=== PATIENT | male | born 1945 | race Caucasian/White ===

== ENCOUNTER → 2016-08-26 | Outpatient (CLI) | payer MEDICARE, OTHER ==
--- NOTE | 2016-08-26 15:25 | RADIOLOGY REPORT (SQ) ---
EXAM DESCRIPTION: CT PELVIS WITHOUT COMPLETED DATE/TIME: 08/26/2016 2:55 pm REASON FOR STUDY: FRACTURE OF COCCYX M53.88 OTH DORSOPATHIES, SACRAL AND SACROCOCCYGEAL REGION S32. 9XXA FRACTURE OF UNSP PARTS OF LUMBOSACRAL SPINE AND PEL COMPARISON: None. TECHNIQUE: CT scan of the pelvis performed without intravenous or oral contrast. Images reviewed wi th soft tissue and bone windows. Reconstructed coronal and sagittal MPR images reviewed. All images stored on PACS. Additional 3D shaded surface display images of the pelvis were generated on the workstation and saved to PACS All CT scanners at this facility use dose modulation, iterative reconstruction, and/or weight based d osing when appropriate to reduce radiation dose to as low as reasonably achievable (ALARA). [facility]: Dose Right [facility]: CareDose [facility]: Dose Right [facility]: Teradose 4D [facility]: [employer] RADIATION DOSE: 7.4 mGy. LIMITATIONS: None. FINDINGS: Overall normal bone density. No lytic or blastic lesions. There is a transverse fracture through the sacrum at the S5 level, extending into the sacrococcygeal joint. This is non angulated and best shown on sagittal images 39-44, coronal image 45, and axial im ages 62-64. Remainder of the bony pelvis is intact. No other fractures are identified There are degenerative disc changes at L3-4, L4-5, and L5-S1 with mild posterior disc bulging and mil d bilateral facet hypertrophy Soft tissue windows demonstrate a subtotal colectomy, old right lower quadrant ostomy takedown site, small bowel to distal sigmoid colon anastomotic laura, and old right inguinal hernia repair and a f atty left inguinal hernia IMPRESSION: Acute nondisplaced nonangulated transverse fracture through the sacrum at the S5 level TECHNICAL DOCUMENTATION: JOB ID: [id number] Quality ID # [id number]: Final reports with documentation of one or more dose reduction techniques (e.g., Au tomated exposure control, adjustment of the mA and/or kV according to patient size, use of iterative reconstruction technique) 2010 [employer]- All Rights Reserved
== END ==
LOC: RAD 14:35
PROVIDERS: ATTEND Family Medicine
DX: S32.9XXA Fracture of unspecified parts of lumbosacral spine and pelvis, initial encounter for closed fracture (principal); X58.XXXA Exposure to other specified factors, initial encounter; Y93.9 Activity, unspecified; Y92.9 Unspecified place or not applicable
CPT/HCPCS: 72192

== ENCOUNTER → 2016-09-05 | Outpatient (CLI) | payer MEDICARE, BC, OTHER ==
--- NOTE | 2016-09-05 12:43 | RADIOLOGY REPORT (SQ) ---
EXAM DESCRIPTION: KUB/ABDOMEN (SINGLE VIEW) COMPLETED DATE/TIME: 09/05/2016 11:07 am REASON FOR STUDY: LLQ PAIN (R10.32), CONSTIPATION-SLOW TRANSIT (K59.01) R10.32 LEFT LOWER QUADRANT PAIN K59.01 SLOW TRANSIT CONSTIPATION COMPARISON: None. NUMBER OF VIEWS: One view. TECHNIQUE: Supine radiographic image of the abdomen acquired. LIMITATIONS: None. FINDINGS: BOWEL GAS PATTERN: Normal bowel gas pattern. No dilated loops. CALCIFICATIONS: No suspicious calcifications. SOFT TISSUES: No gross mass or suggestion of organomegaly. HARDWARE: None in the abdomen. BONES: No acute fracture. No worrisome bone lesions. OTHER: No other significant finding. IMPRESSION: Nonspecific abdomen. TECHNICAL DOCUMENTATION: JOB ID: [id number] [employer]- All Rights Reserved
== END ==
LOC: RAD 10:53
PROVIDERS: ATTEND Physician Assistant Surgical
DX: R10.32 Left lower quadrant pain (principal); K59.01 Slow transit constipation
CPT/HCPCS: 74000

== ENCOUNTER 2016-11-29 11:16 | Emergency (ER) | payer MEDICARE, BC, OTHER ==
[2016-11-29 11:29] VITALS: BP 167/87
[2016-11-29] MEDS ORDERED: OXYCODONE-ACETAMINOPHEN 5-325 MG TABLET PO ONE (11:30)
--- NOTE | 2016-11-29 11:40 | ER Document Report ---
ED General - General Chief Complaint: Fall Stated Complaint: FELL SHOULDER PAIN Time Seen by Provider: 11/29/16 11:27 Mode of Arrival: Ambulatory Information source: Patient Notes: 71-year-old male presents with complaints of right shoulder pain. Patient notes he was gardening was pulling fell backwards and landed on his right shoulder. Patient has difficulty moving his shoulder TRAVEL OUTSIDE OF THE [place] IN LAST 30 DAYS: No - HPI Onset: Yesterday Onset/Duration: Sudden Quality of pain: Achy Severity: Mild Pain Level: 2 Associated symptoms: Body/muscle aches Exacerbated by: Movement Relieved by: Denies Similar symptoms previously: No Recently seen / treated by doctor: No - Related Data Allergies/Adverse Reactions: No Known Allergies Allergy (Verified 11/29/16 11:28) Past Medical History - Social History Smoking Status: Former Smoker Cigarette use (# per day): No Chew tobacco use (# tins/day): No Smoking Education Provided: No Frequency of alcohol use: None Drug Abuse: None Family History: Reviewed & Not Pertinent - Past Medical History Cardiac Medical History: Reports: Hx Hypertension Denies: Hx Coronary Artery Disease, Hx Heart Attack Pulmonary Medical History: Denies: Hx Asthma, Hx Bronchitis, Hx COPD, Hx Pneumonia Neurological Medical History: Denies: Hx Cerebrovascular Accident, Hx Seizures Endocrine Medical History: Reports: Hx Diabetes Mellitus Type 1 Renal/ Medical History: Denies: Hx Peritoneal Dialysis GI Medical History: Denies: Hx Hepatitis, Hx Hiatal Hernia, Hx Ulcer Musculoskeltal Medical History: Denies Hx Arthritis Psychiatric Medical History: Reports: Hx Anxiety Infectious Medical History: Denies: Hx Hepatitis Past Surgical History: Reports: Hx Abdominal Surgery - Colostomy and reversal., 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 Denies: Hx Open Heart Surgery, Hx Pacemaker - Immunizations Hx Diphtheria, Pertussis, Tetanus Vaccination: Yes Review of Systems - Review of Systems Notes: REVIEW OF SYSTEMS: CONSTITUTIONAL : Denies fever, chills, or sweats. Denies recent illness. EENT: Denies eye, ear, throat, or mouth pain or symptoms. Denies nasal or sinus congestion or discharge. Denies throat, tongue, or mouth swelling or difficulty swallowing. CARDIOVASCULAR: Denies chest pain. Denies palpitations or racing or irregular heart beat. Denies ankle edema. RESPIRATORY: Denies cough, cold, or chest congestion. Denies shortness of breath, difficulty breathing, or wheezing. GASTROINTESTINAL: Denies abdominal pain or distention. Denies nausea, vomiting , or diarrhea. Denies blood in vomitus, stools, or per rectum. Denies black, tarry stools. Denies constipation. GENITOURINARY: Denies difficulty urinating, painful urination, burning, frequency, blood in urine, or discharge. FEMALE GENITOURINARY: Denies vaginal bleeding, heavy or abnormal periods, irregular periods. Denies vaginal discharge or odor. MUSCULOSKELETAL: admits to right shoulder pain SKIN: Denies rash, lesions or sores. HEMATOLOGIC : Denies easy bruising or bleeding. LYMPHATIC: Denies swollen, enlarged glands. NEUROLOGICAL: Denies confusion or altered mental status. Denies passing out or loss of consciousness. Denies dizziness or lightheadedness. Denies headache. Denies weakness or paralysis or loss of use of either side. Denies problems with gait or speech. Denies sensory loss, numbness, or tingling. Denies seizures. PSYCHIATRIC: Denies anxiety or stress. Denies depression, suicidal ideation, or homicidal ideation. ALL OTHER SYSTEMS REVIEWED AND NEGATIVE. PHYSICAL EXAMINATION: GENERAL: Well-appearing, well-nourished and in no acute distress. HEAD: Atraumatic, normocephalic. EYES: Pupils equal round and reactive to light, extraocular movements intact, conjunctiva are normal. ENT: Nares patent, oropharynx clear without exudates. Moist mucous membranes. NECK: Normal range of motion, supple without lymphadenopathy LUNGS: Breath sounds clear to auscultation bilaterally and equal. No wheezes rales or rhonchi. HEART: Regular rate and rhythm without murmurs ABDOMEN: Soft, nontender, nondistended abdomen. No guarding, no rebound. No masses appreciated. Female : deferred Musculoskeletal: limited rom of the right shoulder NEUROLOGICAL: Cranial nerves grossly intact. Normal speech, normal gait. Normal sensory, motor exams PSYCH: Normal mood, normal affect. SKIN: abrasion of the right shoulder Dictation was performed using [employer] voice recognition software Physical Exam - Vital signs Vitals: Temp Pulse Resp BP Pulse Ox 98.7 F 107 H 18 167/87 H 98 11/29/16 11:28 11/29/16 11:28 11/29/16 11:28 11/29/16 11:28 11/29/16 11:28 Course - Re-evaluation Re-evalutation: 11/29/16 12:45 X-ray noted no acute fracture, patient will be placed in the sling for comfort and will be given follow-up with Ortho in 1 week if symptoms worsen After performing a Medical Screening Examination, I estimate there is LOW risk for INTRACRANIAL HEMORRHAGE, UNSTABLE SPINE FRACTURE, CENTRAL CORD SYNDROME, CAUDA EQUINA, THORACIC AORTIC DISSECTION, PNEUMOTHORAX, PERFORATED BOWEL, RUPTURED ABDOMINAL AORTIC ANEURYSM, ACUTE TENDON RUPTURE, COMPARTMENT SYNDROME, or OPEN FRACTURE, thus I consider the discharge disposition reasonable. Also, there is no evidence or peritonitis, sepsis, or toxicity. I have reevaluated this patient multiple times and no significant life threatening changes are noted. The patient and I have discussed the diagnosis and risks, and we agree with discharging home to follow-up with their primary doctor with the understanding that symptoms and presentations can change. We also discussed returning to the Emergency Department immediately if new or worsening symptoms occur. We have discussed the symptoms which are most concerning (e.g., bloody stool, fever, changing or worsening pain, vomiting) that necessitate immediate return. - Vital Signs Vital signs: Temp Pulse Resp BP Pulse Ox 98.7 F 107 H 18 167/87 H 98 11/29/16 11:28 11/29/16 11:28 11/29/16 11:28 11/29/16 11:28 11/29/16 11:28 - Diagnostic Test Radiology reviewed: Image reviewed, Reports reviewed - no acute fracture Discharge - Discharge Clinical Impression: Abrasion Right shoulder injury Qualifiers: Encounter type: initial encounter Qualified Code(s): S49.91XA - Unspecified injury of right shoulder and upper arm, initial encounter Condition: Stable Disposition: HOME, SELF-CARE Instructions: Contusion ([facility]) Prescriptions: Oxycodone HCl/Acetaminophen [Percocet 5-325 mg Tablet] 1 - 2 tab PO Q4H PRN #15 tablet PRN Reason: Referrals: SEN HAMM MD [ACTIVE STAFF] - Follow up in 3-5 days
--- NOTE | 2016-11-29 12:22 | RADIOLOGY REPORT (SQ) ---
EXAM DESCRIPTION: SHOULDER RIGHT 2 OR MORE VIEWS COMPLETED DATE/TIME: 11/29/2016 11:47 am REASON FOR STUDY: fall COMPARISON: None. NUMBER OF VIEWS: Three views. TECHNIQUE: Internal rotation, external rotation, and Y view images acquired of the right shoulder. LIMITATIONS: None. FINDINGS: MINERALIZATION: Bones are osteopenic BONES: No acute fracture or dislocation. No worrisome bone lesions. JOINTS: No glenohumeral joint malalignment. No acromioclavicular joint widening. There is AC joint arthropathy with bony spurring, and narrowing of the subacromial recess with subcortical cyst formati on over the right humeral head greater tuberosity likely indicating underlying rotator cuff disease. VISUALIZED LUNGS AND RIBS: No pneumothorax. No rib fracture. SOFT TISSUES: No radiopaque foreign body. OTHER: No other significant finding. IMPRESSION: No acute changes TECHNICAL DOCUMENTATION: JOB ID: [id number] [employer]- All Rights Reserved
== END 2016-11-29 12:54 | disposition home or self-care (01) ==
LOC: ER 11:16
DX: S40.811A Abrasion of right upper arm, initial encounter (principal); S49.91XA Unspecified injury of right shoulder and upper arm, initial encounter; M25.511 Pain in right shoulder; W19.XXXA Unspecified fall, initial encounter; Z87.891 Personal history of nicotine dependence
CPT/HCPCS: 99283; 73030; A9270

== ENCOUNTER → 2016-12-15 | Outpatient (CLI) | payer MEDICARE, BC ==
--- NOTE | 2016-12-15 10:26 | RADIOLOGY REPORT (SQ) ---
EXAM DESCRIPTION: CT ABD/PELVIS WITH IV ORAL COMPLETED DATE/TIME: 12/15/2016 8:57 am REASON FOR STUDY: PERIUMBILICAL PAIN (R10.33), CONSTIPATION (K59.00) R10.33 PERIUMBILICAL PAIN K59. 00 CONSTIPATION, UNSPECIFIED COMPARISON: CT abdomen pelvis 04/13/2012, 05/18/2014, 01/09/2015 TECHNIQUE: CT scan of the abdomen and pelvis performed using helical scanning technique with dynamic intravenous contrast injection. No oral contrast. Images reviewed with lung, soft tissue, and bone windows. Reconstructed coronal and sagittal MPR images reviewed. Delayed images for evaluation of the urinary system also acquired. All images stored on PACS. All CT scanners at this facility use dose modulation, iterative reconstruction, and/or weight based d osing when appropriate to reduce radiation dose to as low as reasonably achievable (ALARA). [facility]: Dose Right [facility]: CareDose [facility]: Dose Right [facility]: Teradose 4D [facility]: [employer] CONTRAST TYPE AND DOSE: contrast/concentration: Isovue 370.00 mg/ml; Total Contrast Delivered: 82.0 ml; Total Saline Delivered: 68.0 ml RENAL FUNCTION: Creatinine 1.3 RADIATION DOSE: Up-to-date CT equipment and radiation dose reduction techniques were employed. CTDIv ol: 7.2 - 8.4 mGy. DLP: 840 mGy-cm.. LIMITATIONS: None. FINDINGS: Patient is post subtotal colectomy with colostomy takedown and reanastomosis. There is or al contrast in the small bowel and residual sigmoid colon, without evidence of bowel obstruction. No air-fluid levels in small bowel. No stomal hernia or umbilical hernia. LOWER CHEST: No significant findings. No nodules or infiltrates. LIVER: Normal size. No masses. No dilated ducts. Diffuse low attenuation from fatty infiltration SPLEEN: Normal size. No focal lesions. PANCREAS: No masses. No significant calcifications. No adjacent inflammation or peripancreatic fluid collections. Pancreatic duct not dilated. GALLBLADDER: No identified stones by CT criteria. No inflammatory changes to suggest cholecystitis. ADRENAL GLANDS: No significant masses or asymmetry. RIGHT KIDNEY AND URETER: No solid masses. No significant calcifications. No hydronephrosis or hyd roureter. LEFT KIDNEY AND URETER: No solid masses. No significant calcifications. No hydronephrosis or hydr oureter. AORTA AND VESSELS: No aneurysm. No dissection. Renal arteries, SMA, celiac without stenosis. RETROPERITONEUM: No retroperitoneal adenopathy, hemorrhage or masses. BOWEL AND PERITONEAL CAVITY: As above APPENDIX: Surgically absent PELVIS: No mass. No free fluid. Normal bladder. ABDOMINAL WALL: Repaired right inguinal hernia, fat containing left inguinal hernia best shown on cor onal image 33 through 40. BONES: No significant or acute findings. OTHER: No other significant finding. IMPRESSION: No CT findings to explain history of periumbilical pain. No bowel obstruction. No umbi lical hernia. Post subtotal colectomy. TECHNICAL DOCUMENTATION: JOB ID: [id number] Quality ID # [id number]: Final reports with documentation of one or more dose reduction techniques (e.g., Au tomated exposure control, adjustment of the mA and/or kV according to patient size, use of iterative reconstruction technique) 2010 [employer]- All Rights Reserved
== END ==
LOC: RAD 07:54
PROVIDERS: ATTEND Surgery
DX: K59.00 Constipation, unspecified (principal); R10.33 Periumbilical pain
CPT/HCPCS: 74177; 82565

== ENCOUNTER → 2017-05-14 | Outpatient (CLI) | payer MEDICARE, BC ==
[2017-05-14 13:12] LABS: ABSOLUTE EOSINOPHILS # (AUTO) 0.1 10^3/uL (0.0-0.6); ABSOLUTE LYMPHOCYTES (AUTO) 0.9 10^3/uL (0.5-4.7); ABSOLUTE MONOCYTES (AUTO) 0.5 10^3/uL (0.1-1.4); ABSOLUTE NEUT (AUTO) 5.6 10^3/uL (1.7-8.2); BASOPHILS % (AUTO) 0.5 % (0-2); EOSINOPHILS % (AUTO) 1.8 % (0-6); HEMATOCRIT 31.1 % (37.9-51.0); HEMOGLOBIN 10.6 g/dL (13.5-17.0); LYMPHOCYTES % (AUTO) 12.3 % (13-45); MEAN CORPUSCULAR HEMOGLOBIN 31.3 pg (27.0-33.4); MEAN CORPUSCULAR VOLUME 92 fl (80-97); MONOCYTES % (AUTO) 6.6 % (3-13); PLATELET COUNT 453 10^3/uL (150-450); RED BLOOD COUNT 3.38 10^6/uL (4.35-5.55); RED CELL DISTRIBUTION WIDTH 12.2 % (11.5-14.0); SEGMENTED NEUTROPHILS % (AUTO) 78.8 % (42-78); TOTAL CELLS COUNTED % (AUTO) 100 %; WHITE BLOOD COUNT 7.1 10^3/uL (4.0-10.5)
[2017-05-14 13:34] LABS: ALANINE AMINOTRANSFERASE 35 U/L (21-72); ALBUMIN 4.2 g/dL (3.5-5.0); ALKALINE PHOSPHATASE 159 U/L (38-126); ANION GAP 15 (5-19); ASPARTATE AMINO TRANSFERASE 16 U/L (17-59); BILIRUBIN,DIRECT 0.4 mg/dL (0.0-0.4); BILIRUBIN,TOTAL 0.8 mg/dL (0.2-1.3); BLOOD UREA NITROGEN 21 mg/dL (7-20); CALCIUM 9.9 mg/dL (8.4-10.2); CARBON DIOXIDE 24 mmol/L (22-30); CHLORIDE 97 mmol/L (98-107); POTASSIUM 5.1 mmol/L (3.6-5.0); SODIUM 135.5 mmol/L (137-145); TOTAL PROTEIN 6.9 g/dL (6.3-8.2)
[2017-05-14 13:54] LABS: GLUCOSE 578 mg/dL (75-110)
== END ==
LOC: LAB 12:53
PROVIDERS: ATTEND Surgery
DX: R11.2 Nausea with vomiting, unspecified (principal)
CPT/HCPCS: 36415; 80048; 80076; 85025

== ENCOUNTER 2017-05-28 13:47 | Inpatient (IN) | payer MEDICARE, BC, OTHER ==
--- NOTE | 2017-05-28 14:30 | ER Document Report ---
ED General - General Chief Complaint: Abdominal Pain Stated Complaint: ABDOMINAL PAIN Time Seen by Provider: 05/28/17 14:20 Mode of Arrival: Ambulatory Information source: Patient Notes: 72-year-old male presents with complaints of generalized abdominal pain, patient notes pain has been going on for weeks, he was seen by his primary care physician head CT outpatient performed which noted concerns for cholecystitis patient admits to intermittent nausea TRAVEL OUTSIDE OF THE [place] IN LAST 30 DAYS: No - HPI Onset: Other Onset/Duration: Intermittent, Persistent Quality of pain: Achy Severity: Mild Pain Level: 1 Associated symptoms: Nausea, Vomiting Exacerbated by: Denies Relieved by: Denies Similar symptoms previously: Yes Recently seen / treated by doctor: Yes - Related Data Allergies/Adverse Reactions: No Known Allergies Allergy (Verified 11/29/16 11:28) Past Medical History - Social History Smoking Status: Never Smoker Cigarette use (# per day): No Chew tobacco use (# tins/day): No Smoking Education Provided: No Frequency of alcohol use: None Drug Abuse: None Family History: Reviewed & Not Pertinent Patient has suicidal ideation: No Patient has homicidal ideation: No - Past Medical History Cardiac Medical History: Reports: Hx Hypertension Denies: Hx Coronary Artery Disease, Hx Heart Attack Pulmonary Medical History: Denies: Hx Asthma, Hx Bronchitis, Hx COPD, Hx Pneumonia Neurological Medical History: Denies: Hx Cerebrovascular Accident, Hx Seizures Endocrine Medical History: Reports: Hx Diabetes Mellitus Type 1 Renal/ Medical History: Denies: Hx Peritoneal Dialysis GI Medical History: Denies: Hx Hepatitis, Hx Hiatal Hernia, Hx Ulcer Musculoskeltal Medical History: Denies Hx Arthritis Psychiatric Medical History: Reports: Hx Anxiety Infectious Medical History: Denies: Hx Hepatitis Past Surgical History: Reports: Hx Abdominal Surgery - Colostomy and reversal., 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 Denies: Hx Open Heart Surgery, Hx Pacemaker - Immunizations Hx Diphtheria, Pertussis, Tetanus Vaccination: Yes Review of Systems - Review of Systems Notes: REVIEW OF SYSTEMS: CONSTITUTIONAL : Denies fever, chills, or sweats. Denies recent illness. EENT: Denies eye, ear, throat, or mouth pain or symptoms. Denies nasal or sinus congestion or discharge. Denies throat, tongue, or mouth swelling or difficulty swallowing. CARDIOVASCULAR: Denies chest pain. Denies palpitations or racing or irregular heart beat. Denies ankle edema. RESPIRATORY: Denies cough, cold, or chest congestion. Denies shortness of breath, difficulty breathing, or wheezing. GASTROINTESTINAL: Admits to generalized abdominal pain admits to nausea vomiting GENITOURINARY: Denies difficulty urinating, painful urination, burning, frequency, blood in urine, or discharge. MUSCULOSKELETAL: Denies back or neck pain or stiffness. Denies joint pain or swelling. SKIN: Denies rash, lesions or sores. HEMATOLOGIC : Denies easy bruising or bleeding. LYMPHATIC: Denies swollen, enlarged glands. NEUROLOGICAL: Denies confusion or altered mental status. Denies passing out or loss of consciousness. Denies dizziness or lightheadedness. Denies headache. Denies weakness or paralysis or loss of use of either side. Denies problems with gait or speech. Denies sensory loss, numbness, or tingling. Denies seizures. PSYCHIATRIC: Denies anxiety or stress. Denies depression, suicidal ideation, or homicidal ideation. ALL OTHER SYSTEMS REVIEWED AND NEGATIVE. Dictation was performed using [employer] voice recognition software PHYSICAL EXAMINATION: GENERAL: Well-appearing, well-nourished and in no acute distress. HEAD: Atraumatic, normocephalic. EYES: Pupils equal round and reactive to light, extraocular movements intact, sclera anicteric, conjunctiva are normal. ENT: Nares patent, oropharynx clear without exudates. Moist mucous membranes. NECK: Normal range of motion, supple without lymphadenopathy LUNGS: Breath sounds clear to auscultation bilaterally and equal. No wheezes rales or rhonchi. HEART: Regular rate and rhythm without murmurs ABDOMEN: Soft, generalized abdominal pain worse in the left upper quadrant, significant surgical incisions Musculoskeletal: Normal range of motion, no pitting or edema. No cyanosis. NEUROLOGICAL: Cranial nerves grossly intact. Normal speech, normal gait. Normal sensory, motor exams PSYCH: Normal mood, normal affect. SKIN: Warm, Dry, normal turgor, no rashes or lesions noted. Physical Exam - Vital signs Vitals: Temp Pulse BP Pulse Ox 98.4 F 114 H 136/80 H 99 05/28/17 14:07 05/28/17 14:07 05/28/17 14:07 05/28/17 14:07 Course - Re-evaluation Re-evalutation: 05/28/17 14:29 Findings were discussed with Dr. Ware, he requests ultrasound 05/28/17 16:33 Patient's initially admitted to surgical list then switched to hospitalist I have spoken to the to them and I request that the speak teacher to determine who will admit the patient, this appears to be cholecystitis with some pancreatitis as well - Vital Signs Vital signs: Temp Pulse Resp BP Pulse Ox 98.4 F 114 H 136/80 H 99 05/28/17 14:07 05/28/17 14:07 05/28/17 14:07 05/28/17 14:07 - Laboratory Result Diagrams: 05/28/17 14:40 05/28/17 14:40 Laboratory results interpreted by me: 05/28/17 05/28/17 14:40 14:40 RBC 3.65 L Hgb 11.4 L Hct 32.9 L Potassium 5.3 H BUN 22 H Creatinine 1.26 H Est GFR (Non-Af Amer) 56 L Glucose 242 H AST 12 L Alkaline Phosphatase 134 H Lipase 358.5 H - Diagnostic Test Radiology reviewed: Image reviewed, Reports reviewed - Acute cholecystitis Discharge - Discharge Clinical Impression: Acute cholecystitis Condition: Stable Disposition: ADMITTED INPATIENT Admitting Provider: Surgicalist Unit Admitted: Telemetry
[2017-05-28] MEDS ORDERED: NORMAL SALINE 1000 ML 1,000 ML IV ONE (14:36)
[2017-05-28 15:19] LABS: ABSOLUTE EOSINOPHILS # (AUTO) 0.2 10^3/uL (0.0-0.6); ABSOLUTE LYMPHOCYTES (AUTO) 1.1 10^3/uL (0.5-4.7); ABSOLUTE MONOCYTES (AUTO) 0.5 10^3/uL (0.1-1.4); ABSOLUTE NEUT (AUTO) 4.2 10^3/uL (1.7-8.2); BASOPHILS % (AUTO) 0.4 % (0-2); EOSINOPHILS % (AUTO) 2.7 % (0-6); HEMATOCRIT 32.9 % (37.9-51.0); HEMOGLOBIN 11.4 g/dL (13.5-17.0); MEAN CORPUSCULAR HEMOGLOBIN 31.1 pg (27.0-33.4); MEAN CORPUSCULAR HGB CONC 34.6 g/dL (32.0-36.0); MEAN CORPUSCULAR VOLUME 90 fl (80-97); MONOCYTES % (AUTO) 8.3 % (3-13); PLATELET COUNT 289 10^3/uL (150-450); RED BLOOD COUNT 3.65 10^6/uL (4.35-5.55); SEGMENTED NEUTROPHILS % (AUTO) 70.6 % (42-78); TOTAL CELLS COUNTED % (AUTO) 100 %
[2017-05-28 15:29] LABS: ALANINE AMINOTRANSFERASE 26 U/L (21-72); ALBUMIN 4.3 g/dL (3.5-5.0); ALKALINE PHOSPHATASE 134 U/L (38-126); ANION GAP 10 (5-19); ASPARTATE AMINO TRANSFERASE 12 U/L (17-59); BILIRUBIN,DIRECT 0.4 mg/dL (0.0-0.4); BILIRUBIN,TOTAL 0.5 mg/dL (0.2-1.3); BLOOD UREA NITROGEN 22 mg/dL (7-20); CALCIUM 9.7 mg/dL (8.4-10.2); CARBON DIOXIDE 25 mmol/L (22-30); CHLORIDE 102 mmol/L (98-107); GLUCOSE 242 mg/dL (75-110); LIPASE 358.5 U/L (23-300); POTASSIUM 5.3 mmol/L (3.6-5.0); TOTAL PROTEIN 7.2 g/dL (6.3-8.2)
--- NOTE | 2017-05-28 15:29 | RADIOLOGY REPORT (SQ) ---
EXAM DESCRIPTION: U/S ABDOMEN LIMITED W/O DOP COMPLETED DATE/TIME: 05/28/2017 3:18 pm REASON FOR STUDY: RUQ pain COMPARISON: None. TECHNIQUE: Dynamic and static grayscale images acquired of the abdomen and recorded on PACS. Annao hany selected color Doppler and spectral images recorded. LIMITATIONS: None. FINDINGS: PANCREAS: No masses. Visualized pancreatic duct normal caliber. LIVER: Normal size. 17.8 cm. Fatty infiltration. No masses. LIVER VASCULATURE: Normal directional flow of the main portal vein and hepatic veins. GALLBLADDER: Distended. Full of sludge. Pericholecystic edema. Slight thickening wall. ULTRASOUND-DETECTED ESCALERA'S SIGN: Negative. INTRAHEPATIC DUCTS AND COMMON DUCT: CBD and intrahepatic ducts normal caliber. No filling defects. INFERIOR VENA CAVA: Normal flow. AORTA: No aneurysm. RIGHT KIDNEY: Normal size. Normal echogenicity. No solid or suspicious masses. No hydronephrosis. No calcifications. PERITONEAL AND RIGHT PLEURAL SPACE: No ascites or effusions. OTHER: No other significant findings. IMPRESSION: Fatty infiltration of the liver. Gallbladder sludge and pericholecystic edema as well a s slight thickening of wall of the gallbladder suggestive of acute cholecystitis. TECHNICAL DOCUMENTATION: JOB ID: [id number] [employer]- All Rights Reserved Reading location - IP/workstation name: [email or web address]
--- NOTE | 2017-05-28 16:55 | ER Document Report ---
ED General - General Chief Complaint: Abdominal Pain Stated Complaint: ABDOMINAL PAIN Time Seen by Provider: 05/28/17 14:20 Mode of Arrival: Ambulatory Information source: Patient TRAVEL OUTSIDE OF THE [place] IN LAST 30 DAYS: No - Related Data Allergies/Adverse Reactions: No Known Allergies Allergy (Verified 11/29/16 11:28) Past Medical History - General Information source: Patient - Social History Smoking Status: Unknown if Ever Smoked Cigarette use (# per day): No Chew tobacco use (# tins/day): No Frequency of alcohol use: None Drug Abuse: None Family History: Reviewed & Not Pertinent Patient has suicidal ideation: No Patient has homicidal ideation: No - Past Medical History Cardiac Medical History: Reports: Hx Hypertension Denies: Hx Coronary Artery Disease, Hx Heart Attack Pulmonary Medical History: Denies: Hx Asthma, Hx Bronchitis, Hx COPD, Hx Pneumonia Neurological Medical History: Denies: Hx Cerebrovascular Accident, Hx Seizures Endocrine Medical History: Reports: Hx Diabetes Mellitus Type 1 Renal/ Medical History: Denies: Hx Peritoneal Dialysis GI Medical History: Denies: Hx Hepatitis, Hx Hiatal Hernia, Hx Ulcer Musculoskeltal Medical History: Denies Hx Arthritis Psychiatric Medical History: Reports: Hx Anxiety Infectious Medical History: Denies: Hx Hepatitis Past Surgical History: Reports: Hx Abdominal Surgery - Colostomy and reversal., 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 Denies: Hx Open Heart Surgery, Hx Pacemaker - Immunizations Hx Diphtheria, Pertussis, Tetanus Vaccination: Yes Physical Exam - Vital signs Vitals: Temp Pulse BP Pulse Ox 98.4 F 114 H 136/80 H 99 05/28/17 14:07 05/28/17 14:07 05/28/17 14:07 05/28/17 14:07 Course - Vital Signs Vital signs: Temp Pulse Resp BP Pulse Ox 98.4 F 114 H 136/80 H 99 05/28/17 14:07 05/28/17 14:07 05/28/17 14:07 05/28/17 14:07 - Laboratory Result Diagrams: 05/28/17 14:40 05/28/17 14:40 Laboratory results interpreted by me: 05/28/17 05/28/17 14:40 14:40 RBC 3.65 L Hgb 11.4 L Hct 32.9 L Potassium 5.3 H BUN 22 H Creatinine 1.26 H Est GFR (Non-Af Amer) 56 L Glucose 242 H AST 12 L Alkaline Phosphatase 134 H Lipase 358.5 H Discharge - Discharge Clinical Impression: Acute cholecystitis Condition: Stable Disposition: ADMITTED INPATIENT
[2017-05-28] MEDS ORDERED: ONDANSETRON HCL INJ/PF 4 MG/2 ML SDV IV PRN (17:03)
[2017-05-28] MEDS ORDERED: GLUCAGON,HUMAN RECOMB 1 MG INJ SUBCUT PRN (17:03)
[2017-05-28] MEDS ORDERED: DEXTROSE 40% GEL 15 GM TUBE PO PRN ×6 (17:03→18:32)
[2017-05-28] MEDS ORDERED: DEXTROSE 50%-WATER 25 GM/50 ML DISP.SYRIN IV PRN ×6 (17:03→18:32)
[2017-05-28] MEDS ORDERED: GLUCAGON,HUMAN RECOMB 1 MG INJ IM PRN ×2 (17:08→18:32)
[2017-05-28] MEDS ORDERED: INSULIN REG, HUMAN 100 UNIT/ML 3 ML VIAL (PYX) SUBCUT PRN (17:08)
[2017-05-28] MEDS ORDERED: HYDROMORPHONE HCL INJ/PF 2 MG/ML AMPULE IV PRN (17:10)
--- NOTE | 2017-05-28 17:14 | PDOC CONSULTATION ---
History of Present Illness Patient complains of: Epigastric abdominal pain radiating to the left flank History of Present Illness: MIKE CROOK is a 72 year old male presenting with several month history of epigastric abdominal pain radiating to the left flank along with nausea and constipation. The symptoms appear to have worsened in the last several days. Patient had underwent an outpatient CT scan that demonstrated evidence of possible cholecystitis and was subsequently referred to the emergency department. He drinks wine on a daily basis. He had underwent a upper and lower endoscopy as per the patient's which demonstrated no significant findings other than what sounds like some evidence of gastritis. Patient had underwent a partial colon resection in the remote past for unclear reasons. He apparently had a colostomy for a while that was eventually taken down. He is also had a right inguinal hernia repair in the past. Patient denies any groin pain. Patient denies any history of jaundice, denies any history of hematemesis , no emesis, last bowel movement several days ago after an enema. Patient denies any fever. Denies any shortness of breath nor chest pain. Past Medical History Cardiac Medical History: Reports: Hypertension Denies: Coronary Artery Disease, Myocardial Infarction Pulmonary Medical History: Denies: Asthma, Bronchitis, Chronic Obstructive Pulmonary Disease (COPD), Pneumonia Neurological Medical History: Denies: Seizures Endocrine Medical History: Reports: Diabetes Mellitus Type 1 GI Medical History: Denies: Hepatitis, Hiatal Hernia Musculoskeltal Medical History: Denies: Arthritis Hematology: Denies: Anemia, Sickle Cell Disease Past Surgical History Past Surgical History: Reports: Herniorrhaphy - Right inguinal Denies: Pacemaker Social History Smoking Status: Unknown if Ever Smoked Frequency of Alcohol Use: Heavy - Drinks wine Almost daily Drugs: None Family History Family History: Reviewed & Not Pertinent Parental Family History Reviewed: No Children Family History Reviewed: No Sibling(s) Family History Reviewed.: No Medication/Allergy Home Medications: Docusate Sodium [Colace 100 mg Capsule] 100 mg PO BID 05/28/17 Insulin Glargine,Hum.rec.anlog [Lantus Solostar] 30 unit SQ QHS 05/28/17 Allergies/Adverse Reactions: No Known Allergies Allergy (Verified 11/29/16 11:28) Physical Exam Vital Signs: Temp Pulse Resp BP Pulse Ox 98.4 F 114 H 136/80 H 99 05/28/17 14:07 05/28/17 14:07 05/28/17 14:07 05/28/17 14:07 Intake & Output 05/27/17 05/28/17 05/29/17 06:59 06:59 06:59 Weight 73.4 kg General appearance: PRESENT: no acute distress, cooperative Eye exam: PRESENT: conjunctiva pink Respiratory exam: PRESENT: clear to auscultation jc Cardiovascular exam: PRESENT: RRR GI/Abdominal exam: PRESENT: other - Soft, nondistended, midline abdominal scar with no palpable hernia defects, diffuse abdominal tenderness especially in the epigastric and the left upper abdomen without peritoneal signs. No Zavala sign. No focal right upper quadrant tenderness. Patient with a palpable left groin bulge with Valsalva that is easily reducible. I do not feel a right groin bulge. Extremities exam: PRESENT: other - No swelling and no tenderness Neurological exam: PRESENT: alert, awake Psychiatric exam: PRESENT: appropriate affect Skin exam: PRESENT: warm Results Laboratory Results: 05/28/17 14:40 05/28/17 14:40 05/28/17 05/28/17 14:40 14:40 WBC 6.0 RBC 3.65 L Hgb 11.4 L Hct 32.9 L MCV 90 MCH 31.1 MCHC 34.6 RDW 13.0 Plt Count 289 Seg Neutrophils % 70.6 Lymphocytes % 18.0 Monocytes % 8.3 Eosinophils % 2.7 Basophils % 0.4 Absolute Neutrophils 4.2 Absolute Lymphocytes 1.1 Absolute Monocytes 0.5 Absolute Eosinophils 0.2 Absolute Basophils 0.0 Sodium 137.0 Potassium 5.3 H Chloride 102 Carbon Dioxide 25 Anion Gap 10 BUN 22 H Creatinine 1.26 H Est GFR ( Amer) > 60 Est GFR (Non-Af Amer) 56 L Glucose 242 H Calcium 9.7 Total Bilirubin 0.5 AST 12 L ALT 26 Alkaline Phosphatase 134 H Total Protein 7.2 Albumin 4.3 Lipase 358.5 H Impressions: Abdomen Ultrasound 05/28/17 14:29 IMPRESSION: Fatty infiltration of the liver. Gallbladder sludge and pericholecystic edema as well as slight thickening of wall of the gallbladder suggestive of acute cholecystitis. Assessment & Plan - Diagnosis (1) Pancreatitis Qualifiers: Chronicity: chronic Pancreatitis type: alcohol induced Qualified Code(s) : K86.0 - Alcohol-induced chronic pancreatitis Is this a current diagnosis for this admission?: Yes Plan: Uncertain of etiology of his pancreatitis. Patient's has chronic epigastric abdominal pain. Possible alcohol related. Biliary pancreatitis is in the differential diagnosis although generally with biliary pancreatitis lipase elevations tend to be much more severe. Patient does have a sludge in his gallbladder. Uncertain whether he really has acute cholecystitis despite the ultrasound and CT scan findings of pericholecystic fluid and mild gallbladder wall thickening. He does not have focal right upper quadrant tenderness and his predominant complaint is not right upper quadrant abdominal pain. We will plan to admit the patient for further workup. Will hydrate the patient overnight and will do a pancreatic protocol CT scan. Will consider an MRCP as well during this admission. Will check triglyceride level. He does have a left inguinal hernia but it is asymptomatic and not contributing to his symptoms at this time.
[2017-05-28] MEDS: NORMAL SALINE 1000 ML 1,000 ML IV PRN (18:31)
[2017-05-28] MEDS: LANSOPRAZOLE 30 MG TAB.RAP.DR PO SCH (18:38)
[2017-05-28] MEDS ORDERED: SIMETHICONE 80 MG TAB.CHEW PO PRN (18:39)
--- NOTE | 2017-05-28 18:41 | PDOC CONSULTATION ---
Consultation Consult Date: 05/28/17 Attending physician:: LES MYERS Consult reason:: Abd pain History of Present Illness Admission Date/PCP: 05/28/17 16:33 Patient complains of: abd pain History of Present Illness: Patient arrives to the hospital with complaint of abdominal pain. Patient states abdominal pain affects his left side and then radiates down the left side and over to his pelvic area. Patient states he has been having these sensations for a while however that over the last few weeks it has intensified. Patient reports that his outpatient doctor did a CT of the abdomen and pelvis and the results of that study suggested that patient could have acute cholecystitis. Patient states he has chronic issues with nausea every time he eats however patient reports that nausea has increased whenever he eats. Patient denies any vomiting reports that patient normally drinks Ensure and eats some food. Patient states he has problems with chronic constipation. Patient states he has been using enemas and has not had any results. Patient states that his belly feels firm on the left side as though he is blocked patient states on the right side it solved and does not cause pain when pressure is applied. Patient reports that he had recent surgery for evaluation of abdominal discomfort. states that they did remove something but she is unsure exactly what was removed. Past Medical History Cardiac Medical History: Reports: Hypertension Denies: Coronary Artery Disease, Myocardial Infarction Pulmonary Medical History: Denies: Asthma, Bronchitis, Chronic Obstructive Pulmonary Disease (COPD), Pneumonia Neurological Medical History: Denies: Seizures Endocrine Medical History: Reports: Diabetes Mellitus Type 1 GI Medical History: Denies: Hepatitis, Hiatal Hernia Musculoskeltal Medical History: Denies: Arthritis Hematology: Denies: Anemia, Sickle Cell Disease Past Surgical History Past Surgical History: Reports: Herniorrhaphy - Right inguinal Denies: Pacemaker Social History Information Source: Patient Lives with: Spouse/Significant other Smoking Status: Unknown if Ever Smoked Frequency of Alcohol Use: None - Drinks wine Almost daily Hx Recreational Drug Use: No Drugs: None Hx Prescription Drug Abuse: No - Advance Directive Resuscitation Status: Full Code Family History Family History: Reviewed & Not Pertinent Parental Family History Reviewed: Yes Children Family History Reviewed: Yes Sibling(s) Family History Reviewed.: Yes Medication/Allergy Home Medications: Docusate Sodium [Colace 100 mg Capsule] 100 mg PO BID 05/28/17 Insulin Glargine,Hum.rec.anlog [Lantus Solostar] 30 unit SQ QHS 05/28/17 Allergies/Adverse Reactions: No Known Allergies Allergy (Verified 11/29/16 11:28) Review of Systems Constitutional: ABSENT: chills, fever(s), headache(s), weight gain, weight loss Eyes: ABSENT: visual disturbances Ears: ABSENT: hearing changes Cardiovascular: ABSENT: chest pain, dyspnea on exertion, edema, orthropnea, palpitations Respiratory: ABSENT: cough, hemoptysis Gastrointestinal: PRESENT: abdominal pain, nausea. ABSENT: constipation, diarrhea, hematemesis, hematochezia, vomiting Genitourinary: ABSENT: dysuria, hematuria Musculoskeletal: ABSENT: joint swelling Integumentary: ABSENT: rash, wounds Neurological: ABSENT: abnormal gait, abnormal speech, confusion, dizziness, focal weakness, syncope Psychiatric: ABSENT: anxiety, depression, homidical ideation, suicidal ideation Endocrine: ABSENT: cold intolerance, heat intolerance, polydipsia, polyuria Hematologic/Lymphatic: ABSENT: easy bleeding, easy bruising Physical Exam Vital Signs: Temp Pulse Resp BP Pulse Ox 98.2 F 114 H 21 H 164/81 H 100 05/28/17 17:27 05/28/17 14:07 05/28/17 17:28 05/28/17 17:30 05/28/17 17:28 General appearance: PRESENT: mild distress, well-developed, well-nourished Head exam: PRESENT: atraumatic, normocephalic Eye exam: PRESENT: conjunctiva pink, EOMI. ABSENT: scleral icterus Ear exam: PRESENT: normal external ear exam Mouth exam: PRESENT: moist, tongue midline Neck exam: ABSENT: carotid bruit, JVD, lymphadenopathy, thyromegaly Respiratory exam: PRESENT: clear to auscultation jc. ABSENT: rales, rhonchi, wheezes Cardiovascular exam: PRESENT: RRR. ABSENT: diastolic murmur, rubs, systolic murmur Pulses: PRESENT: normal dorsalis pedis pul Vascular exam: PRESENT: normal capillary refill GI/Abdominal exam: PRESENT: other - Positive for tenderness to palpation on the left lower quadrant and mid quadrant, right side upper and lower quadrant with minimal tenderness to palpation, epigastric no evidence of tenderness to palpation. ABSENT: guarding, mass, organolmegaly Rectal exam: PRESENT: deferred Extremities exam: PRESENT: full ROM. ABSENT: calf tenderness, clubbing, pedal edema Musculoskeletal exam: PRESENT: full ROM Neurological exam: PRESENT: alert, awake, oriented to person, oriented to place , oriented to time, oriented to situation, CN II-XII grossly intact. ABSENT: motor sensory deficit Psychiatric exam: PRESENT: appropriate affect, normal mood. ABSENT: homicidal ideation, suicidal ideation Skin exam: PRESENT: dry, intact, warm. ABSENT: cyanosis, rash Results Impressions: Abdomen Ultrasound 05/28/17 14:29 IMPRESSION: Fatty infiltration of the liver. Gallbladder sludge and pericholecystic edema as well as slight thickening of wall of the gallbladder suggestive of acute cholecystitis. Assessment & Plan - Diagnosis (1) Essential hypertension Is this a current diagnosis for this admission?: Yes Plan: We will resume home medications once med rec has been verified (2) Diabetes type 2, uncontrolled Is this a current diagnosis for this admission?: Yes Plan: Place patient on sliding scale insulin and long-acting insulin. (3) Chronic nausea Is this a current diagnosis for this admission?: Yes Plan: Macy (4) H/O abdominal surgery Is this a current diagnosis for this admission?: Yes Plan: Currently not convinced that patient's presentation is consistent with pancreatitis and I am not convinced that patient's presentation is consistent with acute cholecystitis. Patient's complaints and physical exam findings seem to suggest a colonic issue. Will try given patient soapsuds enema to see if this will help him with having a bowel movement and decreased abdominal discomfort. (5) Hyperkalemia Is this a current diagnosis for this admission?: Yes Plan: Patient given IV fluids will monitor patient. (6) Chronic kidney disease, stage II (mild) Is this a current diagnosis for this admission?: Yes Plan: at baseline will continue to monitor. (7) Pancreatitis Qualifiers: Chronicity: chronic Pancreatitis type: alcohol induced Qualified Code(s) : K86.0 - Alcohol-induced chronic pancreatitis Is this a current diagnosis for this admission?: Yes Plan: Not convinced the patient's presentation is consistent with pancreatitis. Patient's lipase has been elevated at other times throughout the years. Do not feel that this clinches the diagnosis of pancreatitis due to patient's clinical findings. However will monitor patient throughout hospitalization and see how this condition evolves. (8) Abdominal pain Qualifiers: Abdominal location: unspecified location Qualified Code(s): R10.9 - Unspecified abdominal pain Is this a current diagnosis for this admission?: Yes Plan: Pt reports he has not had a bowel movement with using enema. Will give soapsuds enema to see if patient has bowel movement. Will also write for simethicone to see if this helps with bloating. - Time Time Spent: 30 to 50 Minutes
--- NOTE | 2017-05-28 21:54 | EKG REPORT ---
SEVERITY:- ABNORMAL ECG - SINUS TACHYCARDIA RBBB AND LAFB : Confirmed by: Debra Delgado 28-May-2017 21:53:42
[2017-05-29] MEDS: LANSOPRAZOLE 30 MG TAB.RAP.DR PO SCH ×2 (06:22→18:14)
[2017-05-29] MEDS: NORMAL SALINE 1000 ML 1,000 ML IV PRN (06:22)
[2017-05-29 07:34] LABS: HEMATOCRIT 30.7 % (37.9-51.0); HEMOGLOBIN 10.4 g/dL (13.5-17.0); MEAN CORPUSCULAR HEMOGLOBIN 30.8 pg (27.0-33.4); MEAN CORPUSCULAR HGB CONC 33.9 g/dL (32.0-36.0); MEAN CORPUSCULAR VOLUME 91 fl (80-97); PLATELET COUNT 256 10^3/uL (150-450); RED BLOOD COUNT 3.39 10^6/uL (4.35-5.55); RED CELL DISTRIBUTION WIDTH 13.1 % (11.5-14.0); WHITE BLOOD COUNT 4.8 10^3/uL (4.0-10.5)
[2017-05-29 07:58] LABS: ALANINE AMINOTRANSFERASE 29 U/L (21-72); ALBUMIN 3.5 g/dL (3.5-5.0); ALKALINE PHOSPHATASE 85 U/L (38-126); ANION GAP 10 (5-19); ASPARTATE AMINO TRANSFERASE 15 U/L (17-59); BILIRUBIN,DIRECT 0.4 mg/dL (0.0-0.4); BILIRUBIN,TOTAL 0.7 mg/dL (0.2-1.3); BLOOD UREA NITROGEN 14 mg/dL (7-20); CALCIUM 9.3 mg/dL (8.4-10.2); CARBON DIOXIDE 21 mmol/L (22-30); CHLORIDE 114 mmol/L (98-107); GLUCOSE 86 mg/dL (75-110); LIPASE 143.7 U/L (23-300); POTASSIUM 4.4 mmol/L (3.6-5.0); SODIUM 144.5 mmol/L (137-145); TOTAL PROTEIN 6.3 g/dL (6.3-8.2); TRIGLYCERIDES 281 mg/dL (<150)
[2017-05-29] MEDS ORDERED: LIDOCAINE 2% INJ (20 MG/ML) 20 ML MDV INJ ONE (11:30)
[2017-05-29] MEDS ORDERED: BUPIVACAINE HCL 0.5%/EPI 1:200000 INJ 1.8 ML CARTRIDGE INJ ONE (11:30)
[2017-05-29] MEDS ORDERED: BUPIVACAINE HCL 0.5%-EPI 1:200000 INJ/PF 30 ML VIAL INJ ONE (12:00)
--- NOTE | 2017-05-29 13:38 | RADIOLOGY REPORT (SQ) ---
EXAM DESCRIPTION: NM HIDA SCAN COMPLETED DATE/TIME: 05/29/2017 1:20 pm REASON FOR STUDY: r/o acute cholecystitis COMPARISON: Abdominal ultrasound 05/28/2017 CT abdomen pelvis 12/15/2016 RADIONUCLIDE AND DOSE: DOSAGE RADIONUCLIDE: 5.3 millicuries Tc99m Mebrofenin. DOSAGE MORPHINE: Not required. The route of agent administration: Intravenous TECHNIQUE: Serial imaging right upper quadrant up to 60 minutes following injection of radionuclide. Patient imaged AP and Right Lateral. LIMITATIONS: None. FINDINGS: LIVER: Normal visualization without areas of photopenia. INTRA-HEPATIC BILE DUCTS: Normal visualization COMMON BILE DUCT: Normal visualization GALLBLADDER: Normal visualization. OTHER: No other significant finding. IMPRESSION: NORMAL STUDY WITHOUT CYSTIC OR COMMON DUCT OBSTRUCTION. TECHNICAL DOCUMENTATION: JOB ID: [id number] [employer]- All Rights Reserved Reading location - IP/workstation name: [email or web address]
--- NOTE | 2017-05-29 13:42 | RADIOLOGY REPORT (SQ) ---
EXAM DESCRIPTION: CT LUMBAR SPINE WITHOUT COMPLETED DATE/TIME: 05/29/2017 1:23 pm REASON FOR STUDY: LUQ pain radiating to back COMPARISON: CT abdomen pelvis 12/15/2016 TECHNIQUE: Axial images acquired through the lumbar spine without intravenous contrast. Images revi ewed with lung, soft tissue and bone windows. Reconstructed coronal and sagittal MPR images reviewed . All images stored on PACS. All CT scanners at this facility use dose modulation, iterative reconstruction, and/or weight based d osing when appropriate to reduce radiation dose to as low as reasonably achievable (ALARA). [facility]: Dose Right [facility]: CareDose [facility]: Dose Right [facility]: Teradose 4D [facility]: DailyStrength RADIATION DOSE: CT Rad equipment meets quality standard of care and radiation dose reduction techniq ues were employed. CTDIvol: 11.0 mGy. DLP: 306 mGy-cm. mGy. LIMITATIONS: None. FINDINGS: SEGMENTATION: Normal. No transitional anatomy. ALIGNMENT: Normal. VERTEBRAL BODIES: No fractures. No dislocation. No acute findings. DISCS: The T12-L1, L1-2, and L2-3 disc levels are unremarkable. At L3-4, mild central canal narrowing results from broad diffuse disc bulge and moderate bilateral fa cet and ligament hypertrophy. There is mild bilateral inferior foraminal narrowing without exiting n erve root impingement. At L4-5, moderate central canal stenosis results from broad diffuse posterior disc bulging and modera te bilateral facet and ligament hypertrophy. There is mild bilateral inferior foraminal narrowing wi thout exiting L4 nerve root impingement. At L5-S1, mild diffuse posterior disc bulging and mild facet hypertrophy is present without significa nt central or foraminal encroachment. PEDICLES, TRANSVERSE PROCESSES: No fractures. No dislocation. No acute findings. FACETS, POSTERIOR ELEMENTS: No fractures. No dislocation. HARDWARE: None in the spine. VISUALIZED RIBS: No fractures. SOFT TISSUES: No significant or acute finding in adjacent soft tissues. OTHER: No other significant finding. IMPRESSION: Degenerative disc changes most pronounced at L4-5. No acute fracture or malalignment. TECHNICAL DOCUMENTATION: JOB ID: [id number] Quality ID # [id number]: Final reports with documentation of one or more dose reduction techniques (e.g., Au tomated exposure control, adjustment of the mA and/or kV according to patient size, use of iterative reconstruction technique) 2010 [employer]- All Rights Reserved Reading location - IP/workstation name: [email or web address]
--- NOTE | 2017-05-29 13:44 | RADIOLOGY REPORT (SQ) ---
EXAM DESCRIPTION: CT THORACIC SPINE WITHOUT COMPLETED DATE/TIME: 05/29/2017 1:23 pm REASON FOR STUDY: LUQ pain radiating to back COMPARISON: CT abdomen pelvis 12/15/2016 TECHNIQUE: Axial images acquired through the thoracic spine without intravenous contrast. Images re viewed with lung, soft tissue and bone windows. Reconstructed coronal and sagittal MPR images review ed. Images stored on PACS. All CT scanners at this facility use dose modulation, iterative reconstruction, and/or weight based d osing when appropriate to reduce radiation dose to as low as reasonably achievable (ALARA). [facility]: Dose Right [facility]: CareDose [facility]: Dose Right [facility]: Teradose 4D [facility]: deskwolf RADIATION DOSE: CT Rad equipment meets quality standard of care and radiation dose reduction techniq ues were employed. CTDIvol: 12.2 mGy. DLP: 510 mGy-cm. mGy. LIMITATIONS: None. FINDINGS: VISUALIZED LUNGS: No acute opacities. No pneumothorax. SOFT TISSUES: No soft tissue swelling. No masses. VERTEBRAL BODIES: No fractures. No dislocation. No acute findings. DISCS: No significant disc space narrowing. ALIGNMENT: Normal. TRANSVERSE PROCESSES, POSTERIOR ELEMENTS: No fractures. No dislocation. No acute findings. HARDWARE: None in the spine. VISUALIZED RIBS: No fractures. OTHER: No other significant finding. IMPRESSION: NORMAL CT OF THE THORACIC SPINE. TECHNICAL DOCUMENTATION: JOB ID: [id number] Quality ID # [id number]: Final reports with documentation of one or more dose reduction techniques (e.g., Au tomated exposure control, adjustment of the mA and/or kV according to patient size, use of iterative reconstruction technique) 2010 [employer]- All Rights Reserved Reading location - IP/workstation name: [email or web address]
--- NOTE | 2017-05-29 14:08 | PDOC PROGRESS REPORT ---
Subjective Progress Note for:: 05/29/17 Subjective:: Pt states that he is still having pain in abd that radiates to pelvis. Patient states that he did not want to take a soapsuds enema last night because he had had an enema that morning. Patient this morning was requested to have an enema because he feels like he has stool there that needs to come out patient states that he feels like he has got a vacuum that just keeps suck that stool back into his intestine. He states that he wishes he wishes he had a hose that he did use to flush it out of his system. Reason For Visit: PANCREATITIS Physical Exam Vital Signs: Temp Pulse Resp BP Pulse Ox 98.8 F 78 16 142/71 H 99 05/29/17 08:05 05/29/17 08:05 05/29/17 08:05 05/29/17 08:05 05/29/17 08:05 Intake & Output 05/28/17 05/29/17 05/30/17 06:59 06:59 06:59 Output Total 200 Balance -200 Weight 74.1 kg General appearance: PRESENT: no acute distress, well-developed, well-nourished Head exam: PRESENT: atraumatic, normocephalic Eye exam: PRESENT: conjunctiva pink, EOMI. ABSENT: scleral icterus Ear exam: PRESENT: normal external ear exam Mouth exam: PRESENT: moist, tongue midline Neck exam: ABSENT: carotid bruit, JVD, lymphadenopathy, thyromegaly Respiratory exam: PRESENT: clear to auscultation jc. ABSENT: rales, rhonchi, wheezes Cardiovascular exam: PRESENT: RRR. ABSENT: diastolic murmur, rubs, systolic murmur Pulses: PRESENT: normal dorsalis pedis pul Vascular exam: PRESENT: normal capillary refill GI/Abdominal exam: PRESENT: soft, tenderness. ABSENT: distended, guarding, mass , organolmegaly, rebound Rectal exam: PRESENT: deferred Extremities exam: PRESENT: full ROM. ABSENT: calf tenderness, clubbing, pedal edema Musculoskeletal exam: PRESENT: full ROM Neurological exam: PRESENT: alert, awake, oriented to person, oriented to place , oriented to time, oriented to situation, CN II-XII grossly intact. ABSENT: motor sensory deficit Results Laboratory Results: 05/29/17 06:20 05/29/17 06:20 05/29/17 05/29/17 06:20 06:20 WBC 4.8 RBC 3.39 L Hgb 10.4 L Hct 30.7 L MCV 91 MCH 30.8 MCHC 33.9 RDW 13.1 Plt Count 256 Sodium 144.5 Potassium 4.4 Chloride 114 H Carbon Dioxide 21 L Anion Gap 10 BUN 14 Creatinine 1.10 Est GFR ( Amer) > 60 Est GFR (Non-Af Amer) > 60 Glucose 86 Calcium 9.3 Total Bilirubin 0.7 AST 15 L ALT 29 Alkaline Phosphatase 85 Total Protein 6.3 Albumin 3.5 Triglycerides 281 H Lipase 143.7 Impressions: Abdomen Ultrasound 05/28/17 14:29 IMPRESSION: Fatty infiltration of the liver. Gallbladder sludge and pericholecystic edema as well as slight thickening of wall of the gallbladder suggestive of acute cholecystitis. Hepatobiliary Scan Nuclear Medicine 05/29/17 00:00 IMPRESSION: NORMAL STUDY WITHOUT CYSTIC OR COMMON DUCT OBSTRUCTION. Lumbar Spine CT 05/29/17 00:00 IMPRESSION: Degenerative disc changes most pronounced at L4-5. No acute fracture or malalignment. Thoracic Spine CT 05/29/17 00:00 IMPRESSION: NORMAL CT OF THE THORACIC SPINE. Assessment & Plan - Diagnosis (1) Essential hypertension Is this a current diagnosis for this admission?: Yes Plan: We will resume home medications once med rec has been verified (2) Diabetes type 2, uncontrolled Is this a current diagnosis for this admission?: Yes Plan: Place patient on sliding scale insulin and long-acting insulin. (3) Chronic nausea Is this a current diagnosis for this admission?: Yes Plan: Macy (4) H/O abdominal surgery Is this a current diagnosis for this admission?: Yes Plan: Currently not convinced that patient's presentation is consistent with pancreatitis and I am not convinced that patient's presentation is consistent with acute cholecystitis. Patient's complaints and physical exam findings seem to suggest a colonic issue. Pt refused enema overnight. (5) Hyperkalemia Is this a current diagnosis for this admission?: Yes Plan: resolved. (6) Chronic kidney disease, stage II (mild) Is this a current diagnosis for this admission?: Yes Plan: Resolved. (7) Pancreatitis Qualifiers: Chronicity: chronic Pancreatitis type: alcohol induced Qualified Code(s) : K86.0 - Alcohol-induced chronic pancreatitis Is this a current diagnosis for this admission?: Yes Plan: Not convinced the patient's presentation is consistent with pancreatitis. Patient's lipase has been elevated at other times throughout the years. Do not feel that this clinches the diagnosis of pancreatitis due to patient's clinical findings. However will monitor patient throughout hospitalization and see how this condition evolves. (8) Abdominal pain Qualifiers: Abdominal location: unspecified location Qualified Code(s): R10.9 - Unspecified abdominal pain Is this a current diagnosis for this admission?: Yes Plan: Pt states that abd pain has not improved. (9) Degenerative lumbar spinal stenosis Is this a current diagnosis for this admission?: Yes Plan: supportive care. Do not think that pt's abd symptoms are due to back issues. - Time Time Spent with patient: 15-24 minutes
[2017-05-29] MEDS: ENOXAPARIN SODIUM INJ 40 MG/0.4 ML DISP.SYRIN SUBCUT SCH (18:14)
--- NOTE | 2017-05-29 20:22 | PDOC PROGRESS REPORT ---
Subjective Progress Note for:: 05/29/17 Subjective:: Patient continues to have pain. This is the same pain for ajh he had surgery back in 1995. He was fine for the first 10 yrs after that surgery then but the pain has returned over the last 8 yrs and patient has had multiple surgeries for this pain including a re- exploration with his original surgeon in [facility] - Dr Garcia, including a temporary colostomy that was reversed after three months because it did not resolve his symptoms in 2009. He has had diagnostic laparoscopy with Dr Jermaine Razo at [facility] in 2009 before going back to [place]. He also had a procedure through a left upper quadrant incision that he is not sure about in [place] in 2010. Three weeks ago he had another surgery at [facility] also for the pain. He had a CT abdomen/pelvis ordered by his PCP that was done at [facility] here in [place] 2 days ago and was read as acute cholecystitis and was sent to the ER. Reason For Visit: PANCREATITIS Physical Exam Vital Signs: Temp Pulse Resp BP Pulse Ox 98.7 F 78 16 146/69 H 100 05/29/17 15:00 05/29/17 15:00 05/29/17 08:05 05/29/17 15:00 05/29/17 15:00 Intake & Output 05/28/17 05/29/17 05/30/17 06:59 06:59 06:59 Intake Total 1440 Output Total 200 Balance -200 1440 Weight 74.1 kg General appearance: PRESENT: severe distress Head exam: PRESENT: atraumatic, normocephalic Respiratory exam: PRESENT: clear to auscultation jc. ABSENT: rales, rhonchi, wheezes Cardiovascular exam: PRESENT: +S1, +S2 GI/Abdominal exam: PRESENT: soft, tenderness, other - Flat, no rebound, longitudinal midline, oblique LUQ and transverse RLQ surgical scars. Neurological exam: PRESENT: alert, awake, oriented to person, oriented to place , oriented to time, oriented to situation, CN II-XII grossly intact. ABSENT: motor sensory deficit Results Laboratory Results: 05/29/17 06:20 05/29/17 06:20 05/29/17 05/29/17 06:20 06:20 WBC 4.8 RBC 3.39 L Hgb 10.4 L Hct 30.7 L MCV 91 MCH 30.8 MCHC 33.9 RDW 13.1 Plt Count 256 Sodium 144.5 Potassium 4.4 Chloride 114 H Carbon Dioxide 21 L Anion Gap 10 BUN 14 Creatinine 1.10 Est GFR ( Amer) > 60 Est GFR (Non-Af Amer) > 60 Glucose 86 Calcium 9.3 Total Bilirubin 0.7 AST 15 L ALT 29 Alkaline Phosphatase 85 Total Protein 6.3 Albumin 3.5 Triglycerides 281 H Lipase 143.7 Impressions: Abdomen Ultrasound 05/28/17 14:29 IMPRESSION: Fatty infiltration of the liver. Gallbladder sludge and pericholecystic edema as well as slight thickening of wall of the gallbladder suggestive of acute cholecystitis. Hepatobiliary Scan Nuclear Medicine 05/29/17 00:00 IMPRESSION: NORMAL STUDY WITHOUT CYSTIC OR COMMON DUCT OBSTRUCTION. Lumbar Spine CT 05/29/17 00:00 IMPRESSION: Degenerative disc changes most pronounced at L4-5. No acute fracture or malalignment. Thoracic Spine CT 05/29/17 00:00 IMPRESSION: NORMAL CT OF THE THORACIC SPINE. Assessment & Plan - Diagnosis (1) H/O abdominal surgery Is this a current diagnosis for this admission?: Yes (2) Abdominal pain Qualifiers: Abdominal location: unspecified location Qualified Code(s): R10.9 - Unspecified abdominal pain Is this a current diagnosis for this admission?: Yes - Plan Summary Plan Summary: I will try and retrieve his medical records from the different hospitals he has had surgeries. This is a chronic pain spanning two decades now. I doubt gallbladder source for the pain. Will get a HIDA.
[2017-05-29] MEDS ORDERED: DEXTROSE 5%-NORMAL SALINE 1,000 ML IV PRN (20:51)
[2017-05-30] MEDS: LANSOPRAZOLE 30 MG TAB.RAP.DR PO SCH (05:16)
[2017-05-30] MEDS ORDERED: MAGNESIUM CITRATE 296 ML BOTTLE PO ONE (10:02)
[2017-05-30] MEDS ORDERED: AMLODIPINE BESYLATE 10 MG TABLET PO ONE (10:04)
[2017-05-30] MEDS ORDERED: LISINOPRIL 10 MG TABLET PO ONE (10:05)
--- NOTE | 2017-05-30 10:11 | PDOC PROGRESS REPORT ---
Subjective Progress Note for:: 05/30/17 Subjective:: Patient continues to complain of left lower and upper quadrant discomfort. Patient reports that he still has not had a bowel movement. Reason For Visit: PANCREATITIS Physical Exam Vital Signs: Temp Pulse Resp BP Pulse Ox 98.7 F 79 16 162/65 H 97 05/30/17 07:48 05/30/17 07:48 05/30/17 07:48 05/30/17 07:48 05/30/17 07:48 Intake & Output 05/29/17 05/30/17 05/31/17 06:59 06:59 06:59 Intake Total 1800 Output Total 200 200 Balance -200 1600 Weight 74.1 kg 74.1 kg General appearance: PRESENT: no acute distress, well-developed, well-nourished Head exam: PRESENT: atraumatic, normocephalic Eye exam: PRESENT: conjunctiva pink, EOMI. ABSENT: scleral icterus Ear exam: PRESENT: normal external ear exam Mouth exam: PRESENT: moist, tongue midline Neck exam: ABSENT: carotid bruit, JVD, lymphadenopathy, thyromegaly Respiratory exam: PRESENT: clear to auscultation jc. ABSENT: rales, rhonchi, wheezes Cardiovascular exam: PRESENT: RRR. ABSENT: diastolic murmur, rubs, systolic murmur Pulses: PRESENT: normal dorsalis pedis pul Vascular exam: PRESENT: normal capillary refill GI/Abdominal exam: PRESENT: tenderness - Left lower quadrant and left upper quadrant tenderness to palpation Rectal exam: PRESENT: deferred Extremities exam: PRESENT: full ROM, other - No cervical thoracic or lumbar tenderness to palpation and percussion. ABSENT: calf tenderness, clubbing, pedal edema Musculoskeletal exam: PRESENT: full ROM Neurological exam: PRESENT: alert, awake, oriented to person, oriented to place , oriented to time, oriented to situation, CN II-XII grossly intact. ABSENT: motor sensory deficit Psychiatric exam: PRESENT: appropriate affect, normal mood. ABSENT: homicidal ideation, suicidal ideation Skin exam: PRESENT: dry, intact, warm. ABSENT: cyanosis, rash Results Laboratory Results: 05/29/17 06:20 05/29/17 06:20 Impressions: Abdomen Ultrasound 05/28/17 14:29 IMPRESSION: Fatty infiltration of the liver. Gallbladder sludge and pericholecystic edema as well as slight thickening of wall of the gallbladder suggestive of acute cholecystitis. Hepatobiliary Scan Nuclear Medicine 05/29/17 00:00 IMPRESSION: NORMAL STUDY WITHOUT CYSTIC OR COMMON DUCT OBSTRUCTION. Lumbar Spine CT 05/29/17 00:00 IMPRESSION: Degenerative disc changes most pronounced at L4-5. No acute fracture or malalignment. Thoracic Spine CT 05/29/17 00:00 IMPRESSION: NORMAL CT OF THE THORACIC SPINE. Assessment & Plan - Diagnosis (1) Essential hypertension Is this a current diagnosis for this admission?: Yes Plan: Will place on Norvasc and lisinopril. (2) Diabetes type 2, uncontrolled Is this a current diagnosis for this admission?: Yes Plan: A1c of 8.6: We will continue with current insulin regimen. (3) Chronic nausea Is this a current diagnosis for this admission?: Yes Plan: Zofran. Symptoms could also be due to slow GI motility i.e. gastroparesis due to poorly controlled blood sugars. (4) H/O abdominal surgery Is this a current diagnosis for this admission?: Yes Plan: Currently not convinced that patient's presentation is consistent with pancreatitis and I am not convinced that patient's presentation is consistent with acute cholecystitis. Patient's complaints and physical exam findings seem to suggest a colonic issue. (5) Hyperkalemia Is this a current diagnosis for this admission?: Yes Plan: resolved. (6) Chronic kidney disease, stage II (mild) Is this a current diagnosis for this admission?: Yes Plan: Resolved. (7) Pancreatitis Qualifiers: Chronicity: chronic Pancreatitis type: alcohol induced Qualified Code(s) : K86.0 - Alcohol-induced chronic pancreatitis Is this a current diagnosis for this admission?: Yes Plan: Not convinced the patient's presentation is consistent with pancreatitis. Patient's lipase has been elevated at other times throughout the years. Do not feel that this clinches the diagnosis of pancreatitis due to patient's clinical findings. However will monitor patient throughout hospitalization and see how this condition evolves. (8) Abdominal pain Qualifiers: Abdominal location: unspecified location Qualified Code(s): R10.9 - Unspecified abdominal pain Is this a current diagnosis for this admission?: Yes Plan: Pt states that abd pain has not improved. (9) Degenerative lumbar spinal stenosis Is this a current diagnosis for this admission?: Yes Plan: supportive care. Do not think that pt's abd symptoms are due to back issues. (10) Constipation Is this a current diagnosis for this admission?: Yes Plan: Will write for Enema and Magnesium Citrate. (11) DVT prophylaxis Is this a current diagnosis for this admission?: Yes Plan: SCDs
--- NOTE | 2017-05-30 12:02 | PDOC DISCHARGE SUMMARY ---
General - Admit/Disc Date/PCP Admission Date/Primary Care Provider: 05/28/17 16:33 Discharge Date: 05/30/17 - Discharge Diagnosis (1) H/O abdominal surgery Is this a current diagnosis for this admission?: Yes (2) Abdominal pain Is this a current diagnosis for this admission?: Yes - Additional Information Resuscitation Status: Full Code Discharge Diet: As Tolerated Discharge Activity: Activity As Tolerated Prescriptions: Amlodipine Besylate [Norvasc 10 mg Tablet] 10 mg PO DAILY #30 tablet Lisinopril [Prinivil 10 mg Tablet] 10 mg PO DAILY #30 tablet Home Medications: Docusate Sodium [Colace 100 mg Capsule] 100 mg PO BID 05/28/17 Insulin Glargine,Hum.rec.anlog [Lantus Solostar] 30 unit SQ QHS 05/28/17 Amlodipine Besylate [Norvasc 10 mg Tablet] 10 mg PO DAILY #30 tablet 05/30/17 Lansoprazole [Prevacid 30 mg Odt Tablet] 30 mg PO BID@0600,1700 tab.darline. Lisinopril [Prinivil 10 mg Tablet] 10 mg PO DAILY tablet 05/30/17 Lisinopril [Prinivil 10 mg Tablet] 10 mg PO DAILY #30 tablet 05/30/17 History of Present Illness History of Present Illness: MIKE CROOK is a 72 year old male admitted from his PCPs office for presumed acute cholecystitis. He had left upper quadrant abdominal pain. The pain started in 1995 after he lifted a heavy object at work; it radiated from his left upper quadrant to his left axilla. After undergoing several tests in [place] he eventually had a subtotal colectomy with primary ileorectal anastomosis. He was fine for the first 10 yrs after that surgery then but the pain has returned over the last 8 yrs and has progressively worsened. This is the same pain for which he had the subtotal colectomy back in 1995 at [facility] in [place]. He has had multiple re-explorative surgeries for this pain including two re-explorations with his original surgeon in [facility] - Dr Garcia, he had a temporary colostomy in 2009 (this was not done at the original surgery) that was reversed after three months because it did not resolve his symptoms. He has had diagnostic laparoscopy with Dr Jermaine Razo at [place] in 2009 before going back to [place]. He also had a procedure through a left upper quadrant incision that he is not sure about in [place] in 2010. Three weeks ago he had an exploratory laparotomy at [facility] with Dr Lorenz also for the pain. All these redo surgeries have not found any abnormalities. He also had a colonoscopy in 3 months ago in [place] that was normal. He had a CT abdomen/pelvis ordered by his PCP that was done at [facility] here in [place] 2 days ago and was read as acute cholecystitis and was sent to the ER for admission. Hospital Course Hospital Course: He was thought to have pancreatitis but his lipase was barely above normal and normalized by the first day after admission. He had a HIDA scan which was normal and did not support the diagnosis of cholecystitis made on the CT. T- spine and L-spine CTs were normal as well. This is a chronic pain for which he may need pain management. Physical Exam Vital Signs: Temp Pulse Resp BP Pulse Ox 98.7 F 79 16 162/65 H 97 05/30/17 07:48 05/30/17 07:48 05/30/17 07:48 05/30/17 07:48 05/30/17 07:48 Intake & Output 05/29/17 05/30/17 05/31/17 06:59 06:59 06:59 Intake Total 1800 Output Total 200 200 Balance -200 1600 Weight 74.1 kg 74.1 kg General appearance: PRESENT: other - He lays quietly in the room and when one enters he immediately begins to narrate and point to the LUQ where he has severe pain and cannot eat or move bowels. Head exam: PRESENT: atraumatic, normocephalic Neck exam: ABSENT: carotid bruit, JVD, lymphadenopathy, thyromegaly Respiratory exam: PRESENT: clear to auscultation cj. ABSENT: rales, rhonchi, wheezes Cardiovascular exam: PRESENT: RRR. ABSENT: diastolic murmur, rubs, systolic murmur GI/Abdominal exam: PRESENT: normal bowel sounds, soft, tenderness - LUQ, other - longitudinal midline, 10 cm oblique Left subcostal and 7cm transverse right lower quadrant surgical scars.. ABSENT: distended, guarding, mass, organolmegaly, rebound Neurological exam: PRESENT: alert, awake, oriented to person, oriented to place , oriented to time, oriented to situation, CN II-XII grossly intact. ABSENT: motor sensory deficit Psychiatric exam: PRESENT: anxious Results Laboratory Results: 05/29/17 06:20 05/29/17 06:20 Impressions: Abdomen Ultrasound 05/28/17 14:29 IMPRESSION: Fatty infiltration of the liver. Gallbladder sludge and pericholecystic edema as well as slight thickening of wall of the gallbladder suggestive of acute cholecystitis. Hepatobiliary Scan Nuclear Medicine 05/29/17 00:00 IMPRESSION: NORMAL STUDY WITHOUT CYSTIC OR COMMON DUCT OBSTRUCTION. Lumbar Spine CT 05/29/17 00:00 IMPRESSION: Degenerative disc changes most pronounced at L4-5. No acute fracture or malalignment. Thoracic Spine CT 05/29/17 00:00 IMPRESSION: NORMAL CT OF THE THORACIC SPINE. Qualifiers - * PATEINT BEING DISCHARGED WITH ANY OF THE FOLLOWING DIAGNOSIS?: No VTE patient discharged on overlapping Therapy?: No
[2017-05-30 12:23] VITALS: BP 146/69
[2017-05-30] MEDS: ENOXAPARIN SODIUM INJ 40 MG/0.4 ML DISP.SYRIN SUBCUT SCH (12:35)
[2017-05-31] MEDS ORDERED: LISINOPRIL 10 MG TABLET PO SCH (10:00)
[2017-05-31] MEDS ORDERED: AMLODIPINE BESYLATE 10 MG TABLET PO SCH (10:00)
--- NOTE | 2017-06-06 01:19 | HISTORY AND PHYSICAL E ---
History and Physical NAME: MIKE CROOK : 1945 AGE: 72Y ADMITTED: 05/28/2017 ROOM: 406 HISTORY OF PRESENT ILLNESS: The patient is a 72-year-old male presenting a several-month history of epigastric abdominal pain radiating to the left flank along with nausea and constipation. The symptoms appears to have worsened in the last several days. The patient had undergone an outpatient CT scan that demonstrated evidence of possible cholecystitis and was subsequently referred to the Emergency Department. He drinks wine on a daily basis. He had undergone upper and lower endoscopy, as per the patient's , which demonstrated no significant findings other than what sounds like some evidence of gastritis. The patient had undergone a partial colon resection in the remote past for unclear reasons. He apparently had a colostomy for a while that was eventually taken down. He has also had a right inguinal hernia repair in the past. He denies any groin pain. The patient denies any history of jaundice; denies any history of hematemesis; no emesis; last bowel movement several days ago, after an enema. The patient denies any shortness of breath or chest pain. PAST MEDICAL HISTORY: Remarkable for: 1. Hypertension. 2. Diabetes. The patient denies any history of myocardial infarction. PAST SURGICAL HISTORY: Remarkable for right inguinal hernia repair in the remote past. SOCIAL HISTORY: Demonstrates drinking wine on an almost daily basis. No drug abuse. HOME MEDICATIONS: 1. Colace. 2. Insulin. ALLERGIES: No known drug allergies. PHYSICAL EXAMINATION: GENERAL: The patient is a well-developed, well-nourished male in no acute distress. He is cooperative. VITAL SIGNS: His initial vital signs in the ER demonstrated a temperature of 98.4, heart rate 114, blood pressure 136/80, with a pulse oximetry reading of 99%. HEENT: His conjunctivae are anicteric. RESPIRATORY: Exam reveals bilateral clear breath sounds. HEART: Regular rate and rhythm. ABDOMEN: Soft. It is nondistended. There is a well-healed, midline abdominal scar with no palpable hernia defects. Diffuse abdominal tenderness, especially in the epigastric and the left upper abdomen without peritoneal signs. No Zavala sign. No focal right upper quadrant tenderness. The patient with a palpable left groin bulge with Valsalva that is easily reducible. I do not feel a right groin bulge. EXTREMITIES: Exam reveals no swelling and no tenderness. NEUROLOGIC: Exam reveals an alert and awake patient. PSYCHIATRIC: Exam reveals appropriate affect. SKIN: Exam demonstrates warmth. LABORATORY EVALUATION: Demonstrated a white blood cell count of 6, hemoglobin 11.4, hematocrit of 32.9, platelet count of 289. Sodium 137, potassium 5.3, chloride 102, bicarb 25, BUN 22, creatinine 1.26, and glucose of 242. Total bilirubin was 0.5, AST 12, ALT 26, alkaline phosphatase 134, albumin 4.3. Lipase was elevated at 358. RADIOLOGY EVALUATION: Abdominal ultrasound demonstrated fatty infiltration of the liver; gallbladder sludge and pericholecystic edema; and slight thickening of the wall of the gallbladder was noted. ASSESSMENT: Pancreatitis of unclear etiology. Patient has had chronic epigastric abdominal pain, possible alcohol related. Biliary pancreatitis is in the differential diagnosis, although generally with biliary pancreatitis, lipase elevations tend to be much more severe. Patient does have sludge in his gallbladder. Uncertain whether he really has acute cholecystitis despite the ultrasound and CT scan findings of pericholecystic fluid and mild gallbladder wall thickening. He does not have focal right upper quadrant abdominal tenderness, and his predominant complaint is not right upper quadrant abdominal pain. We will plan to admit the patient for further workup. We will hydrate the patient overnight, and we will do a pancreatic protocol CT scan. Will consider an MRCP as well during this admission. We will check a triglyceride level. The patient does have a left inguinal hernia, but it is asymptomatic and not contributing to his symptoms at this time. We will also ask the hospitalist to assist in the management of this patient. DICTATING PHYSICIAN: LAURA MYERS M.D. [id number] [facility]#: [id number] ID: [id number] JOB#: [id number] ACCT: [id number] cc: >
== END 2017-05-30 12:45 | disposition home or self-care (01) | DRG 93 ==
LOC: ER 13:47 → EH 16:33 → 4N 18:14
PROVIDERS: ADMIT Emergency Medicine; ATTEND Emergency Medicine
DX: G89.29 Other chronic pain (principal); E11.22 Type 2 diabetes mellitus with diabetic chronic kidney disease; E11.65 Type 2 diabetes mellitus with hyperglycemia; R10.13 Epigastric pain; R10.32 Left lower quadrant pain; E87.5 Hyperkalemia; F41.9 Anxiety disorder, unspecified; I12.9 Hypertensive chronic kidney disease with stage 1 through stage 4 chronic kidney disease, or unspecified chronic kidney disease; N18.2 Chronic kidney disease, stage 2 (mild); K59.00 Constipation, unspecified; Z90.49 Acquired absence of other specified parts of digestive tract; Z79.4 Long term (current) use of insulin; Z79.899 Other long term (current) drug therapy
CPT/HCPCS: 36415; 72128; 72131; 76705; 78226; 80053; 82962; 83036; 83690; 84478; 85025; 85027; 93005; 93010; 96360; 99285; A9537; J1815; J3490; J7030; Q9969

== ENCOUNTER → 2018-08-23 | Outpatient (CLI) | payer MEDICARE, BC ==
--- NOTE | 2018-08-23 14:22 | RADIOLOGY REPORT (SQ) ---
EXAM DESCRIPTION: CAROTID DOPPLER COMPLETED DATE/TIME: 08/23/2018 1:58 pm REASON FOR STUDY: LT EYE RETINAL ISCHEMIA H57.12 OCULAR PAIN, LEFT EYE H35.82 RETINAL ISCHEMIA COMPARISON: None. TECHNIQUE: Grayscale ultrasound, Doppler velocity and spectra, and color Doppler images acquired of the extra-cranial carotid and vertebral arteries. Images stored on PACS. LIMITATIONS: None. FINDINGS: RIGHT CAROTID CCA Velocities: Within normal limits. ICA Velocities Peak systolic 100 cm/s. End diastolic 31 cm/s. Proximal ICA/CCA peak systolic ratio 1.22. There is a small amount of plaque in the carotid bulb. LEFT CAROTID CCA Velocities: Within normal limits. ICA Velocities Peak systolic 79 cm/s. End diastolic 26 cm/s. Proximal ICA/CCA peak systolic ratio 0.9. There is some plaque in the common carotid and carotid bulb. VERTEBRAL ARTERIES: Antegrade flow. Normal waveforms. SUBCLAVIAN ARTERIES: No finding. OTHER: No other significant finding. IMPRESSION: There is bilateral carotid plaque with no hemodynamically significant lesion. COMMENT: Quality ID #[id number]: Velocity criteria are extrapolated from the diameter data as defined by t he Society of Radiologists in Ultrasound Consensus Conference. Radiology 2003: 229; 340-346. TECHNICAL DOCUMENTATION: JOB ID: [id number] [employer]- All Rights Reserved Reading location - IP/workstation name: [email or web address]
== END ==
LOC: SP 12:32
PROVIDERS: ATTEND Ophthalmology
DX: H57.12 Ocular pain, left eye (principal); H35.82 Retinal ischemia; I65.23 Occlusion and stenosis of bilateral carotid arteries
CPT/HCPCS: 93880

== ENCOUNTER 2018-11-02 14:16 | Inpatient (IN) | payer MEDICARE, BC, OTHER ==
--- NOTE | 2018-11-02 15:04 | ER Document Report ---
ED Medical Screen (RME) - General Chief Complaint: Nausea/Vomiting Stated Complaint: VOMITING Time Seen by Provider: 11/02/18 14:51 Primary Care Provider: ROB FELIPE DO [Primary Care Provider] - Follow up as needed Mode of Arrival: Wheelchair Information source: Patient, Friend Notes: This 73-year-old male presents emergency department with complaints of nausea vomiting for over 4 days with abdominal pain and no bowel movement in he does not know how long. Patient reports history of bowel obstruction in 1996 when he had to have surgery. Patient is a poor historian. Does not have a primary care provider. Moved here from [place]. Abdomen tender to palpate. I have greeted and performed a rapid initial assessment of this patient. A comprehensive ED assessment and evaluation of the patient, analysis of test results and completion of the medical decision making process will be conducted by additional ED providers. Dictation of this chart was performed using voice recognition software; therefore, there may be some unintended grammatical errors. TRAVEL OUTSIDE OF THE [place] IN LAST 30 DAYS: No - Related Data Allergies/Adverse Reactions: No Known Allergies Allergy (Verified 11/02/18 14:21) Past Medical History - Past Medical History Cardiac Medical History: Reports: Hx Hypertension Denies: Hx Coronary Artery Disease, Hx Heart Attack Pulmonary Medical History: Denies: Hx Asthma, Hx Bronchitis, Hx COPD, Hx Pneumonia Neurological Medical History: Denies: Hx Cerebrovascular Accident, Hx Seizures Endocrine Medical History: Reports: Hx Diabetes Mellitus Type 1 Renal/ Medical History: Denies: Hx Peritoneal Dialysis GI Medical History: Denies: Hx Hepatitis, Hx Hiatal Hernia, Hx Ulcer Musculoskeltal Medical History: Denies Hx Arthritis Psychiatric Medical History: Reports: Hx Anxiety Infectious Medical History: Denies: Hx Hepatitis Past Surgical History: Reports: Hx Abdominal Surgery - Colostomy and reversal., 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 Denies: Hx Open Heart Surgery, Hx Pacemaker - Immunizations Hx Diphtheria, Pertussis, Tetanus Vaccination: Yes History of Influenza Vaccine for 12/2016 - 05/2017 Season: Yes Influenza Administration Date for 12/2016 - 05/2017 Season: 02/06/17 Physical Exam - Vital signs Vitals: Temp Pulse Resp BP Pulse Ox 98.0 F 100 18 104/63 100 11/02/18 14:26 11/02/18 14:26 11/02/18 14:26 11/02/18 14:26 11/02/18 14:26 Course - Vital Signs Vital signs: Temp Pulse Resp BP Pulse Ox 98.0 F 100 18 104/63 100 11/02/18 14:26 11/02/18 14:26 11/02/18 14:26 11/02/18 14:26 11/02/18 14:26 Doctor's Discharge - Discharge Referrals: ROB FELIPE DO [Primary Care Provider] - Follow up as needed
--- NOTE | 2018-11-02 15:51 | RADIOLOGY REPORT (SQ) ---
EXAM DESCRIPTION: ABDOMEN 2 VIEWS COMPLETED DATE/TIME: 11/02/2018 3:37 pm REASON FOR STUDY: abd pain, n/v hx obstruction COMPARISON: 09/05/2016 NUMBER OF VIEWS: Two views. TECHNIQUE: Supine and erect/decubitus radiographic images of the abdomen acquired. LIMITATIONS: None. FINDINGS: FREE AIR: None. No abnormal gas collections. LUNG BASES: Clear. BOWEL GAS PATTERN: Nonspecific bowel gas pattern. Gas containing loop of bowel on the right hemiabdo men presumably colonic. No definitive pathologically dilated loops of bowel. CALCIFICATIONS: No suspicious calcifications. Vascular calcifications over pelvis. SOFT TISSUES: No gross mass or suggestion of organomegaly. HARDWARE: Hernia tacks overlie right pelvis. Surgical clips in left abdomen. BONES: No acute fracture. No worrisome bone lesions. OTHER: No other significant finding. IMPRESSION: No definite pathologically dilated loops of bowel to suggest obstruction. Gas containin g loops of bowel in the right hemiabdomen, presumably colonic. TECHNICAL DOCUMENTATION: JOB ID: [id number] [employer]- All Rights Reserved Reading location - IP/workstation name: [email or web address]
[2018-11-02 16:53] LABS: ABSOLUTE EOSINOPHILS # (AUTO) 0.1 10^3/uL (0.0-0.6); ABSOLUTE LYMPHOCYTES (AUTO) 1.2 10^3/uL (0.5-4.7); ABSOLUTE NEUT (AUTO) 7.7 10^3/uL (1.7-8.2); BASOPHILS % (AUTO) 0.3 % (0-2); EOSINOPHILS % (AUTO) 0.5 % (0-6); HEMATOCRIT 32.5 % (37.9-51.0); HEMOGLOBIN 11.9 g/dL (13.5-17.0); LYMPHOCYTES % (AUTO) 11.7 % (13-45); MEAN CORPUSCULAR HEMOGLOBIN 31.3 pg (27.0-33.4); MEAN CORPUSCULAR HGB CONC 36.6 g/dL (32.0-36.0); MEAN CORPUSCULAR VOLUME 86 fl (80-97); MONOCYTES % (AUTO) 9.8 % (3-13); PLATELET COUNT 291 10^3/uL (150-450); RED CELL DISTRIBUTION WIDTH 12.6 % (11.5-14.0); SEGMENTED NEUTROPHILS % (AUTO) 77.7 % (42-78); TOTAL CELLS COUNTED % (AUTO) 100 %; WHITE BLOOD COUNT 9.9 10^3/uL (4.0-10.5)
[2018-11-02 17:15] LABS: ALBUMIN 5.3 g/dL (3.5-5.0); ALKALINE PHOSPHATASE 84 U/L (38-126); ASPARTATE AMINO TRANSFERASE 10 U/L (17-59); BILIRUBIN,DIRECT 0.5 mg/dL (0.0-0.4); BILIRUBIN,TOTAL 1.1 mg/dL (0.2-1.3); CALCIUM 8.7 mg/dL (8.4-10.2); CHLORIDE 79 mmol/L (98-107); GLUCOSE 195 mg/dL (75-110); POTASSIUM 3.9 mmol/L (3.6-5.0); TOTAL PROTEIN 8.1 g/dL (6.3-8.2)
[2018-11-02 17:20] LABS: CARBON DIOXIDE 16 mmol/L (22-30)
[2018-11-02 17:25] LABS: ANION GAP 28 (5-19)
[2018-11-02 17:31] LABS: BLOOD UREA NITROGEN 146 mg/dL (7-20)
[2018-11-02] MEDS ORDERED: NORMAL SALINE 1000 ML 1,000 ML IV ONE ×2 (18:26→22:50)
[2018-11-02] MEDS ORDERED: MORPHINE SULFATE 10 MG/ML INJ IV ONE (18:26)
[2018-11-02] MEDS ORDERED: ONDANSETRON HCL INJ/PF 4 MG/2 ML SDV IV ONE (18:26)
--- NOTE | 2018-11-02 18:31 | ER Document Report ---
ED General - General Chief Complaint: Nausea/Vomiting Stated Complaint: VOMITING Time Seen by Provider: 11/02/18 14:51 Primary Care Provider: ROB FELIPE DO [ACTIVE STAFF] - Follow up as needed Mode of Arrival: Wheelchair TRAVEL OUTSIDE OF THE [place] IN LAST 30 DAYS: No - HPI Notes: Patient is a 73-year-old male who presents to the emergency department for evaluation of a months worth of nausea and vomiting. He is not very good historian. He notes that he has had vomiting nearly daily. He states he is really not been keeping down water. His last urination was yesterday. He describes a pressure type sensation in his abdomen, points to his epigastrium, states he believes "everything gets stuck there." He cannot tell me when his last bowel movement was, states he is not passing gas. No fevers, but he states he has been cold all of the time. - Related Data Allergies/Adverse Reactions: No Known Allergies Allergy (Verified 11/02/18 14:21) Past Medical History - General Information source: Patient, Friend - Social History Smoking Status: Former Smoker Family History: Reviewed & Not Pertinent Patient has suicidal ideation: No Patient has homicidal ideation: No - Past Medical History Cardiac Medical History: Reports: Hx Hypertension Denies: Hx Coronary Artery Disease, Hx Heart Attack Pulmonary Medical History: Denies: Hx Asthma, Hx Bronchitis, Hx COPD, Hx Pneumonia Neurological Medical History: Denies: Hx Cerebrovascular Accident, Hx Seizures Endocrine Medical History: Reports: Hx Diabetes Mellitus Type 1 Renal/ Medical History: Reports: Hx Renal Insufficiency. Denies: Hx Peritoneal Dialysis GI Medical History: Reports: Hx Gastroesophageal Reflux Disease, Hx Irritable Bowel, Other - Bowel obstruction. 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 Denies: Hx Open Heart Surgery, Hx Pacemaker - Immunizations Hx Diphtheria, Pertussis, Tetanus Vaccination: Yes Review of Systems - Review of Systems Constitutional: See HPI, Weight loss EENT: No symptoms reported Cardiovascular: No symptoms reported Respiratory: No symptoms reported Gastrointestinal: See HPI Genitourinary: See HPI Musculoskeletal: No symptoms reported Skin: No symptoms reported Neurological/Psychological: No symptoms reported Physical Exam - Vital signs Vitals: Temp Pulse Resp BP Pulse Ox 98.0 F 100 18 104/63 100 11/02/18 14:26 11/02/18 14:26 11/02/18 14:26 11/02/18 14:26 11/02/18 14:26 - Notes Notes: This is a pleasant 73-year-old male who appears stated age in no acute distress. Vital signs reviewed, please refer to chart. Head is normocephalic, atraumatic. Pupils equal round, reactive to light. Neck is supple without meningismus. Heart is regular rate and rhythm. Lungs are clear to auscultation bilaterally. Abdomen is soft, globally tender without rebound or guarding, normoactive bowel sounds throughout. Extremities without cyanosis, clubbing. Posterior calves are nontender. Peripheral pulses are equal. Skin is warm and dry. Patient is awake, alert, neurological exam is nonfocal. Course - Re-evaluation Re-evalutation: 11/02/18 18:30 Patient presents emergency department for evaluation. He had laboratory investigations initially his ordered through triage. Laboratory investigations reveal significant hyponatremia as well as acute renal failure. IV fluids, pain medication, nausea medication ordered. Because of his history of hernia and bowel obstruction, I am concerned about this possibility. CT scan without contrast is ordered. We will continue to monitor. 11/02/18 21:43 , But I do have a high suspicion for small bowel obstruction. I contacted the surgeon, Dr. Hall, to see the patient in consult. I spoke with Dr. Trejo. He requested a lactic acid be ordered, and that he be contacted with results. 11/02/18 23:11 I spoke with surgery. Dr. Hall had a opportunity to look more thoroughly through the patient's chart. He states that the patient does not actually have any history of bowel obstruction. He had multiple surgeries including partial colectomy, all as a result of this chronic abdominal pain. He does still recommend NG tube given the gastric dilation, but does not see any signs of obstruction. He will see the patient in consult. I spoke with Dr. Trejo, notified him of the normal lactate. IV fluids were ordered. We will admit the patient to the floor. - Vital Signs Vital signs: Temp Pulse Resp BP Pulse Ox 98.0 F 100 18 104/63 100 11/02/18 14:26 11/02/18 14:26 11/02/18 14:26 11/02/18 14:26 11/02/18 14:26 - Laboratory Result Diagrams: 11/02/18 16:42 11/02/18 16:42 Laboratory results interpreted by me: 11/02/18 11/02/18 16:42 16:42 RBC 3.80 L Hgb 11.9 L Hct 32.5 L MCHC 36.6 H Lymph % (Auto) 11.7 L Sodium 123.4 L Chloride 79 L Carbon Dioxide 16 L Anion Gap 28 H BUN 146 H Creatinine 8.53 H Est GFR ( Amer) 7 L Est GFR (MDRD) Non-Af 6 L Glucose 195 H Direct Bilirubin 0.5 H AST 10 L Albumin 5.3 H - Diagnostic Test Radiology reviewed: Reports reviewed Discharge - Discharge Clinical Impression: Nausea and vomiting Qualifiers: Vomiting type: unspecified Vomiting Intractability: unspecified Qualified Code(s): R11.2 - Nausea with vomiting, unspecified Acute renal failure (ARF) Qualifiers: Acute renal failure type: unspecified Qualified Code(s): N17.9 - Acute kidney failure, unspecified Condition: Stable Disposition: ADMITTED INPATIENT Admitting Provider: Neil (Hospitalist) Unit Admitted: Medical Floor Referrals: ROB FELIPE DO [ACTIVE STAFF] - Follow up as needed
--- NOTE | 2018-11-02 21:27 | RADIOLOGY REPORT (SQ) ---
EXAM DESCRIPTION: CT ABDOMEN PELVIS WITHOUT IV CONTRAST COMPLETED DATE/TME: 11/02/2018 18:27 CLINICAL HISTORY: 73 years, Male, Nausea and vomiting, eval for obstruction COMPARISON: 12/15/2016. TECHNIQUE: CT of the abdomen and pelvis without contrast. Images stored on PACS. All CT scanners at this facility use dose modulation, iterative reconstruction, and/or weight based dosing when appropriate to reduce radiation dose to as low as reasonably achievable (ALARA). [facility]: Dose Right [facility]: CareDose [facility]: Dose Right [facility]: Teradose 4D [facility]: [employer] LIMITATIONS: None. FINDINGS: Evaluation of solid organ pathology is limited secondary to lack of intravenous contrast. Within these limitations, the following observations are made. Chest: Evaluation through the lung bases reveals no focal opacity, pleural effusion or pneumothorax. Heart size is within normal limits. No pericardial effusion. Air and fluid distended gastric body. Abdomen and pelvis: The liver, gallbladder, pancreas, spleen, bilateral kidneys and bilateral adrenal glands are within normal limits. The vessels are normal in caliber. Vascular calcification present throughout the small vessels suggesting microvascular disease including diabetes. No abdominopelvic lymph nodes are noted to be pathologically enlarged by CT measurement criteria. The small bowel is within normal limits without abnormal bowel wall thickness or bowel dilation. Few nonspecific distended, however not dilated loops of small bowel present at the level of the RIGHT upper quadrant without findings to suggest clear transition point. A focal area of transition is identified at the level of the RIGHT upper quadrant, raising the possibility of focal peristalsis, (series 601, image 38). Enteritis versus the possibility of early or incomplete small bowel obstruction may be considered in the differential. Unformed stool present throughout the small bowel compatible with liquid fecal content/diarrhea, raising the question of enteritis. RIGHT lower quadrant surgical suture material is again identified following partial colectomy with colostomy takedown and reanastomosis. Scarring present within the RIGHT lower quadrant ventral subcutaneous tissues. Multiple abdominal wall right-sided surgical coils noted. No free air. No free abdominopelvic fluid collections. Enlarged prostate gland measuring 6.1 x 4.8 cm. The osseous structures are within normal limits. Small LEFT fat-containing inguinal hernia. Repaired RIGHT inguinal hernia. IMPRESSION: 1. Few nonspecific distended, however not dilated loops of small bowel present at the level of the RIGHT upper quadrant without clear findings to suggest transition point. Please see above details. Enteritis versus the possibility of early or incomplete small bowel obstruction may be considered in the differential. 2. Air and fluid distended gastric body. TECHNICAL DOCUMENTATION: Quality ID # 436: Final reports with documentation of one or more dose reduction techniques (e.g., Automated exposure control, adjustment of the mA and/or kV according to patient size, use of iterative reconstruction technique) copyright 2011 [employer]- All Rights Reserved
--- NOTE | 2018-11-02 23:02 | PDOC CONSULTATION ---
Consultation Consult Date: 11/02/18 Attending physician:: BELÉN CHAUDHARI Provider Consulted: NIEZ BOWSER Consult reason:: rule out small bowel obstruction. History of Present Illness History of Present Illness: MIKE CROOK is a 73 year old male Past Medical History Cardiac Medical History: Reports: Hypertension Denies: Coronary Artery Disease, Myocardial Infarction Pulmonary Medical History: Denies: Asthma, Bronchitis, Chronic Obstructive Pulmonary Disease (COPD), Pneumonia Neurological Medical History: Denies: Seizures Endocrine Medical History: Reports: Diabetes Mellitus Type 1 GI Medical History: Reports: Gastroesophageal Reflux Disease, Other - multiple laparotomies for abdominal pain in 1995 x2, 2009, 2010,2018. Denies: Hepatitis, Hiatal Hernia Musculoskeltal Medical History: Denies: Arthritis Hematology: Denies: Anemia, Sickle Cell Disease Past Surgical History Past Surgical History: Reports: Colostomy - multiple abdominal procedures for chronic luq pain, Herniorrhaphy - Right inguinal Denies: Pacemaker Social History Smoking Status: Former Smoker Frequency of Alcohol Use: None - Drinks wine Almost daily Hx Recreational Drug Use: No Drugs: None Hx Prescription Drug Abuse: No Family History Family History: Reviewed & Not Pertinent Parental Family History Reviewed: Yes Children Family History Reviewed: NA Sibling(s) Family History Reviewed.: NA Medication/Allergy Home Medications: Docusate Sodium [Colace 100 mg Capsule] 100 mg PO BID 05/28/17 Insulin Glargine,Hum.rec.anlog [Lantus Solostar] 30 unit SQ QHS 05/28/17 Amlodipine Besylate [Norvasc 10 mg Tablet] 10 mg PO DAILY #30 tablet 05/30/17 Lansoprazole [Prevacid 30 mg Odt Tablet] 30 mg PO BID@0600,1700 tab.rap. 05/30/17 Lisinopril [Prinivil 10 mg Tablet] 10 mg PO DAILY tablet 05/30/17 Lisinopril [Prinivil 10 mg Tablet] 10 mg PO DAILY #30 tablet 05/30/17 Allergies/Adverse Reactions: No Known Allergies Allergy (Verified 11/02/18 14:21) Review of Systems Constitutional: PRESENT: fatigue, weakness, weight loss Eyes: ABSENT: visual disturbances Ears: ABSENT: hearing changes Nose, Mouth, and Throat: ABSENT: as per HPI, headache(s), mouth pain, sore throat, vertigo, other Breasts: ABSENT: as per HPI, other Cardiovascular: ABSENT: as per HPI, chest pain, dyspnea on exertion, edema, or thropnea, palpitations, other Respiratory: ABSENT: as per HPI, cough, dyspnea, hemoptysis, sputum, other Gastrointestinal: PRESENT: abdominal pain, constipation, nausea, vomiting Genitourinary: ABSENT: as per HPI, difficulty urinating, dysuria, hematuria, nocturia, other Musculoskeletal: ABSENT: as per HPI, back pain, deformity, joint swelling, muscle weakness, other Integumentary: ABSENT: as per HPI, diaphoresis, erythema, lesions, pruritus, rash, wounds, other Neurological: ABSENT: as per HPI, abnormal gait, abnormal movements, abnormal speech, confusion, convulsions, dizziness, focal weakness, frequent falls, lack of coordination, memory loss, numbness, paresthesias, restless legs, syncope, tingling, tremor(s), vertigo, weakness, other Psychiatric: ABSENT: as per HPI, anxiety, depression, hallucinations, homidical ideation, suicidal ideation, other Endocrine: ABSENT: as per HPI, cold intolerance, flushing, heat intolerance, menstrual abnormalities, polydipsia, polyphagia, polyuria, other Hematologic/Lymphatic: ABSENT: as per HPI, easy bleeding, easy bruising, lymphadenopathy, other Allergic/Immunologic: ABSENT: as per HPI, seasonal rhinorrhea, other Physical Exam Vital Signs: Temp Pulse Resp BP Pulse Ox 98.0 F 100 18 104/63 100 11/02/18 14:26 11/02/18 14:26 11/02/18 14:26 11/02/18 14:26 11/02/18 14:26 Intake & Output 11/01/18 11/02/18 11/03/18 06:59 06:59 06:59 Intake Total 1000 Balance 1000 Weight 62.6 kg General appearance: PRESENT: mild distress Head exam: PRESENT: normocephalic Eye exam: PRESENT: EOMI Mouth exam: PRESENT: dry mucosa Neck exam: PRESENT: full ROM Respiratory exam: PRESENT: clear to auscultation jc Cardiovascular exam: PRESENT: RRR Pulses: PRESENT: normal radial pulses, normal femoral pulses GI/Abdominal exam: PRESENT: soft, other - no masses, subjective tenderness in luq Rectal exam: PRESENT: deferred Extremities exam: PRESENT: full ROM Musculoskeletal exam: PRESENT: full ROM Neurological exam: PRESENT: alert, awake, oriented to person, oriented to place Psychiatric exam: PRESENT: anxious Skin exam: PRESENT: dry Results Laboratory Results: 11/02/18 16:42 11/02/18 16:42 11/02/18 11/02/18 16:42 16:42 WBC 9.9 RBC 3.80 L Hgb 11.9 L Hct 32.5 L MCV 86 MCH 31.3 MCHC 36.6 H RDW 12.6 Plt Count 291 Seg Neutrophils % 77.7 Sodium 123.4 L Potassium 3.9 Chloride 79 L Carbon Dioxide 16 L Anion Gap 28 H BUN 146 H Creatinine 8.53 H Est GFR ( Amer) 7 L Glucose 195 H Calcium 8.7 Total Bilirubin 1.1 AST 10 L Alkaline Phosphatase 84 Total Protein 8.1 Albumin 5.3 H Impressions: Abdomen X-Ray 11/02/18 14:57 IMPRESSION: No definite pathologically dilated loops of bowel to suggest obstruction. Gas containing loops of bowel in the right hemiabdomen, presumably colonic. Abdomen/Pelvis CT 11/02/18 18:27 IMPRESSION: 1. Few nonspecific distended, however not dilated loops of small bowel present at the level of the RIGHT upper quadrant without clear findings to suggest transition point. Please see above details. Enteritis versus the possibility of early or incomplete small bowel obstruction may be considered in the differential. 2. Air and fluid distended gastric body. TECHNICAL DOCUMENTATION: Quality ID # 436: Final reports with documentation of one or more dose reduction techniques (e.g., Automated exposure control, adjustment of the mA and/or kV according to patient size, use of iterative reconstruction technique) copyright 2011 [employer]- All Rights Reserved Assessment & Plan - Diagnosis (1) Abdominal pain Qualifiers: Abdominal location: left upper quadrant Qualified Code(s): R10.12 - Left upper quadrant pain Is this a current diagnosis for this admission?: Yes - Plan Summary Plan Summary: Mr. Crook is a 72-year-old male who presents to the emergency room tonight for 2 to 3 weeks of chronic nausea and vomiting and unable to tolerate food or liquids patient also complains of significant left upper quadrant pain which he states is the source of his problem he presents fairly dehydrated with elevated creatinine and weight loss Patient has had chronic left upper quadrant pain which he complains of tonight and states that she has had this pain since 1995 after lifting a heavy object at work been the same pain since 1995. He said this worked up extensively in [facility] where he used to live she eventually led to a subtotal colectomy for unknown etiology and chart reports an ileal rectal anastomosis. Patient states that the pain got better after his initial surgery 1995 for about 10 years but then recurred 2005. There is reported in the chart he has had multiple re-explorative surgeries for this pain including 2 reexplorations with his original surgeon in [facility], Dr. Garcia. At that he had a temporary colostomy in 2009 was reversed 3 months later because he did not relieve his symptoms and this was also done in [place] He had a diagnostic laparoscopy by Dr. Jermaine Razo at [facility] 2009 He also had a procedure done only 04/2010 left upper quadrant incision for this persistent pain In May 2017 he had a exploratory laparotomy at [facility] Dr. Lorenz for his abdominal pain. Multiple colonoscopies and upper endoscopies here at [facility] by Dr. August which so showed mild gastritis duodenitis and reported as mild colitis On presentation tonight in the emergency room he complained of inability to hold down food or liquids for the last few weeks and has not had a bowel movement he states for the last few weeks. CT scan was performed in the emergency room which showed a dilated stomach however there are no significant dilated small bowel loops. The ER physician requested surgical consultation to rule out small bowel obstruction. Impression doubt small bowel obstruction. Gastric dilatation. Recommendations 1. For gastric dilatation I would insert an NG tube for low continuous suction. 2. Consider upper GI with small bowel follow-through. 3. Consider upper endoscopy to rule out tracheal obstruction.
[2018-11-02] MEDS ORDERED: IPRATROPIUM/ALBUTEROL 0.5-2.5 MG/3 ML AMPUL NEB PRN (23:12)
[2018-11-02] MEDS ORDERED: ACETAMINOPHEN 650 MG SUPP.RECT PR PRN (23:12)
[2018-11-02] MEDS ORDERED: ONDANSETRON HCL INJ/PF 4 MG/2 ML SDV IV PRN (23:12)
[2018-11-02] MEDS ORDERED: PHARMACY COMMUNICATION ORDER MC NR (23:15)
[2018-11-03 00:15] LABS: CREATINE KINASE MB 2.12 ng/mL (<4.55); TROPONIN I 0.023 ng/mL
--- NOTE | 2018-11-03 01:01 | RADIOLOGY REPORT (SQ) ---
EXAM DESCRIPTION: XR ABDOMEN 1 VIEW (KUB) COMPLETED DATE/TME: 11/02/2018 23:16 CLINICAL HISTORY: 73 years, Male, Check Placement of NG Tube COMPARISON: None. NUMBER OF VIEWS: TECHNIQUE: LIMITATIONS: None. FINDINGS: The tip of the nasogastric tube is in the stomach, with its tip pointing laterally. There are some prominent, gas containing bowel loops on the right side of the abdomen. IMPRESSION: The tip of the NG tube is in the stomach. Prominent, gas containing bowel loops on the right side of the abdomen. Please refer to the CT abdomen and pelvis report from today. copyright 2010 [employer]- All Rights Reserved
[2018-11-03] MEDS ORDERED: PROMETHAZINE HCL INJ 25 MG/1 ML VIAL ONE (01:53)
[2018-11-03] MEDS ORDERED: PROMETHAZINE HCL INJ 25 MG/1 ML VIAL IV ONE (02:00)
[2018-11-03] MEDS ORDERED: ONDANSETRON HCL INJ/PF 4 MG/2 ML SDV IV PRN (02:00)
[2018-11-03] MEDS: NORMAL SALINE 1000 ML 1,000 ML IV PRN ×3 (02:09→11:00)
[2018-11-03] MEDS: HEPARIN SOD (PORCINE) 5,000 UNIT/ML 1 ML VIAL SUBCUT SCH ×3 (05:53→21:44)
[2018-11-03 06:09] LABS: ABSOLUTE EOSINOPHILS # (AUTO) 0.1 10^3/uL (0.0-0.6); ABSOLUTE LYMPHOCYTES (AUTO) 1.1 10^3/uL (0.5-4.7); ABSOLUTE MONOCYTES (AUTO) 0.8 10^3/uL (0.1-1.4); ABSOLUTE NEUT (AUTO) 3.9 10^3/uL (1.7-8.2); BASOPHILS % (AUTO) 0.4 % (0-2); EOSINOPHILS % (AUTO) 1.3 % (0-6); HEMATOCRIT 26.2 % (37.9-51.0); LYMPHOCYTES % (AUTO) 18.4 % (13-45); MEAN CORPUSCULAR HEMOGLOBIN 31.8 pg (27.0-33.4); MEAN CORPUSCULAR HGB CONC 36.9 g/dL (32.0-36.0); MEAN CORPUSCULAR VOLUME 86 fl (80-97); MONOCYTES % (AUTO) 13.1 % (3-13); PLATELET COUNT 197 10^3/uL (150-450); RED BLOOD COUNT 3.04 10^6/uL (4.35-5.55); RED CELL DISTRIBUTION WIDTH 12.3 % (11.5-14.0); SEGMENTED NEUTROPHILS % (AUTO) 66.8 % (42-78); TOTAL CELLS COUNTED % (AUTO) 100 %; WHITE BLOOD COUNT 5.9 10^3/uL (4.0-10.5)
[2018-11-03 06:17] LABS: ALBUMIN 3.9 g/dL (3.5-5.0); ALKALINE PHOSPHATASE 59 U/L (38-126); ASPARTATE AMINO TRANSFERASE 6 U/L (17-59); BILIRUBIN,DIRECT 0.4 mg/dL (0.0-0.4); BILIRUBIN,TOTAL 0.8 mg/dL (0.2-1.3); CALCIUM 7.7 mg/dL (8.4-10.2); CARBON DIOXIDE 15 mmol/L (22-30); CREATINE KINASE 38 U/L (55-170); GLUCOSE 95 mg/dL (75-110); POTASSIUM 3.4 mmol/L (3.6-5.0); TOTAL PROTEIN 6.2 g/dL (6.3-8.2)
[2018-11-03 06:29] LABS: HEMOGLOBIN 9.7 g/dL (13.5-17.0)
[2018-11-03 06:30] LABS: CHLORIDE 89 mmol/L (98-107); CREATINE KINASE MB 2.2 ng/mL (<4.55); TROPONIN I 0.03 ng/mL
[2018-11-03 06:36] LABS: BLOOD UREA NITROGEN 140 mg/dL (7-20)
[2018-11-03 06:37] LABS: ANION GAP 23 (5-19)
[2018-11-03] MEDS ORDERED: DEXTROSE 40% GEL 15 GM TUBE PO PRN ×2 (06:46)
[2018-11-03] MEDS ORDERED: DEXTROSE 50%-WATER 25 GM/50 ML DISP.SYRIN IV PRN ×2 (06:46)
[2018-11-03] MEDS ORDERED: GLUCAGON,HUMAN RECOMB 1 MG INJ IM PRN (06:46)
--- NOTE | 2018-11-03 06:58 | PDOC H&P ---
History of Present Illness Admission Date/PCP: 11/02/18 23:18 Patient complains of: 3 weeks of intermittent nausea vomiting History of Present Illness: MIKE CROOK is a 73 year old male with a past medical history of diabetes, hypertension, recurrent partial small bowel obstruction versus ileus and 40 pound weight loss over the last 6 months. He denies chest pain but admits nausea vomiting of gastric content he denies bowel movement or passing gas. He is unable to tolerate liquids. In the emergency department he is found to have a distended abdomen nausea vomiting of dark material and a CT abdomen showing dilated stomach. Surgery is consulted recommending NG tube decompression and GI consultation. Patient has had multiple exploratory GI edu geries for the above complaint without definitive finding, please see surgical consult. Patient denies fever chills, recent medication changes. Past Medical History Cardiac Medical History: Reports: Hypertension Denies: Coronary Artery Disease, Myocardial Infarction Pulmonary Medical History: Denies: Asthma, Bronchitis, Chronic Obstructive Pulmonary Disease (COPD), Pneumonia Neurological Medical History: Denies: Seizures Endocrine Medical History: Reports: Diabetes Mellitus Type 1 GI Medical History: Reports: Gastroesophageal Reflux Disease, Other - Bowel obstruction Denies: Hepatitis, Hiatal Hernia Musculoskeltal Medical History: Denies: Arthritis Hematology: Denies: Anemia, Sickle Cell Disease Past Surgical History Past Surgical History: Reports: Colostomy - multiple abdominal procedures for chronic luq pain, Herniorrhaphy - Right inguinal Denies: Pacemaker Social History Information Source: Patient, Emergency Med Personnel, [facility] Records Smoking Status: Former Smoker Number of Years Smokin Last Time Smoked: 1960 Frequency of Alcohol Use: Rare Hx Recreational Drug Use: No Drugs: None Hx Prescription Drug Abuse: No - Advance Directive Resuscitation Status: Full Code Family History Family History: Other - Brother with stomach cancer Parental Family History Reviewed: Yes Children Family History Reviewed: Yes Sibling(s) Family History Reviewed.: Yes Medication/Allergy Home Medications: Docusate Sodium [Colace 100 mg Capsule] 100 mg PO BID 05/28/17 Insulin Glargine,Hum.rec.anlog [Lantus Solostar] 30 unit SQ QHS 05/28/17 Amlodipine Besylate [Norvasc 10 mg Tablet] 10 mg PO DAILY #30 tablet 05/30/17 Lansoprazole [Prevacid 30 mg Odt Tablet] 30 mg PO BID@0600,1700 tab.rap. 05/30/17 Lisinopril [Prinivil 10 mg Tablet] 10 mg PO DAILY tablet 05/30/17 Lisinopril [Prinivil 10 mg Tablet] 10 mg PO DAILY #30 tablet 05/30/17 Allergies/Adverse Reactions: No Known Allergies Allergy (Verified 11/02/18 14:21) Review of Systems Constitutional: PRESENT: as per HPI, anorexia, fatigue, weakness, weight loss. ABSENT: fever(s) Eyes: ABSENT: visual disturbances Ears: ABSENT: hearing changes Cardiovascular: ABSENT: chest pain, dyspnea on exertion, edema, orthropnea, palpitations Respiratory: ABSENT: cough, hemoptysis Gastrointestinal: PRESENT: as per HPI, abdominal pain, bloating, constipation, nausea, vomiting. ABSENT: coffee ground emesis, diarrhea Genitourinary: ABSENT: dysuria, hematuria Musculoskeletal: ABSENT: joint swelling Integumentary: ABSENT: rash, wounds Neurological: ABSENT: abnormal gait, abnormal speech, confusion, dizziness, focal weakness, syncope Psychiatric: ABSENT: anxiety, depression, homidical ideation, suicidal ideation Endocrine: ABSENT: cold intolerance, heat intolerance, polydipsia, polyuria Hematologic/Lymphatic: ABSENT: easy bleeding, easy bruising Physical Exam Vital Signs: Temp Pulse Resp BP Pulse Ox 97.6 F 99 18 113/71 100 11/03/18 02:11 11/03/18 02:11 11/03/18 02:11 11/03/18 02:11 11/03/18 02:11 Intake & Output 11/01/18 11/02/18 11/03/18 11:59 11:59 11:59 Intake Total 2308 Balance 2308 Weight 62.6 kg General appearance: PRESENT: cooperative, mild distress, thin, well-developed, well-nourished Head exam: PRESENT: atraumatic, normocephalic Eye exam: PRESENT: conjunctiva pink, EOMI, PERRLA. ABSENT: scleral icterus Ear exam: PRESENT: normal external ear exam Mouth exam: PRESENT: dry mucosa, tongue midline Neck exam: ABSENT: carotid bruit, JVD, lymphadenopathy, thyromegaly Respiratory exam: PRESENT: clear to auscultation jc. ABSENT: rales, rhonchi, wheezes Cardiovascular exam: PRESENT: RRR. ABSENT: diastolic murmur, rubs, systolic murmur Pulses: PRESENT: normal dorsalis pedis pul Vascular exam: PRESENT: normal capillary refill GI/Abdominal exam: PRESENT: diminished bowel sounds, distended, hypoactive bowel sounds. ABSENT: ascites, tenderness Rectal exam: PRESENT: deferred Extremities exam: PRESENT: full ROM. ABSENT: calf tenderness, clubbing, pedal edema Neurological exam: PRESENT: alert, awake, oriented to person, oriented to place, oriented to time, oriented to situation, CN II-XII grossly intact. ABSENT: motor sensory deficit Psychiatric exam: PRESENT: appropriate affect, normal mood. ABSENT: homicidal ideation, suicidal ideation Skin exam: PRESENT: dry, intact, warm. ABSENT: cyanosis, rash Results Laboratory Results: 11/03/18 05:21 11/03/18 05:21 11/02/18 11/02/18 11/02/18 16:42 16:42 22:30 WBC 9.9 RBC 3.80 L Hgb 11.9 L Hct 32.5 L MCV 86 MCH 31.3 MCHC 36.6 H RDW 12.6 Plt Count 291 Seg Neutrophils % 77.7 Sodium 123.4 L Potassium 3.9 Chloride 79 L Carbon Dioxide 16 L Anion Gap 28 H BUN 146 H Creatinine 8.53 H Est GFR ( Amer) 7 L Glucose 195 H Lactic Acid 0.7 Calcium 8.7 Total Bilirubin 1.1 AST 10 L Alkaline Phosphatase 84 Total Protein 8.1 Albumin 5.3 H 11/03/18 11/03/18 05:21 05:21 WBC 5.9 RBC 3.04 L Hgb 9.7 L D Hct 26.2 L MCV 86 MCH 31.8 MCHC 36.9 H RDW 12.3 Plt Count 197 Seg Neutrophils % 66.8 Sodium 126.8 L Potassium 3.4 L Chloride 89 L Carbon Dioxide 15 L Anion Gap 23 H BUN 140 H Creatinine 7.79 H Est GFR ( Amer) 8 L Glucose 95 Lactic Acid Calcium 7.7 L Total Bilirubin 0.8 AST 6 L Alkaline Phosphatase 59 Total Protein 6.2 L Albumin 3.9 11/02/18 11/02/18 11/03/18 23:25 23:25 05:21 Creatine Kinase 36 L 38 L CK-MB (CK-2) 2.12 Troponin I 0.023 11/03/18 05:21 Creatine Kinase CK-MB (CK-2) 2.20 Troponin I 0.030 Impressions: Abdomen X-Ray 11/02/18 14:57 IMPRESSION: No definite pathologically dilated loops of bowel to suggest obstruction. Gas containing loops of bowel in the right hemiabdomen, presumably colonic. Abdomen/Pelvis CT 11/02/18 18:27 IMPRESSION: 1. Few nonspecific distended, however not dilated loops of small bowel present at the level of the RIGHT upper quadrant without clear findings to suggest transition point. Please see above details. Enteritis versus the possibility of early or incomplete small bowel obstruction may be considered in the differential. 2. Air and fluid distended gastric body. TECHNICAL DOCUMENTATION: Quality ID # [id number]: Final reports with documentation of one or more dose reduction techniques (e.g., Automated exposure control, adjustment of the mA and/or kV according to patient size, use of iterative reconstruction technique) copyright 2010 [employer]- All Rights Reserved KUB X-Ray 11/02/18 23:16 IMPRESSION: The tip of the NG tube is in the stomach. Prominent, gas containing bowel loops on the right side of the abdomen. Please refer to the CT abdomen and pelvis report from today. copyright 2011 [employer]- All Rights Reserved Assessment and Plan - Diagnosis (1) Ileus Is this a current diagnosis for this admission?: Yes Plan: Symptomatic management, NG tube decompression, n.p.o., GI consultation. (2) Gastroparesis Is this a current diagnosis for this admission?: Yes Plan: Possible contributing factor, follow-up GI consult (3) Weight loss Is this a current diagnosis for this admission?: Yes Plan: Elevated risk given family history of gastric cancer and personal history of greater than 82-[id number]-[id number] smoking. Consider CT chest (4) Acute renal failure Qualifiers: Acute renal failure type: unspecified Qualified Code(s): N17.9 - Acute kidney failure, unspecified Is this a current diagnosis for this admission?: Yes Plan: Likely prerenal, aggressive IV fluid challenge, reevaluate chemistry, avoid nephrotoxic meds and doses consider nephrology consult (5) Diabetes type 2, uncontrolled Is this a current diagnosis for this admission?: Yes Plan: Humalog sliding scale every 6 hours while n.p.o. Follow-up A1c - Time Time Spent with patient: 25-34 minutes - Inpatient Certification Medical Necessity: Need Close Monitoring Due to Risk of Patient Decompensation
[2018-11-03] MEDS: INSULIN LISPRO 100 UNIT/ML 3 ML VIAL SUBCUT SCH ×3 (07:29→17:30)
--- NOTE | 2018-11-03 07:55 | Progress Note ---
Provider Note Provider Note: patient has had multiple and previous evaluation in the years past he however has been discharged from my service. he will need referral to alternative GI service.
[2018-11-03 08:14] LABS: APPEARANCE,URINE CLEAR; BILIRUBIN,URINE NEGATIVE (NEGATIVE); COLOR,URINE YELLOW; GLUCOSE, URINE NEGATIVE (NEGATIVE); KETONES,URINE NEGATIVE (NEGATIVE); LEUKOCYTE ESTERASE,URINE NEGATIVE (NEGATIVE); NITRITE,URINE NEGATIVE (NEGATIVE); PROTEIN,URINE NEGATIVE (NEGATIVE); UROBILINOGEN,URINE NEGATIVE mg/dL (<2.0)
[2018-11-03] MEDS ORDERED: METOCLOPRAMIDE HCL INJ/PF 10 MG/2 ML SDV IV ONE (09:30)
[2018-11-03] MEDS: PANTOPRAZOLE SODIUM 40 MG VIAL IV SCH ×2 (10:31→21:44)
--- NOTE | 2018-11-03 10:44 | RADIOLOGY REPORT (SQ) ---
EXAM DESCRIPTION: KUB/ABDOMEN (SINGLE VIEW) COMPLETED DATE/TIME: 11/03/2018 10:36 am REASON FOR STUDY: abdominal pain COMPARISON: None. NUMBER OF VIEWS: One view. TECHNIQUE: Supine radiographic image of the abdomen acquired. LIMITATIONS: None. FINDINGS: BOWEL GAS PATTERN: Gas pattern is unchanged from November 02. NG tube remains in place. Mi ld small-bowel distention with a single loop measured at 3.8 cm in the right upper quadrant. CALCIFICATIONS: No suspicious calcifications. SOFT TISSUES: No gross mass or suggestion of organomegaly. HARDWARE: None in the abdomen. BONES: No acute fracture. No worrisome bone lesions. OTHER: No other significant finding. IMPRESSION: No interval change. NG tube remains in place. TECHNICAL DOCUMENTATION: JOB ID: [id number] [employer]- All Rights Reserved Reading location - IP/workstation name: [email or web address]
--- NOTE | 2018-11-03 12:11 | PDOC CONSULTATION ---
Consultation Consult Date: 11/03/18 Provider Consulted: Nilam SPENCER Consult reason:: FEROZ,Hyponatremia History of Present Illness Admission Date/PCP: 11/02/18 23:18 History of Present Illness: MIKE CROOK is a 73 year old male with past history of diabetes mellitus hypertension and recurring partial bowel obstruction was admitted with history of acute on chronic left upper quadrant pain, nausea and vomiting with very poor intake for the last 1 month duration.He has had significant weight loss of approximately 40 pounds over the same. Of time. He states he has not had a bowel movement for the last 1 week including difficulty with flatus. No history of any hematochezia or hematemesis. No history of any fever or chills. No complaints of any chest pain or shortness of breath. Patient is a poor historian. Chart review was done from his previous admissions. He has had jacky arent recurring bowel obstruction for quite some time. Apparently he had a subtotal colectomy in [place], [place] 10 - 12 years ago for reasons which are unclear. Following that he has had at least 2 exploratory laparotomy one in [place] in 2009 and another one at [facility] in 2018 apparently both of which were negative when he presented with similar complaints. Between all of this he also had a temporary colostomy which was later reversed. He had a colonoscopy 2018 in [facility] when he was admitted there for similar issues. He has been extensively worked up by Dr. August bead builder here locally as well. Initial evaluations in the ER revealed that the patient had subacute bowel obstruction. He has been seen by Dr. Hall- surgeon. He is now having nasogastric decompression. He is producing bilious fluids into his suction. Labs on review shows hemoglobin 9.7 white count of 5.9. His chemistry shows sodium 126, potassium 3.4, CO2 15, chloride of 89, BUN/creatinine 140/7.7. His previous creatinine on record is from May 2017 when it was 1.1. Past Medical History Cardiac Medical History: Denies: Coronary Artery Disease, Myocardial Infarction Pulmonary Medical History: Denies: Asthma, Bronchitis, Chronic Obstructive Pulmonary Disease (COPD), Pneumonia Neurological Medical History: Denies: Seizures Endocrine Medical History: Reports: Diabetes Mellitus Type 2 GI Medical History: Reports: Gastroesophageal Reflux Disease, Other - Bowel obstruction Denies: Hepatitis, Hiatal Hernia Musculoskeltal Medical History: Denies: Arthritis Past Surgical History Past Surgical History: Reports: Colostomy - multiple abdominal procedures for chronic luq pain, Herniorrhaphy - Right inguinal Denies: Pacemaker Social History Smoking Status: Former Smoker Number of Years Smokin Last Time Smoked: 1960 Frequency of Alcohol Use: Rare Hx Recreational Drug Use: No Drugs: None Hx Prescription Drug Abuse: No - Advance Directive Resuscitation Status: Full Code Family History Parental Family History Reviewed: Yes - Negative for ESRD Children Family History Reviewed: No Sibling(s) Family History Reviewed.: No Medication/Allergy Home Medications: Insulin Glargine,Hum.rec.anlog [Lantus Solostar] 20 unit SQ QAM 05/28/17 Brimonidine Tartrate/Timolol [Combigan 0.2%-0.5% Eye Drops] 1 drop OU BID 11/03/18 Dorzolamide HCl/Pf [Dorzolamide 2% Eye Drop] 1 drop OS BID 11/03/18 Linaclotide [Linzess] 72 mcg PO DAILY 11/03/18 Metoclopramide HCl 5 mg PO TID 11/03/18 Prucalopride Succinate [Motegrity] 1 mg PO DAILY 11/03/18 Allergies/Adverse Reactions: No Known Allergies Allergy (Verified 11/02/18 14:21) Review of Systems Constitutional: PRESENT: anorexia, fatigue, weakness, weight loss. ABSENT: chills, fever(s), headache(s), night sweats Eyes: ABSENT: visual disturbances Nose, Mouth, and Throat: ABSENT: mouth pain, sore throat, vertigo Cardiovascular: ABSENT: chest pain, dyspnea on exertion, edema, orthropnea, palpitations Respiratory: ABSENT: cough, dyspnea, hemoptysis Gastrointestinal: PRESENT: abdominal pain, bloating, constipation, nausea, vomiting. ABSENT: coffee ground emesis, diarrhea, dysphagia, heartburn, hematemesis, hematochezia Genitourinary: ABSENT: dysuria, hematuria Musculoskeletal: ABSENT: deformity, joint swelling Integumentary: ABSENT: diaphoresis, erythema, lesions, rash Neurological: PRESENT: dizziness. ABSENT: abnormal movements, abnormal speech, confusion, convulsions, focal weakness, frequent falls, lack of coordination Endocrine: ABSENT: polydipsia Hematologic/Lymphatic: ABSENT: easy bleeding, easy bruising, lymphadenopathy Physical Exam Vital Signs: Temp Pulse Resp BP Pulse Ox 97.6 F 90 17 113/71 96 11/03/18 02:11 11/03/18 11:23 11/03/18 11:23 11/03/18 02:11 11/03/18 11:23 Intake & Output 11/02/18 11/03/18 11/04/18 06:59 06:59 06:59 Intake Total 2308 Balance 2308 Weight 62.6 kg General appearance: PRESENT: no acute distress, disheveled Exam: Very frail. Eye exam: PRESENT: conjunctiva pale, EOMI, PERRLA. ABSENT: periorbital swelling, scleral icterus Mouth exam: PRESENT: neck supple. ABSENT: moist Neck exam: ABSENT: lymphadenopathy, meningismus, tenderness, thyromegaly, tracheal deviation Respiratory exam: PRESENT: clear to auscultation jc, decreased breath sounds. ABSENT: crackles Cardiovascular exam: PRESENT: +S1, +S2 GI/Abdominal exam: PRESENT: diminished bowel sounds, hypoactive bowel sounds, soft. ABSENT: distended, firm, guarding, normal bowel sounds - Bowel sounds was diminished and what I heard was rather tympanitic., organomegaly, tenderness Extremities exam: ABSENT: pedal edema Neurological exam: PRESENT: alert, awake, oriented to person, oriented to place, other - No asterixis Psychiatric exam: PRESENT: anxious Skin exam: ABSENT: erythema, mottled, rash Results Laboratory Results: 11/03/18 05:21 11/03/18 05:21 11/02/18 11/02/18 11/02/18 16:42 16:42 22:30 WBC 9.9 RBC 3.80 L Hgb 11.9 L Hct 32.5 L MCV 86 MCH 31.3 MCHC 36.6 H RDW 12.6 Plt Count 291 Seg Neutrophils % 77.7 Sodium 123.4 L Potassium 3.9 Chloride 79 L Carbon Dioxide 16 L Anion Gap 28 H BUN 146 H Creatinine 8.53 H Est GFR ( Amer) 7 L Glucose 195 H Lactic Acid 0.7 Calcium 8.7 Total Bilirubin 1.1 AST 10 L Alkaline Phosphatase 84 Total Protein 8.1 Albumin 5.3 H Lipase Urine Color Urine Appearance Urine pH Ur Specific [place] Urine Protein Urine Glucose (UA) Urine Ketones Urine Blood Urine Nitrite Ur Leukocyte Esterase Urine WBC (Auto) Urine RBC (Auto) 11/03/18 11/03/1819 05:21 05:21 05:21 WBC 5.9 RBC 3.04 L Hgb 9.7 L D Hct 26.2 L MCV 86 MCH 31.8 MCHC 36.9 H RDW 12.3 Plt Count 197 Seg Neutrophils % 66.8 Sodium 126.8 L Potassium 3.4 L Chloride 89 L Carbon Dioxide 15 L Anion Gap 23 H BUN 140 H Creatinine 7.79 H Est GFR ( Amer) 8 L Glucose 95 Lactic Acid Calcium 7.7 L Total Bilirubin 0.8 AST 6 L Alkaline Phosphatase 59 Total Protein 6.2 L Albumin 3.9 Lipase 89.2 Urine Color Urine Appearance Urine pH Ur Specific [place] Urine Protein Urine Glucose (UA) Urine Ketones Urine Blood Urine Nitrite Ur Leukocyte Esterase Urine WBC (Auto) Urine RBC (Auto) 11/03/18 07:36 WBC RBC Hgb Hct MCV MCH MCHC RDW Plt Count Seg Neutrophils % Sodium Potassium Chloride Carbon Dioxide Anion Gap BUN Creatinine Est GFR ( Amer) Glucose Lactic Acid Calcium Total Bilirubin AST Alkaline Phosphatase Total Protein Albumin Lipase Urine Color YELLOW Urine Appearance CLEAR Urine pH 5.0 Ur Specific [place] 1.010 Urine Protein NEGATIVE Urine Glucose (UA) NEGATIVE Urine Ketones NEGATIVE Urine Blood NEGATIVE Urine Nitrite NEGATIVE Ur Leukocyte Esterase NEGATIVE Urine WBC (Auto) 1 Urine RBC (Auto) 1 11/02/18 11/02/18 11/03/18 23:25 23:25 05:21 Creatine Kinase 36 L 38 L CK-MB (CK-2) 2.12 Troponin I 0.023 11/03/18 05:21 Creatine Kinase CK-MB (CK-2) 2.20 Troponin I 0.030 Impressions: Abdomen X-Ray 11/02/18 14:57 IMPRESSION: No definite pathologically dilated loops of bowel to suggest obstruction. Gas containing loops of bowel in the right hemiabdomen, presumably colonic. Abdomen/Pelvis CT 11/02/18 18:27 IMPRESSION: 1. Few nonspecific distended, however not dilated loops of small bowel present at the level of the RIGHT upper quadrant without clear findings to suggest transition point. Please see above details. Enteritis versus the possibility of early or incomplete small bowel obstruction may be considered in the differential. 2. Air and fluid distended gastric body. TECHNICAL DOCUMENTATION: Quality ID # 436: Final reports with documentation of one or more dose reduction techniques (e.g., Automated exposure control, adjustment of the mA and/or kV according to patient size, use of iterative reconstruction technique) copyright 2011 [employer]- All Rights Reserved KUB X-Ray 11/03/18 00:00 IMPRESSION: No interval change. NG tube remains in place. Assessment & Plan - Diagnosis (1) Acute renal failure Qualifiers: Acute renal failure type: unspecified Qualified Code(s): N17.9 - Acute kidney failure, unspecified Is this a current diagnosis for this admission?: Yes Plan: Nonoliguric. Currently patient is quite dehydrated. This is prerenal. Reviewed CT scan which did not show any obstructive uropathy. I would continue with vigorous fluid hydration and also do labs every 8 hours given his low sodium and potassium. (2) Acute hyponatremia Plan: He responds to fluid resuscitation with normal saline. Monitor sodium every 8 hours. (3) Gastroparesis Is this a current diagnosis for this admission?: Yes Plan: Unsure if this is the exact etiology but it could be. Obviously patient has got subacute bowel obstruction and management as per hospitalist/surgeons. (4) Ileus Is this a current diagnosis for this admission?: Yes Plan: Currently being decompressed. (5) Diabetes type 2, uncontrolled Is this a current diagnosis for this admission?: Yes Plan: On sliding scale (6) Metabolic acidosis Plan: Gap acidosis in the face of FEROZ secondary to dehydration.
[2018-11-03 12:37] LABS: CREATINE KINASE MB 2.28 ng/mL (<4.55); TROPONIN I 0.029 ng/mL
[2018-11-03 15:50] LABS: ANION GAP 17 (5-19); CALCIUM 7.6 mg/dL (8.4-10.2); CARBON DIOXIDE 16 mmol/L (22-30); CHLORIDE 96 mmol/L (98-107); GLUCOSE 84 mg/dL (75-110); POTASSIUM 3.3 mmol/L (3.6-5.0)
--- NOTE | 2018-11-03 15:50 | PDOC PROGRESS REPORT ---
Subjective Progress Note for:: 11/03/18 Subjective:: This is 73 years old male patient with past medical history of hypertension, diabetes mellitus, recurrent partial small bowel obstruction, history of multiple exploratory laparotomy, history of partial colectomy presented with chief complaint of worsening left of the quadrant pain associated with nausea vomiting loss of appetite and unintentional weight loss of 40 pounds over several months. Patient has extensive bowel surgery in the past. He has partial colectomy in [place] about 10 years ago, and 2 exploratory laparotomy one injection 2009 and another one at [facility] in 2018 and reportedly both laparotomies are negative. Patient had also a temporary colostomy to relieve his left upper quadrant pain. CT scan of the abdomen done here yesterday reports as enteritis versus partial small bowel obstruction. Currently patient is being made n.p.o. and NG tube suction. His blood work shows hyponatremia sodium at 126.8, BUN 140 creatinine of 7.79. In August 2017 patient had a creatinine of 8.14 and his recent creatinine was seen 2079 which was 1.1. Patient might have acute on chronic CKD. Currently patient is being aggressively hydrated. This morning I seen him lying in bed obviously uncomfortable from abdominal pain and told him he has sensation of being fecally impacted. Reason For Visit: ARF,ILEUS ABD PAIN Physical Exam Vital Signs: Temp Pulse Resp BP Pulse Ox 97.6 F 90 17 113/71 96 11/03/18 02:11 11/03/18 11:23 11/03/18 11:23 11/03/18 02:11 11/03/18 11:23 Intake & Output 11/02/18 11/03/18 11/04/18 06:59 06:59 06:59 Intake Total 2308 Output Total 150 Balance 2308 -150 Weight 62.6 kg General appearance: PRESENT: mild distress Head exam: PRESENT: atraumatic Mouth exam: PRESENT: dry mucosa Respiratory exam: PRESENT: clear to auscultation jc. ABSENT: rales, rhonchi, wheezes Cardiovascular exam: PRESENT: RRR. ABSENT: diastolic murmur, rubs, systolic murmur GI/Abdominal exam: PRESENT: normal bowel sounds, soft. ABSENT: distended, guarding, mass, organolmegaly, rebound, tenderness Neurological exam: PRESENT: alert, awake, oriented to person, oriented to place, oriented to time, oriented to situation Results Laboratory Results: 11/03/18 05:21 11/02/18 11/02/18 11/02/18 16:42 16:42 22:30 WBC 9.9 RBC 3.80 L Hgb 11.9 L Hct 32.5 L MCV 86 MCH 31.3 MCHC 36.6 H RDW 12.6 Plt Count 291 Seg Neutrophils % 77.7 Sodium 123.4 L Potassium 3.9 Chloride 79 L Carbon Dioxide 16 L Anion Gap 28 H BUN 146 H Creatinine 8.53 H Est GFR ( Amer) 7 L Glucose 195 H Lactic Acid 0.7 Calcium 8.7 Total Bilirubin 1.1 AST 10 L Alkaline Phosphatase 84 Total Protein 8.1 Albumin 5.3 H Lipase Urine Color Urine Appearance Urine pH Ur Specific [place] Urine Protein Urine Glucose (UA) Urine Ketones Urine Blood Urine Nitrite Ur Leukocyte Esterase Urine WBC (Auto) Urine RBC (Auto) 11/03/18 11/03/18 11/03/18 05:21 05:21 05:21 WBC 5.9 RBC 3.04 L Hgb 9.7 L D Hct 26.2 L MCV 86 MCH 31.8 MCHC 36.9 H RDW 12.3 Plt Count 197 Seg Neutrophils % 66.8 Sodium 126.8 L Potassium 3.4 L Chloride 89 L Carbon Dioxide 15 L Anion Gap 23 H BUN 140 H Creatinine 7.79 H Est GFR ( Amer) 8 L Glucose 95 Lactic Acid Calcium 7.7 L Total Bilirubin 0.8 AST 6 L Alkaline Phosphatase 59 Total Protein 6.2 L Albumin 3.9 Lipase 89.2 Urine Color Urine Appearance Urine pH Ur Specific [place] Urine Protein Urine Glucose (UA) Urine Ketones Urine Blood Urine Nitrite Ur Leukocyte Esterase Urine WBC (Auto) Urine RBC (Auto) 11/03/18 07:36 WBC RBC Hgb Hct MCV MCH MCHC RDW Plt Count Seg Neutrophils % Sodium Potassium Chloride Carbon Dioxide Anion Gap BUN Creatinine Est GFR ( Amer) Glucose Lactic Acid Calcium Total Bilirubin AST Alkaline Phosphatase Total Protein Albumin Lipase Urine Color YELLOW Urine Appearance CLEAR Urine pH 5.0 Ur Specific [place] 1.010 Urine Protein NEGATIVE Urine Glucose (UA) NEGATIVE Urine Ketones NEGATIVE Urine Blood NEGATIVE Urine Nitrite NEGATIVE Ur Leukocyte Esterase NEGATIVE Urine WBC (Auto) 1 Urine RBC (Auto) 1 08/27/19 08/27/19 08/28/19 23:25 23:25 05:21 Creatine Kinase 36 L 38 L CK-MB (CK-2) 2.12 Troponin I 0.023 11/03/18 11/03/18 11/03/18 05:21 11:50 11:50 Creatine Kinase 42 L CK-MB (CK-2) 2.20 2.28 Troponin I 0.030 0.029 Impressions: Abdomen X-Ray 11/02/18 14:57 IMPRESSION: No definite pathologically dilated loops of bowel to suggest obstruction. Gas containing loops of bowel in the right hemiabdomen, presumably colonic. Abdomen/Pelvis CT 11/02/18 18:27 IMPRESSION: 1. Few nonspecific distended, however not dilated loops of small bowel present at the level of the RIGHT upper quadrant without clear findings to suggest transition point. Please see above details. Enteritis versus the possibility of early or incomplete small bowel obstruction may be considered in the differential. 2. Air and fluid distended gastric body. TECHNICAL DOCUMENTATION: Quality ID # 436: Final reports with documentation of one or more dose reduction techniques (e.g., Automated exposure control, adjustment of the mA and/or kV according to patient size, use of iterative reconstruction technique) copyright 2011 [employer]- All Rights Reserved KUB X-Ray 11/03/18 00:00 IMPRESSION: No interval change. NG tube remains in place. Assessment and Plan - Diagnosis (1) Ileus versus small bowel obstruction Is this a current diagnosis for this admission?: Yes Plan: We will continue NG tube suction and keep the patient n.p.o. (2) Acute kidney injury superimposed on CKD Is this a current diagnosis for this admission?: Yes Plan: Continue aggressive hydration. In the meantime we will avoid nephrotoxic agents. Monitor renal function test. (3) Hyponatremia Is this a current diagnosis for this admission?: Yes Plan: Will be corrected with hydration (4) Unintentional weight loss Is this a current diagnosis for this admission?: Yes Plan: Due to lack of appetite and dehydration. Nutritional supplement as soon as patient regain his bowel motion and appetite. (5) Metabolic acidosis Is this a current diagnosis for this admission?: Yes Plan: Will be corrected with hydration. (6) Gastroparesis Is this a current diagnosis for this admission?: Yes Plan: This might be a possibility with long-standing diabetes. Patient has been started on prokinetic agents (7) Type 2 diabetes mellitus Is this a current diagnosis for this admission?: Yes Plan: Hold his glycemic agents. We will put him on sliding scale.
[2018-11-03 16:06] LABS: BLOOD UREA NITROGEN 133 mg/dL (7-20)
--- NOTE | 2018-11-03 19:23 | PDOC PROGRESS REPORT ---
Subjective Progress Note for:: 11/03/18 Subjective:: This is a 73-year-old male with a history of chronic left-sided abdominal pain. Patient presents to the hospital with constant left-sided pain. He also reports nausea and vomiting. The patient reports that his pain is continuous and severe. His NG tube remains in place. It is productive of dark/bilious fluid. The patient denies melena, hematochezia, hematemesis, fevers, chills, chest pain, shortness of breath. Reason For Visit: ARF,ILEUS ABD PAIN Physical Exam Vital Signs: Temp Pulse Resp BP Pulse Ox 97.6 F 90 17 113/71 96 11/03/18 02:11 11/03/18 14:00 11/03/18 11:23 11/03/18 02:11 11/03/18 11:23 Intake & Output 11/02/18 11/03/18 11/04/18 06:59 06:59 06:59 Intake Total 2308 2000 Output Total 1050 Balance 2308 950 Weight 62.6 kg General appearance: PRESENT: no acute distress, cooperative Head exam: PRESENT: atraumatic, normocephalic Eye exam: PRESENT: EOMI, PERRLA. ABSENT: scleral icterus Mouth exam: PRESENT: moist, neck supple Neck exam: ABSENT: meningismus, tenderness, thyromegaly, tracheal deviation Respiratory exam: PRESENT: unlabored. ABSENT: tachypnea, wheezes Cardiovascular exam: PRESENT: RRR Pulses: PRESENT: normal radial pulses GI/Abdominal exam: PRESENT: soft, tenderness - Mild left-sided tenderness to palpation., other - No peritonitis. ABSENT: distended, firm, guarding, hernia, rebound, rigid Rectal exam: PRESENT: deferred Extremities exam: ABSENT: clubbing Musculoskeletal exam: ABSENT: deformity Neurological exam: PRESENT: alert, awake Psychiatric exam: ABSENT: agitated, anxious, depressed Focused psych exam: ABSENT: delusional Skin exam: ABSENT: cyanosis, erythema, jaundice Results Laboratory Results: 11/03/18 05:21 11/03/18 15:00 11/02/18 11/03/18 11/03/18 22:30 05:21 05:21 WBC 5.9 RBC 3.04 L Hgb 9.7 L D Hct 26.2 L MCV 86 MCH 31.8 MCHC 36.9 H RDW 12.3 Plt Count 197 Seg Neutrophils % 66.8 Sodium 126.8 L Potassium 3.4 L Chloride 89 L Carbon Dioxide 15 L Anion Gap 23 H BUN 140 H Creatinine 7.79 H Est GFR ( Amer) 8 L Glucose 95 Lactic Acid 0.7 Calcium 7.7 L Magnesium Total Bilirubin 0.8 AST 6 L Alkaline Phosphatase 59 Total Protein 6.2 L Albumin 3.9 Lipase Urine Color Urine Appearance Urine pH Ur Specific [place] Urine Protein Urine Glucose (UA) Urine Ketones Urine Blood Urine Nitrite Ur Leukocyte Esterase Urine WBC (Auto) Urine RBC (Auto) 11/03/18 11/03/18 11/03/18 05:21 07:36 15:00 WBC RBC Hgb Hct MCV MCH MCHC RDW Plt Count Seg Neutrophils % Sodium 129.3 L Potassium 3.3 L Chloride 96 L Carbon Dioxide 16 L Anion Gap 17 BUN 133 H Creatinine 7.62 H Est GFR ( Amer) 9 L Glucose 84 Lactic Acid Calcium 7.6 L Magnesium 1.9 Total Bilirubin AST Alkaline Phosphatase Total Protein Albumin Lipase 89.2 Urine Color YELLOW Urine Appearance CLEAR Urine pH 5.0 Ur Specific [place] 1.010 Urine Protein NEGATIVE Urine Glucose (UA) NEGATIVE Urine Ketones NEGATIVE Urine Blood NEGATIVE Urine Nitrite NEGATIVE Ur Leukocyte Esterase NEGATIVE Urine WBC (Auto) 1 Urine RBC (Auto) 1 11/02/18 11/02/18 11/03/18 23:25 23:25 05:21 Creatine Kinase 36 L 38 L CK-MB (CK-2) 2.12 Troponin I 0.023 11/03/18 11/03/18 11/03/18 05:21 11:50 11:50 Creatine Kinase 42 L CK-MB (CK-2) 2.20 2.28 Troponin I 0.030 0.029 Impressions: Abdomen X-Ray 11/02/18 14:57 IMPRESSION: No definite pathologically dilated loops of bowel to suggest obstruction. Gas containing loops of bowel in the right hemiabdomen, presumably colonic. Abdomen/Pelvis CT 11/02/18 18:27 IMPRESSION: 1. Few nonspecific distended, however not dilated loops of small bowel present at the level of the RIGHT upper quadrant without clear findings to suggest transition point. Please see above details. Enteritis versus the possibility of early or incomplete small bowel obstruction may be considered in the differential. 2. Air and fluid distended gastric body. TECHNICAL DOCUMENTATION: Quality ID # 436: Final reports with documentation of one or more dose reduction techniques (e.g., Automated exposure control, adjustment of the mA and/or kV according to patient size, use of iterative reconstruction technique) copyright 2011 [employer]- All Rights Reserved KUB X-Ray 11/03/18 00:00 IMPRESSION: No interval change. NG tube remains in place. Assessment & Plan - Diagnosis (1) Left upper quadrant pain Is this a current diagnosis for this admission?: Yes (2) Left lower quadrant pain Is this a current diagnosis for this admission?: Yes - Plan Summary Plan Summary: This is a 73-year-old male with chronic left-sided abdominal pain. The patient was admitted for a small bowel obstruction, however his NG tube has not been excessively productive. The patient's x-ray show mildly dilated loops of small bowel. His abdominal exam is not specifically impressive. I will order a small bowel follow-through and an attempt to identify any obvious area of obstruction. We will continue to follow the patient closely with you. Contine with hydration and resuscitation.
[2018-11-03 23:13] LABS: CALCIUM 7.2 mg/dL (8.4-10.2); GLUCOSE 76 mg/dL (75-110); POTASSIUM 3.1 mmol/L (3.6-5.0)
[2018-11-03 23:18] LABS: ANION GAP 19 (5-19); CARBON DIOXIDE 15 mmol/L (22-30); CHLORIDE 98 mmol/L (98-107)
[2018-11-03 23:23] LABS: BLOOD UREA NITROGEN 124 mg/dL (7-20)
[2018-11-04] MEDS ORDERED: CALCIUM GLUCONATE 1000 MG/10 ML INJ IV ONE (02:10)
[2018-11-04] MEDS: POTASSIUM CHLORIDE 20 MEQ/50 ML RTU IV SCH ×2 (02:11→05:37)
[2018-11-04] MEDS: INSULIN LISPRO 100 UNIT/ML 3 ML VIAL SUBCUT SCH ×4 (02:12→18:18)
[2018-11-04] MEDS: NORMAL SALINE 1000 ML 1,000 ML IV PRN ×2 (02:30→05:19)
[2018-11-04] MEDS ORDERED: NORMAL SALINE 1000 ML 1,000 ML IV PRN (04:48)
[2018-11-04] MEDS ORDERED: MORPHINE SULFATE 10 MG/ML INJ IV ONE (05:00)
[2018-11-04] MEDS: HEPARIN SOD (PORCINE) 5,000 UNIT/ML 1 ML VIAL SUBCUT SCH ×3 (05:20→23:29)
[2018-11-04 06:57] LABS: ANION GAP 17 (5-19); BLOOD UREA NITROGEN 116 mg/dL (7-20); CARBON DIOXIDE 13 mmol/L (22-30); CHLORIDE 105 mmol/L (98-107); POTASSIUM 3.4 mmol/L (3.6-5.0)
[2018-11-04 07:06] LABS: GLUCOSE 60 mg/dL (75-110)
[2018-11-04] MEDS ORDERED: POTASSI CL 20 MEQ/50 ML RIDER 20 MEQ/50 ML RTUPB IV SCH (07:54)
[2018-11-04] MEDS: PANTOPRAZOLE SODIUM 40 MG VIAL IV SCH ×2 (11:41→23:29)
--- NOTE | 2018-11-04 13:25 | PDOC PROGRESS REPORT ---
Subjective Progress Note for:: 11/04/18 Subjective:: This is 73 years old male patient with past medical history of hypertension, diabetes mellitus, recurrent partial small bowel obstruction, history of multiple exploratory laparotomy, history of partial colectomy presented with chief complaint of worsening left of the quadrant pain associated with nausea vomiting loss of appetite and unintentional weight loss of 40 pounds over several months. Patient has extensive bowel surgery in the past. He has partial colectomy in [place] about 10 years ago, and 2 exploratory laparotomy one injection 2009 and another one at [facility] in 2018 and reportedly both laparotomies are negative. Patient had also a temporary colostomy to relieve his left upper quadrant pain. CT scan of the abdomen done here yesterday reports as enteritis versus partial small bowel obstruction. Currently patient is being made n.p.o. and NG tube suction. His blood work shows hyponatremia sodium at 126.8, BUN 140 creatinine of 7.79. In August 2017 patient had a creatinine of 8.14 and his recent creatinine was seen 2079 which was 1.1. Patient might have acute on chronic CKD. Currently patient is being aggressively hydrated. This morning I seen him lying in bed obviously uncomfortable from abdominal pain and told him he has sensation of being fecally impacted. 11/04/2018: Patient seen and examined while resting in bed. Still patient obviously uncomfortable from abdominal pain. His labs reviewed and it shows that his kidney function is slightly improved yesterday his creatinine was 7.62 date is 6.9 and his potassium also improved relatively from 3.1-3.4. Small bowel GI series requested and and the results pending. NG tube is in place and draining clear yellow bilious material. He is being hydrated aggressively. Surgical team has been following him. Reason For Visit: ARF,ILEUS ABD PAIN Physical Exam Vital Signs: Temp Pulse Resp BP Pulse Ox 97.8 F 98 12 114/54 L 100 11/04/18 08:50 11/04/18 08:50 11/04/18 08:50 11/04/18 08:50 11/04/18 08:50 Intake & Output 11/03/18 11/04/18 11/05/18 06:59 06:59 06:59 Intake Total 2308 3043 Output Total 1140 Balance 2308 1903 Weight 62.6 kg 65.9 kg General appearance: PRESENT: cooperative, mild distress Head exam: PRESENT: atraumatic Eye exam: PRESENT: conjunctiva pink Neck exam: ABSENT: carotid bruit, JVD, lymphadenopathy, thyromegaly Respiratory exam: PRESENT: clear to auscultation jc. ABSENT: rales, rhonchi, wheezes Cardiovascular exam: PRESENT: RRR. ABSENT: diastolic murmur, rubs, systolic murmur GI/Abdominal exam: PRESENT: hypoactive bowel sounds Results Laboratory Results: 11/03/18 05:21 11/04/18 06:19 11/03/18 11/03/18 11/04/18 15:00 22:42 04:59 Sodium 129.3 L 132.1 L Cancelled Potassium 3.3 L 3.1 L Cancelled Chloride 96 L 98 Cancelled Carbon Dioxide 16 L 15 L Cancelled Anion Gap 17 19 Cancelled BUN 133 H 124 H Cancelled Creatinine 7.62 H 7.52 H Cancelled Est GFR ( Amer) 9 L 9 L Cancelled Est GFR (Non-Af Amer) Cancelled Glucose 84 76 Cancelled Calcium 7.6 L 7.2 L Cancelled Magnesium 1.9 11/04/18 06:19 Sodium 135.2 L Potassium 3.4 L Chloride 105 Carbon Dioxide 13 L Anion Gap 17 BUN 116 H Creatinine 6.79 H Est GFR ( Amer) 10 L Est GFR (Non-Af Amer) Glucose 60 L Calcium 7.0 L* Magnesium 11/02/18 11/02/18 11/03/18 23:25 23:25 05:21 Creatine Kinase 36 L 38 L CK-MB (CK-2) 2.12 Troponin I 0.023 11/03/18 11/03/18 11/03/18 05:21 11:50 11:50 Creatine Kinase 42 L CK-MB (CK-2) 2.20 2.28 Troponin I 0.030 0.029 Impressions: Abdomen X-Ray 11/02/18 14:57 IMPRESSION: No definite pathologically dilated loops of bowel to suggest obstruction. Gas containing loops of bowel in the right hemiabdomen, presumably colonic. Abdomen/Pelvis CT 11/02/18 18:27 IMPRESSION: 1. Few nonspecific distended, however not dilated loops of small bowel present at the level of the RIGHT upper quadrant without clear findings to suggest transition point. Please see above details. Enteritis versus the possibility of early or incomplete small bowel obstruction may be considered in the differential. 2. Air and fluid distended gastric body. TECHNICAL DOCUMENTATION: Quality ID # 436: Final reports with documentation of one or more dose reduction techniques (e.g., Automated exposure control, adjustment of the mA and/or kV according to patient size, use of iterative reconstruction technique) copyright 2011 [employer]- All Rights Reserved KUB X-Ray 11/03/18 00:00 IMPRESSION: No interval change. NG tube remains in place. Assessment and Plan - Diagnosis (1) Hypokalemia Is this a current diagnosis for this admission?: Yes Plan: Has been improving (2) Ileus versus small bowel obstruction Is this a current diagnosis for this admission?: Yes Plan: Small bowel series results pending. We will keep him n.p.o. and continue any suction. Will comanage with surgical team. (3) Acute kidney injury superimposed on CKD Is this a current diagnosis for this admission?: Yes Plan: His kidney function is slightly improved which is reflected in his creatinine that it was 7.6 yesterday to date 6.9. (4) Hyponatremia Is this a current diagnosis for this admission?: Yes Plan: Has been improving (5) Unintentional weight loss Is this a current diagnosis for this admission?: Yes Plan: Due to lack of appetite and dehydration. Nutritional supplement as soon as patient regain his bowel motion and appetite. (6) Metabolic acidosis Is this a current diagnosis for this admission?: Yes Plan: Will be corrected with hydration. (7) Gastroparesis Is this a current diagnosis for this admission?: Yes Plan: This might be a possibility with long-standing diabetes. Patient has been started on prokinetic agents (8) Type 2 diabetes mellitus Is this a current diagnosis for this admission?: Yes Plan: Hold his glycemic agents. We will put him on sliding scale.
[2018-11-04 14:28] LABS: ANION GAP 17 (5-19); BLOOD UREA NITROGEN 112 mg/dL (7-20); CALCIUM 7.8 mg/dL (8.4-10.2); CARBON DIOXIDE 14 mmol/L (22-30); CHLORIDE 109 mmol/L (98-107); GLUCOSE 88 mg/dL (75-110); POTASSIUM 3.5 mmol/L (3.6-5.0)
--- NOTE | 2018-11-04 16:45 | RADIOLOGY REPORT (SQ) ---
EXAM DESCRIPTION: SMALL BOWEL SERIES COMPLETED DATE/TIME: 11/04/2018 2:52 pm REASON FOR STUDY: SBO COMPARISON: Prior small bowel follow-through 05/08/2011, 11/14/[address] abdomen pelvis exams 11/02/2018, 12/15/2016, 01/09/2015, 04/13/2012, 05/09/2011, 06/01/2008 [facility]UB exams 11/03/2018, 11/02/2018, 09/05/2016, 08/21/2015 FLUOROSCOPY TIME: 1 minutes 29 seconds 7 digital fluoroscopic images saved to PACS. LIMITATIONS: None. PROCEDURE: Initial supervisor final image of abdomen acquired, followed by administration of Gastrografin oral contrast. Serial radiographic images acquired. Fluoroscopic images recorded of the terminal ileum a nd other indicated areas. All images stored on PACS. FINDINGS: Bar Examiner film demonstrates laparoscopic tacks post right inguinal hernia repair. Patient has a subtotal colectomy with ileocolic anastomosis projected to the right of the L3 vertebral body. Ad jacent to the anastomotic laura, a dilated loop of small bowel is present. This dilated loop of sm all bowel has intermittently been seen on films dating back to 2008 and 2010. A nasogastric tube is present with the tip and side port in the stomach. Contrast was infused throug h the nasogastric tube. By 1 hour, contrast is seen in nondistended proximal small bowel loops. By 2 hours and 30 minutes, oral contrast is seen throughout the gastrointestinal tract down to the re ctosigmoid. By 330 minutes, oral contrast is seen down to the rectum. Fluoroscopy over the right mid abdomen demonstrates no high-grade stricture of distal small bowel loo ps. Exact ileocolic anastomosis was difficult to profile. IMPRESSION: Post subtotal colectomy. No small bowel follow-through evidence of high-grade bowel obs truction. COMMENT: Quality ID 145: Final reports for procedures using fluoroscopy that document radiation exp osure indices, or exposure time and number of fluorographic images (if radiation exposure indices are not available) TECHNICAL DOCUMENTATION: JOB ID: [id number] [employer]- All Rights Reserved Reading location - IP/workstation name: [email or web address]
[2018-11-04] MEDS: DEXTROSE 5%-WATER 1000 ML 1,000 ML with SODIUM BICARBONATE 150 MEQ IV PRN ×2 (16:46)
[2018-11-04] MEDS: POTASSI CL 20 MEQ/1/2NS 1L 20 MEQ/1,000 ML RTUINJ IV PRN (16:46)
[2018-11-04] MEDS: METOCLOPRAMIDE HCL INJ/PF 10 MG/2 ML SDV IV SCH (17:15)
--- NOTE | 2018-11-04 18:58 | PDOC PROGRESS REPORT ---
Subjective Progress Note for:: 11/04/18 Subjective:: abdominal pains and nausea Just came back from SBFT Nurse claimed she heard some flatus while patient in the bathroom Reason For Visit: ARF,ILEUS ABD PAIN Physical Exam Vital Signs: Temp Pulse Resp BP Pulse Ox 97.4 F 105 H 16 122/56 L 100 11/04/18 16:15 11/04/18 16:15 11/04/18 16:15 11/04/18 16:15 11/04/18 16:15 Intake & Output 11/03/18 11/04/18 11/05/18 06:59 06:59 06:59 Intake Total 2308 3043 956 Output Total 1140 300 Balance 2308 1903 656 Weight 62.6 kg 65.9 kg Exam: abdomen is soft with mild RLQ tenderness NGT drained about 300 ccs greenish fluid Results Laboratory Results: 11/03/18 05:21 11/04/18 14:00 11/03/18 11/04/18 11/04/18 22:42 04:59 06:19 Sodium 132.1 L Cancelled 135.2 L Potassium 3.1 L Cancelled 3.4 L Chloride 98 Cancelled 105 Carbon Dioxide 15 L Cancelled 13 L Anion Gap 19 Cancelled 17 BUN 124 H Cancelled 116 H Creatinine 7.52 H Cancelled 6.79 H Est GFR ( Amer) 9 L Cancelled 10 L Est GFR (Non-Af Amer) Cancelled Glucose 76 Cancelled 60 L Calcium 7.2 L Cancelled 7.0 L* 11/04/18 14:00 Sodium 140.3 Potassium 3.5 L Chloride 109 H Carbon Dioxide 14 L Anion Gap 17 BUN 112 H Creatinine 7.27 H Est GFR ( Amer) 9 L Est GFR (Non-Af Amer) Glucose 88 Calcium 7.8 L 11/02/18 11/02/18 11/03/18 23:25 23:25 05:21 Creatine Kinase 36 L 38 L CK-MB (CK-2) 2.12 Troponin I 0.023 11/03/18 11/03/18 11/03/18 05:21 11:50 11:50 Creatine Kinase 42 L CK-MB (CK-2) 2.20 2.28 Troponin I 0.030 0.029 Impressions: Abdomen X-Ray 11/02/18 14:57 IMPRESSION: No definite pathologically dilated loops of bowel to suggest obstruction. Gas containing loops of bowel in the right hemiabdomen, presumably colonic. Abdomen/Pelvis CT 11/02/18 18:27 IMPRESSION: 1. Few nonspecific distended, however not dilated loops of small bowel present at the level of the RIGHT upper quadrant without clear findings to suggest transition point. Please see above details. Enteritis versus the possibility of early or incomplete small bowel obstruction may be considered in the differential. 2. Air and fluid distended gastric body. TECHNICAL DOCUMENTATION: Quality ID # 436: Final reports with documentation of one or more dose reduction techniques (e.g., Automated exposure control, adjustment of the mA and/or kV according to patient size, use of iterative reconstruction technique) copyright 2011 [employer]- All Rights Reserved KUB X-Ray 11/03/18 00:00 IMPRESSION: No interval change. NG tube remains in place. Small Bowel X-Ray 11/04/18 00:00 IMPRESSION: Post subtotal colectomy. No small bowel follow-through evidence of high-grade bowel obstruction. Assessment & Plan - Time Time Spent with patient: 15-24 minutes - Inpatient Certification Medical Necessity: Need Close Monitoring Due to Risk of Patient Decompensation, Need For IV Fluids, Risk of Complication if Not Cared For in Hospital - Plan Summary Plan Summary: SBFT showed no severe bowel obstruction Will monitor NGT drainage tonight prior to possible D/C in am
--- NOTE | 2018-11-04 19:44 | PDOC PROGRESS REPORT ---
Subjective Progress Note for:: 11/04/18 Subjective:: Patient is a 73-year-old gentleman with history of abdominal surgeries including subtotal colectomy 10 or 12 years ago followed by multiple exploratory laparotomies who came in with abdominal pain, nausea and vomiting. Patient also had a 40 pound weight loss. Patient also presented with acute kidney injury and hyponatremia. Currently the patient is still complaining of abdominal pain and discomfort. He has an NG tube with suction obtaining bilious material. He had a small bowel follow-through today which did not show any evidence of high-grade obstruction. The patient's kidney function has not really shown any significant improvement so far. He continues to be given IV fluid hydration. His sodium level is now within acceptable normal limits. For the last 24 hours he did not really make much urine with a recorded urine output of only 240 mL. Reason For Visit: ARF,ILEUS ABD PAIN Physical Exam Vital Signs: Temp Pulse Resp BP Pulse Ox 97.5 F 101 H 16 109/57 L 100 11/04/18 13:24 11/04/18 13:24 11/04/18 13:24 11/04/18 13:24 11/04/18 13:24 Intake & Output 11/03/18 11/04/18 11/05/18 06:59 06:59 06:59 Intake Total 2308 3043 513 Output Total 1140 Balance 2308 1903 513 Weight 62.6 kg 65.9 kg Exam: General appearance: PRESENT: no acute distress, cooperative, well-developed, well-nourished Head exam: PRESENT: atraumatic, normocephalic; NG tube in place Eye exam: PRESENT: conjunctiva slightly pale, PERRLA. ABSENT: scleral icterus Neck exam: ABSENT: JVD Respiratory exam: PRESENT: Normal breath sounds. ABSENT: crackles, rales, rhonchi, unlabored, wheezes Cardiovascular exam: PRESENT: Regular rate rhythm -+S1, +S2. ABSENT: diastolic murmur, systolic murmur GI/Abdominal exam: PRESENT: Hyperactive bowel sounds, soft. Positive abdominal tenderness more so on bilateral lower quadrants. ABSENT: guarding, mass Extremities exam: ABSENT: No edema Neurological exam: PRESENT: alert, awake, oriented to person, place and time. Skin exam: PRESENT: dry, warm, Cardiovascular exam: PRESENT: +S1, +S2 GI/Abdominal exam: PRESENT: diminished bowel sounds, hypoactive bowel sounds, soft. ABSENT: distended, firm, guarding, normal bowel sounds - Bowel sounds was diminished and what I heard was rather tympanitic., organomegaly, tenderness Results Laboratory Results: 11/03/18 05:21 11/04/18 14:00 11/03/18 11/04/18 11/04/18 22:42 04:59 06:19 Sodium 132.1 L Cancelled 135.2 L Potassium 3.1 L Cancelled 3.4 L Chloride 98 Cancelled 105 Carbon Dioxide 15 L Cancelled 13 L Anion Gap 19 Cancelled 17 BUN 124 H Cancelled 116 H Creatinine 7.52 H Cancelled 6.79 H Est GFR ( Amer) 9 L Cancelled 10 L Est GFR (Non-Af Amer) Cancelled Glucose 76 Cancelled 60 L Calcium 7.2 L Cancelled 7.0 L* 11/04/18 14:00 Sodium 140.3 Potassium 3.5 L Chloride 109 H Carbon Dioxide 14 L Anion Gap 17 BUN 112 H Creatinine 7.27 H Est GFR ( Amer) 9 L Est GFR (Non-Af Amer) Glucose 88 Calcium 7.8 L 11/02/18 11/02/18 11/03/18 23:25 23:25 05:21 Creatine Kinase 36 L 38 L CK-MB (CK-2) 2.12 Troponin I 0.023 11/03/18 11/03/18 11/03/18 05:21 11:50 11:50 Creatine Kinase 42 L CK-MB (CK-2) 2.20 2.28 Troponin I 0.030 0.029 Impressions: Abdomen X-Ray 11/02/18 14:57 IMPRESSION: No definite pathologically dilated loops of bowel to suggest obstruction. Gas containing loops of bowel in the right hemiabdomen, presumably colonic. Abdomen/Pelvis CT 11/02/18 18:27 IMPRESSION: 1. Few nonspecific distended, however not dilated loops of small bowel present at the level of the RIGHT upper quadrant without clear findings to suggest transition point. Please see above details. Enteritis versus the possibility of early or incomplete small bowel obstruction may be considered in the differential. 2. Air and fluid distended gastric body. TECHNICAL DOCUMENTATION: Quality ID # 436: Final reports with documentation of one or more dose reduction techniques (e.g., Automated exposure control, adjustment of the mA and/or kV according to patient size, use of iterative reconstruction technique) copyright 2011 [employer]- All Rights Reserved KUB X-Ray 11/03/18 00:00 IMPRESSION: No interval change. NG tube remains in place. Small Bowel X-Ray 11/04/18 00:00 IMPRESSION: Post subtotal colectomy. No small bowel follow-through evidence of high-grade bowel obstruction. Assessment & Plan - Diagnosis (1) Acute kidney injury Is this a current diagnosis for this admission?: Yes Plan: Presumed to be secondary to prerenal azotemia secondary to severe dehydration due to poor oral intake. Patient is oliguric. Continue aggressive IV fluid hydration. At this time there is no indication for urgent renal replacement therapy however if the patient's kidney function continued to deteriorate he might need to decide on that by tomorrow. I spoke to the patient about that and he indicated that if it is needed then he will do it. Avoid nephrotoxic medications. So that we can monitor the patient's urine output better will insert a Bal catheter. (2) Hypokalemia Is this a current diagnosis for this admission?: Yes Plan: Likely secondary to hydration. Replace as necessary. (3) Metabolic acidosis Is this a current diagnosis for this admission?: Yes Plan: This is multifactorial secondary to acute kidney injury, and saline hydration. I will start another IV line with a bicarb drip. Discussed this plan with the patient's nurse today, Rossi. (4) Acute hyponatremia Is this a current diagnosis for this admission?: Yes Plan: Resolved with IV fluid hydration. (5) Ileus Is this a current diagnosis for this admission?: Yes Plan: Status post multiple abdominal surgeries. Surgery following. (6) Type 2 diabetes mellitus Is this a current diagnosis for this admission?: Yes (7) Weight loss Is this a current diagnosis for this admission?: Yes Plan: Likely secondary to poor oral intake due to GI issue. - Time Time with patient: Greater than 35 minutes
[2018-11-04 22:15] LABS: ANION GAP 18 (5-19); BLOOD UREA NITROGEN 103 mg/dL (7-20); CALCIUM 7.8 mg/dL (8.4-10.2); CARBON DIOXIDE 14 mmol/L (22-30); CHLORIDE 111 mmol/L (98-107); GLUCOSE 104 mg/dL (75-110); POTASSIUM 3.8 mmol/L (3.6-5.0)
[2018-11-05] MEDS: METOCLOPRAMIDE HCL INJ/PF 10 MG/2 ML SDV IV SCH ×4 (00:05→18:08)
[2018-11-05] MEDS: POTASSI CL 20 MEQ/1/2NS 1L 20 MEQ/1,000 ML RTUINJ IV PRN ×4 (01:21→19:49)
[2018-11-05] MEDS: HEPARIN SOD (PORCINE) 5,000 UNIT/ML 1 ML VIAL SUBCUT SCH ×3 (06:30→21:39)
[2018-11-05] MEDS: INSULIN LISPRO 100 UNIT/ML 3 ML VIAL SUBCUT SCH ×4 (08:12→18:00)
[2018-11-05 08:14] LABS: ABSOLUTE EOSINOPHILS # (AUTO) 0.1 10^3/uL (0.0-0.6); ABSOLUTE LYMPHOCYTES (AUTO) 0.7 10^3/uL (0.5-4.7); ABSOLUTE MONOCYTES (AUTO) 0.6 10^3/uL (0.1-1.4); ABSOLUTE NEUT (AUTO) 2.7 10^3/uL (1.7-8.2); BASOPHILS % (AUTO) 0.4 % (0-2); EOSINOPHILS % (AUTO) 1.8 % (0-6); LYMPHOCYTES % (AUTO) 16.2 % (13-45); MEAN CORPUSCULAR HEMOGLOBIN 30.8 pg (27.0-33.4); MEAN CORPUSCULAR HGB CONC 34.6 g/dL (32.0-36.0); MEAN CORPUSCULAR VOLUME 89 fl (80-97); MONOCYTES % (AUTO) 14.3 % (3-13); PLATELET COUNT 186 10^3/uL (150-450); RED BLOOD COUNT 2.47 10^6/uL (4.35-5.55); RED CELL DISTRIBUTION WIDTH 12.4 % (11.5-14.0); SEGMENTED NEUTROPHILS % (AUTO) 67.3 % (42-78); TOTAL CELLS COUNTED % (AUTO) 100 %; WHITE BLOOD COUNT 4.1 10^3/uL (4.0-10.5)
[2018-11-05 08:21] LABS: ANION GAP 16 (5-19); BLOOD UREA NITROGEN 94 mg/dL (7-20); CALCIUM 7.5 mg/dL (8.4-10.2); CARBON DIOXIDE 15 mmol/L (22-30); CHLORIDE 110 mmol/L (98-107); GLUCOSE 91 mg/dL (75-110); POTASSIUM 3.6 mmol/L (3.6-5.0)
[2018-11-05 08:31] LABS: HEMOGLOBIN 7.6 g/dL (13.5-17.0)
--- NOTE | 2018-11-05 10:13 | PDOC PROGRESS REPORT ---
Subjective Progress Note for:: 11/05/18 Subjective:: still c/o lower abdominal pains Reason For Visit: ARF,ILEUS ABD PAIN Physical Exam Vital Signs: Temp Pulse Resp BP Pulse Ox 97.5 F 90 14 112/56 L 98 11/05/18 08:12 11/05/18 08:12 11/05/18 08:12 11/05/18 08:12 11/05/18 08:12 Intake & Output 11/04/18 11/05/18 11/06/18 06:59 06:59 06:59 Intake Total 3043 2956 Output Total 1140 1700 Balance 1903 1256 Weight 65.9 kg 66.6 kg Exam: abdomen is flat and soft with mild tenderness RLQ NGT less than 50 ccs overnight Rectal exam: good tone no fecal impaction, no stool Results Laboratory Results: 11/05/18 07:29 11/05/18 07:29 11/04/18 11/04/18 11/05/18 14:00 21:49 05:59 WBC Cancelled RBC Cancelled Hgb Cancelled Hct Cancelled MCV Cancelled MCH Cancelled MCHC Cancelled RDW Cancelled Plt Count Cancelled Seg Neutrophils % Cancelled Sodium 140.3 143.2 Potassium 3.5 L 3.8 Chloride 109 H 111 H Carbon Dioxide 14 L 14 L Anion Gap 17 18 BUN 112 H 103 H Creatinine 7.27 H 6.83 H Est GFR ( Amer) 9 L 10 L Est GFR (Non-Af Amer) Glucose 88 104 Calcium 7.8 L 7.8 L 11/05/18 11/05/18 11/05/18 05:59 07:29 07:29 WBC 4.1 RBC 2.47 L Hgb 7.6 L D Hct 22.0 L MCV 89 MCH 30.8 MCHC 34.6 RDW 12.4 Plt Count 186 Seg Neutrophils % 67.3 Sodium Cancelled 141.2 Potassium Cancelled 3.6 Chloride Cancelled 110 H Carbon Dioxide Cancelled 15 L Anion Gap Cancelled 16 BUN Cancelled 94 H Creatinine Cancelled 6.41 H Est GFR ( Amer) Cancelled 10 L Est GFR (Non-Af Amer) Cancelled Glucose Cancelled 91 Calcium Cancelled 7.5 L 11/02/18 11/02/18 11/03/18 23:25 23:25 05:21 Creatine Kinase 36 L 38 L CK-MB (CK-2) 2.12 Troponin I 0.023 11/03/18 11/03/18 11/03/18 05:21 11:50 11:50 Creatine Kinase 42 L CK-MB (CK-2) 2.20 2.28 Troponin I 0.030 0.029 Impressions: Abdomen X-Ray 11/02/18 14:57 IMPRESSION: No definite pathologically dilated loops of bowel to suggest obstruction. Gas containing loops of bowel in the right hemiabdomen, presumably colonic. Abdomen/Pelvis CT 11/02/18 18:27 IMPRESSION: 1. Few nonspecific distended, however not dilated loops of small bowel present at the level of the RIGHT upper quadrant without clear findings to suggest transition point. Please see above details. Enteritis versus the possibility of early or incomplete small bowel obstruction may be considered in the differential. 2. Air and fluid distended gastric body. TECHNICAL DOCUMENTATION: Quality ID # 436: Final reports with documentation of one or more dose reduction techniques (e.g., Automated exposure control, adjustment of the mA and/or kV according to patient size, use of iterative reconstruction technique) copyright 2011 [employer]- All Rights Reserved KUB X-Ray 11/03/18 00:00 IMPRESSION: No interval change. NG tube remains in place. Small Bowel X-Ray 11/04/18 00:00 IMPRESSION: Post subtotal colectomy. No small bowel follow-through evidence of high-grade bowel obstruction. Assessment & Plan - Diagnosis (1) Acute kidney injury Is this a current diagnosis for this admission?: Yes (2) Gastroparesis Is this a current diagnosis for this admission?: Yes (3) Type 2 diabetes mellitus Is this a current diagnosis for this admission?: Yes - Time Time Spent with patient: 15-24 minutes - Inpatient Certification Medical Necessity: Need For IV Fluids, Risk of Complication if Not Cared For in Hospital - Plan Summary Plan Summary: D/C NGT and start ice chipos then clears Patient keeps c/o lower abdominal pains Will need OPD follow up at surgical clinic in 2 weeks after discharge D/W Hospitalist . Plan to discharge this weekend when tolerates puree diet until seen in the clinic. Should avoid high fiber diet. May still have stenosis of small bowel.
[2018-11-05] MEDS: PANTOPRAZOLE SODIUM 40 MG VIAL IV SCH ×2 (11:28→21:40)
[2018-11-05] MEDS: DEXTROSE 5%-WATER 1000 ML 1,000 ML with SODIUM BICARBONATE 150 MEQ IV PRN ×4 (11:29→14:29)
[2018-11-05] MEDS ORDERED: CALCIUM GLUCONATE 1,000 MG in DEXTROSE 5%-WATER 50 ML IV ONE (14:02)
--- NOTE | 2018-11-05 14:03 | PDOC PROGRESS REPORT ---
Subjective Progress Note for:: 11/05/18 Subjective:: This is 73 years old male patient with past medical history of hypertension, diabetes mellitus, recurrent partial small bowel obstruction, history of multiple exploratory laparotomy, history of partial colectomy presented with chief complaint of worsening left of the quadrant pain associated with nausea vomiting loss of appetite and unintentional weight loss of 40 pounds over several months. Patient has extensive bowel surgery in the past. He has partial colectomy in [place] about 10 years ago, and 2 exploratory laparotomy one injection 2009 and another one at [facility] in 2018 and reportedly both laparotomies are negative. Patient had also a temporary colostomy to relieve his left upper quadrant pain. CT scan of the abdomen done here yesterday reports as enteritis versus partial small bowel obstruction. Currently patient is being made n.p.o. and NG tube suction. His blood work shows hyponatremia sodium at 126.8, BUN 140 creatinine of 7.79. In August 2017 patient had a creatinine of 8.14 and his recent creatinine was seen 2079 which was 1.1. Patient might have acute on chronic CKD. Currently patient is being aggressively hydrated. This morning I seen him lying in bed obviously uncomfortable from abdominal pain and told him he has sensation of being fecally impacted. 11/04/2018: Patient seen and examined while resting in bed. Still patient obviously uncomfortable from abdominal pain. His labs reviewed and it shows that his kidney function is slightly improved yesterday his creatinine was 7.62 date is 6.9 and his potassium also improved relatively from 3.1-3.4. Small bowel GI series requested and and the results pending. NG tube is in place and draining clear yellow bilious material. He is being hydrated aggressively. Surgical team has been following him. 11/05/2018: Patient seen resting in bed. Still complains of left lower abdominal pain. His kidney function is relatively improved that his creatinine was 8.5 throughout admission to date is 6.41. He is a small bowel x-ray reported as post subtotal colectomy. No small bowel follow-through evidence of high-grade bowel obstruction. This morning patient reevaluated by Dr. Dr. Garland who recommended to discontinue his NG tube suctioning and started patient on ice chips and transitioning to clear liquid. He states after patient tolerates low fiber. Diet can be discharged in the weekend. Reason For Visit: ARF,ILEUS ABD PAIN Physical Exam Vital Signs: Temp Pulse Resp BP Pulse Ox 97.5 F 87 16 112/56 L 98 11/05/18 08:12 11/05/18 13:52 11/05/18 13:52 11/05/18 08:12 11/05/18 13:52 Intake & Output 11/04/18 11/05/18 11/06/18 06:59 06:59 06:59 Intake Total 3043 2956 1999 Output Total 1140 1700 Balance 1903 1256 1999 Weight 65.9 kg 66.6 kg Results Laboratory Results: 11/05/18 07:29 11/05/18 07:29 11/04/18 11/04/18 11/05/18 14:00 21:49 05:59 WBC Cancelled RBC Cancelled Hgb Cancelled Hct Cancelled MCV Cancelled MCH Cancelled MCHC Cancelled RDW Cancelled Plt Count Cancelled Seg Neutrophils % Cancelled Sodium 140.3 143.2 Potassium 3.5 L 3.8 Chloride 109 H 111 H Carbon Dioxide 14 L 14 L Anion Gap 17 18 BUN 112 H 103 H Creatinine 7.27 H 6.83 H Est GFR ( Amer) 9 L 10 L Est GFR (Non-Af Amer) Glucose 88 104 Calcium 7.8 L 7.8 L 11/05/18 11/05/18 11/05/18 05:59 07:29 07:29 WBC 4.1 RBC 2.47 L Hgb 7.6 L D Hct 22.0 L MCV 89 MCH 30.8 MCHC 34.6 RDW 12.4 Plt Count 186 Seg Neutrophils % 67.3 Sodium Cancelled 141.2 Potassium Cancelled 3.6 Chloride Cancelled 110 H Carbon Dioxide Cancelled 15 L Anion Gap Cancelled 16 BUN Cancelled 94 H Creatinine Cancelled 6.41 H Est GFR ( Amer) Cancelled 10 L Est GFR (Non-Af Amer) Cancelled Glucose Cancelled 91 Calcium Cancelled 7.5 L 11/02/18 11/02/18 11/03/18 23:25 23:25 05:21 Creatine Kinase 36 L 38 L CK-MB (CK-2) 2.12 Troponin I 0.023 11/03/18 11/03/18 11/03/18 05:21 11:50 11:50 Creatine Kinase 42 L CK-MB (CK-2) 2.20 2.28 Troponin I 0.030 0.029 Impressions: Abdomen X-Ray 11/02/18 14:57 IMPRESSION: No definite pathologically dilated loops of bowel to suggest obstruction. Gas containing loops of bowel in the right hemiabdomen, presumably colonic. Abdomen/Pelvis CT 11/02/18 18:27 IMPRESSION: 1. Few nonspecific distended, however not dilated loops of small bowel present at the level of the RIGHT upper quadrant without clear findings to suggest transition point. Please see above details. Enteritis versus the possibility of early or incomplete small bowel obstruction may be considered in the differential. 2. Air and fluid distended gastric body. TECHNICAL DOCUMENTATION: Quality ID # 436: Final reports with documentation of one or more dose reduction techniques (e.g., Automated exposure control, adjustment of the mA and/or kV according to patient size, use of iterative reconstruction technique) copyright 2011 [employer]- All Rights Reserved KUB X-Ray 11/03/18 00:00 IMPRESSION: No interval change. NG tube remains in place. Small Bowel X-Ray 11/04/18 00:00 IMPRESSION: Post subtotal colectomy. No small bowel follow-through evidence of high-grade bowel obstruction. Assessment and Plan - Diagnosis (1) Hypokalemia Is this a current diagnosis for this admission?: Yes Plan: Has been improving (2) Ileus versus small bowel obstruction Is this a current diagnosis for this admission?: Yes Plan: His small bowel x-ray reported as post subtotal colectomy. No small bowel follow-through evidence of high-grade bowel obstruction. (3) Acute kidney injury superimposed on CKD Is this a current diagnosis for this admission?: Yes Plan: Slightly improving (4) Hyponatremia Is this a current diagnosis for this admission?: Yes Plan: Has been improving (5) Unintentional weight loss Is this a current diagnosis for this admission?: Yes Plan: Due to lack of appetite and dehydration. Nutritional supplement as soon as patient regain his bowel motion and appetite. (6) Metabolic acidosis Is this a current diagnosis for this admission?: Yes Plan: Improving (7) Gastroparesis Is this a current diagnosis for this admission?: Yes Plan: This might be a possibility with long-standing diabetes. Patient has been started on prokinetic agents (8) Type 2 diabetes mellitus Is this a current diagnosis for this admission?: Yes Plan: Hold his glycemic agents. We will put him on sliding scale.
--- NOTE | 2018-11-05 14:09 | PDOC PROGRESS REPORT ---
Subjective Progress Note for:: 11/05/18 Subjective:: Patient continues to complain of lower abdominal pain and unable to pass any stool. Dr. Garland made rounds this morning and had his NG tube removed. He does not have any other complaints otherwise. He now has a Bal catheter and his urine output seems adequate with urine output of 1400 mL since the Bal catheter was placed yesterday afternoon until this morning. Reason For Visit: ARF,ILEUS ABD PAIN Physical Exam Vital Signs: Temp Pulse Resp BP Pulse Ox 97.5 F 87 16 112/56 L 98 11/05/18 08:12 11/05/18 13:52 11/05/18 13:52 11/05/18 08:12 11/05/18 13:52 Intake & Output 11/04/18 11/05/18 11/06/18 06:59 06:59 06:59 Intake Total 3043 2956 2000 Output Total 1140 1700 Balance 1903 1256 1999 Weight 65.9 kg 66.6 kg Exam: General appearance: PRESENT: no acute distress, cooperative, well-developed, well-nourished Head exam: PRESENT: atraumatic, normocephalic Eye exam: PRESENT: conjunctiva pale, PERRLA. ABSENT: scleral icterus Neck exam: ABSENT: JVD Respiratory exam: PRESENT: Diminished breath sounds. ABSENT: crackles, rales, rhonchi, unlabored, wheezes Cardiovascular exam: PRESENT: Regular rate rhythm -+S1, +S2. ABSENT: diastolic murmur, systolic murmur GI/Abdominal exam: PRESENT: normal bowel sounds, soft. Positive lower quadrant tenderness ABSENT: guarding, mass Extremities exam: ABSENT: No edema Neurological exam: PRESENT: alert, awake, oriented to person, place and time. Skin exam: PRESENT: dry, warm, Cardiovascular exam: PRESENT: +S1, +S2 GI/Abdominal exam: PRESENT: diminished bowel sounds, hypoactive bowel sounds, soft. ABSENT: distended, firm, guarding, normal bowel sounds - Bowel sounds was diminished and what I heard was rather tympanitic., organomegaly, tenderness Results Laboratory Results: 11/05/18 07:29 11/05/18 07:29 11/04/18 11/04/18 11/05/18 14:00 21:49 05:59 WBC Cancelled RBC Cancelled Hgb Cancelled Hct Cancelled MCV Cancelled MCH Cancelled MCHC Cancelled RDW Cancelled Plt Count Cancelled Seg Neutrophils % Cancelled Sodium 140.3 143.2 Potassium 3.5 L 3.8 Chloride 109 H 111 H Carbon Dioxide 14 L 14 L Anion Gap 17 18 BUN 112 H 103 H Creatinine 7.27 H 6.83 H Est GFR ( Amer) 9 L 10 L Est GFR (Non-Af Amer) Glucose 88 104 Calcium 7.8 L 7.8 L 11/05/18 11/05/18 11/05/18 05:59 07:29 07:29 WBC 4.1 RBC 2.47 L Hgb 7.6 L D Hct 22.0 L MCV 89 MCH 30.8 MCHC 34.6 RDW 12.4 Plt Count 186 Seg Neutrophils % 67.3 Sodium Cancelled 141.2 Potassium Cancelled 3.6 Chloride Cancelled 110 H Carbon Dioxide Cancelled 15 L Anion Gap Cancelled 16 BUN Cancelled 94 H Creatinine Cancelled 6.41 H Est GFR ( Amer) Cancelled 10 L Est GFR (Non-Af Amer) Cancelled Glucose Cancelled 91 Calcium Cancelled 7.5 L 11/02/18 11/02/18 11/03/18 23:25 23:25 05:21 Creatine Kinase 36 L 38 L CK-MB (CK-2) 2.12 Troponin I 0.023 11/03/18 11/03/18 11/03/18 05:21 11:50 11:50 Creatine Kinase 42 L CK-MB (CK-2) 2.20 2.28 Troponin I 0.030 0.029 Impressions: Abdomen X-Ray 11/02/18 14:57 IMPRESSION: No definite pathologically dilated loops of bowel to suggest obstru ction. Gas containing loops of bowel in the right hemiabdomen, presumably colonic. Abdomen/Pelvis CT 11/02/18 18:27 IMPRESSION: 1. Few nonspecific distended, however not dilated loops of small bowel present at the level of the RIGHT upper quadrant without clear findings to suggest transition point. Please see above details. Enteritis versus the possibility of early or incomplete small bowel obstruction may be considered in the differential. 2. Air and fluid distended gastric body. TECHNICAL DOCUMENTATION: Quality ID # 436: Final reports with documentation of one or more dose reduction techniques (e.g., Automated exposure control, adjustment of the mA and/or kV according to patient size, use of iterative reconstruction technique) copyright 2011 [employer]- All Rights Reserved KUB X-Ray 11/03/18 00:00 IMPRESSION: No interval change. NG tube remains in place. Small Bowel X-Ray 11/04/18 00:00 IMPRESSION: Post subtotal colectomy. No small bowel follow-through evidence of high-grade bowel obstruction. Assessment & Plan - Diagnosis (1) Acute kidney injury Is this a current diagnosis for this admission?: Yes Plan: Presumed to be secondary to prerenal azotemia secondary to severe dehydration due to poor oral intake. Patient is non-oliguric. Continue aggressive IV fluid hydration. Kidney function is a slowly improving. Continue to monitor kidney function. No indication for any renal replacement therapy. (2) Hypokalemia Is this a current diagnosis for this admission?: Yes Plan: Likely secondary to hydration. Replace as necessary. (3) Metabolic acidosis Is this a current diagnosis for this admission?: Yes Plan: This is multifactorial secondary to acute kidney injury, and saline hydration. Continue sodium bicarbonate drip at the same rate at this time. (4) Acute hyponatremia Is this a current diagnosis for this admission?: Yes Plan: Resolved with IV fluid hydration. (5) Ileus Is this a current diagnosis for this admission?: Yes Plan: Status post multiple abdominal surgeries. Surgery following. (6) Type 2 diabetes mellitus Is this a current diagnosis for this admission?: Yes (7) Weight loss Is this a current diagnosis for this admission?: Yes Plan: Likely secondary to poor oral intake due to GI issue. - Time Time with patient: 15-25 minutes
[2018-11-05] MEDS ORDERED: CALCIUM GLUCONATE 1000 MG/10 ML INJ IV PRN (14:14)
[2018-11-05] MEDS ORDERED: PANTOPRAZOLE SODIUM 40 MG VIAL IV SCH (19:30)
[2018-11-06] MEDS: METOCLOPRAMIDE HCL INJ/PF 10 MG/2 ML SDV IV SCH ×4 (00:46→17:26)
[2018-11-06] MEDS: INSULIN LISPRO 100 UNIT/ML 3 ML VIAL SUBCUT SCH ×3 (00:46→12:47)
[2018-11-06] MEDS: POTASSI CL 20 MEQ/1/2NS 1L 20 MEQ/1,000 ML RTUINJ IV PRN ×2 (04:49→14:52)
[2018-11-06] MEDS: HEPARIN SOD (PORCINE) 5,000 UNIT/ML 1 ML VIAL SUBCUT SCH ×3 (05:01→22:15)
[2018-11-06 06:19] LABS: HEMATOCRIT 21.1 % (37.9-51.0); MEAN CORPUSCULAR HEMOGLOBIN 31.4 pg (27.0-33.4); MEAN CORPUSCULAR HGB CONC 35.5 g/dL (32.0-36.0); MEAN CORPUSCULAR VOLUME 89 fl (80-97); PLATELET COUNT 189 10^3/uL (150-450); RED BLOOD COUNT 2.38 10^6/uL (4.35-5.55); RED CELL DISTRIBUTION WIDTH 12.2 % (11.5-14.0); WHITE BLOOD COUNT 4.2 10^3/uL (4.0-10.5)
[2018-11-06 06:33] LABS: ANION GAP 12 (5-19); BLOOD UREA NITROGEN 75 mg/dL (7-20); CALCIUM 7.1 mg/dL (8.4-10.2); CARBON DIOXIDE 19 mmol/L (22-30); CHLORIDE 105 mmol/L (98-107); GLUCOSE 109 mg/dL (75-110); POTASSIUM 3.3 mmol/L (3.6-5.0)
[2018-11-06 06:45] LABS: HEMOGLOBIN 7.5 g/dL (13.5-17.0)
[2018-11-06] MEDS ORDERED: NORMAL SALINE 250 ML IV PRN ×2 (07:52)
[2018-11-06] MEDS: DEXTROSE 5%-WATER 1000 ML 1,000 ML with SODIUM BICARBONATE 150 MEQ IV PRN ×2 (07:53)
[2018-11-06] MEDS: PANTOPRAZOLE SODIUM 40 MG VIAL IV SCH (10:04)
--- NOTE | 2018-11-06 11:06 | PDOC PROGRESS REPORT ---
Subjective Progress Note for:: 11/06/18 Subjective:: Patient sleeping; no bowel function; tolerated clear liquids. No nausea or vomiting. Reason For Visit: ARF,ILEUS ABD PAIN Physical Exam Vital Signs: Temp Pulse Resp BP Pulse Ox 97.8 F 96 20 128/71 H 99 11/06/18 07:20 11/06/18 07:20 11/06/18 07:20 11/06/18 07:20 11/06/18 07:20 Intake & Output 11/05/18 11/06/18 11/07/18 06:59 06:59 06:59 Intake Total 2956 5966 Output Total 1700 690 Balance 1256 5276 Weight 66.6 kg 66.4 kg General appearance: PRESENT: no acute distress GI/Abdominal exam: PRESENT: other - Patient still complaining of abdominal pain. The abdomen is soft not distended no peritoneal signs some guarding left lower quadrant. No mass Results Laboratory Results: 11/06/18 05:40 11/06/18 05:40 11/06/18 11/06/18 11/06/18 05:40 05:40 08:15 WBC 4.2 RBC 2.38 L Hgb 7.5 L Hct 21.1 L MCV 89 MCH 31.4 MCHC 35.5 RDW 12.2 Plt Count 189 Sodium 135.5 L Potassium 3.3 L Chloride 105 Carbon Dioxide 19 L Anion Gap 12 BUN 75 H Creatinine 5.25 H Est GFR ( Amer) 13 L Glucose 109 Calcium 7.1 L Blood Type O POSITIVE Antibody Screen NEGATIVE 11/02/18 11/02/18 11/03/18 23:25 23:25 05:21 Creatine Kinase 36 L 38 L CK-MB (CK-2) 2.12 Troponin I 0.023 11/03/18 11/03/18 11/03/18 05:21 11:50 11:50 Creatine Kinase 42 L CK-MB (CK-2) 2.20 2.28 Troponin I 0.030 0.029 Impressions: Abdomen X-Ray 11/02/18 14:57 IMPRESSION: No definite pathologically dilated loops of bowel to suggest obstruction. Gas containing loops of bowel in the right hemiabdomen, presumably colonic. Abdomen/Pelvis CT 11/02/18 18:27 IMPRESSION: 1. Few nonspecific distended, however not dilated loops of small bowel present at the level of the RIGHT upper quadrant without clear findings to suggest transition point. Please see above details. Enteritis versus the possibility of early or incomplete small bowel obstruction may be considered in the differential. 2. Air and fluid distended gastric body. TECHNICAL DOCUMENTATION: Quality ID # 436: Final reports with documentation of one or more dose reduction techniques (e.g., Automated exposure control, adjustment of the mA and/or kV according to patient size, use of iterative reconstruction technique) copyright 2011 [employer]- All Rights Reserved KUB X-Ray 11/03/18 00:00 IMPRESSION: No interval change. NG tube remains in place. Small Bowel X-Ray 11/04/18 00:00 IMPRESSION: Post subtotal colectomy. No small bowel follow-through evidence of high-grade bowel obstruction. Assessment & Plan - Diagnosis (1) Left lower quadrant pain Is this a current diagnosis for this admission?: Yes Plan: Impression: Acute superimposed on chronic abdominal pain, localized left lower quadrant. Current work-up negative for acute intra-abdominal pathology. Upper GI series with small bowel follow-through shows no evidence of small bowel obstruction. Patient tolerating a liquid diet but no stool yet. Recommendations: 1. We will advance diet to full liquids 2. Patient's dropping hemoglobin without explanation; will discuss with hospitalist service.
--- NOTE | 2018-11-06 13:38 | PDOC PROGRESS REPORT ---
Subjective Progress Note for:: 11/06/18 Subjective:: This is 73 years old male patient with past medical history of hypertension, diabetes mellitus, recurrent partial small bowel obstruction, history of multiple exploratory laparotomy, history of partial colectomy presented with chief complaint of worsening left of the quadrant pain associated with nausea vomiting loss of appetite and unintentional weight loss of 40 pounds over several months. Patient has extensive bowel surgery in the past. He has partial colectomy in [place] about 10 years ago, and 2 exploratory laparotomy one injection 2009 and another one at [facility] in 2018 and reportedly both laparotomies are negative. Patient had also a temporary colostomy to relieve his left upper quadrant pain. CT scan of the abdomen done here yesterday reports as enteritis versus partial small bowel obstruction. Currently patient is being made n.p.o. and NG tube suction. His blood work shows hyponatremia sodium at 126.8, BUN 140 creatinine of 7.79. In August 2017 patient had a creatinine of 8.14 and his recent creatinine was seen 2079 which was 1.1. Patient might have acute on chronic CKD. Currently patient is being aggressively hydrated. This morning I seen him lying in bed obviously uncomfortable from abdominal pain and told him he has sensation of being fecally impacted. 11/04/2018: Patient seen and examined while resting in bed. Still patient obviously uncomfortable from abdominal pain. His labs reviewed and it shows that his kidney function is slightly improved yesterday his creatinine was 7.62 date is 6.9 and his potassium also improved relatively from 3.1-3.4. Small bowel GI series requested and and the results pending. NG tube is in place and draining clear yellow bilious material. He is being hydrated aggressively. Surgical team has been following him. 11/05/2018: Patient seen resting in bed. Still complains of left lower abdominal pain. His kidney function is relatively improved that his creatinine was 8.5 throughout admission to date is 6.41. He is a small bowel x-ray reported as post subtotal colectomy. No small bowel follow-through evidence of high-grade bowel obstruction. This morning patient reevaluated by Dr. Dr. Garland who recommended to discontinue his NG tube suctioning and started patient on ice chips and transitioning to clear liquid. He states after patient tolerates low fiber. Diet can be discharged in the weekend. 11/06/2018: Patient seen resting in bed. Still patient complains of abdominal pain, constipation and nausea. His x-ray does not show any high-grade small bowel obstruction. Patient lobbying for exploratory laparotomy. His NG tube removed. Patient has been started on ice chips and transition to clear liquid diet. His hemoglobin dropped from 7.6-7.5. Patient is offered PRBC transfusion but he declined. Reason For Visit: ARF,ILEUS ABD PAIN Physical Exam Vital Signs: Temp Pulse Resp BP Pulse Ox 98.3 F 90 18 118/54 L 99 11/06/18 11:19 11/06/18 11:19 11/06/18 11:19 11/06/18 11:19 11/06/18 11:19 Intake & Output 11/05/18 11/06/18 11/07/18 06:59 06:59 06:59 Intake Total 2956 5966 388 Output Total 1700 690 Balance 1256 5276 388 Weight 66.6 kg 66.4 kg General appearance: PRESENT: no acute distress Eye exam: PRESENT: conjunctiva pink Mouth exam: PRESENT: dry mucosa Respiratory exam: PRESENT: clear to auscultation jc. ABSENT: rales, rhonchi, wheezes Cardiovascular exam: PRESENT: RRR. ABSENT: diastolic murmur, rubs, systolic murmur GI/Abdominal exam: PRESENT: normal bowel sounds Neurological exam: PRESENT: alert, awake Results Laboratory Results: 11/06/18 05:40 11/06/18 05:40 11/06/18 11/06/18 11/06/18 05:40 05:40 08:15 WBC 4.2 RBC 2.38 L Hgb 7.5 L Hct 21.1 L MCV 89 MCH 31.4 MCHC 35.5 RDW 12.2 Plt Count 189 Sodium 135.5 L Potassium 3.3 L Chloride 105 Carbon Dioxide 19 L Anion Gap 12 BUN 75 H Creatinine 5.25 H Est GFR ( Amer) 13 L Glucose 109 Calcium 7.1 L Blood Type O POSITIVE Antibody Screen NEGATIVE 11/02/18 11/02/18 11/03/18 23:25 23:25 05:21 Creatine Kinase 36 L 38 L CK-MB (CK-2) 2.12 Troponin I 0.023 11/03/18 11/03/18 11/03/18 05:21 11:50 11:50 Creatine Kinase 42 L CK-MB (CK-2) 2.20 2.28 Troponin I 0.030 0.029 Impressions: Abdomen X-Ray 11/02/18 14:57 IMPRESSION: No definite pathologically dilated loops of bowel to suggest obstr uction. Gas containing loops of bowel in the right hemiabdomen, presumably colonic. Abdomen/Pelvis CT 11/02/18 18:27 IMPRESSION: 1. Few nonspecific distended, however not dilated loops of small bowel present at the level of the RIGHT upper quadrant without clear findings to suggest transition point. Please see above details. Enteritis versus the possibility of early or incomplete small bowel obstruction may be considered in the differential. 2. Air and fluid distended gastric body. TECHNICAL DOCUMENTATION: Quality ID # 436: Final reports with documentation of one or more dose reduction techniques (e.g., Automated exposure control, adjustment of the mA and/or kV according to patient size, use of iterative reconstruction technique) copyright 2011 [employer]- All Rights Reserved KUB X-Ray 11/03/18 00:00 IMPRESSION: No interval change. NG tube remains in place. Small Bowel X-Ray 11/04/18 00:00 IMPRESSION: Post subtotal colectomy. No small bowel follow-through evidence of high-grade bowel obstruction. Assessment and Plan - Diagnosis (1) Hypokalemia Is this a current diagnosis for this admission?: Yes Plan: Has been improving (2) Ileus versus small bowel obstruction Is this a current diagnosis for this admission?: Yes Plan: His small bowel x-ray reported as post subtotal colectomy. No small bowel follow-through evidence of high-grade bowel obstruction. (3) Acute kidney injury superimposed on CKD Is this a current diagnosis for this admission?: Yes Plan: Slightly improving (4) Hyponatremia Is this a current diagnosis for this admission?: Yes Plan: Has been improving (5) Unintentional weight loss Is this a current diagnosis for this admission?: Yes Plan: Due to lack of appetite and dehydration. Nutritional supplement as soon as patient regain his bowel motion and appetite. (6) Metabolic acidosis Is this a current diagnosis for this admission?: Yes Plan: Improving (7) Gastroparesis Is this a current diagnosis for this admission?: Yes Plan: This might be a possibility with long-standing diabetes. Patient has been started on prokinetic agents (8) Type 2 diabetes mellitus Is this a current diagnosis for this admission?: Yes Plan: Hold his glycemic agents. We will put him on sliding scale.
[2018-11-07] MEDS: METOCLOPRAMIDE HCL INJ/PF 10 MG/2 ML SDV IV SCH ×5 (00:55→23:14)
[2018-11-07] MEDS: POTASSI CL 20 MEQ/1/2NS 1L 20 MEQ/1,000 ML RTUINJ IV PRN (00:55)
[2018-11-07] MEDS: HEPARIN SOD (PORCINE) 5,000 UNIT/ML 1 ML VIAL SUBCUT SCH ×3 (05:44→22:15)
[2018-11-07 05:48] LABS: HEMATOCRIT 20.6 % (37.9-51.0); MEAN CORPUSCULAR HEMOGLOBIN 30.7 pg (27.0-33.4); MEAN CORPUSCULAR HGB CONC 34.6 g/dL (32.0-36.0); MEAN CORPUSCULAR VOLUME 89 fl (80-97); PLATELET COUNT 171 10^3/uL (150-450); RED BLOOD COUNT 2.32 10^6/uL (4.35-5.55); RED CELL DISTRIBUTION WIDTH 12.4 % (11.5-14.0); WHITE BLOOD COUNT 4.4 10^3/uL (4.0-10.5)
[2018-11-07 05:51] LABS: HEMOGLOBIN 7.1 g/dL (13.5-17.0)
[2018-11-07 05:57] LABS: ANION GAP 10 (5-19); BLOOD UREA NITROGEN 61 mg/dL (7-20); CALCIUM 7.1 mg/dL (8.4-10.2); CARBON DIOXIDE 19 mmol/L (22-30); CHLORIDE 106 mmol/L (98-107)
[2018-11-07 05:59] LABS: GLUCOSE 69 mg/dL (75-110)
[2018-11-07] MEDS: PANTOPRAZOLE SODIUM 40 MG VIAL IV SCH (09:19)
--- NOTE | 2018-11-07 09:51 | PDOC PROGRESS REPORT ---
Subjective Progress Note for:: 11/07/18 Subjective:: Standing at the sink brushing his teeth, complaining of abdominal pain. Tolerating clear liquids to some degree yesterday. Reason For Visit: ARF,ILEUS ABD PAIN Physical Exam Vital Signs: Temp Pulse Resp BP Pulse Ox 97.8 F 90 18 112/43 L 99 11/07/18 08:01 11/07/18 08:01 11/07/18 08:01 11/07/18 08:01 11/07/18 08:01 Intake & Output 11/06/18 11/07/18 11/08/18 06:59 06:59 06:59 Intake Total 5966 3570 Output Total 690 1400 Balance 5276 2170 Weight 66.4 kg 66 kg General appearance: PRESENT: mild distress GI/Abdominal exam: PRESENT: other - Abdomen soft no peritoneal signs no ri gidity. He does complain of left lower quadrant tenderness Results Laboratory Results: 11/07/18 05:13 11/07/18 05:13 11/06/18 11/07/18 11/07/18 08:15 05:13 05:13 WBC 4.4 RBC 2.32 L Hgb 7.1 L Hct 20.6 L MCV 89 MCH 30.7 MCHC 34.6 RDW 12.4 Plt Count 171 Sodium 135.2 L Potassium 4.0 Chloride 106 Carbon Dioxide 19 L Anion Gap 10 BUN 61 H Creatinine 4.91 H Est GFR ( Amer) 14 L Glucose 69 L Calcium 7.1 L Blood Type O POSITIVE Antibody Screen NEGATIVE 11/02/18 11/02/18 11/03/18 23:25 23:25 05:21 Creatine Kinase 36 L 38 L CK-MB (CK-2) 2.12 Troponin I 0.023 11/03/18 11/03/18 11/03/18 05:21 11:50 11:50 Creatine Kinase 42 L CK-MB (CK-2) 2.20 2.28 Troponin I 0.030 0.029 Impressions: Abdomen X-Ray 11/02/18 14:57 IMPRESSION: No definite pathologically dilated loops of bowel to suggest obstruction. Gas containing loops of bowel in the right hemiabdomen, presumably colonic. Abdomen/Pelvis CT 11/02/18 18:27 IMPRESSION: 1. Few nonspecific distended, however not dilated loops of small bowel present at the level of the RIGHT upper quadrant without clear findings to suggest transition point. Please see above details. Enteritis versus the possibility of early or incomplete small bowel obstruction may be considered in the differential. 2. Air and fluid distended gastric body. TECHNICAL DOCUMENTATION: Quality ID # 436: Final reports with documentation of one or more dose reduction techniques (e.g., Automated exposure control, adjustment of the mA and/or kV according to patient size, use of iterative reconstruction technique) copyright 2011 [employer]- All Rights Reserved KUB X-Ray 11/03/18 00:00 IMPRESSION: No interval change. NG tube remains in place. Small Bowel X-Ray 11/04/18 00:00 IMPRESSION: Post subtotal colectomy. No small bowel follow-through evidence of high-grade bowel obstruction. Assessment & Plan - Diagnosis (1) Left lower quadrant pain Is this a current diagnosis for this admission?: Yes Plan: Impression: Chronic abdominal pain, with extensive work-ups in the past and currently, without any pathologic explanation for symptoms. Patient for surgical intervention Recommendations: 1. We will sign off for now; reconsult surgery as needed. 2. Patient can follow-up with the gastroenterology on an outpatient basis.
[2018-11-07] MEDS: NORMAL SALINE 1000 ML 1,000 ML IV PRN ×3 (11:06→23:14)
--- NOTE | 2018-11-07 12:05 | PDOC PROGRESS REPORT ---
Subjective Progress Note for:: 11/07/18 Subjective:: This is 73 years old male patient with past medical history of hypertension, diabetes mellitus, recurrent partial small bowel obstruction, history of multiple exploratory laparotomy, history of partial colectomy presented with chief complaint of worsening left of the quadrant pain associated with nausea vomiting loss of appetite and unintentional weight loss of 40 pounds over several months. Patient has extensive bowel surgery in the past. He has partial colectomy in [place] about 10 years ago, and 2 exploratory laparotomy one injection 2009 and another one at [facility] in 2018 and reportedly both laparotomies are negative. Patient had also a temporary colostomy to relieve his left upper quadrant pain. CT scan of the abdomen done here yesterday reports as enteritis versus partial small bowel obstruction. Currently patient is being made n.p.o. and NG tube suction. His blood work shows hyponatremia sodium at 126.8, BUN 140 creatinine of 7.79. In August 2017 patient had a creatinine of 8.14 and his recent creatinine was seen 2079 which was 1.1. Patient might have acute on chronic CKD. Currently patient is being aggressively hydrated. This morning I seen him lying in bed obviously uncomfortable from abdominal pain and told him he has sensation of being fecally impacted. 11/04/2018: Patient seen and examined while resting in bed. Still patient obviously uncomfortable from abdominal pain. His labs reviewed and it shows that his kidney function is slightly improved yesterday his creatinine was 7.62 date is 6.9 and his potassium also improved relatively from 3.1-3.4. Small bowel GI series requested and and the results pending. NG tube is in place and draining clear yellow bilious material. He is being hydrated aggressively. Surgical team has been following him. 11/05/2018: Patient seen resting in bed. Still complains of left lower abdominal pain. His kidney function is relatively improved that his creatinine was 8.5 throughout admission to date is 6.41. He is a small bowel x-ray reported as post subtotal colectomy. No small bowel follow-through evidence of high-grade bowel obstruction. This morning patient reevaluated by Dr. Dr. Garland who recommended to discontinue his NG tube suctioning and started patient on ice chips and transitioning to clear liquid. He states after patient tolerates low fiber. Diet can be discharged in the weekend. 11/06/2018: Patient seen resting in bed. Still patient complains of abdominal pain, constipation and nausea. His x-ray does not show any high-grade small bowel obstruction. Patient lobbying for exploratory laparotomy. His NG tube removed. Patient has been started on ice chips and transition to clear liquid diet. His hemoglobin dropped from 7.6-7.5. Patient is offered PRBC transfusion but he declined. 11/07/2018: Patient keep on complaining of abdominal pain and constipation. On physical examination his abdomen is benign. His imaging studies are negative for high-grade bowel obstruction. His hemoglobin dropped from 7.5-7.1 today. His creatinine is trending down I convinced him that he needs transfusion of PRBC and he voices agreement. Surgery signed off. Once patient able to tolerate pured diet and kidney function normalized he can be discharged safely with follow-up with surgical clinic. Reason For Visit: ARF,ILEUS ABD PAIN Physical Exam Vital Signs: Temp Pulse Resp BP Pulse Ox 98.8 F 86 16 123/55 L 96 11/07/18 11:39 11/07/18 11:39 11/07/18 11:39 11/07/18 11:39 11/07/18 11:39 Intake & Output 11/06/18 11/07/18 11/08/18 06:59 06:59 06:59 Intake Total 5966 3570 1000 Output Total 690 1400 Balance 5276 2170 1000 Weight 66.4 kg 66 kg General appearance: PRESENT: no acute distress, cooperative Head exam: PRESENT: atraumatic Mouth exam: PRESENT: dry mucosa Neck exam: ABSENT: carotid bruit, JVD, lymphadenopathy, thyromegaly Respiratory exam: PRESENT: clear to auscultation jc. ABSENT: rales, rhonchi, wheezes Cardiovascular exam: PRESENT: RRR. ABSENT: diastolic murmur, rubs, systolic murmur GI/Abdominal exam: PRESENT: normal bowel sounds, soft. ABSENT: distended, guarding, mass, organolmegaly, rebound, tenderness Neurological exam: PRESENT: alert Results Laboratory Results: 11/07/18 05:13 11/07/18 05:13 11/06/18 11/07/18 11/07/18 08:15 05:13 05:13 WBC 4.4 RBC 2.32 L Hgb 7.1 L Hct 20.6 L MCV 89 MCH 30.7 MCHC 34.6 RDW 12.4 Plt Count 171 Sodium 135.2 L Potassium 4.0 Chloride 106 Carbon Dioxide 19 L Anion Gap 10 BUN 61 H Creatinine 4.91 H Est GFR ( Amer) 14 L Glucose 69 L Calcium 7.1 L Blood Type O POSITIVE Antibody Screen NEGATIVE 11/02/18 11/02/18 11/03/18 23:25 23:25 05:21 Creatine Kinase 36 L 38 L CK-MB (CK-2) 2.12 Troponin I 0.023 11/03/18 11/03/18 11/03/18 05:21 11:50 11:50 Creatine Kinase 42 L CK-MB (CK-2) 2.20 2.28 Troponin I 0.030 0.029 Impressions: Abdomen X-Ray 11/02/18 14:57 IMPRESSION: No definite pathologically dilated loops of bowel to suggest obstruction. Gas containing loops of bowel in the right hemiabdomen, presumably colonic. Abdomen/Pelvis CT 11/02/18 18:27 IMPRESSION: 1. Few nonspecific distended, however not dilated loops of small bowel present at the level of the RIGHT upper quadrant without clear findings to suggest transition point. Please see above details. Enteritis versus the possibility of early or incomplete small bowel obstruction may be considered in the differential. 2. Air and fluid distended gastric body. TECHNICAL DOCUMENTATION: Quality ID # 436: Final reports with documentation of one or more dose reduction techniques (e.g., Automated exposure control, adjustment of the mA and/or kV according to patient size, use of iterative reconstruction technique) copyright 2011 [employer]- All Rights Reserved KUB X-Ray 11/03/18 00:00 IMPRESSION: No interval change. NG tube remains in place. Small Bowel X-Ray 11/04/18 00:00 IMPRESSION: Post subtotal colectomy. No small bowel follow-through evidence of high-grade bowel obstruction. Assessment and Plan - Diagnosis (1) Hypokalemia Is this a current diagnosis for this admission?: Yes Plan: Has been improving (2) Ileus versus small bowel obstruction Is this a current diagnosis for this admission?: Yes Plan: His small bowel x-ray reported as post subtotal colectomy. No small bowel follo w-through evidence of high-grade bowel obstruction. (3) Acute kidney injury superimposed on CKD Is this a current diagnosis for this admission?: Yes Plan: His kidney function is improving (4) Hyponatremia Is this a current diagnosis for this admission?: Yes Plan: Has been improving (5) Unintentional weight loss Is this a current diagnosis for this admission?: Yes Plan: Due to lack of appetite and dehydration. Nutritional supplement as soon as patient regain his bowel motion and appetite. (6) Metabolic acidosis Is this a current diagnosis for this admission?: Yes Plan: Improving (7) Gastroparesis Is this a current diagnosis for this admission?: Yes Plan: This might be a possibility with long-standing diabetes. Patient has been started on prokinetic agents (8) Type 2 diabetes mellitus Is this a current diagnosis for this admission?: Yes Plan: Hold his glycemic agents. We will put him on sliding scale.
[2018-11-07 16:22] LABS: HEMATOCRIT 26.3 % (37.9-51.0); MEAN CORPUSCULAR HEMOGLOBIN 30.4 pg (27.0-33.4); MEAN CORPUSCULAR HGB CONC 34.1 g/dL (32.0-36.0); MEAN CORPUSCULAR VOLUME 89 fl (80-97); PLATELET COUNT 183 10^3/uL (150-450); RED BLOOD COUNT 2.95 10^6/uL (4.35-5.55); RED CELL DISTRIBUTION WIDTH 12.9 % (11.5-14.0); WHITE BLOOD COUNT 5.2 10^3/uL (4.0-10.5)
[2018-11-08] MEDS: HEPARIN SOD (PORCINE) 5,000 UNIT/ML 1 ML VIAL SUBCUT SCH ×2 (05:35→14:50)
[2018-11-08] MEDS: METOCLOPRAMIDE HCL INJ/PF 10 MG/2 ML SDV IV SCH ×2 (05:36→14:49)
[2018-11-08] MEDS: NORMAL SALINE 1000 ML 1,000 ML IV PRN (08:19)
[2018-11-08] MEDS: PANTOPRAZOLE SODIUM 40 MG VIAL IV SCH (10:40)
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
--- NOTE | 2018-11-08 12:07 | PDOC PROGRESS REPORT ---
Subjective Progress Note for:: 11/08/18 Subjective:: Patient continues to complain of abdominal pain and constipation but according to his nurse he actually had some bowel movement last night although it is loose. His oral intake remains to be poor. He was saying that something is going on in his abdomen and he needs to be kept open but his abdomen really appears benign and his CT scan findings does not warrant any surgery. He was refusing blood tests and blood draw today so he might be going home. His urine output was adequate at 2250 mL for the last 24 hours. Reason For Visit: ARF,ILEUS ABD PAIN Physical Exam Vital Signs: Temp Pulse Resp BP Pulse Ox 97.9 F 72 16 130/51 H 94 11/08/18 07:57 11/08/18 07:57 11/08/18 07:57 11/08/18 07:57 11/08/18 07:57 Intake & Output 11/07/18 11/08/18 11/09/18 06:59 06:59 06:59 Intake Total 3570 5862 Output Total 1400 2250 Balance 2170 3612 Weight 66 kg 66.5 kg Exam: General appearance: PRESENT: no acute distress, cooperative, well-developed, well-nourished Head exam: PRESENT: atraumatic, normocephalic Eye exam: PRESENT: conjunctiva slightly pale, PERRLA. ABSENT: scleral icterus Neck exam: ABSENT: JVD Respiratory exam: PRESENT: Normal breath sounds. ABSENT: crackles, rales, rhonchi, unlabored, wheezes Cardiovascular exam: PRESENT: Regular rate rhythm -+S1, +S2. ABSENT: diastolic murmur, systolic murmur GI/Abdominal exam: PRESENT: Slightly hyperactive bowel sounds, soft. Slight tenderness on the right lower quadrant and suprapubic area ABSENT: guarding, mass Extremities exam: ABSENT: No edema Neurological exam: PRESENT: alert, awake, oriented to person, place and time. Skin exam: PRESENT: dry, warm, Cardiovascular exam: PRESENT: +S1, +S2 GI/Abdominal exam: PRESENT: diminished bowel sounds, hypoactive bowel sounds, soft. ABSENT: distended, firm, guarding, normal bowel sounds - Bowel sounds was diminished and what I heard was rather tympanitic., organomegaly, tenderness Results Laboratory Results: 11/07/18 15:30 11/07/18 05:13 11/07/18 15:30 WBC 5.2 RBC 2.95 L Hgb 9.0 L Hct 26.3 L MCV 89 MCH 30.4 MCHC 34.1 RDW 12.9 Plt Count 183 11/02/18 11/02/18 11/03/18 23:25 23:25 05:21 Creatine Kinase 36 L 38 L CK-MB (CK-2) 2.12 Troponin I 0.023 11/03/18 11/03/18 11/03/18 05:21 11:50 11:50 Creatine Kinase 42 L CK-MB (CK-2) 2.20 2.28 Troponin I 0.030 0.029 Impressions: Abdomen X-Ray 11/02/18 14:57 IMPRESSION: No definite pathologically dilated loops of bowel to suggest obstruction. Gas containing loops of bowel in the right hemiabdomen, presumably colonic. Abdomen/Pelvis CT 11/02/18 18:27 IMPRESSION: 1. Few nonspecific distended, however not dilated loops of small bowel present at the level of the RIGHT upper quadrant without clear findings to suggest transition point. Please see above details. Enteritis versus the possibility of early or incomplete small bowel obstruction may be considered in the differential. 2. Air and fluid distended gastric body. TECHNICAL DOCUMENTATION: Quality ID # 436: Final reports with documentation of one or more dose reduction techniques (e.g., Automated exposure control, adjustment of the mA and/or kV according to patient size, use of iterative reconstruction technique) copyright 2011 [employer]- All Rights Reserved KUB X-Ray 11/03/18 00:00 IMPRESSION: No interval change. NG tube remains in place. Small Bowel X-Ray 11/04/18 00:00 IMPRESSION: Post subtotal colectomy. No small bowel follow-through evidence of high-grade bowel obstruction. Assessment & Plan - Diagnosis (1) Acute kidney injury Is this a current diagnosis for this admission?: Yes Plan: Presumed to be secondary to prerenal azotemia secondary to severe dehydration due to poor oral intake. Patient is non-oliguric. Kidney function is continues to improve. Continue to monitor kidney function. No indication for any renal replacement therapy. (2) Hypokalemia Is this a current diagnosis for this admission?: Yes Plan: Resolved. (3) Metabolic acidosis Is this a current diagnosis for this admission?: Yes Plan: Improved. (4) Acute hyponatremia Is this a current diagnosis for this admission?: Yes Plan: Mild and borderline.. (5) Ileus Is this a current diagnosis for this admission?: Yes Plan: Status post multiple abdominal surgeries. Surgery following. No planned surgeries. (6) Type 2 diabetes mellitus Is this a current diagnosis for this admission?: Yes (7) Weight loss Is this a current diagnosis for this admission?: Yes Plan: Likely secondary to poor oral intake due to GI issue. - Time Time with patient: 15-25 minutes
[2018-11-08 14:08] VITALS: BP 123/55
== END 2018-11-08 14:40 | disposition home or self-care (01) | DRG 74 ==
LOC: ER 14:16 → EH 23:18 → 3W 11-03 01:20
PROVIDERS: ADMIT Internal Medicine; ATTEND Internal Medicine
PROC: 0D9670Z Drainage of Stomach with Drainage Device, Via Natural or Artificial Opening (ICD-10-PCS; principal; 2018-11-02)
PROC: 30233N1 Transfusion of Nonautologous Red Blood Cells into Peripheral Vein, Percutaneous Approach (ICD-10-PCS; 2018-11-07)
DX: E11.43 Type 2 diabetes mellitus with diabetic autonomic (poly)neuropathy (principal); K56.690 Other partial intestinal obstruction; N17.9 Acute kidney failure, unspecified; E87.1 Hypo-osmolality and hyponatremia; E87.6 Hypokalemia; K31.84 Gastroparesis; I10 Essential (primary) hypertension; R63.4 Abnormal weight loss; E86.0 Dehydration; E11.65 Type 2 diabetes mellitus with hyperglycemia; K21.9 Gastro-esophageal reflux disease without esophagitis; Z79.4 Long term (current) use of insulin; Z79.899 Other long term (current) drug therapy; Z80.0 Family history of malignant neoplasm of digestive organs; Z90.49 Acquired absence of other specified parts of digestive tract
CPT/HCPCS: 36415; 36430; 74018; 74019; 74176; 74250; 80048; 80053; 81001; 82550; 82553; 82962; 83605; 83690; 83735; 84484; 85025; 85027; 86850; 86900; 86901; 86920; 96361; 96374; 96375; 99285; J0610; J1644; J2270; J2405; J2765; J3480; J3490; J7030; J7060; P9016; S0164

== ENCOUNTER 2018-12-04 12:06 | Emergency (ER) | payer MEDICARE, BC, OTHER ==
--- NOTE | 2018-12-04 12:55 | ER Document Report ---
ED Medical Screen (RME) - General Chief Complaint: Abnormal Lab Results Stated Complaint: ABNORMAL LABS Time Seen by Provider: 12/04/18 12:46 Mode of Arrival: Ambulatory Information source: Relative Notes: Patient presents with report of abnormal renal function tests. Patient had laboratory studies done 4 days ago preop for a colonoscopy. Because patient's creatinine was elevated the GI specialist refused to do the procedure. Patient refused to come to the hospital until today. Patient did have some nausea and vomiting yesterday. Family member states that patient had chronic left lower quadrant pain for about 10 years. hx: Diabetes, constipation, dementia, previous bowel surgeries I have greeted and performed a rapid initial assessment of this patient. A comprehensive ED assessment and evaluation of the patient, analysis of test results and completion of the medical decision making process will be conducted by additional ED providers. TRAVEL OUTSIDE OF THE [place] IN LAST 30 DAYS: No - Related Data Allergies/Adverse Reactions: No Known Allergies Allergy (Verified 12/04/18 12:46) Past Medical History - Past Medical History Cardiac Medical History: Reports: Hx Hypertension Denies: Hx Coronary Artery Disease, Hx Heart Attack Pulmonary Medical History: Denies: Hx Asthma, Hx Bronchitis, Hx COPD, Hx Pneumonia Neurological Medical History: Denies: Hx Cerebrovascular Accident, Hx Seizures Endocrine Medical History: Reports: Hx Diabetes Mellitus Type 1, Hx Diabetes Mellitus Type 2 Renal/ Medical History: Reports: Hx Renal Insufficiency. Denies: Hx Peritoneal Dialysis GI Medical History: Reports: Hx Gastroesophageal Reflux Disease, Hx Irritable Bowel. 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 Denies: Hx Open Heart Surgery, Hx Pacemaker - Immunizations Hx Diphtheria, Pertussis, Tetanus Vaccination: Yes History of Influenza Vaccine for 12/2016 - 05/2017 Season: Yes Influenza Administration Date for 12/2016 - 05/2017 Season: 02/06/17 Physical Exam - Vital signs Vitals: Temp Pulse Resp BP Pulse Ox 98.2 F 95 18 137/67 H 99 12/04/18 12:09 12/04/18 12:09 12/04/18 12:09 12/04/18 12:09 12/04/18 12:09 - Abdominal Tenderness: Tender - Left lower quadrant Course - Vital Signs Vital signs: Temp Pulse Resp BP Pulse Ox 98.2 F 95 18 137/67 H 99 12/04/18 12:09 12/04/18 12:09 12/04/18 12:09 12/04/18 12:09 12/04/18 12:09
[2018-12-04 13:32] LABS: ABSOLUTE EOSINOPHILS # (AUTO) 0.2 10^3/uL (0.0-0.6); ABSOLUTE LYMPHOCYTES (AUTO) 1.2 10^3/uL (0.5-4.7); ABSOLUTE MONOCYTES (AUTO) 0.7 10^3/uL (0.1-1.4); ABSOLUTE NEUT (AUTO) 4.6 10^3/uL (1.7-8.2); BASOPHILS % (AUTO) 0.5 % (0-2); EOSINOPHILS % (AUTO) 2.6 % (0-6); HEMATOCRIT 25.2 % (37.9-51.0); HEMOGLOBIN 8.8 g/dL (13.5-17.0); LYMPHOCYTES % (AUTO) 18.2 % (13-45); MEAN CORPUSCULAR HEMOGLOBIN 30.5 pg (27.0-33.4); MEAN CORPUSCULAR HGB CONC 34.7 g/dL (32.0-36.0); MEAN CORPUSCULAR VOLUME 88 fl (80-97); PLATELET COUNT 209 10^3/uL (150-450); RED BLOOD COUNT 2.87 10^6/uL (4.35-5.55); RED CELL DISTRIBUTION WIDTH 13.3 % (11.5-14.0); SEGMENTED NEUTROPHILS % (AUTO) 68.7 % (42-78); TOTAL CELLS COUNTED % (AUTO) 100 %; WHITE BLOOD COUNT 6.7 10^3/uL (4.0-10.5)
[2018-12-04 13:35] LABS: APPEARANCE,URINE SLIGHTLY-CLOUDY; BILIRUBIN,URINE NEGATIVE (NEGATIVE); COLOR,URINE YELLOW; GLUCOSE, URINE NEGATIVE (NEGATIVE); KETONES,URINE NEGATIVE (NEGATIVE); LEUKOCYTE ESTERASE,URINE NEGATIVE (NEGATIVE); NITRITE,URINE NEGATIVE (NEGATIVE); PROTEIN,URINE NEGATIVE (NEGATIVE); URINE SPECIFIC GRAVITY 1.013; UROBILINOGEN,URINE NEGATIVE mg/dL (<2.0)
[2018-12-04 13:56] LABS: ALBUMIN 4.6 g/dL (3.5-5.0); ALKALINE PHOSPHATASE 106 U/L (38-126); ANION GAP 18 (5-19); ASPARTATE AMINO TRANSFERASE 10 U/L (17-59); BILIRUBIN,DIRECT 0.2 mg/dL (0.0-0.4); BILIRUBIN,TOTAL 0.6 mg/dL (0.2-1.3); BLOOD UREA NITROGEN 85 mg/dL (7-20); CALCIUM 8.9 mg/dL (8.4-10.2); CARBON DIOXIDE 15 mmol/L (22-30); CHLORIDE 102 mmol/L (98-107); GLUCOSE 159 mg/dL (75-110); POTASSIUM 4.6 mmol/L (3.6-5.0); TOTAL PROTEIN 7.3 g/dL (6.3-8.2)
--- NOTE | 2018-12-04 14:20 | RADIOLOGY REPORT (SQ) ---
EXAM DESCRIPTION: KUB/ABDOMEN (SINGLE VIEW) COMPLETED DATE/TIME: 12/04/2018 2:05 pm REASON FOR STUDY: chronic LLQ pain COMPARISON: 11/03/2018 NUMBER OF VIEWS: One view. TECHNIQUE: Supine radiographic image of the abdomen acquired. LIMITATIONS: None. FINDINGS: BOWEL GAS PATTERN: Normal bowel gas pattern. No dilated loops. CALCIFICATIONS: No suspicious calcifications. SOFT TISSUES: No gross mass or suggestion of organomegaly. HARDWARE: Hernia coils. BONES: No acute fracture. No worrisome bone lesions. OTHER: No other significant finding. IMPRESSION: NO RADIOGRAPHIC EVIDENCE FOR ACUTE ABDOMINAL DISEASE. TECHNICAL DOCUMENTATION: JOB ID: [id number] [employer]- All Rights Reserved Reading location - IP/workstation name: [email or web address]
--- NOTE | 2018-12-04 15:32 | ER Document Report ---
ED General - General Chief Complaint: Abnormal Lab Results Stated Complaint: ABNORMAL LABS Time Seen by Provider: 12/04/18 12:46 Primary Care Provider: Nilam SPENCER MD [ACTIVE STAFF] - Follow up as needed (First available appointment to establish care with a supervisor agency appointments due to new condition as a result of her dehydration from last hospital stay Your creatinine is at a new baseline from when you were admitted approximately 1 month ago to this hospital for a bowel obstruction and decreased oral intake because acute renal failure.) Mode of Arrival: Ambulatory TRAVEL OUTSIDE OF THE [place] IN LAST 30 DAYS: No - HPI Notes: Patient presents with concern of kidney function. He had a colonoscopy scheduled at an outside hospital earlier this week. He was called with his lab work and was told to come the emergency department because of his increasing creatinine. Upon chart review he was discharged from this hospital for acute renal failure probably 1 month ago. Today his labs are within the baseline when he was discharged. No other complaints - Related Data Allergies/Adverse Reactions: No Known Allergies Allergy (Verified 12/04/18 12:46) Past Medical History - General Information source: Relative - Social History Smoking Status: Unknown if Ever Smoked Family History: Reviewed & Not Pertinent, Other - Brother with stomach cancer Patient has suicidal ideation: No Patient has homicidal ideation: No - Past Medical History Cardiac Medical History: Reports: Hx Hypertension Denies: Hx Coronary Artery Disease, Hx Heart Attack Pulmonary Medical History: Denies: Hx Asthma, Hx Bronchitis, Hx COPD, Hx Pneumonia Neurological Medical History: Denies: Hx Cerebrovascular Accident, Hx Seizures Endocrine Medical History: Reports: Hx Diabetes Mellitus Type 1, Hx Diabetes Mellitus Type 2 Renal/ Medical History: Reports: Hx Renal Insufficiency. Denies: Hx Peritoneal Dialysis GI Medical History: Reports: Hx Gastroesophageal Reflux Disease, Hx Irritable Bowel. 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 Denies: Hx Open Heart Surgery, Hx Pacemaker - Immunizations Hx Diphtheria, Pertussis, Tetanus Vaccination: Yes Review of Systems - Review of Systems Constitutional: No symptoms reported, Other - Concern for abnormal lab work EENT: No symptoms reported Cardiovascular: No symptoms reported Respiratory: No symptoms reported Gastrointestinal: No symptoms reported Genitourinary: No symptoms reported Male Genitourinary: No symptoms reported Musculoskeletal: No symptoms reported Skin: No symptoms reported Hematologic/Lymphatic: No symptoms reported Neurological/Psychological: No symptoms reported Physical Exam - Vital signs Vitals: Temp Pulse Resp BP Pulse Ox 98.2 F 95 18 137/67 H 99 12/04/18 12:12/04/18 12:12/04/18 12:12/04/18 12:12/04/18 12:09 - HEENT Head: Normocephalic, Atraumatic Eyes: Normal Conjunctiva: Normal Cornea: Normal Extraocular movements intact: Yes Pupils: PERRL - Respiratory Respiratory status: No respiratory distress, Respiratory distress Chest status: Nontender Breath sounds: Normal Chest palpation: Normal - Cardiovascular Rhythm: Regular Heart sounds: Normal auscultation Murmur: No - Abdominal Inspection: Normal Distension: No distension Bowel sounds: Normal Tenderness: Nontender - Neurological Neuro grossly intact: Yes Cognition: Normal Course - Re-evaluation Re-evalutation: 12/04/18 15:31 Patient has known acute renal failure. His creatinine is within the baseline when he was discharged in this emergency department approximately 1 month ago. Apparently, the GI specialist was unaware of this and when he saw the creatinine value told the patient to come to the emergency room I discussed this with the patient's as well as the patient. He does have a primary care physician. I will also refer him to her supervisor agency appointments as he should be following them at this time due to his new condition. - Vital Signs Vital signs: Temp Pulse Resp BP Pulse Ox 97.9 F 81 16 117/63 100 12/04/18 15:39 12/04/18 15:39 12/04/18 15:39 12/04/18 15:39 12/04/18 15:39 - Laboratory Result Diagrams: 12/04/18 13:11 12/04/18 13:11 Laboratory results interpreted by me: 12/04/18 12/04/18 13:11 13:11 RBC 2.87 L Hgb 8.8 L Hct 25.2 L Sodium 134.9 L Carbon Dioxide 15 L BUN 85 H Creatinine 5.74 H Est GFR ( Amer) 12 L Est GFR (MDRD) Non-Af 10 L Glucose 159 H AST 10 L Discharge - Discharge Clinical Impression: Chronic kidney disease Qualifiers: Chronic kidney disease stage: unspecified stage Qualified Code(s): N18.9 - Chronic kidney disease, unspecified Condition: Good Disposition: HOME, SELF-CARE Referrals: Nilam SPENCER MD [ACTIVE STAFF] - Follow up as needed (First available appointment to establish care with a supervisor agency appointments due to new condition as a result of her dehydration from last hospital stay Your creatinine is at a new baseline from when you were admitted approximately 1 month ago to this hospital for a bowel obstruction and decreased oral intake because acute renal failure.)
[2018-12-04 15:44] VITALS: BP 117/63
--- NOTE | 2018-12-06 00:46 | EKG REPORT ---
SEVERITY:- ABNORMAL ECG - SINUS RHYTHM RBBB AND LAFB : Confirmed by: Debra Delgado 06-Dec-2018 00:45:37
== END 2018-12-04 15:40 | disposition home or self-care (01) ==
LOC: ER 12:06
DX: I12.9 Hypertensive chronic kidney disease with stage 1 through stage 4 chronic kidney disease, or unspecified chronic kidney disease (principal); E11.22 Type 2 diabetes mellitus with diabetic chronic kidney disease; N18.9 Chronic kidney disease, unspecified; N17.9 Acute kidney failure, unspecified
CPT/HCPCS: 36415; 74018; 80053; 81001; 85025; 93005; 93010; 99284

== ENCOUNTER → 2019-04-22 | Outpatient (CLI) | payer MEDICARE, BC ==
--- NOTE | 2019-04-22 15:07 | RADIOLOGY REPORT (SQ) ---
EXAM DESCRIPTION: CT ABD/PELVIS ORAL ONLY COMPLETED DATE/TIME: 04/22/2019 1:24 pm REASON FOR STUDY: R10.9 UNSPECIFIED ABDOMINAL PAIN R10.9 UNSPECIFIED ABDOMINAL PAIN COMPARISON: 2019 TECHNIQUE: CT scan of the abdomen and pelvis performed with oral contrast and no intravenous contras t. Images reviewed with lung, soft tissue, and bone windows. Reconstructed coronal and sagittal MPR i mages reviewed. All images stored on PACS. All CT scanners at this facility use dose modulation, iterative reconstruction, and/or weight based d osing when appropriate to reduce radiation dose to as low as reasonably achievable (ALARA). [facility]: Dose Right [facility]: CareDose [facility]: Dose Right [facility]: Teradose 4D [facility]: [employer] RADIATION DOSE: CT Rad equipment meets quality standard of care and radiation dose reduction techniq ues were employed. CTDIvol: 6.8 mGy. DLP: 387 mGy-cm.mGy. LIMITATIONS: None. FINDINGS: LOWER CHEST: Minimal left basilar scar. Marked Coronary calcification. NON-CONTRASTED LIVER, SPLEEN, ADRENALS: Evaluation limited by lack of IV contrast. No identified sign ificant masses. PANCREAS: Calcifications suggest chronic pancreatitis. No active inflammatory changes or mass or jason t dilatation. GALLBLADDER: Contracted or absent. RIGHT KIDNEY AND URETER: No solid masses. No significant calcification. No hydronephrosis or hydroure ter. LEFT KIDNEY AND URETER: No solid masses. No significant calcification. No hydronephrosis or hydrouret er. AORTA AND RETROPERITONEUM: No aneurysm. No retroperitoneal masses or adenopathy. BOWEL AND PERITONEAL CAVITY: Stomach somewhat distended with contrast, chronic. No gross obstructing outlet mass detected. No small bowel obstruction. Significant resection of large bowel with anasto mosis point in the pelvis. No free air or free fluid. APPENDIX: Not visualized. PELVIS, BLADDER, AND ABDOMINAL WALL: Prostate enlargement. Bladder unremarkable. No abdominal wall hernia. BONES: No significant findings. OTHER: No other significant finding. IMPRESSION: 1. Findings suggestive of chronic pancreatitis. 2. No acute abnormality detected. Other findings as above. TECHNICAL DOCUMENTATION: JOB ID: [id number] Quality ID # [id number]: Final reports with documentation of one or more dose reduction techniques (e.g., Au tomated exposure control, adjustment of the mA and/or kV according to patient size, use of iterative reconstruction technique) 2010 [employer]- All Rights Reserved Reading location - IP/workstation name: [email or web address]
== END ==
LOC: RAD 12:22
PROVIDERS: ATTEND Surgery
DX: R10.9 Unspecified abdominal pain (principal)
CPT/HCPCS: 74176; 82565

== ENCOUNTER 2019-04-24 11:15 | Inpatient (IN) | payer MEDICARE, BC, OTHER ==
[2019-04-24] MEDS ORDERED: ONDANSETRON HCL INJ/PF 4 MG/2 ML SDV IM ONE (11:32)
[2019-04-24] MEDS ORDERED: NORMAL SALINE 1000 ML 1,000 ML IV ONE ×2 (11:33→14:12)
--- NOTE | 2019-04-24 11:39 | ER Document Report ---
ED Medical Screen (RME) - General Chief Complaint: Vomiting Stated Complaint: VOMITING, CONSTIPATION Time Seen by Provider: 04/24/19 11:32 Primary Care Provider: CAMILO ALAMO MD [Primary Care Provider] - Follow up as needed Mode of Arrival: Wheelchair Information source: Patient Notes: 74-year-old male presented to ED for complaint of nausea and vomiting for the last 4 days. states he is she does not know when the last time he has had a stool that he goes and he does not go. No known fevers. He does have an appointment tomorrow with Dr. Webster. states he was trying to wait but he is just not able to due to the vomiting. Patient is alert and oriented. I have greeted and performed a rapid initial assessment of this patient. A comprehensive ED assessment and evaluation of the patient, analysis of test results and completion of medical decision making process will be conducted by an additional ED providers. TRAVEL OUTSIDE OF THE [place] IN LAST 30 DAYS: No - Related Data Allergies/Adverse Reactions: No Known Allergies Allergy (Verified 12/15/18 18:09) Past Medical History - Past Medical History Cardiac Medical History: Reports: Hx Hypertension Denies: Hx Coronary Artery Disease, Hx Heart Attack Pulmonary Medical History: Denies: Hx Asthma, Hx Bronchitis, Hx COPD, Hx Pneumonia Neurological Medical History: Denies: Hx Cerebrovascular Accident, Hx Seizures Endocrine Medical History: Reports: Hx Diabetes Mellitus Type 1, Hx Diabetes Mellitus Type 2 Renal/ Medical History: Reports: Hx Renal Insufficiency. Denies: Hx Peritoneal Dialysis GI Medical History: Reports: Hx Gastroesophageal Reflux Disease, Hx Irritable Bowel. 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 Denies: Hx Open Heart Surgery, Hx Pacemaker - Immunizations Hx Diphtheria, Pertussis, Tetanus Vaccination: Yes Doctor's Discharge - Discharge Referrals: CAMILO ALAMO MD [Primary Care Provider] - Follow up as needed
--- NOTE | 2019-04-24 12:33 | RADIOLOGY REPORT (SQ) ---
EXAM DESCRIPTION: ACUTE ABDOMEN SERIES COMPLETED DATE/TIME: 04/24/2019 12:18 pm REASON FOR STUDY: Abdominal pain vomiting unknown last stool COMPARISON: CT dated 04/22/2019. Abdominal x-ray dated 12/16/2018. NUMBER OF VIEWS: Three views. TECHNIQUE: Frontal chest, supine abdomen and upright/decubitus abdomen radiographic images acquired. LIMITATIONS: None. FINDINGS: CHEST: Lungs clear of infiltrates. FREE AIR: None. No abnormal gas collections. BOWEL GAS PATTERN: Nonobstructive pattern. No dilated loops or air fluid levels. Somewhat prominent redundant sigmoid colon, similar appearance to recent CT and x-ray. CALCIFICATIONS: No suspicious calcifications. HARDWARE: Surgical clips. SOFT TISSUES: No gross mass or suggestion of organomegaly. BONES: No acute fracture. No worrisome bone lesions. OTHER: No other significant finding. IMPRESSION: NO RADIOGRAPHIC EVIDENCE FOR ACUTE ABDOMINAL DISEASE. TECHNICAL DOCUMENTATION: JOB ID: [id number] 2010 [employer]- All Rights Reserved Reading location - IP/workstation name: [email or web address]
[2019-04-24 13:37] LABS: HEMOGLOBIN 10.1 g/dL (13.5-17.0); MEAN CORPUSCULAR HEMOGLOBIN 31.5 pg (27.0-33.4); MEAN CORPUSCULAR VOLUME 84 fl (80-97); PLATELET COUNT 237 10^3/uL (150-450); RED BLOOD COUNT 3.22 10^6/uL (4.35-5.55); RED CELL DISTRIBUTION WIDTH 12.6 % (11.5-14.0); WHITE BLOOD COUNT 11.6 10^3/uL (4.0-10.5)
--- NOTE | 2019-04-24 13:40 | ER Document Report ---
Entered by MORRIS MIRANDA SCRIBE 04/24/19 1237 Acting as scribe for:RAAD PIERCE MD ED GI/ - General Chief Complaint: Nausea/Vomiting Stated Complaint: VOMITING, CONSTIPATION Time Seen by Provider: 04/24/19 11:32 Primary Care Provider: CAMILO ALAMO MD [ACTIVE STAFF] - Follow up as needed Mode of Arrival: Wheelchair Information source: Patient Notes: This 74 year old male patient presents to the emergency department today with c omplaints of vomiting x4 days. Patient's significant other at bedside reports that the vomiting has gotten worse as time has gone on, stating that today is the worst it has been. Patient is hearing impaired at baseline to entire history is given by significant other. She states that he had an outpatient abdominal CT done on 04/22/19 but they have not gotten those results yet. Significant other reports that the patient vomits any time he eats or drinks anything. TRAVEL OUTSIDE OF THE [place] IN LAST 30 DAYS: No - Related Data Allergies/Adverse Reactions: No Known Allergies Allergy (Verified 12/15/18 18:09) Past Medical History - General Information source: Patient - Social History Smoking Status: Former Smoker Frequency of alcohol use: 4 oz wine with meals Drug Abuse: None Lives with: Family Family History: Reviewed & Not Pertinent, Other Patient has suicidal ideation: No Patient has homicidal ideation: No - Past Medical History Cardiac Medical History: Reports: Hx Hypertension Endocrine Medical History: Reports: Hx Diabetes Mellitus Type 2 Renal/ Medical History: Reports: Hx Renal Insufficiency GI Medical History: Reports: Hx Gastroesophageal Reflux Disease, Hx Irritable Bowel Psychiatric Medical History: Reports: Hx Anxiety Past Surgical History: Reports: Hx Abdominal Surgery - Colostomy and reversal., Hx Bowel Diversion - 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, ileorectal anastamosis, Hx Bowel Surgery, Hx Colostomy - multiple abdominal procedures for chronic luq pain, Hx Herniorrhaphy - Right inguinal - Immunizations Hx Diphtheria, Pertussis, Tetanus Vaccination: Yes Review of Systems - Review of Systems Constitutional: No symptoms reported EENT: No symptoms reported Cardiovascular: No symptoms reported Respiratory: No symptoms reported Gastrointestinal: See HPI, Vomiting Genitourinary: No symptoms reported Male Genitourinary: No symptoms reported Musculoskeletal: No symptoms reported Skin: No symptoms reported Hematologic/Lymphatic: No symptoms reported Neurological/Psychological: No symptoms reported -: Yes All other systems reviewed and negative Physical Exam - Vital signs Vitals: Temp Pulse Resp BP Pulse Ox 98.1 F 104 H 18 192/75 H 100 04/24/19 11:38 04/24/19 11:38 04/24/19 11:38 04/24/19 11:38 04/24/19 11:38 Interpretation: Normal - General General appearance: Appears well, Alert - HEENT Head: Normocephalic, Atraumatic Eyes: Normal Pupils: PERRL Hearing loss: Left, Right - Respiratory Respiratory status: No respiratory distress Chest status: Nontender Breath sounds: Normal Chest palpation: Normal - Cardiovascular Rhythm: Regular Heart sounds: Normal auscultation Murmur: No - Abdominal Inspection: Other - resonant to percuss in the right upper quadrant Distension: No distension Bowel sounds: Hypoactive Tenderness: Nontender Organomegaly: No organomegaly - Back Back: Normal, Nontender - Extremities General upper extremity: Normal inspection, Normal ROM. No: Edema General lower extremity: Normal inspection, Normal ROM. No: Edema - Neurological Neuro grossly intact: Yes Cognition: Normal Orientation: AAOx4 Krishna Coma Scale Eye Opening: Spontaneous Krishna Coma Scale Verbal: Oriented [place] Coma Scale Motor: Obeys Commands Krishna Coma Scale Total: 15 Speech: Normal Motor strength normal: LUE, RUE, LLE, RLE Sensory: Normal - Psychological Associated symptoms: Normal affect, Normal mood - Skin Skin Temperature: Warm Skin Moisture: Dry Skin Color: Normal Course - Vital Signs Vital signs: Temp Pulse Resp BP Pulse Ox 98.0 F 104 H 22 H 155/118 H 100 04/24/19 14:00 04/24/19 11:38 04/24/19 14:31 04/24/19 14:31 04/24/19 14:31 - Laboratory Result Diagrams: 04/24/19 13:09 04/24/19 13:09 Laboratory results interpreted by me: 04/24/19 04/24/19 13:09 13:09 WBC 11.6 H RBC 3.22 L Hgb 10.1 L Hct 27.0 L MCHC 37.6 H Seg Neuts % (Manual) 92 H Lymphocytes % (Manual) 3 L Abs Neuts (Manual) 10.7 H Abs Lymphs (Manual) 0.3 L Sodium 106.3 L* Potassium 3.1 L Chloride 62 L Anion Gap 21 H BUN 47 H Creatinine 2.43 H Est GFR ( Amer) 32 L Est GFR (MDRD) Non-Af 26 L Glucose 208 H Calcium 8.2 L Creatine Kinase 217 H Critical Care Note - Critical Care Note Total time excluding time spent on procedures (mins): 40 Discharge - Discharge Clinical Impression: Hypokalemia, Acute hyponatremia, Chronic kidney disease, stage II (mild) Nausea and vomiting Qualifiers: Vomiting type: unspecified Vomiting Intractability: non-intractable Qualified Code(s): R11.2 - Nausea with vomiting, unspecified Condition: Good Disposition: ADMITTED INPATIENT Admitting Provider: Dr. Shanks(assistant manager airside operations) Unit Admitted: ICU Referrals: CAMILO ALAMO MD [ACTIVE STAFF] - Follow up as needed Scribe Attestation: 04/24/19 14:11 I personally performed the services described in the documentation, reviewed and edited the documentation which was dictated to the scribe in my presence, and it accurately records my words and actions. I personally performed the services described in the documentation, reviewed and edited the documentation which was dictated to the scribe in my presence, and it accurately records my words and actions.
[2019-04-24 13:53] LABS: ALBUMIN 4.7 g/dL (3.5-5.0); ALKALINE PHOSPHATASE 94 U/L (38-126); ASPARTATE AMINO TRANSFERASE 30 U/L (17-59); BILIRUBIN,TOTAL 1.2 mg/dL (0.2-1.3); BLOOD UREA NITROGEN 47 mg/dL (7-20); CALCIUM 8.2 mg/dL (8.4-10.2); CHLORIDE 62 mmol/L (98-107); CREATINE KINASE 217 U/L (55-170); GLUCOSE 208 mg/dL (75-110); POTASSIUM 3.1 mmol/L (3.6-5.0); TOTAL PROTEIN 7.3 g/dL (6.3-8.2)
[2019-04-24 14:01] LABS: CARBON DIOXIDE 23 mmol/L (22-30)
[2019-04-24 14:10] LABS: ANION GAP 21 (5-19)
[2019-04-24] MEDS ORDERED: POTASSI CL 20 MEQ/50 ML RIDER 20 MEQ/50 ML RTUPB IV ONE (14:12)
[2019-04-24 14:13] LABS: MEAN CORPUSCULAR HGB CONC 37.6 g/dL (32.0-36.0)
[2019-04-24 14:18] LABS: ABSOLUTE LYMPHOCYTES# (MANUAL) 0.3 10^3/uL (0.5-4.7); ABSOLUTE MONOCYTES # (MANUAL) 0.6 10^3/uL (0.1-1.4); BASOPHILS % (MANUAL) 0 % (0-2); EOSINOPHILS % (MANUAL) 0 % (0-6); LYMPHOCYTES % (MANUAL) 3 % (13-45); MONOCYTES % (MANUAL) 5 % (3-13); SEGMENTED NEUTROPHILS % (MAN) 92 % (42-78); TOTAL CELLS COUNTED 100
[2019-04-24 14:20] LABS: PLATELET COMMENT ADEQUATE; POIKILOCYTOSIS SLIGHT; TEAR DROP CELLS SLIGHT
[2019-04-24] MEDS ORDERED: DEXTROSE 50%-WATER 25 GM/50 ML DISP.SYRIN IV PRN ×2 (16:17)
[2019-04-24] MEDS ORDERED: DEXTROSE 40% GEL 15 GM TUBE PO PRN ×2 (16:17)
[2019-04-24] MEDS ORDERED: GLUCAGON,HUMAN RECOMB 1 MG INJ IM PRN (16:17)
[2019-04-24] MEDS ORDERED: ONDANSETRON HCL INJ/PF 4 MG/2 ML SDV IV PRN (16:18)
--- NOTE | 2019-04-24 16:38 | CRITICAL CARE ADMISSION REPORT ---
[facility] Date:: 04/24/19 Time:: 16:00 Reason for ICU Reason:: hyponatremia HPI: 74-year-old white male who has had difficulty with hyponatremia. His last admission in this facility was in December when he presented with a creatinine of 6.4 and a sodium of 124. At that time it was felt that his hyponatremia was related to a combination of his renal insufficiency, prostatism and chronic nausea. He is followed by Dr. Garcia. He is also followed by Dr. Munroe from a perspective. I believe he was discharged with a Bal after that admission but subsequently the Bal has been removed and he has been maintained on Flomax. He also has chronic GI symptoms and is followed in [place] he has had a number of endoscopies without a more specific diagnosis. He had a partial colectomy back in the and apparently has had bowel issues subsequently. On this occasion he has had such bad nausea that he has been unable to take his medicine and has had poor p.o. intake. He feels as though he needs to have a bowel movement but nothing seems to come out. Spelt become confused and his brought him to the emergency room today where his sodium was noted to be 1 06. He is being admitted for further care in that regard. Past medical history is significant for hypertension Chronic renal insufficiency at least partially due to prostatism Type 1 diabetes Reflux disease Surgical history: Right inguinal hernia Partial colon resection Chronic abdominal pain Home medications are insulin Lantus 20 units every morning Combigan eyedrops 0.2% / 0.5% 1 drop OU twice daily Dorzolamide 2% eyedrops 1 drop OS twice daily Linzess 145 mcg p.o. daily Reglan 5 mg p.o. nightly Flomax 0.4 mg p.o. 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 No significant alcohol use FH: Brother with stomach cancer Physical exam: He is afebrile and vital signs are susceptible He is alert but confused and history is provided by the Conjuctiva noninjected nonicteric Nose and mouth are clear Neck supple with adenopathy no jugular distention no thyromegaly Carotid upstroke is brisk Lungs are clear Heart regular rate and rhythm Abdomen soft nontender without organomegaly and no distention Rectal shows an empty vault with an enlarged prostate Ext without clubbing cyanosis or edema Neuro is nonfocal Skin is without rash Impression; Hyponatremia recurrent of unclear etiology Chronic renal insufficiency Prostatism Insulin-dependent diabetes Chronic nausea, constipation and abdominal pain Plan; He is very likely dehydrated thus IV fluids will be administered He has been given a normal saline bolus of a liter in the ER If his sodium does not come up he will receive 1 run of 3% Continue frequent sodium checks Urine studies have been sent to exclude SIADH TSH will be included with the morning labs Renal be consulted in the morning His bladder will be scanned to exclude retention Further care will depend on his clinical course History obtained from:: and chart Past Medical History Cardiac Medical History: Reports: Hypertension Denies: Coronary Artery Disease, Myocardial Infarction Pulmonary Medical History: Denies: Asthma, Bronchitis, Chronic Obstructive Pulmonary Disease (COPD), Pneumonia Neurological Medical History: Denies: Seizures Endocrine Medical History: Reports: Diabetes Mellitus Type 1, Diabetes Mellitus Type 2 GI Medical History: Reports: Gastroesophageal Reflux Disease Denies: Hepatitis, Hiatal Hernia Musculoskeltal Medical History: Denies: Arthritis Psychiatric Medical History: Denies: Depression Hematology: Reports: Anemia Denies: Sickle Cell Disease Past Surgical History Past Surgical History: Reports: Colostomy - multiple abdominal procedures for chronic luq pain, Herniorrhaphy - Right inguinal Denies: Pacemaker Social/Family History - Social History Lives with: Family Smoking Status: Former Smoker Frequency of Alcohol Use: None Hx Recreational Drug Use: No Drugs: None Hx Prescription Drug Abuse: No - Medication/Allergies Home Medications: Dorzolamide HCl/Pf [Dorzolamide 2% Eye Drop] 1 drop OS BID 12/16/18 Tamsulosin HCl [Flomax 0.4 mg Cap.sr] 0.4 mg PO PCSUPPER #30 cap.sr.24h 12/18/18 Dicyclomine HCl [Bentyl 20 mg Tablet] 20 mg PO Q12 04/24/19 Finasteride [Proscar 5 mg Tablet] 5 mg PO DAILY 04/24/19 Pantoprazole Sodium [Protonix [address] Tablet] 40 mg PO QAM 04/24/19 Quetiapine Fumarate [Seroquel 25 mg Tablet] 12.5 mg PO QHS 04/24/19 Allergies/Adverse Reactions: No Known Allergies Allergy (Verified 12/15/18 18:09) Physical Exam Vital Signs: Temp Pulse Resp BP Pulse Ox 98.0 F 104 H 16 155/76 H 99 04/24/19 14:00 04/24/19 11:38 04/24/19 15:31 04/24/19 15:31 04/24/19 15:31 Intake & Output 04/23/19 04/24/19 04/25/19 06:59 06:59 06:59 Intake Total 1999 Balance 1999 Weight 77.2 kg Weight/Height Weight 77.2 kg Height 5 ft 6 in Laboratory/Radiographs Laboratory Results: 04/24/19 13:09 04/24/19 13:09 04/24/19 04/24/19 04/24/19 13:09 13:09 13:09 WBC 11.6 H RBC 3.22 L Hgb 10.1 L Hct 27.0 L MCV 84 MCH 31.5 MCHC 37.6 H RDW 12.6 Plt Count 237 Seg Neutrophils % Not Reportable Sodium 106.3 L* Potassium 3.1 L Chloride 62 L Carbon Dioxide 23 Anion Gap 21 H BUN 47 H Creatinine 2.43 H Est GFR ( Amer) 32 L Glucose 208 H Calcium 8.2 L Magnesium 2.0 Total Bilirubin 1.2 AST 30 Alkaline Phosphatase 94 Total Protein 7.3 Albumin 4.7 Lipase 60.1 04/24/19 04/24/19 13:09 13:09 Creatine Kinase 217 H Troponin I 0.015 Impressions: Acute Abdomen Series 04/24/19 11:33 IMPRESSION: NO RADIOGRAPHIC EVIDENCE FOR ACUTE ABDOMINAL DISEASE. Critical Time Critical Time (minutes): 40 -: The care of a critically ill patient is dynamic. This note represents a static moment in the admission process. Orders and treatments may be given simultaneously and urgently, and time is not assistance representative of the treatment process. This patient requires Critical Care secondary to life threatening organ or limb dysfunction. Without Critical Care services, the patient is at risk for increased mortality and morbidity.
[2019-04-24] MEDS ORDERED: TAMSULOSIN HCL 0.4 MG CAP.SR.24H PO ONE (17:00)
[2019-04-24] MEDS: NORMAL SALINE 1000 ML 1,000 ML IV PRN (17:35)
[2019-04-24 18:08] LABS: APPEARANCE,URINE TURBID; BILIRUBIN,URINE NEGATIVE (NEGATIVE); COLOR,URINE YELLOW; GLUCOSE, URINE >=500 mg/dL (NEGATIVE); KETONES,URINE TRACE mg/dL (NEGATIVE); PROTEIN,URINE 100 mg/dL (NEGATIVE); URINE SPECIFIC GRAVITY 1.007; UROBILINOGEN,URINE NEGATIVE mg/dL (<2.0)
[2019-04-24 18:26] LABS: URINE SODIUM < 5 mmol/L (30-90)
[2019-04-24 18:31] LABS: OSMOLALITY,URINE 339 mOsm/kg (300-900)
[2019-04-24] MEDS: INSULIN REG, HUMAN 100 UNIT/ML 3 ML VIAL (PYX) SUBCUT SCH (18:54)
[2019-04-24 18:56] LABS: ANION GAP 16 (5-19); BLOOD UREA NITROGEN 44 mg/dL (7-20); CALCIUM 8.1 mg/dL (8.4-10.2); CARBON DIOXIDE 23 mmol/L (22-30); CHLORIDE 69 mmol/L (98-107); GLUCOSE 154 mg/dL (75-110)
[2019-04-24 19:06] LABS: POTASSIUM 2.9 mmol/L (3.6-5.0)
[2019-04-24] MEDS: POTASSI CL 20 MEQ/50 ML RIDER 20 MEQ/50 ML RTUPB IV SCH (22:14)
[2019-04-24] MEDS ORDERED: LIDOCAINE 2% URO-JET 5 ML KIT MM ONE (22:30)
[2019-04-24] MEDS ORDERED: LIDOCAINE 2% JELLY 5 ML TUBE UR ONE (23:15)
[2019-04-25] MEDS: POTASSI CL 20 MEQ/50 ML RIDER 20 MEQ/50 ML RTUPB IV SCH ×3 (01:34→15:31)
[2019-04-25] MEDS: NORMAL SALINE 1000 ML 1,000 ML IV PRN (02:36)
[2019-04-25] MEDS ORDERED: FAMOTIDINE 20 MG TABLET PO ONE (02:59)
[2019-04-25 04:28] LABS: ABSOLUTE LYMPHOCYTES (AUTO) 0.5 10^3/uL (0.5-4.7); ABSOLUTE NEUT (AUTO) 8.1 10^3/uL (1.7-8.2); BASOPHILS % (AUTO) 0.1 % (0-2); EOSINOPHILS % (AUTO) 0.1 % (0-6); HEMATOCRIT 23.9 % (37.9-51.0); HEMOGLOBIN 8.9 g/dL (13.5-17.0); LYMPHOCYTES % (AUTO) 5.3 % (13-45); MEAN CORPUSCULAR HEMOGLOBIN 30.8 pg (27.0-33.4); MEAN CORPUSCULAR VOLUME 83 fl (80-97); PLATELET COUNT 209 10^3/uL (150-450); RED CELL DISTRIBUTION WIDTH 12.6 % (11.5-14.0); SEGMENTED NEUTROPHILS % (AUTO) 84.5 % (42-78); TOTAL CELLS COUNTED % (AUTO) 100 %; WHITE BLOOD COUNT 9.6 10^3/uL (4.0-10.5)
[2019-04-25 04:37] LABS: INTERNATIONAL RATION (INR) 1.16; PROTHROMBIN TIME 14.8 SEC (11.4-15.4)
[2019-04-25 04:38] LABS: PARTIAL THROMBOPLASTIN TIME 31.8 SEC (23.5-35.8)
[2019-04-25 04:39] LABS: ANION GAP 18 (5-19); BLOOD UREA NITROGEN 40 mg/dL (7-20); CALCIUM 8.1 mg/dL (8.4-10.2); CARBON DIOXIDE 22 mmol/L (22-30); CHLORIDE 73 mmol/L (98-107); GLUCOSE 110 mg/dL (75-110)
[2019-04-25 04:51] LABS: MEAN CORPUSCULAR HGB CONC 37.3 g/dL (32.0-36.0)
[2019-04-25] MEDS: INSULIN REG, HUMAN 100 UNIT/ML 3 ML VIAL (PYX) SUBCUT SCH ×4 (05:50→17:31)
[2019-04-25] MEDS ORDERED: PANTOPRAZOLE SODIUM 40 MG TABLET.DR PO SCH (06:00)
--- NOTE | 2019-04-25 08:18 | PDOC CRITICAL CARE PROG REPORT ---
General Date:: 04/25/19 Resuscitation Status: Full Code Events in the past 12 to 24 Hours:: 74-year-old male who presents with recurrent hyponatremia. The bladder scan last night showed a significant residual and a Bal is now in place. I suspect this is really the main issue. He does have some diarrhea but I do not believe that that is causing the hyponatremia. He remains confused but his sodium has come up to 112 with normal saline. Review of systems relevant to events:: No Fever No bleeding No Swelling Chronic GI symptoms Reason for ICU Addmission:: hyponatremia Physical Exam Vital Signs: Temp Pulse Resp BP Pulse Ox 98.6 F 93 20 109/88 H 99 04/25/19 04:00 04/25/19 06:00 04/25/19 06:00 04/25/19 06:00 04/25/19 06:00 Intake & Output 04/24/19 04/25/19 04/26/19 06:59 06:59 06:59 Intake Total 3392 Output Total 1215 Balance 2177 Weight 75.2 kg Weight/Height Weight 75.2 kg Height 5 ft 7 in General appearance: PRESENT: disheveled Head exam: PRESENT: normocephalic Mouth exam: PRESENT: neck supple Neck exam: ABSENT: JVD, lymphadenopathy Respiratory exam: PRESENT: clear to auscultation jc Cardiovascular exam: PRESENT: RRR Pulses: PRESENT: normal radial pulses GI/Abdominal exam: PRESENT: soft. ABSENT: tenderness Extremities exam: ABSENT: pedal edema Focused psych exam: PRESENT: restlessness Laboratory/Radiographs Laboratory Results: 04/25/19 04:05 04/25/19 04:05 04/24/19 04/24/19 04/24/19 13:09 13:09 13:09 WBC 11.6 H RBC 3.22 L Hgb 10.1 L Hct 27.0 L MCV 84 MCH 31.5 MCHC 37.6 H RDW 12.6 Plt Count 237 Seg Neutrophils % Not Reportable Sodium 106.3 L* Potassium 3.1 L Chloride 62 L Carbon Dioxide 23 Anion Gap 21 H BUN 47 H Creatinine 2.43 H Est GFR ( Amer) 32 L Est GFR (Non-Af Amer) Glucose 208 H Serum Osmolality Calcium 8.2 L Magnesium 2.0 Total Bilirubin 1.2 AST 30 Alkaline Phosphatase 94 Total Protein 7.3 Albumin 4.7 Lipase 60.1 TSH Urine Color Urine Appearance Urine pH Ur Specific [place] Urine Protein Urine Glucose (UA) Urine Ketones Urine Blood Urine RBC (Auto) Urine Osmolality 04/24/19 04/24/19 04/24/19 17:30 17:30 17:58 WBC RBC Hgb Hct MCV MCH MCHC RDW Plt Count Seg Neutrophils % Sodium Cancelled Potassium Cancelled Chloride Cancelled Carbon Dioxide Cancelled Anion Gap Cancelled BUN Cancelled Creatinine Cancelled Est GFR ( Amer) Cancelled Est GFR (Non-Af Amer) Cancelled Glucose Cancelled Serum Osmolality Cancelled Calcium Cancelled Magnesium Total Bilirubin AST Alkaline Phosphatase Total Protein Albumin Lipase TSH Urine Color YELLOW Urine Appearance TURBID Urine pH 6.0 Ur Specific [place] 1.007 Urine Protein 100 H Urine Glucose (UA) >=500 H Urine Ketones TRACE H Urine Blood MODERATE H Urine RBC (Auto) 161 Urine Osmolality 04/24/19 04/24/19 04/24/19 17:58 18:24 18:24 WBC RBC Hgb Hct MCV MCH MCHC RDW Plt Count Seg Neutrophils % Sodium 108.2 L* Potassium 2.9 L* Chloride 69 L Carbon Dioxide 23 Anion Gap 16 BUN 44 H Creatinine 2.22 H Est GFR ( Amer) 35 L Est GFR (Non-Af Amer) Glucose 154 H Serum Osmolality 231 L Calcium 8.1 L Magnesium Total Bilirubin AST Alkaline Phosphatase Total Protein Albumin Lipase TSH Urine Color Urine Appearance Urine pH Ur Specific [place] Urine Protein Urine Glucose (UA) Urine Ketones Urine Blood Urine RBC (Auto) Urine Osmolality 339 04/25/19 04/25/19 04/25/19 04:05 04:05 04:05 WBC 9.6 RBC 2.90 L Hgb 8.9 L Hct 23.9 L MCV 83 MCH 30.8 MCHC 37.3 H RDW 12.6 Plt Count 209 Seg Neutrophils % 84.5 H Sodium 112.9 L* Potassium 3.0 L* Chloride 73 L Carbon Dioxide 22 Anion Gap 18 BUN 40 H Creatinine 2.15 H Est GFR ( Amer) 37 L Est GFR (Non-Af Amer) Glucose 110 Serum Osmolality Calcium 8.1 L Magnesium Total Bilirubin AST Alkaline Phosphatase Total Protein Albumin Lipase TSH 2.06 Urine Color Urine Appearance Urine pH Ur Specific [place] Urine Protein Urine Glucose (UA) Urine Ketones Urine Blood Urine RBC (Auto) Urine Osmolality 04/24/19 04/24/19 13:09 13:09 Creatine Kinase 217 H Troponin I 0.015 Impressions: Acute Abdomen Series 04/24/19 11:33 IMPRESSION: NO RADIOGRAPHIC EVIDENCE FOR ACUTE ABDOMINAL DISEASE. Assessment and Plan Plan Summary: Acute on chronic renal failure Urinary retention Hyponatremia Chronic GI issues Leave Bal for now Renal to see today Probably can go to the floor later today Lomotil for diarrhea Critical Time Critical Time (minutes): 25 Level of Care: ICU
[2019-04-25] MEDS: DIPHENOXYLATE HCL/ATROP SULF 2.5-0.025 MG TABLET PO PRN (08:49)
[2019-04-25] MEDS ORDERED: INFLUENZA QUAD (6MOS+) 2019-20 VAC 0.5 ML SYR IM ONE (09:00)
[2019-04-25] MEDS: ENOXAPARIN SODIUM INJ 30 MG/0.3 ML DISP.SYRIN SUBCUT SCH (11:15)
[2019-04-25] MEDS: POTASSIUM CHLORIDE 10 MEQ TABLET.ER PO SCH ×2 (11:15→21:10)
[2019-04-25 14:07] LABS: ANION GAP 13 (5-19); BLOOD UREA NITROGEN 34 mg/dL (7-20); CALCIUM 8.1 mg/dL (8.4-10.2); CARBON DIOXIDE 20 mmol/L (22-30); CHLORIDE 82 mmol/L (98-107); GLUCOSE 103 mg/dL (75-110); POTASSIUM 3.6 mmol/L (3.6-5.0)
[2019-04-25] MEDS ORDERED: HALOPERIDOL LACTATE INJ 5 MG/1 ML VIAL ONE (19:20)
[2019-04-25 19:29] LABS: BLOOD UREA NITROGEN 32 mg/dL (7-20); CALCIUM 8.5 mg/dL (8.4-10.2); CARBON DIOXIDE 20 mmol/L (22-30); CHLORIDE 85 mmol/L (98-107); GLUCOSE 97 mg/dL (75-110); POTASSIUM 3.6 mmol/L (3.6-5.0)
[2019-04-25] MEDS: HALOPERIDOL LACTATE INJ 5 MG/1 ML VIAL IV PRN (19:30)
[2019-04-25 19:31] LABS: ANION GAP 11 (5-19)
[2019-04-25] MEDS ORDERED: NORMAL SALINE 1000 ML 1,000 ML IV PRN (20:04)
[2019-04-25] MEDS: FAMOTIDINE 20 MG TABLET PO SCH (21:10)
--- NOTE | 2019-04-25 22:00 | PDOC CONSULTATION ---
Consultation Consult Date: 04/25/19 Provider Consulted: Nilam SPENCER Consult reason:: Acute on chronic hyponatremia History of Present Illness Admission Date/PCP: 04/24/19 15:59 MARYLU IGLESIAS PA-C History of Present Illness: MIKE CROOK is a 74 year old male Was seen in the ICU. Apparently he has got altered mental status and is confused. His is at the bedside and was the main history caregivers non medical. Apparently he has a history of diabetes mellitus, GERD and prostatic hypertrophy and chronic hyponatremia, has had multiple admissions last year for FEROZ with a creatinine ranging anywhere from between 3 and 6. According to his he has also got underlying dementia and at times kayla quiñonez is very combative. The patient's states that the patient is very focused on his bowels and apparently has been giving himself 1-2 enemas with medicines that she is not sure of on a regular basis. Besides the enemas according to his he is also taking at least 2 different laxatives. The patient complains of pain around his left lower abdomen and is requesting for an enema. He says if kayla quiñonez gets an enema he will be fine. His other background history includes a history of partial bowel o bstruction/ileus in the past, history of apparently having chronic abdominal issues and has seen multiple surgeons according to his , underlying baseline dementia, CKD with base creatinine between 2-treated with multiple admissions for FEROZ with creatinine is much higher, chronic hyponatremia in the ranges 125- 135.His last admission was in December when he apparently presented with urinary obstructive symptoms and was discharged with a Bal catheter and was supposed to follow-up with urology which we are not sure. This admission sodium was 106 and he has been begun on IV fluids in the form of normal saline as well as has had a Bal catheter introduced. His sodium is slowly trending upwards at the right speed. He had a CT scan of his abdomen noncontrasted on 04-22-19 which shows enlarged prostate, chronic pancreatitis changes with apparent calcifications in his pancreas and he has evidences of significant resection of of his large bowels. h Past Medical History Cardiac Medical History: Denies: Coronary Artery Disease, Myocardial Infarction Pulmonary Medical History: Denies: Asthma, Bronchitis, Chronic Obstructive Pulmonary Disease (COPD), Pneumonia Neurological Medical History: Denies: Seizures Endocrine Medical History: Reports: Diabetes Mellitus Type 2 Renal/ Medical History: Reports: Chronic Kidney Disease Stage III, Other - Multiple admissions in the last year for FEROZ GI Medical History: Reports: Gastroesophageal Reflux Disease Denies: Hepatitis, Hiatal Hernia Musculoskeltal Medical History: Denies: Arthritis Psychiatric Medical History: Denies: Depression Past Surgical History Past Surgical History: Reports: Colostomy - multiple abdominal procedures for chronic luq pain, Herniorrhaphy - Right inguinal Denies: Pacemaker Social History Lives with: Family Smoking Status: Former Smoker Frequency of Alcohol Use: None Hx Recreational Drug Use: No Drugs: None Hx Prescription Drug Abuse: No - Advance Directive Resuscitation Status: Full Code Family History Parental Family History Reviewed: Yes - Negative for ESRD Children Family History Reviewed: No Sibling(s) Family History Reviewed.: No Medication/Allergy Home Medications: Dorzolamide HCl/Pf [Dorzolamide 2% Eye Drop] 1 drop OS BID 12/16/18 Tamsulosin HCl [Flomax 0.4 mg Cap.sr] 0.4 mg PO PCSUPPER #30 cap.sr.24h 12/18/18 Dicyclomine HCl [Bentyl 20 mg Tablet] 20 mg PO Q12 04/24/19 Finasteride [Proscar 5 mg Tablet] 5 mg PO DAILY 04/24/19 Pantoprazole Sodium [Protonix [address] Tablet] 40 mg PO BID 04/24/19 Quetiapine Fumarate [Seroquel 25 mg Tablet] 12.5 mg PO QHS 04/24/19 Allergies/Adverse Reactions: No Known Allergies Allergy (Verified 12/15/18 18:09) Review of Systems Constitutional: PRESENT: weakness. ABSENT: anorexia, chills, fatigue, fever(s), headache(s), night sweats Nose, Mouth, and Throat: ABSENT: mouth pain, sore throat Cardiovascular: ABSENT: chest pain, dyspnea on exertion, edema, orthropnea, palpitations Respiratory: ABSENT: dyspnea, hemoptysis Gastrointestinal: PRESENT: abdominal pain, diarrhea. ABSENT: bloating, dysphagia, heartburn, hematemesis, nausea Genitourinary: ABSENT: dysuria, hematuria Musculoskeletal: ABSENT: deformity, joint swelling Integumentary: ABSENT: lesions, pruritus, rash Neurological: PRESENT: confusion. ABSENT: abnormal gait, abnormal movements, convulsions, focal weakness, frequent falls Hematologic/Lymphatic: ABSENT: easy bruising, lymphadenopathy Physical Exam Vital Signs: Temp Pulse Resp BP Pulse Ox 99.5 F 94 13 145/76 H 15 L 04/25/19 16:00 04/25/19 16:00 04/25/19 16:00 04/25/19 16:00 04/25/19 16:00 Intake & Output 04/24/19 04/25/19 04/26/19 06:59 06:59 06:59 Intake Total 3392 Output Total 1215 1065 Balance 2177 -1065 Weight 75.2 kg 75.2 kg General appearance: PRESENT: no acute distress Eye exam: PRESENT: EOMI, PERRLA. ABSENT: scleral icterus Ear exam: PRESENT: normal external ear exam Mouth exam: ABSENT: moist Neck exam: ABSENT: meningismus, tenderness, thyromegaly, tracheal deviation Respiratory exam: PRESENT: clear to auscultation jc. ABSENT: crackles Cardiovascular exam: PRESENT: +S1, +S2 GI/Abdominal exam: PRESENT: normal bowel sounds, soft, tenderness - In the periumbilical region more towards the left side.. ABSENT: organomegaly Extremities exam: ABSENT: pedal edema Neurological exam: PRESENT: alert, awake, oriented to person. ABSENT: oriented to place, oriented to time Psychiatric exam: PRESENT: anxious, manic - ? Focused psych exam: PRESENT: psychomotor agitation Skin exam: ABSENT: abrasion, cyanosis, erythema, mottled, rash Results Laboratory Results: 04/25/19 04:05 04/25/19 13:41 04/24/19 04/24/19 04/24/19 17:58 18:24 18:24 WBC RBC Hgb Hct MCV MCH MCHC RDW Plt Count Seg Neutrophils % Sodium 108.2 L* Potassium 2.9 L* Chloride 69 L Carbon Dioxide 23 Anion Gap 16 BUN 44 H Creatinine 2.22 H Est GFR ( Amer) 35 L Glucose 154 H Serum Osmolality 231 L Calcium 8.1 L TSH Urine Osmolality 339 04/25/19 04/25/19 04/25/19 04:05 04:05 04:05 WBC 9.6 RBC 2.90 L Hgb 8.9 L Hct 23.9 L MCV 83 MCH 30.8 MCHC 37.3 H RDW 12.6 Plt Count 209 Seg Neutrophils % 84.5 H Sodium 112.9 L* Potassium 3.0 L* Chloride 73 L Carbon Dioxide 22 Anion Gap 18 BUN 40 H Creatinine 2.15 H Est GFR ( Amer) 37 L Glucose 110 Serum Osmolality Calcium 8.1 L TSH 2.06 Urine Osmolality 04/25/19 13:41 WBC RBC Hgb Hct MCV MCH MCHC RDW Plt Count Seg Neutrophils % Sodium 114.6 L* Potassium 3.6 Chloride 82 L Carbon Dioxide 20 L Anion Gap 13 BUN 34 H Creatinine 2.15 H Est GFR ( Amer) 37 L Glucose 103 Serum Osmolality Calcium 8.1 L TSH Urine Osmolality 04/24/19 04/24/19 13:09 13:09 Creatine Kinase 217 H Troponin I 0.015 Impressions: Acute Abdomen Series 04/24/19 11:33 IMPRESSION: NO RADIOGRAPHIC EVIDENCE FOR ACUTE ABDOMINAL DISEASE. Assessment & Plan - Diagnosis (1) Acute hyponatremia Plan: Patient has got a history of rather related to chronic hyponatremia and now presents with severe acute hyponatremia. Most likely multiple factors fluids ap parently chronic diarrhea along with possible overusage of enemas and laxatives resulting in moderate diuresis. Clinically dehydrated and the patient on normal saline and shows adequate responding sodium levels. Please do not raise the sodium levels more than 6 to 8 mEq/day. (2) Chronic kidney disease, stage II (mild) Plan: Patient is at baseline creatinine of around 2.Seems to have features may be that there is a history of some prostatic obstruction and he needs to follow with urology once he is discharged. Discussed this with his .Currently has indwelling Bal catheter. (3) Hypokalemia Plan: Replace and monitor. (4) Abdominal pain Plan: Unsure if it is real or whether it is functional. Abdomen clinically is benign. CT scan did not show any obvious causes. He is requesting for enemas and according to his patient is apparently been using daily enemas at least 1-2 along with laxatives. (5) BPH (benign prostatic hyperplasia) Plan: Currently has indwelling Bal catheter. Needs to follow outpatient urology.CT does not show any hydronephrosis. (7) Dehydration Plan: On IV fluids. (8) Diabetes type 2, uncontrolled Plan: As per grab operator. (9) Essential hypertension Plan: Controlled. (10) Dementia Plan: Chronic and status quo.
[2019-04-25 22:59] LABS: ANION GAP 11 (5-19); BLOOD UREA NITROGEN 31 mg/dL (7-20); CALCIUM 8.3 mg/dL (8.4-10.2); CARBON DIOXIDE 21 mmol/L (22-30); CHLORIDE 85 mmol/L (98-107); GLUCOSE 89 mg/dL (75-110); POTASSIUM 3.4 mmol/L (3.6-5.0)
[2019-04-26 02:16] LABS: BLOOD UREA NITROGEN 30 mg/dL (7-20); CALCIUM 8.4 mg/dL (8.4-10.2); CARBON DIOXIDE 22 mmol/L (22-30); CHLORIDE 86 mmol/L (98-107); GLUCOSE 84 mg/dL (75-110); POTASSIUM 3.2 mmol/L (3.6-5.0)
[2019-04-26 02:18] LABS: ANION GAP 10 (5-19)
[2019-04-26] MEDS: HALOPERIDOL LACTATE INJ 5 MG/1 ML VIAL IV PRN ×3 (05:15→15:22)
[2019-04-26] MEDS: POTASSI CL 20 MEQ/50 ML RIDER 20 MEQ/50 ML RTUPB IV SCH ×2 (05:19→09:11)
[2019-04-26] MEDS: INSULIN REG, HUMAN 100 UNIT/ML 3 ML VIAL (PYX) SUBCUT SCH ×5 (06:12→23:59)
[2019-04-26] MEDS ORDERED: POTASSIUM CHLORIDE 10 MEQ TABLET.ER PO ONE (09:00)
[2019-04-26] MEDS: ENOXAPARIN SODIUM INJ 30 MG/0.3 ML DISP.SYRIN SUBCUT SCH (09:12)
[2019-04-26] MEDS: POTASSIUM CHLORIDE 10 MEQ TABLET.ER PO SCH ×2 (09:19→21:25)
[2019-04-26] MEDS ORDERED: (PENDING PHARMACY ID) (Dorzolamide Hcl/Pf [Dorzolamide 2% Eye Drop] 1 DROP) OS SCH (10:00)
[2019-04-26] MEDS: FINASTERIDE 5 MG TABLET PO SCH (10:16)
[2019-04-26 10:40] LABS: ANION GAP 12 (5-19); BLOOD UREA NITROGEN 28 mg/dL (7-20); CALCIUM 8.8 mg/dL (8.4-10.2); CARBON DIOXIDE 18 mmol/L (22-30); CHLORIDE 93 mmol/L (98-107); GLUCOSE 111 mg/dL (75-110); POTASSIUM 3.5 mmol/L (3.6-5.0)
--- NOTE | 2019-04-26 13:15 | PDOC PROGRESS REPORT ---
Subjective Progress Note for:: 04/26/19 Reason For Visit: Patient seen in the ICU today. He looks a bit more, and less agitated than when I saw him yesterday. Labs and medications reviewed. Today's sodium is 123.Per discussions done with his treating nurse Dayday his fluids were cut down from 150 - 50 yesterday. Physical Exam Vital Signs: Temp Pulse Resp BP Pulse Ox 98.2 F 91 11 L 123/55 L 99 04/26/19 12:00 04/26/19 12:00 04/26/19 12:11 04/26/19 12:11 04/26/19 12:11 Intake & Output 04/25/19 04/26/19 04/27/19 06:59 06:59 06:59 Intake Total 3392 50 Output Total 1215 2240 1375 Balance 2177 -2240 -1325 Weight 75.2 kg 74.1 kg General appearance: PRESENT: no acute distress Respiratory exam: PRESENT: clear to auscultation jc. ABSENT: crackles Cardiovascular exam: PRESENT: +S1, +S2 GI/Abdominal exam: PRESENT: normal bowel sounds, soft, tenderness - In the periumbilical region more towards the left side.. ABSENT: organomegaly Extremities exam: ABSENT: pedal edema Neurological exam: PRESENT: alert, awake, oriented to person Psychiatric exam: PRESENT: anxious Results Laboratory Results: 04/25/19 04:05 04/26/19 10:01 04/25/19 04/25/19 04/25/19 13:41 18:59 22:00 Sodium 114.6 L* 116.4 L* 117.3 L* Potassium 3.6 3.6 3.4 L Chloride 82 L 85 L 85 L Carbon Dioxide 20 L 20 L 21 L Anion Gap 13 11 11 BUN 34 H 32 H 31 H Creatinine 2.15 H 2.04 H 2.17 H Est GFR ( Amer) 37 L 39 L 36 L Glucose 103 97 89 Calcium 8.1 L 8.5 8.3 L 04/26/19 04/26/19 01:54 10:01 Sodium 118.2 L* 123.0 L Potassium 3.2 L 3.5 L Chloride 86 L 93 L Carbon Dioxide 22 18 L Anion Gap 10 12 BUN 30 H 28 H Creatinine 2.16 H 2.07 H Est GFR ( Amer) 36 L 38 L Glucose 84 111 H Calcium 8.4 8.8 04/24/19 04/24/19 13:09 13:09 Creatine Kinase 217 H Troponin I 0.015 Impressions: Acute Abdomen Series 04/24/19 11:33 IMPRESSION: NO RADIOGRAPHIC EVIDENCE FOR ACUTE ABDOMINAL DISEASE. Assessment & Plan - Diagnosis (1) Acute hyponatremia Plan: Sodium is 123 which is slightly overcorrected in spite of cutting back to fluids yesterday as per discussion done with his treating nurse Dayday from 150-50 today. I will hold off on the IV saline until we repeat his labs at 15 hours and then decide on the fluids. (2) Chronic kidney disease, stage II (mild) Plan: Stable. Nonoliguric. (3) Hypokalemia Plan: On replacements. (4) Abdominal pain Plan: Likely functional. (5) BPH (benign prostatic hyperplasia) Plan: Needss outpatient evaluation with urology. (6) Constipation Plan: ? (7) Dehydration Plan: Markedly improved with IV fluid (8) Diabetes type 2, uncontrolled Plan: As per erp business analyst. (9) Essential hypertension Plan: Stable (10) Dementia Plan: Status quo.
--- NOTE | 2019-04-26 13:48 | CDI QUERY ---
CDI Query CDI Review: Dear Provider: To better reflect your patients severity of illness, morbidity, and resource utilization Query Clinical indicators Please specify and document in the Progress Notes and Discharge Summary if you are monitoring / treating / evaluating any of the following conditions: Metabolic encephalopathy Toxic encephalopathy Delirium Unable to determine Other Please clarify if the dementia can be further specified: Senile dementia with behavioral disturbances Senile dementia without behavioral disturbances Unable to determine Other Critical Care Note: He remains confused but his sodium has come up to 112 with normal saline. Labs on admission: Na+ 106.3 K+ 3.1 BUN / Cr 47 / 2.43 Glucose 208 Per Nephrology Consult Note: According to his he has also got underlying dementia and at times he is very combative. The terms probable, suspected, likely, possible or still to be ruled out may be used if you are unable to determine the exact nature of a condition. Thank you, Clinical Documentation Physician Advisors THIERRY South RN, BSN RN Office [phone] Office [phone]
[2019-04-26] MEDS: DICYCLOMINE HCL 20 MG TABLET PO SCH ×2 (14:06→21:25)
[2019-04-26] MEDS: DIPHENOXYLATE HCL/ATROP SULF 2.5-0.025 MG TABLET PO PRN (14:06)
[2019-04-26] MEDS: DORZOLAMIDE HCL 2% OPH SOLN 10 ML OS SCH ×2 (14:07→17:29)
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
[2019-04-26] MEDS: TAMSULOSIN HCL 0.4 MG CAP.SR.24H PO SCH (17:29)
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
[2019-04-26] MEDS: FAMOTIDINE 20 MG TABLET PO SCH (21:25)
[2019-04-27 05:14] LABS: ANION GAP 11 (5-19); BLOOD UREA NITROGEN 27 mg/dL (7-20); CALCIUM 8.9 mg/dL (8.4-10.2); CARBON DIOXIDE 20 mmol/L (22-30); CHLORIDE 100 mmol/L (98-107); GLUCOSE 72 mg/dL (75-110); POTASSIUM 4.4 mmol/L (3.6-5.0)
[2019-04-27] MEDS: INSULIN REG, HUMAN 100 UNIT/ML 3 ML VIAL (PYX) SUBCUT SCH ×3 (05:34→18:26)
--- NOTE | 2019-04-27 09:39 | PDOC PROGRESS REPORT ---
Subjective Progress Note for:: 04/27/19 Reason For Visit: HYPONATREMIA 04/27/2019. Patient was transferred out of the ICU yesterday, was originally admitted to the ICU on 216 for hyponatremia well as renal disease. Also hypertension and prostatism. Diabetes and GERD. Physical Exam Vital Signs: Temp Pulse Resp BP Pulse Ox 98.1 F 82 17 134/56 H 99 04/27/19 07:43 04/27/19 07:43 04/27/19 07:43 04/27/19 07:43 04/27/19 07:43 Intake & Output 04/26/19 04/27/19 04/28/19 06:59 06:59 06:59 Intake Total 50 Output Total 2240 2475 Balance -2240 -2425 Weight 74.1 kg 74.4 kg General appearance: PRESENT: no acute distress Respiratory exam: PRESENT: accessory muscle use Cardiovascular exam: PRESENT: RRR. ABSENT: diastolic murmur, rubs, systolic murmur GI/Abdominal exam: PRESENT: normal bowel sounds, soft, other - No rebound no guarding no masses Neurological exam: PRESENT: alert, awake, oriented to person, oriented to place, oriented to time, oriented to situation, CN II-XII grossly intact. ABSENT: motor sensory deficit Psychiatric exam: PRESENT: anxious, other - Patient states he is "blocked", though patient has a history of being fixated on his bowel habits Results Laboratory Results: 04/25/19 04:05 04/27/19 04:38 04/26/19 04/27/19 10:01 04:38 Sodium 123.0 L 131.1 L Potassium 3.5 L 4.4 Chloride 93 L 100 Carbon Dioxide 18 L 20 L Anion Gap 12 11 BUN 28 H 27 H Creatinine 2.07 H 2.33 H Est GFR ( Amer) 38 L 33 L Glucose 111 H 72 L Calcium 8.8 8.9 04/24/19 04/24/19 13:09 13:09 Creatine Kinase 217 H Troponin I 0.015 Impressions: Acute Abdomen Series 04/24/19 11:33 IMPRESSION: NO RADIOGRAPHIC EVIDENCE FOR ACUTE ABDOMINAL DISEASE. Assessment and Plan - Diagnosis (1) Acute hyponatremia Is this a current diagnosis for this admission?: Yes (2) Acute metabolic encephalopathy Is this a current diagnosis for this admission?: Yes (4) Chronic laxative abuse Is this a current diagnosis for this admission?: Yes (5) Dementia Is this a current diagnosis for this admission?: Yes (6) BPH (benign prostatic hyperplasia) Is this a current diagnosis for this admission?: Yes - Plan Summary Summary: 04/27/2019 He was transferred out of the ICU yesterday once his status has stabilized. Sodium levels were trending upward. Patient was tolerating clear liquids. Vital signs today temperature 98.1, pulse 82, blood pressure 134/56, O2 sat 99% on room air CBC showed a normal white count hemoglobin had drifted down to 8.9 Alicia today showed a sodium of 131 and a potassium of 4.4 BUN of 27 creatinine 2.33, far of 28 Close levels approximately 100 In the past patient's BUN have been as high as 47. Also in the past patient's creatinines have been as high as 8.53. His renal function seems to be closely associated with his bone natremia and due somewhat to his prostatism Patient was being seen by nephrology while he was in the ICU This morning patient told me that he was "blocked" and was having abdominal pain, however his abdomen was soft nontender and had normal bowel sounds. Sohail ricks has a history of being fixated on his bowel habits and overuse of laxatives Discharge planning will need to discuss with about taking the patient back home he is close to being baseline. Medically could discharge patient in the next 24 hours - Time Time Spent with patient: 35 or more minutes
[2019-04-27] MEDS: ENOXAPARIN SODIUM INJ 30 MG/0.3 ML DISP.SYRIN SUBCUT SCH (10:08)
[2019-04-27] MEDS: POTASSIUM CHLORIDE 10 MEQ TABLET.ER PO SCH ×2 (10:08→22:09)
[2019-04-27] MEDS: DICYCLOMINE HCL 20 MG TABLET PO SCH ×2 (10:08→22:09)
[2019-04-27] MEDS: FINASTERIDE 5 MG TABLET PO SCH (10:08)
[2019-04-27] MEDS: DORZOLAMIDE HCL 2% OPH SOLN 10 ML OS SCH ×2 (10:28→18:26)
[2019-04-27 11:00] LABS: ABSOLUTE EOSINOPHILS # (AUTO) 0.1 10^3/uL (0.0-0.6); ABSOLUTE LYMPHOCYTES (AUTO) 0.6 10^3/uL (0.5-4.7); ABSOLUTE MONOCYTES (AUTO) 0.4 10^3/uL (0.1-1.4); ABSOLUTE NEUT (AUTO) 4.1 10^3/uL (1.7-8.2); BASOPHILS % (AUTO) 0.4 % (0-2); EOSINOPHILS % (AUTO) 1.4 % (0-6); HEMOGLOBIN 8.7 g/dL (13.5-17.0); LYMPHOCYTES % (AUTO) 12.2 % (13-45); MEAN CORPUSCULAR HEMOGLOBIN 31.5 pg (27.0-33.4); MEAN CORPUSCULAR HGB CONC 36.1 g/dL (32.0-36.0); MONOCYTES % (AUTO) 8.4 % (3-13); PLATELET COUNT 214 10^3/uL (150-450); RED BLOOD COUNT 2.75 10^6/uL (4.35-5.55); RED CELL DISTRIBUTION WIDTH 12.5 % (11.5-14.0); SEGMENTED NEUTROPHILS % (AUTO) 77.6 % (42-78); TOTAL CELLS COUNTED % (AUTO) 100 %; WHITE BLOOD COUNT 5.2 10^3/uL (4.0-10.5)
[2019-04-27 11:10] LABS: MEAN CORPUSCULAR VOLUME 87 fl (80-97)
[2019-04-27 11:56] LABS: ANION GAP 8 (5-19); BLOOD UREA NITROGEN 27 mg/dL (7-20); CALCIUM 8.8 mg/dL (8.4-10.2); CARBON DIOXIDE 21 mmol/L (22-30); CHLORIDE 101 mmol/L (98-107); GLUCOSE 170 mg/dL (75-110); POTASSIUM 4.7 mmol/L (3.6-5.0)
[2019-04-27] MEDS: TAMSULOSIN HCL 0.4 MG CAP.SR.24H PO SCH (18:07)
[2019-04-27] MEDS: QUETIAPINE FUMARATE 25 MG TABLET PO SCH (22:09)
[2019-04-27] MEDS: FAMOTIDINE 20 MG TABLET PO SCH (22:09)
[2019-04-28] MEDS: FINASTERIDE 5 MG TABLET PO SCH (10:04)
[2019-04-28] MEDS: DICYCLOMINE HCL 20 MG TABLET PO SCH ×2 (10:05→21:55)
[2019-04-28] MEDS: POTASSIUM CHLORIDE 10 MEQ TABLET.ER PO SCH ×2 (10:05→21:55)
[2019-04-28] MEDS: DORZOLAMIDE HCL 2% OPH SOLN 10 ML OS SCH ×2 (10:06→18:22)
[2019-04-28] MEDS: ENOXAPARIN SODIUM INJ 30 MG/0.3 ML DISP.SYRIN SUBCUT SCH (10:06)
--- NOTE | 2019-04-28 13:26 | PDOC PROGRESS REPORT ---
Subjective Progress Note for:: 04/28/19 Reason For Visit: HYPONATREMIA 04/28/2019 Hyponatremia, renal disease, hypertension, prostatism, diabetes, GERD Physical Exam Vital Signs: Temp Pulse Resp BP Pulse Ox 98.0 F 95 16 147/69 H 100 04/28/19 08:11 04/28/19 08:11 04/28/19 08:11 04/28/19 08:11 04/28/19 08:11 Intake & Output 04/27/19 04/28/19 04/29/19 06:59 06:59 06:59 Intake Total 50 770 480 Output Total 4015 1450 300 Balance -2425 -680 180 Weight 74.4 kg 76.9 kg General appearance: PRESENT: no acute distress, well-developed, well-nourished Respiratory exam: PRESENT: clear to auscultation jc. ABSENT: rales, rhonchi, wheezes Cardiovascular exam: PRESENT: RRR. ABSENT: diastolic murmur, rubs, systolic murmur GI/Abdominal exam: PRESENT: normal bowel sounds, soft, other - Patient is complaining that he needs to have a bowel movement, however this is patient's chronic complaint. ABSENT: distended, guarding, mass, organolmegaly, rebound, tenderness Neurological exam: PRESENT: alert, awake, oriented to person, oriented to place, oriented to time, oriented to situation, CN II-XII grossly intact. ABSENT: motor sensory deficit Psychiatric exam: PRESENT: anxious Results Laboratory Results: 04/27/19 10:33 04/27/19 10:33 04/24/19 04/24/19 13:09 13:09 Creatine Kinase 217 H Troponin I 0.015 Impressions: Acute Abdomen Series 04/24/19 11:33 IMPRESSION: NO RADIOGRAPHIC EVIDENCE FOR ACUTE ABDOMINAL DISEASE. Assessment and Plan - Diagnosis (1) Acute hyponatremia Is this a current diagnosis for this admission?: Yes (2) Acute metabolic encephalopathy Is this a current diagnosis for this admission?: Yes (4) Chronic laxative abuse Is this a current diagnosis for this admission?: Yes (5) Dementia Is this a current diagnosis for this admission?: Yes (6) BPH (benign prostatic hyperplasia) Is this a current diagnosis for this admission?: Yes - Plan Summary Summary: 04/27/2019 He was transferred out of the ICU yesterday once his status has stabilized. Sodium levels were trending upward. Patient was tolerating clear liquids. Vital signs today temperature 98.1, pulse 82, blood pressure 134/56, O2 sat 99% on room air CBC showed a normal white count hemoglobin had drifted down to 8.9 Alicia today showed a sodium of 131 and a potassium of 4.4 BUN of 27 creatinine 2.33, GFR of 28 Close levels approximately 100 In the past patient's BUN have been as high as 47. Also in the past patient's creatinines have been as high as 8.53. His renal function seems to be closely a ssociated with his bone hyponatremia and due somewhat to his prostatism Patient was being seen by nephrology while he was in the ICU This morning patient told me that he was "blocked" and was having abdominal pain, however his abdomen was soft nontender and had normal bowel sounds. Patient has a history of being fixated on his bowel habits and overuse of laxatives Discharge planning will need to discuss with about taking the patient back home he is close to being baseline. Medically could discharge patient in the next 24 hours 04/28/2019 Vital signs are all stable Labs are stable hemoglobin A1c is 6.7 Urine cultures pending blood culture shows no growth 72 hours Waiting for [facility] to see if patient will be accepted - Time Time Spent with patient: 15-24 minutes
[2019-04-28] MEDS: TAMSULOSIN HCL 0.4 MG CAP.SR.24H PO SCH (18:22)
[2019-04-28] MEDS: FAMOTIDINE 20 MG TABLET PO SCH (21:55)
[2019-04-28] MEDS: QUETIAPINE FUMARATE 25 MG TABLET PO SCH (21:55)
[2019-04-29 08:39] LABS: ANION GAP 9 (5-19); BLOOD UREA NITROGEN 30 mg/dL (7-20); CARBON DIOXIDE 20 mmol/L (22-30); CHLORIDE 107 mmol/L (98-107); GLUCOSE 125 mg/dL (75-110); POTASSIUM 5.9 mmol/L (3.6-5.0)
[2019-04-29] MEDS: POTASSIUM CHLORIDE 10 MEQ TABLET.ER PO SCH (09:49)
[2019-04-29] MEDS: GLIPIZIDE XL 2.5 MG TAB.ER.24 PO SCH (09:49)
[2019-04-29] MEDS: ENOXAPARIN SODIUM INJ 30 MG/0.3 ML DISP.SYRIN SUBCUT SCH (09:49)
[2019-04-29] MEDS: DORZOLAMIDE HCL 2% OPH SOLN 10 ML OS SCH ×2 (09:49→18:57)
[2019-04-29] MEDS: DICYCLOMINE HCL 20 MG TABLET PO SCH ×2 (09:49→21:46)
[2019-04-29] MEDS: FINASTERIDE 5 MG TABLET PO SCH (09:49)
--- NOTE | 2019-04-29 09:51 | PDOC PROGRESS REPORT ---
Subjective Progress Note for:: 04/29/19 Reason For Visit: HYPONATREMIA 04/29/2019 Patient admitted for hyponatremia ,renal disease, hypertension, prostatism, diabetes and GERD Physical Exam Vital Signs: Temp Pulse Resp BP Pulse Ox 98.5 F 82 16 129/57 H 100 04/29/19 08:11 04/29/19 08:11 04/29/19 08:11 04/29/19 08:11 04/29/19 08:11 Intake & Output 04/28/19 04/29/19 04/30/19 06:59 06:59 06:59 Intake Total 770 1460 Output Total 1450 1200 Balance -680 260 Weight 76.9 kg 77.6 kg General appearance: PRESENT: no acute distress Respiratory exam: PRESENT: clear to auscultation jc. ABSENT: rales, rhonchi, wheezes Cardiovascular exam: PRESENT: RRR. ABSENT: diastolic murmur, rubs, systolic murmur GI/Abdominal exam: PRESENT: soft Neurological exam: PRESENT: alert, awake, oriented to person, oriented to place, oriented to time, oriented to situation, CN II-XII grossly intact. ABSENT: motor sensory deficit Psychiatric exam: PRESENT: anxious Results Laboratory Results: 04/27/19 10:33 04/29/19 08:06 04/29/19 08:06 Sodium 135.5 L Potassium 5.9 H Chloride 107 Carbon Dioxide 20 L Anion Gap 9 BUN 30 H Creatinine 3.03 H Est GFR ( Amer) 25 L Glucose 125 H Calcium 9.0 04/24/19 04/24/19 13:09 13:09 Creatine Kinase 217 H Troponin I 0.015 Impressions: Acute Abdomen Series 04/24/19 11:33 IMPRESSION: NO RADIOGRAPHIC EVIDENCE FOR ACUTE ABDOMINAL DISEASE. Assessment and Plan - Diagnosis (1) Acute hyponatremia Is this a current diagnosis for this admission?: Yes (2) Acute metabolic encephalopathy Is this a current diagnosis for this admission?: Yes (4) Chronic laxative abuse Is this a current diagnosis for this admission?: Yes (5) Dementia Is this a current diagnosis for this admission?: Yes (6) BPH (benign prostatic hyperplasia) Is this a current diagnosis for this admission?: Yes (7) Bowel dysfunction Is this a current diagnosis for this admission?: Yes - Plan Summary Summary: 04/27/2019 He was transferred out of the ICU yesterday once his status has stabilized. Sodium levels were trending upward. Patient was tolerating clear liquids. Vital signs today temperature 98.1, pulse 82, blood pressure 134/56, O2 sat 99% on room air CBC showed a normal white count hemoglobin had drifted down to 8.9 Alicia today showed a sodium of 131 and a potassium of 4.4 BUN of 27 creatinine 2.33, GFR of 28 Close levels approximately 100 In the past patient's BUN have been as high as 47. Also in the past patient's creatinines have been as high as 8.53. His renal function seems to be closely associated with his bone hyponatremia and due somewhat to his prostatism Patient was being seen by nephrology while he was in the ICU This morning patient told me that he was "blocked" and was having abdominal pain, however his abdomen was soft nontender and had normal bowel sounds. Patient has a history of being fixated on his bowel habits and overuse of laxatives Discharge planning will need to discuss with about taking the patient back home he is close to being baseline. Medically could discharge patient in the next 24 hours 04/28/2019 Vital signs are all stable Labs are stable hemoglobin A1c is 6.7 Urine cultures pending , blood culture shows no growth 72 hours Waiting for [facility] to see if patient will be accepted 04/29/2019 Temperature 98.2 pulse 69 blood pressure 147/55 O2 sat 99% on room air CBC is normal Electrolytes this morning showed a sodium of 135 potassium 5.9 which is up from 4.7. In the past patient has always run a low potassium. iIn light of his sodium going up dramatically from just 2 days ago I am questioning whether or not this potassium level is accurate. I will repeat these labs later today, if in fact his potassium is still elevated I will add Kayexalate. Creatinine is also slightly up to 3.03 today I have talked to the nurse today about I&O's on the chart, I do not feel like they have been keeping an accurate account, and on this particular patient it is most important due to his sodium fluctuation from excessive drinking liquids, and the fact that his bowel habits are a point of fixation for him. I recorded that he had 2 bowel movements yesterday and already had 2 bowel movements this morning which do not seem accurate. I am going to add daily MiraLAX on a scheduled basis - Time Time Spent with patient: 25-34 minutes
[2019-04-29] MEDS: POLYETHYLENE GLYCOL 3350 POWDER 17 GM/1 PACKET PO SCH (12:52)
[2019-04-29 16:12] LABS: ANION GAP 9 (5-19); BLOOD UREA NITROGEN 33 mg/dL (7-20); CALCIUM 9.2 mg/dL (8.4-10.2); CARBON DIOXIDE 22 mmol/L (22-30); CHLORIDE 106 mmol/L (98-107); GLUCOSE 158 mg/dL (75-110); POTASSIUM 5.6 mmol/L (3.6-5.0)
[2019-04-29] MEDS ORDERED: SODIUM POLYSTYRENE SULFONATE 15 GM/60 ML PO ONE (18:00)
[2019-04-29] MEDS: TAMSULOSIN HCL 0.4 MG CAP.SR.24H PO SCH (18:57)
[2019-04-29] MEDS: QUETIAPINE FUMARATE 25 MG TABLET PO SCH (21:46)
[2019-04-29] MEDS: FAMOTIDINE 20 MG TABLET PO SCH (21:46)
[2019-04-30] MEDS: FINASTERIDE 5 MG TABLET PO SCH (09:26)
[2019-04-30] MEDS: GLIPIZIDE XL 2.5 MG TAB.ER.24 PO SCH (09:26)
[2019-04-30] MEDS: DICYCLOMINE HCL 20 MG TABLET PO SCH (09:26)
[2019-04-30] MEDS: POLYETHYLENE GLYCOL 3350 POWDER 17 GM/1 PACKET PO SCH (09:26)
[2019-04-30] MEDS: ENOXAPARIN SODIUM INJ 30 MG/0.3 ML DISP.SYRIN SUBCUT SCH (09:26)
[2019-04-30] MEDS: DORZOLAMIDE HCL 2% OPH SOLN 10 ML OS SCH (09:26)
[2019-04-30 13:53] VITALS: BP 138/42
--- NOTE | 2019-04-30 13:58 | PDOC TRANSFER SUMMARY ---
Impression - Admit/DC Date/PCP Admission Date/Primary Care Provider: 04/24/19 15:59 MARYLU IGLESIAS PA-C Discharge Date: 04/30/19 - Discharge Diagnosis (1) Acute hyponatremia Is this a current diagnosis for this admission?: Yes (2) Acute metabolic encephalopathy Is this a current diagnosis for this admission?: Yes (3) Chronic kidney disease, stage II (mild) Is this a current diagnosis for this admission?: Yes (4) Chronic laxative abuse Is this a current diagnosis for this admission?: Yes (5) Dementia Is this a current diagnosis for this admission?: Yes (6) BPH (benign prostatic hyperplasia) Is this a current diagnosis for this admission?: Yes (7) Bowel dysfunction Is this a current diagnosis for this admission?: Yes - Assessment Summary: 04/27/2019 He was transferred out of the ICU yesterday once his status has stabilized. Sodium levels were trending upward. Patient was tolerating clear liquids. Vital signs today temperature 98.1, pulse 82, blood pressure 134/56, O2 sat 99% on room air CBC showed a normal white count hemoglobin had drifted down to 8.9 Alicia today showed a sodium of 131 and a potassium of 4.4 BUN of 27 creatinine 2.33, GFR of 28 Close levels approximately 100 In the past patient's BUN have been as high as 47. Also in the past patient's creatinines have been as high as 8.53. His renal function seems to be closely associated with his bone hyponatremia and due somewhat to his prostatism Patient was being seen by nephrology while he was in the ICU This morning patient told me that he was "blocked" and was having abdominal pain, however his abdomen was soft nontender and had normal bowel sounds. Patient has a history of being fixated on his bowel habits and overuse of l axatives Discharge planning will need to discuss with about taking the patient back home he is close to being baseline. Medically could discharge patient in the next 24 hours 04/28/2019 Vital signs are all stable Labs are stable hemoglobin A1c is 6.7 Urine cultures pending , blood culture shows no growth 72 hours Waiting for [facility] to see if patient will be accepted 04/29/2019 Temperature 98.2 pulse 69 blood pressure 147/55 O2 sat 99% on room air CBC is normal Electrolytes this morning showed a sodium of 135 potassium 5.9 which is up from 4.7. In the past patient has always run a low potassium. iIn light of his sodium going up dramatically from just 2 days ago I am questioning whether or not this potassium level is accurate. I will repeat these labs later today, if in fact his potassium is still elevated I will add Kayexalate. Creatinine is also slightly up to 3.03 today I have talked to the nurse today about I&O's on the chart, I do not feel like they have been keeping an accurate account, and on this particular patient it is most important due to his sodium fluctuation from excessive drinking liquids, and the fact that his bowel habits are a point of fixation for him. I recorded that he had 2 bowel movements yesterday and already had 2 bowel movements this morning which do not seem accurate. I am going to add daily MiraLAX on a scheduled basis 04/30/2019 Patient remains medically stable he has a bed at [facility] Today's vital signs temperature 98.7 pulse 98 blood pressure 145/69 O2 sat 100% on room air Patient appears to be back at his baseline fully as well as physiologically Patient's big problems appear to be his dietary habits tend to create hyponatremia mild hypokalemia and fixation on bowel habits states that she is physically unable to care for him at home - Additional Information Resuscitation Status: Full Code Discharge Diet: As Tolerated Discharge Activity: Balance Activity w/Rest, Walk Frequently, Weigh Daily Referrals: CAMILO ALAMO MD [ACTIVE STAFF] - Follow up as needed Prescriptions: Dicyclomine HCl [Bentyl 20 mg Tablet] 20 mg PO Q12 30 Days #60 Glipizide [Glucotrol Xl 2.5 mg Tab.er] 2.5 mg PO QAM 30 Days #30 tab.er.24 Home Medications: Dorzolamide HCl/Pf [Dorzolamide 2% Eye Drop] 1 drop OS BID 12/16/18 Tamsulosin HCl [Flomax 0.4 mg Cap.sr] 0.4 mg PO PCSUPPER #30 cap.sr.24h 12/18/18 Finasteride [Proscar 5 mg Tablet] 5 mg PO DAILY 04/24/19 Pantoprazole Sodium [Protonix [address] Tablet] 40 mg PO BID 04/24/19 Quetiapine Fumarate [Seroquel 25 mg Tablet] 12.5 mg PO QHS 04/24/19 Dicyclomine HCl [Bentyl 20 mg Tablet] 20 mg PO Q12 30 Days #60 04/30/19 Glipizide [Glucotrol Xl 2.5 mg Tab.er] 2.5 mg PO QAM 30 Days #30 tab.er.24 04/30/19 Polyethylene Glycol 3350 [Miralax Powder 17 gm/Packet] 17 gm PO DAILY powd.pack 04/30/19 History of Present Illiness History of Present Illness: MIKE CROOK is a 74 year old male Physical Exam Vital Signs: Temp Pulse Resp BP Pulse Ox 98.1 F 73 16 138/42 H 100 04/30/19 12:39 04/30/19 12:39 04/30/19 12:39 04/30/19 12:39 04/30/19 12:39 Intake & Output 04/29/19 04/30/19 05/01/19 06:59 06:59 06:59 Intake Total 1460 458 Output Total 1200 1225 Balance 260 -767 Weight 77.6 kg 76.1 kg Results Laboratory Results: WBC 5.2 10^3/uL (4.0-10.5) 04/27/19 10:33 RBC 2.75 10^6/uL (4.35-5.55) L 04/27/19 10:33 Hgb 8.7 g/dL (13.5-17.0) L 04/27/19 10:33 Hct 24.0 % (37.9-51.0) L 04/27/19 10:33 MCV 87 fl (80-97) D 04/27/19 10:33 MCH 31.5 pg (27.0-33.4) 04/27/19 10:33 MCHC 36.1 g/dL (32.0-36.0) H 04/27/19 10:33 RDW 12.5 % (11.5-14.0) 04/27/19 10:33 Plt Count 214 10^3/uL (150-450) 04/27/19 10:33 Lymph % (Auto) 12.2 % (13-45) L 04/27/19 10:33 [place] % (Auto) 8.4 % (3-13) 04/27/19 10:33 Eos % (Auto) 1.4 % (0-6) 04/27/19 10:33 Baso % (Auto) 0.4 % (0-2) 04/27/19 10:33 Absolute Neuts (auto) 4.1 10^3/uL (1.7-8.2) 04/27/19 10:33 Absolute Lymphs (auto) 0.6 10^3/uL (0.5-4.7) 04/27/19 10:33 Absolute Monos (auto) 0.4 10^3/uL (0.1-1.4) 04/27/19 10:33 Absolute Eos (auto) 0.1 10^3/uL (0.0-0.6) 04/27/19 10:33 Absolute Basos (auto) 0.0 10^3/uL (0.0-0.2) 04/27/19 10:33 Total Counted 100 04/24/19 13:09 Seg Neutrophils % 77.6 % (42-78) 04/27/19 10:33 Seg Neuts % (Manual) 92 % (42-78) H 04/24/19 13:09 Lymphocytes % (Manual) 3 % (13-45) L 04/24/19 13:09 Monocytes % (Manual) 5 % (3-13) 04/24/19 13:09 Eosinophils % (Manual) 0 % (0-6) 04/24/19 13:09 Basophils % (Manual) 0 % (0-2) 04/24/19 13:09 Abs Neuts (Manual) 10.7 10^3/uL (1.7-8.2) H 04/24/19 13:09 Abs Lymphs (Manual) 0.3 10^3/uL (0.5-4.7) L 04/24/19 13:09 Abs Monocytes (Manual) 0.6 10^3/uL (0.1-1.4) 04/24/19 13:09 Absolute Eos (Manual) 0.0 10^3/uL (0.0-0.6) 04/24/19 13:09 Abs Basophils (Manual) 0.0 10^3/uL (0.0-0.2) 04/24/19 13:09 Platelet Comment ADEQUATE 04/24/19 13:09 Poikilocytosis SLIGHT 04/24/19 13:09 Tear Drop Cells SLIGHT 04/24/19 13:09 PT 14.8 SEC (11.4-15.4) 04/25/19 04:05 INR 1.16 04/25/19 04:05 APTT 31.8 SEC (23.5-35.8) 04/25/19 04:05 Sodium 136.6 mmol/L (137-145) L 04/29/19 15:48 Potassium 5.6 mmol/L (3.6-5.0) H 04/29/19 15:48 Chloride 106 mmol/L (98-107) 04/29/19 15:48 Carbon Dioxide 22 mmol/L (22-30) 04/29/19 15:48 Anion Gap 9 (5-19) 04/29/19 15:48 BUN 33 mg/dL (7-20) H 04/29/19 15:48 Creatinine 2.82 mg/dL (0.52-1.25) H 04/29/19 15:48 Est GFR ( Amer) 27 (>60) L 04/29/19 15:48 Est GFR (Non-Af Amer) Cancelled 04/24/19 17:30 Est GFR (MDRD) Non-Af 22 (>60) L 04/29/19 15:48 Glucose 158 mg/dL (75-110) H 04/29/19 15:48 POC Glucose 178 mg/dL (70-110) H 04/27/19 11:58 Hemoglobin A1c % 6.7 % (4.7-6.0) H 04/28/19 04:34 Serum Osmolality 231 mOsm/kg (275-301) L 04/24/19 18:24 Calcium 9.2 mg/dL (8.4-10.2) 04/29/19 15:48 Magnesium 2.0 mg/dL (1.6-2.3) 04/24/19 13:09 Total Bilirubin 1.2 mg/dL (0.2-1.3) 04/24/19 13:09 Direct Bilirubin 0.0 mg/dL (0.0-0.4) 04/24/19 13:09 Neonat Total Bilirubin Not Reportable 04/24/19 13:09 Neonat Direct Bilirubin Not Reportable 04/24/19 13:09 Neonat Indirect Bili Not Reportable 04/24/19 13:09 AST 30 U/L (17-59) 04/24/19 13:09 ALT 18 U/L (<50) 04/24/19 13:09 Alkaline Phosphatase 94 U/L (38-126) 04/24/19 13:09 Creatine Kinase 217 U/L (55-170) H 04/24/19 13:09 Troponin I 0.015 ng/mL 04/24/19 13:09 Total Protein 7.3 g/dL (6.3-8.2) 04/24/19 13:09 Albumin 4.7 g/dL (3.5-5.0) 04/24/19 13:09 Lipase 60.1 U/L (23-300) 04/24/19 13:09 EGFR Cancelled 04/24/19 17:30 TSH 2.06 uIU/mL (0.47-4.68) 04/25/19 04:05 Urine Color YELLOW 04/24/19 17:58 Urine Appearance TURBID 04/24/19 17:58 Urine pH 6.0 (5.0-9.0) 04/24/19 17:58 Ur Specific [place] 1.007 04/24/19 17:58 Urine Protein 100 mg/dL (NEGATIVE) H 04/24/19 17:58 Urine Glucose (UA) >=500 mg/dL (NEGATIVE) H 04/24/19 17:58 Urine Ketones TRACE mg/dL (NEGATIVE) H 04/24/19 17:58 Urine Blood MODERATE (NEGATIVE) H 04/24/19 17:58 Urine Nitrite (Reflex) NEGATIVE (NEGATIVE) 04/24/19 17:58 Urine Bilirubin NEGATIVE (NEGATIVE) 04/24/19 17:58 Urine Urobilinogen NEGATIVE mg/dL (<2.0) 04/24/19 17:58 Leukocyte Esterase Rfl LARGE (NEGATIVE) H 04/24/19 17:58 Urine RBC (Auto) 161 /HPF 04/24/19 17:58 Urine WBC (Reflex) 13 /HPF 04/24/19 17:58 Urine Yeast (Budding) PRESENT /HPF 04/24/19 17:58 Urine Osmolality 339 mOsm/kg (300-900) 04/24/19 17:58 Urine Sodium < 5 mmol/L (30-90) L 02/16/20 17:58 Urine Ascorbic Acid NEGATIVE (NEGATIVE) 04/24/19 17:58 04/24/19 13:09 Troponin I 0.015 Impressions: Acute Abdomen Series 04/24/19 11:33 IMPRESSION: NO RADIOGRAPHIC EVIDENCE FOR ACUTE ABDOMINAL DISEASE. Stroke Is this a Stroke Patient?: No Acute Heart Failure - Is this a Heart Failure Patient?: No
== END 2019-04-30 16:12 | DRG 640 ==
LOC: ER 11:15 → EH 15:59 → ICU 17:10 → 3N 04-26 16:42
PROVIDERS: ADMIT Family Medicine; ATTEND Family Medicine
DX: E87.1 Hypo-osmolality and hyponatremia (principal); G93.41 Metabolic encephalopathy; K86.1 Other chronic pancreatitis; F03.91 Unspecified dementia, unspecified severity, with behavioral disturbance; K21.9 Gastro-esophageal reflux disease without esophagitis; E11.22 Type 2 diabetes mellitus with diabetic chronic kidney disease; I12.9 Hypertensive chronic kidney disease with stage 1 through stage 4 chronic kidney disease, or unspecified chronic kidney disease; F55.2 Abuse of laxatives; N40.0 Benign prostatic hyperplasia without lower urinary tract symptoms; K59.9 Functional intestinal disorder, unspecified; E86.0 Dehydration; E87.6 Hypokalemia; J44.9 Chronic obstructive pulmonary disease, unspecified; D63.1 Anemia in chronic kidney disease; N18.2 Chronic kidney disease, stage 2 (mild); K59.00 Constipation, unspecified; F41.9 Anxiety disorder, unspecified; E11.65 Type 2 diabetes mellitus with hyperglycemia; Z78.1 Physical restraint status; Z79.899 Other long term (current) drug therapy; Z87.891 Personal history of nicotine dependence
CPT/HCPCS: 36415; 74022; 74176; 80048; 80053; 81001; 82550; 82565; 82962; 83036; 83690; 83735; 83930; 83935; 84300; 84443; 84484; 85025; 85610; 85730; 87040; 87086; 96361; 96365; 96372; 99291; J1630; J1650; J1815; J2405; J3480; J3490; J7030

== ENCOUNTER 2019-07-06 16:38 | Inpatient (IN) | payer MEDICARE, BC, OTHER ==
--- NOTE | 2019-07-06 17:14 | ER Document Report ---
ED Medical Screen (RME) - General Chief Complaint: Abdominal Pain Stated Complaint: LOWER ABDOMINAL PAIN Time Seen by Provider: 07/06/19 17:05 Primary Care Provider: MARYLU IGLESIAS PA-C [Primary Care Provider] - Follow up as needed Notes: Patient is a 74-year-old male who presents to the emergency department with a chief complaint of abdominal pain. Patient's is at bedside, as the patient has dementia. Patient has been having abdominal pain for about a week and a KUB was done outpatient and his primary care provider sent him for further evaluation. KUB showed that the patient could possibly have a bowel obstruction. Exam: Soft moderately tender abdomen. I have greeted and performed a rapid initial assessment of this patient. A comprehensive ED assessment and evaluation of the patient, analysis of test results and completion of medical decision making process will be conducted by an additional ED providers. TRAVEL OUTSIDE OF THE [place] IN LAST 30 DAYS: No - Related Data Allergies/Adverse Reactions: No Known Allergies Allergy (Verified 12/15/18 18:09) Past Medical History - Past Medical History Cardiac Medical History: Reports: Hx Hypertension Denies: Hx Coronary Artery Disease, Hx Heart Attack Pulmonary Medical History: Denies: Hx Asthma, Hx Bronchitis, Hx COPD, Hx Pneumonia Neurological Medical History: Denies: Hx Cerebrovascular Accident, Hx Seizures Endocrine Medical History: Reports: Hx Diabetes Mellitus Type 1, Hx Diabetes Mellitus Type 2 Renal/ Medical History: Reports: Hx Renal Insufficiency. Denies: Hx Peritoneal Dialysis GI Medical History: Reports: Hx Gastroesophageal Reflux Disease, Hx Irritable Bowel. 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 Denies: Hx Open Heart Surgery, Hx Pacemaker - Immunizations Hx Diphtheria, Pertussis, Tetanus Vaccination: Yes Physical Exam - Vital signs Vitals: Temp Pulse Resp BP Pulse Ox 98.8 F 97 20 150/76 H 100 07/06/19 16:43 07/06/19 16:43 07/06/19 16:43 07/06/19 16:43 07/06/19 16:43 Course - Vital Signs Vital signs: Temp Pulse Resp BP Pulse Ox 98.8 F 97 20 150/76 H 100 07/06/19 17:04 07/06/19 16:43 07/06/19 16:43 07/06/19 16:43 07/06/19 16:43 Doctor's Discharge - Discharge Referrals: MARYLU IGLESIAS PA-C [Primary Care Provider] - Follow up as needed
[2019-07-06] MEDS ORDERED: MINERAL OIL 30 ML UDCUP PR ONE (17:38)
--- NOTE | 2019-07-06 17:44 | ER Document Report ---
ED General - General Chief Complaint: Abdominal Pain Stated Complaint: LOWER ABDOMINAL PAIN Time Seen by Provider: 07/06/19 17:05 Primary Care Provider: MARYLU IGLESIAS PA-C [Primary Care Provider] - Follow up as needed TRAVEL OUTSIDE OF THE [place] IN LAST 30 DAYS: No - HPI Notes: Chief complaint: Constipation and abdominal pain HPI: Elderly gentleman sent over from [facility] with concern about a possible bowel obstruction. This man has a history of chronic kidney disease. He has had frequent problems with constipation. He has not had a bowel movement in over a week. He complains of pressure sensation in left upper quadrant. Loss of appetite. No vomiting. No fever. Plain film was obtained at the clinic and demonstrated large amount of retained stool and some gas in the large bowel. There is no free air. Reading was ileus versus early obstruction. - Related Data Allergies/Adverse Reactions: No Known Allergies Allergy (Verified 12/15/18 18:09) Past Medical History - General Information source: Patient, Outside Facility Records Cannot obtain history due to: Dementia - Social History Smoking Status: Former Smoker Chew tobacco use (# tins/day): No Frequency of alcohol use: Occasional Family History: Reviewed & Not Pertinent, Other Patient has homicidal ideation: No - Past Medical History Cardiac Medical History: Reports: Hx Hypertension Denies: Hx Coronary Artery Disease, Hx Heart Attack Pulmonary Medical History: Denies: Hx Asthma, Hx Bronchitis, Hx COPD, Hx Pneumonia Neurological Medical History: Denies: Hx Cerebrovascular Accident, Hx Seizures Endocrine Medical History: Reports: Hx Diabetes Mellitus Type 1, Hx Diabetes Mellitus Type 2 Renal/ Medical History: Reports: Hx Renal Insufficiency. Denies: Hx Peritoneal Dialysis GI Medical History: Reports: Hx Gastroesophageal Reflux Disease, Hx Irritable Bowel. Denies: Hx Hepatitis, Hx Hiatal Hernia, Hx Ulcer Musculoskeletal Medical History: Denies Hx Arthritis Psychiatric Medical History: Reports: Hx Anxiety Denies: Hx Depression Infectious Medical History: Denies: Hx Hepatitis Past Surgical History: Reports: Hx Abdominal Surgery - Colostomy and reversal., Hx Bowel Diversion - 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, ileorectal anastamosis, Hx Bowel S urgery, Hx Colostomy - multiple abdominal procedures for chronic luq pain, Hx Herniorrhaphy - Right inguinal. Denies: Hx Open Heart Surgery, Hx Pacemaker - Immunizations Hx Diphtheria, Pertussis, Tetanus Vaccination: Yes Review of Systems - Review of Systems Notes: Constitutional: Negative for fever. HENT: Negative for sore throat. Eyes: Negative for visual changes. Cardiovascular: Negative for chest pain. Respiratory: Negative for shortness of breath. Gastrointestinal: As per HPI. Genitourinary: Negative for dysuria. Musculoskeletal: Negative for back pain. Skin: Negative for rash. Neurological: Negative for headaches, weakness or numbness. 10 point ROS negative except as marked above and in HPI. Physical Exam - Vital signs Vitals: Temp Pulse Resp BP Pulse Ox 98.8 F 97 20 150/76 H 100 07/06/19 16:43 07/06/19 16:43 07/06/19 16:43 07/06/19 16:43 07/06/19 16:43 - Notes Notes: GENERAL: Elderly man who appears uncomfortable. SKIN: Good turgor no rashes. HEAD: Normocephalic atraumatic. EYES: PERRLA. EOMI. Conjunctivae and sclerae clear. EARS: CANALS AND TMS CLEAR. NOSE: CLEAR. MOUTH: Moist mucosa. Good dentition. No stridor or edema. No drooling. NECK: Supple. No masses or thyromegaly. No adenopathy. Carotids 2+ without bruits. No JVD. BACK: Symmetrical without tenderness. CHEST: Respirations unlabored. Breath sounds clear and symmetrical. HEART: Regular rhythm. No murmur gallop or rub. ABDOMEN: Multiple surgical scars present. Mild tenderness left upper quadrant. No masses, organomegaly or rebound. Bowel sounds normally active. No bruits. GENITALIA: Deferred. EXTREMITIES: No edema. No calf tenderness. Cap refill less than 1.5 seconds. Dorsalis pedis and posterior tibial pulses 3+ and symmetrical. NEUROLOGICAL: GCS 15. Alert and oriented x3. Fluent speech. Cranial nerves II through XII intact. Sensorimotor and cerebellar normal. Normal tone. PSYCHIATRIC: Appropriate affect. Course - Re-evaluation Re-evalutation: 07/06/19 17:43 We are going to give this man a soapsuds and mineral oil enema. If this relieves his current symptoms we will discharge him. If not he will need a CT. I reviewed past records and his creatinine is in excess of 2.6 at baseline. He will not be able to take IV contrast if we have to do CT. 07/06/19 21:07 Patient was unimproved after receiving an enema here. CT was obtained and suggested some proctitis. There was no obvious obstruction. He also has postoperative changes from previous partial colectomy. His creatinine has bumped up slightly from his last documented value here. is uncomfortable taking him home tonight noting that he is done his repeatedly in the past and ends up with deterioration of his kidney function when he gets dehydrated. Case was discussed with the on-call hospitalist Dr. Pasquale Sexton who is agreed to admit for observation and further IV hydration and repeat serum creatinine in the morning. - Vital Signs Vital signs: Temp Pulse Resp BP Pulse Ox 98.8 F 97 20 150/76 H 100 07/06/19 17:04 07/06/19 16:43 07/06/19 16:43 07/06/19 16:43 07/06/19 16:43 - Laboratory Result Diagrams: 07/06/19 17:37 07/06/19 17:37 Laboratory results interpreted by me: 07/06/19 07/06/19 17:37 17:37 RBC 3.23 L Hgb 10.6 L Hct 29.5 L Sodium 135.8 L Chloride 89 L Carbon Dioxide 35 H BUN 61 H Creatinine 3.88 H Est GFR ( Amer) 18 L Est GFR (MDRD) Non-Af 15 L Glucose 282 H Alkaline Phosphatase 142 H Discharge - Discharge Clinical Impression: Dehydration, Constipation, End stage renal disease Condition: Fair Disposition: ADMITTED OBSERVATION Admitting Provider: Darshan (Hospitalist) Unit Admitted: Medical Floor Referrals: MARYLU IGLESIAS PA-C [Primary Care Provider] - Follow up as needed
[2019-07-06 17:50] LABS: ABSOLUTE EOSINOPHILS # (AUTO) 0.1 10^3/uL (0.0-0.6); ABSOLUTE MONOCYTES (AUTO) 0.4 10^3/uL (0.1-1.4); ABSOLUTE NEUT (AUTO) 4.5 10^3/uL (1.7-8.2); BASOPHILS % (AUTO) 0.8 % (0-2); EOSINOPHILS % (AUTO) 1.5 % (0-6); HEMATOCRIT 29.5 % (37.9-51.0); HEMOGLOBIN 10.6 g/dL (13.5-17.0); LYMPHOCYTES % (AUTO) 16.6 % (13-45); MEAN CORPUSCULAR HEMOGLOBIN 32.8 pg (27.0-33.4); MEAN CORPUSCULAR HGB CONC 35.9 g/dL (32.0-36.0); MEAN CORPUSCULAR VOLUME 91 fl (80-97); MONOCYTES % (AUTO) 7.3 % (3-13); PLATELET COUNT 226 10^3/uL (150-450); RED BLOOD COUNT 3.23 10^6/uL (4.35-5.55); RED CELL DISTRIBUTION WIDTH 12.7 % (11.5-14.0); SEGMENTED NEUTROPHILS % (AUTO) 73.8 % (42-78); TOTAL CELLS COUNTED % (AUTO) 100 %; WHITE BLOOD COUNT 6.2 10^3/uL (4.0-10.5)
[2019-07-06 18:21] LABS: ALBUMIN 4.7 g/dL (3.5-5.0); ALKALINE PHOSPHATASE 142 U/L (38-126); ANION GAP 12 (5-19); ASPARTATE AMINO TRANSFERASE 18 U/L (17-59); BILIRUBIN,TOTAL 0.6 mg/dL (0.2-1.3); BLOOD UREA NITROGEN 61 mg/dL (7-20); CALCIUM 9.3 mg/dL (8.4-10.2); CARBON DIOXIDE 35 mmol/L (22-30); CHLORIDE 89 mmol/L (98-107); GLUCOSE 282 mg/dL (75-110); POTASSIUM 4.2 mmol/L (3.6-5.0); TOTAL PROTEIN 7.6 g/dL (6.3-8.2)
--- NOTE | 2019-07-06 20:54 | RADIOLOGY REPORT (SQ) ---
EXAM DESCRIPTION: CT scan of the abdomen and pelvis without contrast CLINICAL HISTORY: 74 years Male; abdominal pain; eval obstruction TECHNIQUE: CT of the abdomen and pelvis with intravenous contrast. Oral contrast was utilized. All CT scans at this facility use dose modulation, iterative reconstruction, and/or weight based dosing when appropriate to reduce radiation dose to as low as reasonably achievable. This exam was performed according to our department optimization program which includes automated exposure control, adjustment of the mA and/or kv according to patient size and/or use of iterative reconstruction technique. COMPARISON: Unenhanced CT scan of the abdomen and pelvis 04/22/2019 FINDINGS: Lower chest: Nodular scarring in the left lung base is stable. There is mild bibasilar volume loss which is unchanged. No pleural effusion. No pneumothorax. Coronary artery calcifications are present. Abdomen: Liver and biliary tree: The gallbladder is not identified and most likely is surgically absent. The unenhanced liver is unremarkable. Pancreas: Subtle punctate calcifications are present predominantly in the head of the pancreas but to a lesser extent in the tail of the pancreas. This is consistent with chronic pancreatitis. No acute inflammation is seen. Spleen:Within normal limits Kidneys: Kidneys are normal in size, shape and position. No stones. No mass or hydronephrosis. Adrenal glands:Within normal limits Vascular structures: Scattered calcified vascular plaque is present in the aorta and visceral vessels. No aneurysm. Retroperitoneum: No mass or lymphadenopathy Abdominal wall: Postsurgical changes noted in the anterior abdominal wall and there is been previous right inguinal hernia repair. Multiple bowel loops appear to be intimately associated with the anterior abdominal wall this may represent adhesions. GI: Surgical anastomotic line is identified in the rectosigmoid region as well as in the mid abdomen and what appears to be small bowel. The vast majority of the colon has been removed. There is bowel wall thickening seen involving the rectal mucosa and distal sigmoid colon suggesting proctitis. No definitive bowel obstruction. Appendix: Surgically absent General: No free air. No free fluid Pelvis: Lymph nodes: No mass or lymphadenopathy Bladder: Unremarkable. Pelvis: No pelvic mass or adenopathy. Bones: Vacuum disc is present at the L5-S1 level. No destructive bone lesions. IMPRESSION: 1. Stable scarring in the lung bases. 2. Changes of chronic pancreatitis. No evidence of active pancreatitis. 3. Postsurgical change of subtotal colectomy. There is mucosal thickening in the distal sigmoid and rectal regions suggesting proctitis. No definitive bowel obstruction.
[2019-07-06 21:14] LABS: APPEARANCE,URINE CLEAR; BILIRUBIN,URINE NEGATIVE (NEGATIVE); COLOR,URINE YELLOW; GLUCOSE, URINE >=500 mg/dL (NEGATIVE); KETONES,URINE NEGATIVE (NEGATIVE); LEUKOCYTE ESTERASE,URINE NEGATIVE (NEGATIVE); NITRITE,URINE NEGATIVE (NEGATIVE); PROTEIN,URINE 100 mg/dL (NEGATIVE); URINE SPECIFIC GRAVITY 1.008; UROBILINOGEN,URINE NEGATIVE mg/dL (<2.0)
[2019-07-06] MEDS ORDERED: ACETAMINOPHEN 325 MG TABLET PO PRN (21:40)
[2019-07-06] MEDS ORDERED: GUAIFENESIN SYRP 200 MG/10 ML UDC PO PRN (21:40)
[2019-07-06] MEDS ORDERED: MAG HYDROX/AL HYDROX/SIMETH SUSP 30 ML UDCUP PO PRN (21:40)
[2019-07-06] MEDS ORDERED: MAGNESIUM HYDROXIDE SUSP 30 ML UDCUP PO PRN (21:40)
[2019-07-06] MEDS ORDERED: HYDRALAZINE HCL INJ/PF 20 MG/1 ML SDV IV PRN (21:40)
[2019-07-06] MEDS ORDERED: INSULIN REG, HUMAN 100 UNIT/ML 3 ML VIAL (PYX) SUBCUT PRN (21:40)
[2019-07-06] MEDS ORDERED: LORAZEPAM INJ 2 MG/1 ML VIAL IV PRN (21:40)
[2019-07-06] MEDS ORDERED: MORPHINE SULFATE 10 MG/ML INJ IV PRN ×3 (21:40)
[2019-07-06] MEDS ORDERED: GLUCAGON,HUMAN RECOMB 1 MG INJ IM PRN (21:42)
[2019-07-06] MEDS ORDERED: DEXTROSE 40% GEL 15 GM TUBE PO PRN ×2 (21:42)
[2019-07-06] MEDS ORDERED: DEXTROSE 50%-WATER 25 GM/50 ML DISP.SYRIN IV PRN ×2 (21:42)
[2019-07-06] MEDS: HEPARIN SOD (PORCINE) 5,000 UNIT/ML 1 ML VIAL SUBCUT SCH (22:22)
[2019-07-06] MEDS: RINGERS SOLUTION,LACTATED 1,000 ML IV PRN (23:42)
--- NOTE | 2019-07-06 23:58 | PDOC H&P ---
History of Present Illness Admission Date/PCP: 07/06/2019 21:08 MARYLU IGLESIAS PA-C Patient complains of: Abdominal pain History of Present Illness: MIKE CROOK is a 74 year old male who presented to the emergency room with a one-week history of abdominal pain. Patient has dementia and is unable to provide reliable historical input for his medical care. 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 She notes that the patient has associated decreased oral intake of both solids and liquids over the same interval. He was seen by his primary care provider at his office prior to being sent to the emergency room with a concern for a possible early bowel obstruction. She admits that he has had similar episodes on numerous occasions. She denies other associated or accompanying signs and symptoms. She has not identified any aggravating or ameliorating factors for the patient's abdominal pain. In the emergency room he was found to have constipation without evidence of obstruction on a CT scan of the abdomen. He was also noted to have a slight worsening of his chronic ESRD, consistent with dehydration. He was subsequently admitted to observation status for further evaluation and treatment. Past Medical History Past Medical History: Due to patient's dementia past medical history, past surgical history, social history and family history are obtained from the best available reliable source. Cardiac Medical History: Reports: Hypertension Denies: Coronary Artery Disease, Myocardial Infarction Pulmonary Medical History: Denies: Asthma, Bronchitis, Chronic Obstructive Pulmonary Disease (COPD), Pneumonia EENT Medical History: Denies: Cataracts, Ears - Hearing aids Neurological Medical History: Denies: Hemorrhagic CVA, Ischemic CVA, Seizures Endocrine Medical History: Reports: Diabetes Mellitus Type 2 Denies: Diabetes Mellitus Type 1, Hyperthyroidism, Hypothyroidism, Obesity Renal/ Medical History: Reports: Chronic Kidney Disease, End Stage Renal Disease Denies: Nephrolithiasis Malignancy Medical History: Reports: None GI Medical History: Reports: Gastroesophageal Reflux Disease, Other - Status post partial colectomy with colostomy and later reanastomosis Denies: Cirrhosis, Crohn's Disease, Hepatitis, Hiatal Hernia, Peptic Ulcer Disease, Ulcerative Colitis Musculoskeltal Medical History: Denies: Arthritis, Gout Skin Medical History: Denies: Eczema, Psoriasis Psychiatric Medical History: Reports: Dementia Denies: Alcohol Dependency, Depression, Substance Abuse, Tobacco Dependency Traumatic Medical History: Reports: None Hematology: Reports: Anemia Denies: Bleeding Tendencies Infectious Medical History: Reports: None Past Surgical History Past Surgical History: Due to patient's dementia past medical history, past surgical history, social history and family history are obtained from the best available reliable source. Past Surgical History: Reports: Colostomy - multiple surgeries for chronic luq pain including a hemicolectomy, Herniorrhaphy - Right inguinal Social History Information Source: Relative, Emergency Med Personnel, [facility] Records Lives with: Spouse/Significant other Smoking Status: Former Smoker Electronic Cigarette use?: No Frequency of Alcohol Use: None Hx Recreational Drug Use: No Drugs: None Hx Prescription Drug Abuse: No Past Social History Note: Due to patient's dementia past medical history, past surgical history, social history and family history are obtained from the best available reliable source. - Advance Directive Resuscitation Status: Full Code Surrogate healthcare decision maker:: Yolie Crook Family History Family History: Malignancy Family History: Due to patient's dementia past medical history, past surgical history, social history and family history are obtained from the best available reliable source. Parental Family History Reviewed: Yes Children Family History Reviewed: No Sibling(s) Family History Reviewed.: Yes Medication/Allergy Home Medications: Finasteride [Proscar 5 mg Tablet] 5 mg PO DAILY 04/24/19 Erythromycin Base [E-Mycin 0.5% Oph Ointment 3.5 gm] 1 applic OS TID 07/06/19 Insulin Glargine,Hum.rec.anlog [Lantus Insulin 100 Unit/mL Insulin Pen] 20 units SUBCUT DAILY 07/06/19 Tamsulosin HCl [Flomax 0.4 mg Cap.sr] 0.4 mg PO DAILY 07/06/19 Allergies/Adverse Reactions: No Known Allergies Allergy (Verified 12/15/18 18:09) Review of Systems ROS unobtainable: Due to mental status - Dementia Physical Exam Vital Signs: Temp Pulse Resp BP Pulse Ox 98.8 F 97 20 150/76 H 100 07/06/19 17:04 07/06/19 16:43 07/06/19 16:43 07/06/19 16:43 07/06/19 16:43 Intake & Output 07/04/19 07/05/19 07/06/19 23:59 23:59 23:59 Weight 71.6 kg General appearance: PRESENT: cooperative, mild distress - Secondary to abdominal pain Head exam: PRESENT: atraumatic, normocephalic Eye exam: PRESENT: conjunctiva pink. ABSENT: conjunctival injection, scleral icterus Ear exam: PRESENT: normal external ear exam. ABSENT: bleeding, drainage Mouth exam: PRESENT: dry mucosa, neck supple Neck exam: ABSENT: thyromegaly, tracheal deviation Respiratory exam: PRESENT: clear to auscultation jc, symmetrical, unlabored Cardiovascular exam: PRESENT: RRR. ABSENT: clicks, gallop, rubs Pulses: PRESENT: normal radial pulses, normal dorsalis pedis pul Vascular exam: PRESENT: normal capillary refill. ABSENT: pallor GI/Abdominal exam: PRESENT: distended - Minimally distended, normal bowel s ounds, soft, tenderness - Vague variable tenderness seemingly greater in the left upper and right lower quadrants. Rectal exam: PRESENT: deferred Extremities exam: ABSENT: joint swelling, pedal edema Musculoskeletal exam: ABSENT: deformity, dislocation Neurological exam: PRESENT: awake, CN II-XII grossly intact. ABSENT: oriented to person, oriented to place, oriented to time Psychiatric exam: PRESENT: agitated - Mildly agitated, normal mood Skin exam: PRESENT: dry, intact, warm. ABSENT: jaundice, rash, urticaria Results Laboratory Results: 07/06/19 17:37 07/06/19 17:37 07/06/19 07/06/19 17:37 17:37 WBC 6.2 RBC 3.23 L Hgb 10.6 L Hct 29.5 L MCV 91 MCH 32.8 MCHC 35.9 RDW 12.7 Plt Count 226 Seg Neutrophils % 73.8 Sodium 135.8 L Potassium 4.2 Chloride 89 L Carbon Dioxide 35 H Anion Gap 12 BUN 61 H Creatinine 3.88 H Est GFR ( Amer) 18 L Glucose 282 H Calcium 9.3 Total Bilirubin 0.6 AST 18 Alkaline Phosphatase 142 H Total Protein 7.6 Albumin 4.7 Impressions: Abdomen/Pelvis CT 07/06/19 00:00 IMPRESSION: 1. Stable scarring in the lung bases. 2. Changes of chronic pancreatitis. No evidence of active pancreatitis. 3. Postsurgical change of subtotal colectomy. There is mucosal thickening in the distal sigmoid and rectal regions suggesting proctitis. No definitive bowel obstruction. Assessment and Plan - Diagnosis (1) Abdominal pain Qualifiers: Abdominal location: unspecified location Qualified Code(s): R10.9 - Unspecified abdominal pain Is this a current diagnosis for this admission?: Yes (2) Dehydration Is this a current diagnosis for this admission?: Yes (3) Acute kidney injury superimposed on CKD Is this a current diagnosis for this admission?: Yes (4) Constipation Qualifiers: Constipation type: unspecified constipation type Qualified Code(s): K59.00 - Constipation, unspecified Is this a current diagnosis for this admission?: Yes (5) Dementia Qualifiers: Dementia type: unspecified type Dementia behavioral disturbance: without behavioral disturbance Qualified Code(s): F03.90 - Unspecified dementia without behavioral disturbance Is this a current diagnosis for this admission?: Yes (6) Essential hypertension Is this a current diagnosis for this admission?: Yes (7) Diabetes mellitus type 2 in nonobese Is this a current diagnosis for this admission?: Yes - Plan Summary Summary: Patient is admitted to observation status on the medical floor where he will receive routine supportive and symptomatic cares. He will be treated with IV fluids to aid in resolution of his dehydration with acute kidney injury. He will receive morphine sulfate 2 to 4 mg IV every 2 hours on an as-needed basis for pain management. He will receive Ativan 1 mg IV every 4 hours as needed for anxiety or restlessness. He will receive soapsuds enemas X3 for resolution of his constipation. He will be continued on his usual home medications, as jacky ropriate, once his medication list has been verified and reconciled. Before meals and at bedtime Accu-Cheks will be performed with sliding scale insulin given for hyperglycemia and a hypoglycemic protocol in place. He will be treated with a cardiac, diabetic and renal restricted diet. - Time Time Spent with patient: Less than 15 minutes Medications reviewed and adjusted accordingly: Yes Anticipated discharge: Home - Inpatient Certification Based on my medical assessment, after consideration of the patient's comorbidities, presenting symptoms, or acuity I expect that the services needed warrant INPATIENT care.: No I certify that my determination is in accordance with my understanding of Medicare's requirements for reasonable and necessary INPATIENT services [42 CFR 412.3e].: No Medical Necessity: Need For IV Fluids, Need for Pain Control, Risk of Complication if Not Cared For in Hospital
[2019-07-07] MEDS: PANTOPRAZOLE SODIUM 20 MG TABLET.DR PO SCH (05:29)
[2019-07-07] MEDS: HEPARIN SOD (PORCINE) 5,000 UNIT/ML 1 ML VIAL SUBCUT SCH ×3 (05:29→21:49)
[2019-07-07] MEDS: RINGERS SOLUTION,LACTATED 1,000 ML IV PRN (05:34)
[2019-07-07 05:49] LABS: HEMATOCRIT 26.6 % (37.9-51.0); HEMOGLOBIN 9.8 g/dL (13.5-17.0); MEAN CORPUSCULAR HEMOGLOBIN 32.9 pg (27.0-33.4); MEAN CORPUSCULAR HGB CONC 36.8 g/dL (32.0-36.0); MEAN CORPUSCULAR VOLUME 90 fl (80-97); PLATELET COUNT 222 10^3/uL (150-450); RED BLOOD COUNT 2.97 10^6/uL (4.35-5.55); RED CELL DISTRIBUTION WIDTH 12.5 % (11.5-14.0); WHITE BLOOD COUNT 5.6 10^3/uL (4.0-10.5)
[2019-07-07 06:08] LABS: ANION GAP 10 (5-19); BLOOD UREA NITROGEN 55 mg/dL (7-20); CARBON DIOXIDE 30 mmol/L (22-30); CHLORIDE 93 mmol/L (98-107); GLUCOSE 155 mg/dL (75-110); POTASSIUM 3.9 mmol/L (3.6-5.0)
[2019-07-07] MEDS: DOCUSATE SODIUM 100 MG CAPSULE PO SCH ×2 (09:48→17:19)
--- NOTE | 2019-07-07 12:27 | PDOC PROGRESS REPORT ---
Subjective Progress Note for:: 07/07/19 Subjective:: Patient still with abdominal pain. He states that he has had the urge to go but has not been able to pass any stool. In addition his bowel sounds are audible standing at the bedside. Reason For Visit: CONSTIPATION,DEHYDRATION,ACUTE KIDNEY INJURY Physical Exam Vital Signs: Temp Pulse Resp BP Pulse Ox 98.3 F 78 16 126/63 H 93 07/07/19 08:55 07/07/19 08:55 07/07/19 08:55 07/07/19 08:55 07/07/19 08:55 Intake & Output 07/06/19 07/07/19 07/08/19 06:59 06:59 06:59 Intake Total 980 Output Total 175 Balance 805 Weight 72.2 kg General appearance: PRESENT: cooperative, mild distress - Mild to moderate distress, well-developed, well-nourished. ABSENT: obese Head exam: PRESENT: atraumatic, normocephalic Ear exam: PRESENT: normal external ear exam. ABSENT: bleeding, drainage Mouth exam: PRESENT: moist, tongue midline Teeth exam: ABSENT: poor dentation Respiratory exam: PRESENT: clear to auscultation jc, symmetrical, unlabored. ABSENT: accessory muscle use, prolonged expiratory phas, rales, retraction, rhonchi, tachypnea, wheezes Cardiovascular exam: PRESENT: RRR, +S1, +S2. ABSENT: bradycardia, diastolic murmur, irregular rhythm, systolic murmur, tachycardia GI/Abdominal exam: PRESENT: hyperactive bowel sounds, soft, tenderness - Mostly left lower quadrant. ABSENT: distended, guarding Rectal exam: PRESENT: deferred Extremities exam: ABSENT: joint swelling, pedal edema Musculoskeletal exam: PRESENT: ambulatory, normal inspection. ABSENT: deformity Neurological exam: PRESENT: alert, awake, oriented to person, oriented to place, oriented to situation, CN II-XII grossly intact - Except decreased vision left eye. ABSENT: altered Psychiatric exam: PRESENT: appropriate affect. ABSENT: agitated, anxious Focused psych exam: ABSENT: delusional, paranoid, restlessness Skin exam: PRESENT: dry, normal color, warm. ABSENT: rash Results Laboratory Results: 07/07/19 05:25 07/07/19 05:25 07/06/19 07/06/19 07/06/19 17:37 17:37 20:43 WBC 6.2 RBC 3.23 L Hgb 10.6 L Hct 29.5 L MCV 91 MCH 32.8 MCHC 35.9 RDW 12.7 Plt Count 226 Seg Neutrophils % 73.8 Sodium 135.8 L Potassium 4.2 Chloride 89 L Carbon Dioxide 35 H Anion Gap 12 BUN 61 H Creatinine 3.88 H Est GFR ( Amer) 18 L Glucose 282 H Calcium 9.3 Magnesium Total Bilirubin 0.6 AST 18 Alkaline Phosphatase 142 H Total Protein 7.6 Albumin 4.7 Urine Color YELLOW Urine Appearance CLEAR Urine pH 8.0 Ur Specific [place] 1.008 Urine Protein 100 H Urine Glucose (UA) >=500 H Urine Ketones NEGATIVE Urine Blood NEGATIVE Urine Nitrite NEGATIVE Ur Leukocyte Esterase NEGATIVE Urine WBC (Auto) 1 Urine RBC (Auto) 0 07/07/19 07/07/19 05:25 05:25 WBC 5.6 RBC 2.97 L Hgb 9.8 L Hct 26.6 L MCV 90 MCH 32.9 MCHC 36.8 H RDW 12.5 Plt Count 222 Seg Neutrophils % Sodium 133.3 L Potassium 3.9 Chloride 93 L Carbon Dioxide 30 Anion Gap 10 BUN 55 H Creatinine 3.50 H Est GFR ( Amer) 21 L Glucose 155 H Calcium 9.0 Magnesium 3.1 H Total Bilirubin AST Alkaline Phosphatase Total Protein Albumin Urine Color Urine Appearance Urine pH Ur Specific [place] Urine Protein Urine Glucose (UA) Urine Ketones Urine Blood Urine Nitrite Ur Leukocyte Esterase Urine WBC (Auto) Urine RBC (Auto) Impressions: Abdomen/Pelvis CT 07/06/19 00:00 IMPRESSION: 1. Stable scarring in the lung bases. 2. Changes of chronic pancreatitis. No evidence of active pancreatitis. 3. Postsurgical change of subtotal colectomy. There is mucosal thickening in the distal sigmoid and rectal regions suggesting proctitis. No definitive bowel obstruction. Assessment and Plan - Diagnosis (1) Abdominal pain Qualifiers: Abdominal location: left lower quadrant Qualified Code(s): R10.32 - Left lower quadrant pain Is this a current diagnosis for this admission?: Yes Plan: 07/07/2019 The patient has a history of constipation. He states that he tends to strain a lot. He states that he ruptured a vessel in his eye due to straining and has decreased vision. He has not had a bowel movement despite positive bowel sounds urge. I will start scheduled MiraLAX. Give a Dulcolax suppository and have Dulcolax tablets available as needed. Hopefully we can stimulate a bowel movement and get patient discharged home tomorrow. (2) Dehydration Is this a current diagnosis for this admission?: Yes Plan: 07/07/2019 His BUN is significantly higher than his baseline. We will continue IV fluids and monitor his laboratory studies. His appetite has been poor with his increased abdominal discomfort. We will try and encourage p.o. fluids. (3) Acute kidney injury superimposed on CKD Is this a current diagnosis for this admission?: Yes Plan: 07/07/2019 The patient's GFR was between 22 and 32 during his April admission. It is lower currently. It has been less than 20. We are going to administer some IV fluids and monitor his renal function. As noted above he is likely somewhat dehydrated. (4) Constipation Qualifiers: Constipation type: unspecified constipation type Qualified Code(s): K59.00 - Constipation, unspecified Is this a current diagnosis for this admission?: Yes Plan: 07/07/2019 This seems to be a chronic issue with the patient. He said that he strains a lot at the time. He said at home when he is constipated he drinks only liquid but could not tell me anything further. This reason I am going to start scheduled MiraLAX. I have ordered a Dulcolax suppository for now and PRN Dulcolax tablets. (5) Dementia Qualifiers: Dementia type: unspecified type Dementia behavioral disturbance: without behavioral disturbance Qualified Code(s): F03.90 - Unspecified dementia without behavioral disturbance Is this a current diagnosis for this admission?: Yes Plan: 07/07/2019 He is currently not on any medication for dementia. In fact his interaction during today's visit was most appropriate. We will continue to monitor the patient. (6) Essential hypertension Is this a current diagnosis for this admission?: Yes Plan: 07/07/2019 The patient's blood pressure was little high on admission. With his underlying diabetes I am going to institute low-dose CHANDRIKA inhibitor in addition to his current medications. We will continue to monitor his blood pressure and monitor the patient on telemetry. (7) Hyperglycemia due to type 2 diabetes mellitus Qualifiers: Diabetes mellitus shelter insulin use: with shelter use Qualified Code(s): E11.65 - Type 2 diabetes mellitus with hyperglycemia; Z79.4 - senior living (current) use of insulin Is this a current diagnosis for this admission?: Yes Plan: 07/07/2019 The patient is on Lantus at home. We are holding the Lantus and using sliding scale coverage. Once his appetite improves I will resume his Lantus dosing. - Plan Summary Summary: Patient is admitted to observation status on the medical floor where he will receive routine supportive and symptomatic cares. He will be treated with IV fluids to aid in resolution of his dehydration with acute kidney injury. He will receive morphine sulfate 2 to 4 mg IV every 2 hours on an as-needed basis for pain management. He will receive Ativan 1 mg IV every 4 hours as needed for anxiety or restlessness. He will receive soapsuds enemas X3 for resolution of his constipation. He will be continued on his usual home medications, as appropriate, once his medication list has been verified and reconciled. Before meals and at bedtime Accu-Cheks will be performed with sliding scale insulin given for hyperglycemia and a hypoglycemic protocol in place. He will be treated with a cardiac, diabetic and renal restricted diet. - Time Time Spent with patient: 15-24 minutes Medications reviewed and adjusted accordingly: Yes Anticipated discharge: Home Within: within 48 hours
[2019-07-07] MEDS ORDERED: BISACODYL 5 MG TABEC PO PRN (12:28)
--- NOTE | 2019-07-07 12:41 | PDOC PROGRESS REPORT ---
Subjective Progress Note for:: 07/07/19 Subjective:: The patient is just back from echocardiogram. She reports that she is not feeling poorly. She certainly appears comfortable. She does report that her heart still hurts. Reason For Visit: CONSTIPATION,DEHYDRATION,ACUTE KIDNEY INJURY Physical Exam Vital Signs: Temp Pulse Resp BP Pulse Ox 98.3 F 78 16 126/63 H 93 07/07/19 08:55 07/07/19 08:55 07/07/19 08:55 07/07/19 08:55 07/07/19 08:55 Intake & Output 07/06/19 07/07/19 07/08/19 06:59 06:59 06:59 Intake Total 980 Output Total 175 Balance 805 Weight 72.2 kg General appearance: PRESENT: no acute distress, cooperative, well-developed Head exam: PRESENT: atraumatic, normocephalic Ear exam: PRESENT: normal external ear exam. ABSENT: bleeding, drainage Respiratory exam: PRESENT: clear to auscultation jc, decreased breath sounds - Quiet breath sounds at bases, symmetrical, unlabored. ABSENT: prolonged expiratory phas, rales, rhonchi, tachypnea, wheezes Cardiovascular exam: PRESENT: +S1, +S2, tachycardia. ABSENT: bradycardia, diastolic murmur, systolic murmur GI/Abdominal exam: PRESENT: normal bowel sounds, soft. ABSENT: distended, guarding, tenderness Rectal exam: PRESENT: deferred Gentrourinary exam: ABSENT: indwelling catheter Extremities exam: ABSENT: joint swelling, pedal edema Musculoskeletal exam: PRESENT: ambulatory, normal inspection. ABSENT: deformity Neurological exam: PRESENT: alert, awake, oriented to person, oriented to place, oriented to time, oriented to situation, CN II-XII grossly intact. ABSENT: altered, motor sensory deficit Psychiatric exam: PRESENT: flat affect. ABSENT: agitated, anxious Focused psych exam: ABSENT: delusional, paranoid, restlessness Skin exam: PRESENT: dry, normal color, warm. ABSENT: rash Results Laboratory Results: 07/07/19 05:25 07/07/19 05:25 07/06/19 07/06/19 07/06/19 17:37 17:37 20:43 WBC 6.2 RBC 3.23 L Hgb 10.6 L Hct 29.5 L MCV 91 MCH 32.8 MCHC 35.9 RDW 12.7 Plt Count 226 Seg Neutrophils % 73.8 Sodium 135.8 L Potassium 4.2 Chloride 89 L Carbon Dioxide 35 H Anion Gap 12 BUN 61 H Creatinine 3.88 H Est GFR ( Amer) 18 L Glucose 282 H Calcium 9.3 Magnesium Total Bilirubin 0.6 AST 18 Alkaline Phosphatase 142 H Total Protein 7.6 Albumin 4.7 Urine Color YELLOW Urine Appearance CLEAR Urine pH 8.0 Ur Specific [place] 1.008 Urine Protein 100 H Urine Glucose (UA) >=500 H Urine Ketones NEGATIVE Urine Blood NEGATIVE Urine Nitrite NEGATIVE Ur Leukocyte Esterase NEGATIVE Urine WBC (Auto) 1 Urine RBC (Auto) 0 07/07/19 07/07/19 05:25 05:25 WBC 5.6 RBC 2.97 L Hgb 9.8 L Hct 26.6 L MCV 90 MCH 32.9 MCHC 36.8 H RDW 12.5 Plt Count 222 Seg Neutrophils % Sodium 133.3 L Potassium 3.9 Chloride 93 L Carbon Dioxide 30 Anion Gap 10 BUN 55 H Creatinine 3.50 H Est GFR ( Amer) 21 L Glucose 155 H Calcium 9.0 Magnesium 3.1 H Total Bilirubin AST Alkaline Phosphatase Total Protein Albumin Urine Color Urine Appearance Urine pH Ur Specific [place] Urine Protein Urine Glucose (UA) Urine Ketones Urine Blood Urine Nitrite Ur Leukocyte Esterase Urine WBC (Auto) Urine RBC (Auto) Impressions: Abdomen/Pelvis CT 07/06/19 00:00 IMPRESSION: 1. Stable scarring in the lung bases. 2. Changes of chronic pancreatitis. No evidence of active pancreatitis. 3. Postsurgical change of subtotal colectomy. There is mucosal thickening in the distal sigmoid and rectal regions suggesting proctitis. No definitive bowel obstruction. Assessment and Plan - Plan Summary Summary: Patient is admitted to observation status on the medical floor where he will receive routine supportive and symptomatic cares. He will be treated with IV fluids to aid in resolution of his dehydration with acute kidney injury. He will receive morphine sulfate 2 to 4 mg IV every 2 hours on an as-needed basis for pain management. He will receive Ativan 1 mg IV every 4 hours as needed for anxiety or restlessness. He will receive soapsuds enemas X3 for resolution of his constipation. He will be continued on his usual home medications, as appropriate, once his medication list has been verified and reconciled. Before meals and at bedtime Accu-Cheks will be performed with sliding scale insulin given for hyperglycemia and a hypoglycemic protocol in place. He will be treated with a cardiac, diabetic and renal restricted diet.
[2019-07-07] MEDS ORDERED: BISACODYL 10 MG SUPP.RECT PR ONE (13:00)
[2019-07-07] MEDS ORDERED: METOPROLOL TARTRATE 25 MG TABLET PO SCH (13:00)
[2019-07-07] MEDS ORDERED: FUROSEMIDE 20 MG TABLET PO SCH (13:00)
[2019-07-07] MEDS ORDERED: VALSARTAN 40 MG TABLET PO SCH (14:00)
[2019-07-07] MEDS: ERYTHROMYCIN 0.5% OPH OINTMENT 3.5 GM TUBE OS SCH ×2 (14:15→17:19)
[2019-07-07] MEDS: POLYETHYLENE GLYCOL 3350 POWDER 17 GM/1 PACKET PO SCH (14:16)
[2019-07-07] MEDS: NORMAL SALINE 1000 ML 1,000 ML IV PRN (20:06)
[2019-07-07] MEDS: ASPIRIN 81 MG TABLET, ENT COATED PO SCH (21:39)
[2019-07-08] MEDS: NORMAL SALINE 1000 ML 1,000 ML IV PRN ×3 (04:04→19:41)
[2019-07-08] MEDS: HEPARIN SOD (PORCINE) 5,000 UNIT/ML 1 ML VIAL SUBCUT SCH ×3 (06:04→21:39)
[2019-07-08] MEDS: PANTOPRAZOLE SODIUM 20 MG TABLET.DR PO SCH (06:04)
[2019-07-08] MEDS: INSULIN REG, HUMAN 100 UNIT/ML 3 ML VIAL (PYX) SUBCUT SCH ×4 (09:17→21:39)
[2019-07-08] MEDS ORDERED: LISINOPRIL 5 MG TABLET PO SCH (10:00)
[2019-07-08] MEDS ORDERED: TAMSULOSIN HCL 0.4 MG CAP.SR.24H PO SCH (10:00)
[2019-07-08] MEDS ORDERED: FINASTERIDE 5 MG TABLET PO SCH (10:00)
[2019-07-08] MEDS: POLYETHYLENE GLYCOL 3350 POWDER 17 GM/1 PACKET PO SCH (10:19)
[2019-07-08] MEDS: DOCUSATE SODIUM 100 MG CAPSULE PO SCH ×2 (10:19→18:13)
[2019-07-08] MEDS: ERYTHROMYCIN 0.5% OPH OINTMENT 3.5 GM TUBE OS SCH ×3 (10:22→18:13)
--- NOTE | 2019-07-08 13:37 | PDOC PROGRESS REPORT ---
Subjective Progress Note for:: 07/08/19 Subjective:: The patient still complains about abdominal pain. He tells me that he needs an operation. He states that he has not had a bowel movement despite bowel movement charted by the staff. He has a history of bowel issues with possible cessation on his bowels. Reason For Visit: CONSTIPATION,DEHYDRATION,ACUTE KIDNEY INJURY Physical Exam Vital Signs: Temp Pulse Resp BP Pulse Ox 98.6 F 69 18 155/67 H 94 07/08/19 11:34 07/08/19 11:34 07/08/19 11:34 07/08/19 11:34 07/08/19 11:34 Intake & Output 07/07/19 07/08/19 07/09/19 06:59 06:59 06:59 Intake Total 980 1626 Output Total 175 403 350 Balance 805 1223 -350 Weight 72.2 kg 70.8 kg General appearance: PRESENT: cooperative, other - The patient presents like he is in moderate distress Head exam: PRESENT: atraumatic, normocephalic Eye exam: PRESENT: conjunctiva pink. ABSENT: scleral icterus Ear exam: PRESENT: normal external ear exam. ABSENT: bleeding, drainage Mouth exam: PRESENT: moist, tongue midline Neck exam: ABSENT: carotid bruit, JVD, lymphadenopathy Respiratory exam: PRESENT: clear to auscultation jc, symmetrical, unlabored. ABSENT: accessory muscle use, prolonged expiratory phas, rales, rhonchi, tachypnea, wheezes Cardiovascular exam: PRESENT: RRR, +S1, +S2. ABSENT: diastolic murmur, irregular rhythm, systolic murmur GI/Abdominal exam: PRESENT: normal bowel sounds, soft, tenderness - Left lower quadrant. ABSENT: distended, guarding, mass Rectal exam: PRESENT: deferred Gentrourinary exam: ABSENT: indwelling catheter Extremities exam: ABSENT: joint swelling, pedal edema Musculoskeletal exam: PRESENT: ambulatory, full ROM, normal inspection Neurological exam: PRESENT: alert, awake, oriented to person, oriented to place, oriented to situation, other - Left eye remains closed. ABSENT: altered Psychiatric exam: PRESENT: anxious, unusual affect. ABSENT: agitated Focused psych exam: ABSENT: delusional, paranoid, restlessness Skin exam: PRESENT: dry, normal color, warm. ABSENT: rash Results Laboratory Results: 07/07/19 05:25 07/07/19 05:25 Impressions: Abdomen/Pelvis CT 07/06/19 00:00 IMPRESSION: 1. Stable scarring in the lung bases. 2. Changes of chronic pancreatitis. No evidence of active pancreatitis. 3. Postsurgical change of subtotal colectomy. There is mucosal thickening in the distal sigmoid and rectal regions suggesting proctitis. No definitive bowel obstruction. Assessment and Plan - Diagnosis (1) Abdominal pain Qualifiers: Abdominal location: left lower quadrant Qualified Code(s): R10.32 - Left lower quadrant pain Is this a current diagnosis for this admission?: Yes Plan: 07/07/2019 The patient has a history of constipation. He states that he tends to strain a lot. He states that he ruptured a vessel in his eye due to straining and has decreased vision. He has not had a bowel movement despite positive bowel sounds urge. I will start scheduled MiraLAX. Give a Dulcolax suppository and have Dulcolax tablets available as needed. Hopefully we can stimulate a bowel movement and get patient discharged home tomorrow. 07/08/2019 He is still complaining of abdominal pain. He does report not having a bowel movement but the staff clearly confirms that he did. Reviewing old records the patient is always focused on his bowels. Does have abdominal surgery and he certainly could have adhesions as well. Will avoid narcotics as this will only worsen constipation. (2) Dehydration Is this a current diagnosis for this admission?: Yes Plan: 07/07/2019 His BUN is significantly higher than his baseline. We will continue IV fluids and monitor his laboratory studies. His appetite has been poor with his increased abdominal discomfort. We will try and encourage p.o. fluids. 07/08/2019 BUN and creatinine are slightly better. The patient has been receiving intravenous fluids. No evidence of volume overload at this time. Continue current regimen. (3) Acute kidney injury superimposed on CKD Is this a current diagnosis for this admission?: Yes Plan: 07/07/2019 The patient's GFR was between 22 and 32 during his April admission. It is lower currently. It has been less than 20. We are going to administer some IV fluids and monitor his renal function. As noted above he is likely somewhat dehydrated. 07/08/2019 The patient's BUN and creatinine are slowly improving. Urine output has been less than 500 mL/day. Continue to monitor. (4) Constipation Qualifiers: Constipation type: unspecified constipation type Qualified Code(s): K59.00 - Constipation, unspecified Is this a current diagnosis for this admission?: Yes Plan: 07/07/2019 This seems to be a chronic issue with the patient. He said that he strains a lot at the time. He said at home when he is constipated he drinks only liquid but could not tell me anything further. This reason I am going to start scheduled MiraLAX. I have ordered a Dulcolax suppository for now and PRN Dulcolax tablets. 07/08/2019 Despite nursing clearly observing a bowel movement the patient denies the same. Abdominal x-ray did not show some dilated loops of bowel but no obstructive pattern. There is very limited stool present. I will start a trial of lubiprostone and order simethicone. Nursing reports that he will refuse certain medications as well. (5) Dementia Qualifiers: Dementia type: unspecified type Dementia behavioral disturbance: without behavioral disturbance Qualified Code(s): F03.90 - Unspecified dementia without behavioral disturbance Is this a current diagnosis for this admission?: Yes Plan: 07/07/2019 He is currently not on any medication for dementia. In fact his interaction during today's visit was most appropriate. We will continue to monitor the patient. 07/08/2019 He does have a history of agitated behavior. He has been appropriate not overtly physically agitated. Psychiatry note from April suggests minimal sedating, antipsychotic or antianxiety medications if possible. (6) Essential hypertension Is this a current diagnosis for this admission?: Yes Plan: 07/07/2019 The patient's blood pressure was little high on admission. With his underlying diabetes I am going to institute low-dose CHANDRIKA inhibitor in addition to his current medications. We will continue to monitor his blood pressure and monitor the patient on telemetry. 07/08/2019 I have added low-dose lisinopril to his regimen. We will continue at 5 mg 3 at discharge and he can follow-up with his primary care provider to make any further adjustments in his antihypertensive medications. (7) Hyperglycemia due to type 2 diabetes mellitus Qualifiers: Diabetes mellitus custodial insulin use: with custodial use Qualified Code(s): E11.65 - Type 2 diabetes mellitus with hyperglycemia; Z79.4 - [facility] (current) use of insulin Is this a current diagnosis for this admission?: Yes Plan: 07/07/2019 The patient is on Lantus at home. We are holding the Lantus and using sliding scale coverage. Once his appetite improves I will resume his Lantus dosing. 07/08/2019 Accu-Cheks reveal reasonable control with sliding scale. Continue same this time. With his history of diabetes a neurogenic process could certainly be contributing to chronic constipation. - Plan Summary Summary: Patient is admitted to observation status on the medical floor where he will r eceive routine supportive and symptomatic cares. He will be treated with IV fluids to aid in resolution of his dehydration with acute kidney injury. He will receive morphine sulfate 2 to 4 mg IV every 2 hours on an as-needed basis for pain management. He will receive Ativan 1 mg IV every 4 hours as needed for anxiety or restlessness. He will receive soapsuds enemas X3 for resolution of his constipation. He will be continued on his usual home medications, as appropriate, once his medication list has been verified and reconciled. Before meals and at bedtime Accu-Cheks will be performed with sliding scale insulin given for hyperglycemia and a hypoglycemic protocol in place. He will be tr eated with a cardiac, diabetic and renal restricted diet. - Time Time Spent with patient: 15-24 minutes Medications reviewed and adjusted accordingly: Yes Anticipated discharge: Home Within: within 24 hours
[2019-07-08] MEDS ORDERED: MAGNESIUM CITRATE 296 ML BOTTLE PO ONE (14:00)
--- NOTE | 2019-07-08 14:13 | RADIOLOGY REPORT (SQ) ---
EXAM DESCRIPTION: KUB/ABDOMEN (SINGLE VIEW) IMAGES COMPLETED DATE/TIME: 07/08/2019 1:59 pm REASON FOR STUDY: Abdominal pain COMPARISON: 04/24/2019 07/06/2019 NUMBER OF VIEWS: One view. TECHNIQUE: Supine radiographic image of the abdomen acquired. LIMITATIONS: None. FINDINGS: BOWEL GAS PATTERN: Postsurgical changes from prior colectomy. Grossly unchanged gas conta ining loops of bowel within the right hemiabdomen similar to multiple priors. No definitive evidence of intestinal obstruction. CALCIFICATIONS: No radiopaque stones overlying kidneys or ureters. SOFT TISSUES: Vascular calcifications overlie pelvis. HARDWARE: Surgical clips overlie left abdomen. Hernia tacks overlie pelvis. BONES: No acute bony abnormality. Lower lumbar spondylosis. OTHER: No other significant finding. IMPRESSION: No definite evidence of acute intra-abdominal/pelvic process. Postsurgical changes from prior subtotal colectomy with unchanged gas containing loops of bowel withi n right central abdomen from multiple priors. TECHNICAL DOCUMENTATION: JOB ID: [id number]- All Rights Reserved Reading location - IP/workstation name: [email or web address]
[2019-07-08] MEDS ORDERED: SIMETHICONE 80 MG TAB.CHEW PO PRN (14:27)
[2019-07-08] MEDS: LUBIPROSTONE 24 MCG CAPSULE PO SCH ×2 (14:46→21:39)
[2019-07-08] MEDS: ASPIRIN 81 MG TABLET, ENT COATED PO SCH (21:39)
[2019-07-09 06:13] LABS: ANION GAP 9 (5-19); BLOOD UREA NITROGEN 37 mg/dL (7-20); CALCIUM 9.1 mg/dL (8.4-10.2); CARBON DIOXIDE 24 mmol/L (22-30); CHLORIDE 106 mmol/L (98-107); GLUCOSE 139 mg/dL (75-110); POTASSIUM 3.8 mmol/L (3.6-5.0)
[2019-07-09] MEDS: HEPARIN SOD (PORCINE) 5,000 UNIT/ML 1 ML VIAL SUBCUT SCH ×2 (06:19→06:27)
[2019-07-09] MEDS: PANTOPRAZOLE SODIUM 20 MG TABLET.DR PO SCH ×2 (06:19→06:27)
[2019-07-09] MEDS: INSULIN REG, HUMAN 100 UNIT/ML 3 ML VIAL (PYX) SUBCUT SCH (07:53)
--- NOTE | 2019-07-09 10:04 | PDOC DISCHARGE SUMMARY ---
Impression - Admit/DC Date/PCP Admission Date/Primary Care Provider: 07/06/19 21:23 MARYLU IGLESIAS PA-C Discharge Date: 07/09/19 - Discharge Diagnosis (1) Abdominal pain Is this a current diagnosis for this admission?: Yes (2) Dehydration Is this a current diagnosis for this admission?: Yes (3) Acute kidney injury superimposed on CKD Is this a current diagnosis for this admission?: Yes (4) Constipation Is this a current diagnosis for this admission?: Yes (5) Dementia Is this a current diagnosis for this admission?: Yes (6) Essential hypertension Is this a current diagnosis for this admission?: Yes (7) Hyperglycemia due to type 2 diabetes mellitus Is this a current diagnosis for this admission?: Yes - Assessment Summary: Patient is admitted to observation status on the medical floor where he will receive routine supportive and symptomatic cares. He will be treated with IV fluids to aid in resolution of his dehydration with acute kidney injury. He will receive morphine sulfate 2 to 4 mg IV every 2 hours on an as-needed basis for pain management. He will receive Ativan 1 mg IV every 4 hours as needed for anxiety or restlessness. He will receive soapsuds enemas X3 for resolution of his constipation. He will be continued on his usual home medications, as appropriate, once his medication list has been verified and reconciled. Before meals and at bedtime Accu-Cheks will be performed with sliding scale insulin given for hyperglycemia and a hypoglycemic protocol in place. He will be treated with a cardiac, diabetic and renal restricted diet. - Additional Information Resuscitation Status: Full Code Discharge Diet: Regular Discharge Activity: Activity As Tolerated Referrals: MARYLU IGLESIAS PA-C [Primary Care Provider] - Follow up as needed Prescriptions: Lubiprostone [Amitiza 24 Mcg Capsule] 24 mcg PO Q12 15 Days #30 capsule Lisinopril [Prinivil 5 mg Tablet] 5 mg PO DAILY 15 Days #15 tablet Home Medications: Finasteride [Proscar 5 mg Tablet] 5 mg PO DAILY 04/24/19 Erythromycin Base [E-Mycin 0.5% Oph Ointment 3.5 gm] 1 applic OS TID 07/06/19 Insulin Glargine,Hum.rec.anlog [Lantus Insulin 100 Unit/mL Insulin Pen] 20 units SUBCUT DAILY 07/06/19 Tamsulosin HCl [Flomax 0.4 mg Cap.sr] 0.4 mg PO DAILY 07/06/19 Aspirin [Ecotrin 81 mg EC Tablet] 81 mg PO QHS tabec 07/09/19 Lisinopril [Prinivil 5 mg Tablet] 5 mg PO DAILY 15 Days #15 tablet 07/09/19 Lubiprostone [Amitiza 24 Mcg Capsule] 24 mcg PO Q12 15 Days #30 capsule 07/09/19 Polyethylene Glycol 3350 [Miralax Powder 17 gm/Packet] 17 gm PO DAILY powd.pack 07/09/19 Simethicone [Mylicon 80 mg Chewable Tablet] 120 mg PO QIDP PRN tab.chew 07/09/19 History of Present Illiness History of Present Illness: MIKE CROOK is a 74 year old male who presented to the emergency room with a one-week history of abdominal pain. Patient has dementia and is unable to provide reliable historical input for his medical care. His and epic cupid analyst admit that for the last week he has not had a bowel movement and has progressively complaining of more abdominal discomfort. She notes that the patient has associated decreased oral intake of both solids and liquids over the same interval. He was seen by his primary care provider at his office prior to being sent to the emergency room with a concern for a possible early bowel obstruction. She admits that he has had similar episodes on numerous occasions. She denies other associated or accompanying signs and symptoms. She has not identified any aggravating or ameliorating factors for the patient's abdominal pain. In the emergency room he was found to have constipation without evidence of obstruction on a CT scan of the abdomen. He was also noted to have a slight worsening of his chronic ESRD, consistent with dehydration. He was subsequently admitted to observation status for further evaluation and treatment. Hospital Course Hospital Course: The patient is fixated on his bowels. He has multiple complaints of pain. I tried to explain adhesions and scar tissue from his multiple surgeries. He reported that he could feel boluses of stool moving through his abdomen. A follow-up abdominal film revealed mostly air and no obstructive pattern. He did respond to more aggressive stool softener/laxative therapy. Physical Exam Vital Signs: Temp Pulse Resp BP Pulse Ox 98.0 F 84 16 130/56 H 97 07/09/19 03:51 07/09/19 03:51 07/09/19 03:51 07/09/19 03:51 07/09/19 08:41 Intake & Output 07/08/19 07/09/19 07/10/19 06:59 06:59 06:59 Intake Total 1626 1742 Output Total 403 550 Balance 1223 1192 Weight 70.8 kg 74 kg General appearance: PRESENT: cooperative, mild distress - He consistently complains of discomfort, well-developed Head exam: PRESENT: atraumatic, normocephalic Respiratory exam: PRESENT: clear to auscultation jc, symmetrical, unlabored. ABSENT: rales, rhonchi, tachypnea, wheezes Cardiovascular exam: PRESENT: RRR, +S1, +S2 GI/Abdominal exam: PRESENT: normal bowel sounds, soft, tenderness, other - Tympany. ABSENT: distended, guarding Rectal exam: PRESENT: deferred Gentrourinary exam: ABSENT: indwelling catheter Extremities exam: ABSENT: pedal edema Musculoskeletal exam: PRESENT: ambulatory, full ROM, normal inspection. ABSENT: deformity Neurological exam: PRESENT: alert, awake, oriented to person, oriented to place, oriented to situation, other - No vision in left eye. ABSENT: altered Psychiatric exam: PRESENT: unusual affect. ABSENT: agitated, anxious Focused psych exam: ABSENT: delusional, paranoid, restlessness Skin exam: PRESENT: dry, normal color, warm. ABSENT: cyanosis, rash Results Laboratory Results: WBC 5.6 10^3/uL (4.0-10.5) 07/07/19 05:25 RBC 2.97 10^6/uL (4.35-5.55) L 07/07/19 05:25 Hgb 9.8 g/dL (13.5-17.0) L 07/07/19 05:25 Hct 26.6 % (37.9-51.0) L 07/07/19 05:25 MCV 90 fl (80-97) 07/07/19 05:25 MCH 32.9 pg (27.0-33.4) 07/07/19 05:25 MCHC 36.8 g/dL (32.0-36.0) H 07/07/19 05:25 RDW 12.5 % (11.5-14.0) 07/07/19 05:25 Plt Count 222 10^3/uL (150-450) 07/07/19 05:25 Lymph % (Auto) 16.6 % (13-45) 07/06/19 17:37 [place]leigh % (Auto) 7.3 % (3-13) 07/06/19 17:37 Eos % (Auto) 1.5 % (0-6) 07/06/19 17:37 Baso % (Auto) 0.8 % (0-2) 07/06/19 17:37 Absolute Neuts (auto) 4.5 10^3/uL (1.7-8.2) 07/06/19 17:37 Absolute Lymphs (auto) 1.0 10^3/uL (0.5-4.7) 07/06/19 17:37 Absolute Monos (auto) 0.4 10^3/uL (0.1-1.4) 07/06/19 17:37 Absolute Eos (auto) 0.1 10^3/uL (0.0-0.6) 07/06/19 17:37 Absolute Basos (auto) 0.0 10^3/uL (0.0-0.2) 07/06/19 17:37 Seg Neutrophils % 73.8 % (42-78) 07/06/19 17:37 Sodium 139.1 mmol/L (137-145) 07/09/19 05:17 Potassium 3.8 mmol/L (3.6-5.0) 07/09/19 05:17 Chloride 106 mmol/L (98-107) 07/09/19 05:17 Carbon Dioxide 24 mmol/L (22-30) 07/09/19 05:17 Anion Gap 9 (5-19) 07/09/19 05:17 BUN 37 mg/dL (7-20) H 07/09/19 05:17 Creatinine 3.20 mg/dL (0.52-1.25) H 07/09/19 05:17 Est GFR ( Amer) 23 (>60) L 07/09/19 05:17 Est GFR (MDRD) Non-Af 19 (>60) L 07/09/19 05:17 Glucose 139 mg/dL (75-110) H 07/09/19 05:17 POC Glucose 149 mg/dL (70-110) H 07/09/19 07:52 Calcium 9.1 mg/dL (8.4-10.2) 07/09/19 05:17 Magnesium 2.8 mg/dL (1.6-2.3) H 07/09/19 05:17 Total Bilirubin 0.6 mg/dL (0.2-1.3) 07/06/19 17:37 Direct Bilirubin 0.0 mg/dL (0.0-0.4) 07/06/19 17:37 Neonat Total Bilirubin Not Reportable 07/06/19 17:37 Neonat Direct Bilirubin Not Reportable 07/06/19 17:37 Neonat Indirect Bili Not Reportable 07/06/19 17:37 AST 18 U/L (17-59) 07/06/19 17:37 ALT 14 U/L (<50) 07/06/19 17:37 Alkaline Phosphatase 142 U/L (38-126) H 07/06/19 17:37 Total Protein 7.6 g/dL (6.3-8.2) 07/06/19 17:37 Albumin 4.7 g/dL (3.5-5.0) 07/06/19 17:37 Urine Color YELLOW 07/06/19 20:43 Urine Appearance CLEAR 07/06/19 20:43 Urine pH 8.0 (5.0-9.0) 07/06/19 20:43 Ur Specific Foster 1.008 07/06/19 20:43 Urine Protein 100 mg/dL (NEGATIVE) H 07/06/19 20:43 Urine Glucose (UA) >=500 mg/dL (NEGATIVE) H 07/06/19 20:43 Urine Ketones NEGATIVE mg/dL (NEGATIVE) 07/06/19 20:43 Urine Blood NEGATIVE (NEGATIVE) 07/06/19 20:43 Urine Nitrite NEGATIVE (NEGATIVE) 07/06/19 20:43 Urine Bilirubin NEGATIVE (NEGATIVE) 07/06/19 20:43 Urine Urobilinogen NEGATIVE mg/dL (<2.0) 07/06/19 20:43 Ur Leukocyte Esterase NEGATIVE (NEGATIVE) 07/06/19 20:43 Urine WBC (Auto) 1 /HPF 07/06/19 20:43 Urine RBC (Auto) 0 /HPF 07/06/19 20:43 U Hyaline Cast (Auto) 12 /LPF 07/06/19 20:43 Urine Mucus (Auto) RARE /LPF 07/06/19 20:43 Urine Ascorbic Acid NEGATIVE (NEGATIVE) 07/06/19 20:43 Impressions: Abdomen/Pelvis CT 07/06/19 00:00 IMPRESSION: 1. Stable scarring in the lung bases. 2. Changes of chronic pancreatitis. No evidence of active pancreatitis. 3. Postsurgical change of subtotal colectomy. There is mucosal thickening in the distal sigmoid and rectal regions suggesting proctitis. No definitive bowel obstruction. KUB X-Ray 07/08/19 00:00 IMPRESSION: No definite evidence of acute intra-abdominal/pelvic process. Postsurgical changes from prior subtotal colectomy with unchanged gas containing loops of bowel within right central abdomen from multiple priors. Plan Health Concerns: Chronic abdominal pain with recurrent constipation likely due to adhesions. Acute on chronic kidney injury Plan of Treatment: Trial of lubiprostone for chronic constipation. Low-dose lisinopril for blood pressure and chronic kidney failure Goals: Improved bowel function. I recommend follow-up with gastroenterology. He might benefit from barium enema. Time Spent: Greater than 30 Minutes Stroke Is this a Stroke Patient?: No Acute Heart Failure - Is this a Heart Failure Patient?: No
[2019-07-09 10:15] VITALS: BP 149/60
== END 2019-07-09 11:13 | disposition home or self-care (01) | DRG 391 ==
LOC: ER 16:38 → EH 21:23 → OBSVTOIN 21:23 → 3S 23:22
PROVIDERS: ADMIT Hospitalist; ATTEND Hospitalist
DX: K59.09 Other constipation (principal); N18.6 End stage renal disease; N17.9 Acute kidney failure, unspecified; I12.0 Hypertensive chronic kidney disease with stage 5 chronic kidney disease or end stage renal disease; R10.32 Left lower quadrant pain; E86.0 Dehydration; E11.65 Type 2 diabetes mellitus with hyperglycemia; F03.90 Unspecified dementia, unspecified severity, without behavioral disturbance, psychotic disturbance, mood disturbance, and anxiety; E11.22 Type 2 diabetes mellitus with diabetic chronic kidney disease; Z90.49 Acquired absence of other specified parts of digestive tract; Z79.4 Long term (current) use of insulin
CPT/HCPCS: 36415; 74018; 74176; 80048; 80053; 81001; 82962; 83735; 85025; 85027; 99285; G0378; J1644; J3490; J7030; J7120

== ENCOUNTER 2019-08-10 15:02 | Inpatient (IN) | payer MEDICARE, BC, OTHER ==
[2019-08-10] MEDS ORDERED: NORMAL SALINE 1000 ML 1,000 ML IV ONE ×2 (15:45→17:54)
[2019-08-10 15:51] LABS: APPEARANCE,URINE CLEAR; BILIRUBIN,URINE NEGATIVE (NEGATIVE); COLOR,URINE YELLOW; GLUCOSE, URINE >=500 mg/dL (NEGATIVE); KETONES,URINE NEGATIVE (NEGATIVE); LEUKOCYTE ESTERASE,URINE NEGATIVE (NEGATIVE); NITRITE,URINE NEGATIVE (NEGATIVE); PROTEIN,URINE 100 mg/dL (NEGATIVE); URINE SPECIFIC GRAVITY 1.011; UROBILINOGEN,URINE NEGATIVE mg/dL (<2.0)
[2019-08-10 16:19] LABS: ABSOLUTE LYMPHOCYTES (AUTO) 0.7 10^3/uL (0.5-4.7); ABSOLUTE MONOCYTES (AUTO) 0.7 10^3/uL (0.1-1.4); ABSOLUTE NEUT (AUTO) 5.5 10^3/uL (1.7-8.2); BASOPHILS % (AUTO) 0.4 % (0-2); EOSINOPHILS % (AUTO) 0.6 % (0-6); HEMATOCRIT 30.3 % (37.9-51.0); HEMOGLOBIN 10.6 g/dL (13.5-17.0); LYMPHOCYTES % (AUTO) 9.7 % (13-45); MEAN CORPUSCULAR HEMOGLOBIN 31.5 pg (27.0-33.4); MEAN CORPUSCULAR HGB CONC 35.1 g/dL (32.0-36.0); MEAN CORPUSCULAR VOLUME 90 fl (80-97); MONOCYTES % (AUTO) 9.5 % (3-13); PLATELET COUNT 207 10^3/uL (150-450); RED BLOOD COUNT 3.38 10^6/uL (4.35-5.55); RED CELL DISTRIBUTION WIDTH 11.8 % (11.5-14.0); SEGMENTED NEUTROPHILS % (AUTO) 79.8 % (42-78); TOTAL CELLS COUNTED % (AUTO) 100 %; WHITE BLOOD COUNT 6.9 10^3/uL (4.0-10.5)
[2019-08-10 17:35] LABS: ALBUMIN 4.6 g/dL (3.5-5.0); ALKALINE PHOSPHATASE 117 U/L (38-126); ASPARTATE AMINO TRANSFERASE 19 U/L (17-59); BILIRUBIN,DIRECT 0.2 mg/dL (0.0-0.4); CALCIUM 8.4 mg/dL (8.4-10.2); CHLORIDE 67 mmol/L (98-107); TOTAL PROTEIN 7.2 g/dL (6.3-8.2)
[2019-08-10 17:47] LABS: ANION GAP 20 (5-19)
--- NOTE | 2019-08-10 17:54 | ER Document Report ---
ED Dizziness/Weakness - General Chief Complaint: Altered Mental Status Stated Complaint: ALTERED MENTAL STATUS Time Seen by Provider: 08/10/19 15:31 Primary Care Provider: MARYLU IGLESIAS PA-C [Primary Care Provider] - Follow up as needed Mode of Arrival: Medic Information source: Patient TRAVEL OUTSIDE OF THE [place] IN LAST 30 DAYS: No - HPI Notes: Patient is brought in by paramedics for altered mental status. Patient's called the paramedics today because patient was confused and hallucinating. states that patient has recently been seen by his doctor and told there may be early signs of dementia. Patient is also been complaining of some abdominal pain and has had constipation. Patient did also recently have a fall and hit his head in the bathroom yesterday. Patient complains of left-sided abdominal pain. It appears to be intermittent. Nothing known to make it better or worse. No known radiation of this pain. It appears to be a sharp pain. - Related Data Allergies/Adverse Reactions: No Known Allergies Allergy (Verified 12/15/18 18:09) Past Medical History - General Information source: Patient, Relative - Social History Smoking Status: Never Smoker Chew tobacco use (# tins/day): No Frequency of alcohol use: None Drug Abuse: None Family History: Malignancy Patient has homicidal ideation: No - Past Medical History Cardiac Medical History: Reports: Hx Hypertension Denies: Hx Coronary Artery Disease, Hx Heart Attack Pulmonary Medical History: Denies: Hx Asthma, Hx Bronchitis, Hx COPD, Hx Pneumonia Neurological Medical History: Denies: Hx Cerebrovascular Accident, Hx Seizures Endocrine Medical History: Reports: Hx Diabetes Mellitus Type 2. Denies: Hx Diabetes Mellitus Type 1, Hx Hyperthyroidism, Hx Hypothyroidism Renal/ Medical History: Reports: Hx End Stage Renal Disease, Hx Renal Insufficiency. Denies: Hx Peritoneal Dialysis GI Medical History: Reports: Hx Gastroesophageal Reflux Disease, Hx Irritable Bowel. 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 Denies: Hx Open Heart Surgery, Hx Pacemaker - Immunizations Hx Diphtheria, Pertussis, Tetanus Vaccination: Yes Review of Systems - Review of Systems -: Yes ROS unobtainable due to patient's medical condition - Review of symptoms is not obtainable due to patient's altered mental status Physical Exam - Vital signs Vitals: Temp Resp BP Pulse Ox 98.7 F 16 143/75 H 90 L 08/10/19 15:12 08/10/19 15:12 08/10/19 15:12 08/10/19 15:12 Interpretation: Normal - General General appearance: Appears well, Alert - HEENT Head: Normocephalic, Atraumatic Eyes: Normal Pupils: PERRL - Respiratory Respiratory status: No respiratory distress Chest status: Nontender Breath sounds: Normal Chest palpation: Normal - Cardiovascular Rhythm: Regular Heart sounds: Normal auscultation Murmur: No - Abdominal Inspection: Normal Distension: No distension Bowel sounds: Normal Tenderness: Tender - Mild left lower quadrant tenderness to palpation Organomegaly: No organomegaly - Back Back: Normal, Nontender - Extremities General upper extremity: Normal inspection, Nontender, Normal color, Normal ROM, Normal temperature General lower extremity: Normal inspection, Nontender, Normal color, Normal ROM, Normal temperature, Normal weight bearing. No: Maribell's sign - Neurological Cognition: Confused Orientation: Disoriented to time Krishna Coma Scale Eye Opening: Spontaneous Krishna Coma Scale Verbal: Confused [place] Coma Scale Motor: Obeys Commands [place] Coma Scale Total: 14 Speech: Normal Motor strength normal: LUE, RUE, LLE, RLE Sensory: Normal - Psychological Associated symptoms: Normal mood, Flat affect - Skin Skin Temperature: Warm Skin Moisture: Dry Skin Color: Normal Course - Re-evaluation Re-evalutation: 08/10/19 19:18 Patient is sent in by since he will not eat or drink. He is seen to be in acute renal failure with hypokalemia. He is also seen to be hyperglycemic. Patient will be treated with fluids insulin and potassium. - Vital Signs Vital signs: Temp Pulse Resp BP Pulse Ox 98.4 F 18 147/106 H 100 08/10/19 15:48 08/10/19 19:01 08/10/19 19:01 08/10/19 19:01 - Laboratory Result Diagrams: 08/10/19 15:10 08/10/19 15:10 Laboratory results interpreted by me: 08/10/19 08/10/19 08/10/19 15:10 15:10 15:35 RBC 3.38 L Hgb 10.6 L Hct 30.3 L Lymph % (Auto) 9.7 L Seg Neutrophils % 79.8 H Sodium 130.0 L Potassium 3.0 L* Chloride 67 L Carbon Dioxide 43 H* Anion Gap 20 H BUN 119 H Creatinine 10.29 H Est GFR ( Amer) 6 L Est GFR (MDRD) Non-Af 5 L Glucose 411 H* POC Glucose Urine Protein 100 H Urine Glucose (UA) >=500 H 08/10/19 18:19 RBC Hgb Hct Lymph % (Auto) Seg Neutrophils % Sodium Potassium Chloride Carbon Dioxide Anion Gap BUN Creatinine Est GFR ( Amer) Est GFR (MDRD) Non-Af Glucose POC Glucose 364 H Urine Protein Urine Glucose (UA) - Diagnostic Test Radiology reviewed: Image reviewed, Reports reviewed - EKG Interpretation by Me EKG shows normal: Sinus rhythm Rate: Normal - 78 Rhythm: NSR Redig/QRS: RBBB, LAHB/LAFB Critical Care Note - Critical Care Note Total time excluding time spent on procedures (mins): 55 Comments: 55 minutes of critical care time were spent on this patient. This was spent reviewing imaging and laboratory values. It is spent doing multiple reassessments. I spent talking to and consultants. Discharge - Discharge Clinical Impression: Hypokalemia, Senile dementia with behavioral disturbance Acute renal failure Qualifiers: Acute renal failure type: unspecified Qualified Code(s): N17.9 - Acute kidney failure, unspecified Hyperglycemia due to type 2 diabetes mellitus Qualifiers: Diabetes mellitus exterminator helper insulin use: with usp use Qualified Code(s): E11.65 - Type 2 diabetes mellitus with hyperglycemia; Z79.4 - exterminator helper (current) use of insulin Disposition: ADMITTED INPATIENT Admitting Provider: Neil (Hospitalist) Unit Admitted: IMCU Referrals: MARYLU IGLESIAS PA-C [Primary Care Provider] - Follow up as needed
[2019-08-10 17:56] LABS: BLOOD UREA NITROGEN 119 mg/dL (7-20); GLUCOSE 411 mg/dL (75-110)
[2019-08-10 17:57] LABS: CARBON DIOXIDE 43 mmol/L (22-30)
[2019-08-10] MEDS ORDERED: INSULIN REG, HUMAN 100 UNIT/ML 3 ML VIAL (PYX) IV ONE (18:10)
--- NOTE | 2019-08-10 18:30 | RADIOLOGY REPORT (SQ) ---
EXAM DESCRIPTION: CT HEAD WITHOUT IMAGES COMPLETED DATE/TIME: 08/10/2019 6:05 pm REASON FOR STUDY: ams COMPARISON: None. TECHNIQUE: Axial images acquired through the brain without intravenous contrast. Images reviewed wi th bone, brain and subdural windows. Additional sagittal and coronal reconstructions were generated. Images stored on PACS. All CT scanners at this facility use dose modulation, iterative reconstruction, and/or weight based d osing when appropriate to reduce radiation dose to as low as reasonably achievable (ALARA). [facility]: Dose Right [facility]: CareDose [facility]: Dose Right [facility]: Teradose 4D [facility]: [employer] RADIATION DOSE: CT Rad equipment meets quality standard of care and radiation dose reduction techniq ues were employed. CTDIvol: 53.2 mGy. DLP: 964 mGy-cm. LIMITATIONS: None. FINDINGS: VENTRICLES: Prominent, commensurate with the sulci. The cisterns are patent. CEREBRUM: Chronic mild to moderate small vessel ischemic changes. No masses. No hemorrhage. No mi dline shift. No evidence for acute infarction. CEREBELLUM: No masses. No hemorrhage. No alteration of density. No evidence for acute infarction. EXTRAAXIAL SPACES: Age related involutional change. No fluid collections. No masses. ORBITS AND GLOBE: Left eye prostheses. Normal contour of globe without masses. CALVARIUM: No fracture. PARANASAL SINUSES: No fluid or mucosal thickening. SOFT TISSUES: No mass or hematoma. OTHER: Atherosclerotic changes involving the cavernous portion of the internal carotid arteries and the intracranial portion of the vertebral arteries bilaterally. IMPRESSION: 1. No acute intracranial abnormality. 2. Chronic mild to moderate small vessel ischemic changes. Atrophy. 3. Left eye prostheses. EVIDENCE OF ACUTE STROKE: NO. COMMENT: Quality ID # 436: Final reports with documentation of one or more dose reduction techniques (e.g., Automated exposure control, adjustment of the mA and/or kV according to patient size, use of iterative reconstruction technique) TECHNICAL DOCUMENTATION: JOB ID: [id number] 2010 [employer]- All Rights Reserved Reading location - IP/workstation name: [email or web address]
--- NOTE | 2019-08-10 18:47 | RADIOLOGY REPORT (SQ) ---
EXAM DESCRIPTION: CT ABD/PELVIS NO ORAL OR IV IMAGES COMPLETED DATE/TIME: 08/10/2019 6:05 pm REASON FOR STUDY: left lower quad pain COMPARISON: 07/06/2019 TECHNIQUE: CT scan of the abdomen and pelvis performed without intravenous or oral contrast. Images reviewed with lung, soft tissue, and bone windows. Reconstructed coronal and sagittal MPR images revi ewed. All images stored on PACS. All CT scanners at this facility use dose modulation, iterative reconstruction, and/or weight based d osing when appropriate to reduce radiation dose to as low as reasonably achievable (ALARA). [facility]: Dose Right [facility]: CareDose [facility]: Dose Right [facility]: Teradose 4D [facility]: [employer] RADIATION DOSE: CT Rad equipment meets quality standard of care and radiation dose reduction techniq ues were employed. CTDIvol: 20.4 mGy. DLP: 1171 mGy-cm. LIMITATIONS: None. FINDINGS: LOWER CHEST: Since the prior examination, mild bibasilar atelectasis or infiltrate. Smal l fatty lipoma mid left lateral chest wall. NON-CONTRASTED LIVER, SPLEEN, ADRENALS: Evaluation of the liver and spleen somewhat limited due to a rtifact from the patient's extremities. Splenule, normal anatomic variant. Evaluation limited by la ck of IV contrast. PANCREAS: Chronic sequela from prior pancreatitis, unchanged findings. No masses. No peripancreatic inflammatory changes. GALLBLADDER: No identified stones by CT criteria. No inflammatory changes to suggest cholecystitis. RIGHT KIDNEY AND URETER: No suspicious masses. Assessment limited by lack of IV contrast. No signif icant calcifications. No hydronephrosis or hydroureter. LEFT KIDNEY AND URETER: No suspicious masses. Assessment limited by lack of IV contrast. No signifi cant calcifications. No hydronephrosis or hydroureter. AORTA AND RETROPERITONEUM: Atherosclerotic changes involving the abdominal aorta and branch vessels. No aneurysm. No retroperitoneal masses or adenopathy. BOWEL AND PERITONEAL CAVITY: Post surgical changes with anastomotic sutures in the left lower quadra nt of the abdomen related to subtotal colectomy. No free fluid. APPENDIX: Not visualized. PELVIS, BLADDER, AND ABDOMINAL WALL: Post surgical changes in the anterior abdominal wall, unchanged . Prior right inguinal hernia repair, stable finding. Stable fatty left inguinal hernia. No free f luid. Prostate gland is enlarged, stable finding. Indentation on the base of the urinary bladder likely se condary to median lobe hypertrophy of the prostate gland. The urinary bladder is incompletely disten ded. BONES: The osseous structures are stable in appearance. OTHER: No other significant finding. IMPRESSION: 1. Stable post surgical changes related to previous subtotal colectomy, since the prior study dated 07/06/2019. 2. Since the previous examination, mild bibasilar atelectasis or infiltrates. Correlation with hist ory suggested. 3. Additional stable findings as above. COMMENT: Quality ID # [id number]: Final reports with documentation of one or more dose reduction techniques (e.g., Automated exposure control, adjustment of the mA and/or kV according to patient size, use of iterative reconstruction technique) TECHNICAL DOCUMENTATION: JOB ID: [id number] 2010 [employer]- All Rights Reserved Reading location - IP/workstation name: [email or web address]
[2019-08-10] MEDS ORDERED: ACETAMINOPHEN 650 MG SUPP.RECT PR PRN (19:31)
[2019-08-10] MEDS ORDERED: DEXTROSE 50%-WATER 25 GM/50 ML DISP.SYRIN IV PRN ×2 (19:31)
[2019-08-10] MEDS ORDERED: DEXTROSE 40% GEL 15 GM TUBE PO PRN ×2 (19:31)
[2019-08-10] MEDS ORDERED: GLUCAGON,HUMAN RECOMB 1 MG INJ IM PRN (19:31)
[2019-08-10] MEDS ORDERED: IPRATROPIUM/ALBUTEROL 0.5-2.5 MG/3 ML AMPUL NEB PRN (19:31)
[2019-08-10] MEDS ORDERED: MAG HYDROX/AL HYDROX/SIMETH SUSP 30 ML UDCUP PO PRN (19:31)
[2019-08-10] MEDS ORDERED: NORMAL SALINE 1000 ML 1,000 ML IV SCH (19:45)
[2019-08-10] MEDS: POTASSI CL 20 MEQ/50 ML RIDER 20 MEQ/50 ML RTUPB IV SCH ×2 (20:00→23:35)
[2019-08-10 20:08] LABS: URINE AMPHETAMINES SCREEN NEGATIVE; URINE BARBITURATES SCREEN NEGATIVE; URINE BENZODIAZEPINES SCREEN NEGATIVE; URINE COCAINE SCREEN NEGATIVE; URINE MARIJUANA (THC) SCREEN NEGATIVE; URINE METHADONE SCREEN NEGATIVE; URINE PHENCYCLIDINE SCREEN NEGATIVE
--- NOTE | 2019-08-10 23:29 | EKG REPORT ---
SEVERITY:- ABNORMAL ECG - SINUS RHYTHM RBBB AND LAFB PROBABLE LEFT VENTRICULAR HYPERTROPHY : Confirmed by: Debra Delgado 10-Aug-2019 23:28:36
[2019-08-10] MEDS: HEPARIN SOD (PORCINE) 5,000 UNIT/ML 1 ML VIAL SUBCUT SCH (23:36)
[2019-08-11 01:43] LABS: BLOOD UREA NITROGEN 114 mg/dL (7-20); CHLORIDE 77 mmol/L (98-107); GLUCOSE 286 mg/dL (75-110); POTASSIUM 3.3 mmol/L (3.6-5.0)
[2019-08-11 01:55] LABS: ANION GAP 17 (5-19)
[2019-08-11 02:07] LABS: CARBON DIOXIDE 40 mmol/L (22-30)
[2019-08-11] MEDS ORDERED: NORMAL SALINE 1000 ML 1,000 ML IV PRN (03:00)
[2019-08-11] MEDS: POTASSIUM CHLORIDE 20 MEQ/50 ML RTU IV SCH ×2 (03:57→06:17)
--- NOTE | 2019-08-11 04:48 | PDOC H&P ---
History of Present Illness Admission Date/PCP: 08/10/19 19:29 MARYLU IGLESIAS PA-C Patient complains of: Abdominal pain History of Present Illness: MIKE CROOK is a 74 year old male with past medical history of diabetes, hypertension, recurrent ileus and partial bowel obstruction, nonoliguric end- stage renal failure and dementia. He presents with at least 24 hours of greater confusion from baseline and hallucination. His history is obtained by the [facility] provider and record as he is a poor historian though awake and socially appropriate. In the emergency department he is found to have complaints of abdominal pain with metabolic alkalosis, acute renal failure creatinine of 9.9 from 2.54 months ago, hypokalemia and hyperglycemia. CT eduardo ging of the abdomen is unremarkable, he started on IV fluids, potassium, insulin and referred to the hospitalist for admission. Patient is unaware of any recent changes in medication. He is asleep but arousable without distress until asked about his abdomen. Past Medical History Cardiac Medical History: Reports: Hypertension Denies: Coronary Artery Disease, Myocardial Infarction Pulmonary Medical History: Denies: Asthma, Bronchitis, Chronic Obstructive Pulmonary Disease (COPD), Pneumonia Neurological Medical History: Denies: Seizures Endocrine Medical History: Reports: Diabetes Mellitus Type 2 Denies: Diabetes Mellitus Type 1, Hyperthyroidism, Hypothyroidism Renal/ Medical History: Reports: End Stage Renal Disease GI Medical History: Reports: Gastroesophageal Reflux Disease Denies: Cirrhosis, Crohn's Disease, Hepatitis, Hiatal Hernia, Ulcerative Colitis Musculoskeltal Medical History: Denies: Arthritis, Gout Skin Medical History: Denies: Eczema, Psoriasis Psychiatric Medical History: Reports: Dementia Denies: Depression Hematology: Reports: Anemia Denies: Sickle Cell Disease, Bleeding Tendencies Past Surgical History Past Surgical History: Reports: Colostomy - multiple surgeries for chronic luq pain including a hemicolectomy, Herniorrhaphy - Right inguinal Denies: Pacemaker Social History Information Source: Patient Lives with: Spouse/Significant other Smoking Status: Never Smoker Electronic Cigarette use?: No Frequency of Alcohol Use: None Hx Recreational Drug Use: No Drugs: None Hx Prescription Drug Abuse: No - Advance Directive Resuscitation Status: Full Code Family History Family History: Malignancy Parental Family History Reviewed: No Children Family History Reviewed: No Sibling(s) Family History Reviewed.: No - Unknown unknown Medication/Allergy Home Medications: Finasteride [Proscar 5 mg Tablet] 5 mg PO DAILY 04/24/19 Insulin Glargine,Hum.rec.anlog [Lantus Insulin 100 Unit/mL Insulin Pen] 20 units SUBCUT DAILY 07/06/19 Tamsulosin HCl [Flomax 0.4 mg Cap.sr] 0.4 mg PO DAILY 07/06/19 Pantoprazole Sodium [Protonix [address] Tablet] 40 mg PO BID 08/10/19 Zolpidem Tartrate 10 mg PO QHS 08/10/19 Allergies/Adverse Reactions: No Known Allergies Allergy (Verified 12/15/18 18:09) Review of Systems ROS unobtainable: Due to mental status Physical Exam Vital Signs: Temp Pulse Resp BP Pulse Ox 98.0 F 81 17 151/70 H 100 08/11/19 03:24 08/11/19 03:24 08/11/19 03:24 08/11/19 03:24 08/11/19 03:24 Intake & Output 08/09/19 08/10/19 08/11/19 11:59 11:59 11:59 Intake Total 2049 Output Total 225 Balance 1825 Weight 68.4 kg General appearance: PRESENT: no acute distress, cooperative, thin, well- developed, well-nourished, other - Asleep, easily arousable, animated with light touch to abdominal wall.. ABSENT: disheveled Head exam: PRESENT: atraumatic, normocephalic Eye exam: PRESENT: conjunctiva pink, EOMI, PERRLA. ABSENT: scleral icterus Ear exam: PRESENT: normal external ear exam Mouth exam: PRESENT: dry mucosa, tongue midline Neck exam: ABSENT: carotid bruit, JVD, lymphadenopathy, thyromegaly Respiratory exam: PRESENT: clear to auscultation jc. ABSENT: rales, rhonchi, wheezes Cardiovascular exam: PRESENT: RRR. ABSENT: diastolic murmur, rubs, systolic murmur Pulses: PRESENT: normal dorsalis pedis pul Vascular exam: PRESENT: normal capillary refill GI/Abdominal exam: PRESENT: normal bowel sounds, soft, tenderness - Left lower quadrant pain with light touch, normal bowel sounds, patient is quite animated following the question of abdominal pain.. ABSENT: ascites, diminished bowel sounds, distended, guarding, mass, organolmegaly, rebound Rectal exam: PRESENT: deferred Extremities exam: PRESENT: full ROM. ABSENT: calf tenderness, clubbing, pedal edema Neurological exam: PRESENT: alert, awake, oriented to person, oriented to place, oriented to time, oriented to situation, CN II-XII grossly intact. ABSENT: motor sensory deficit Psychiatric exam: PRESENT: appropriate affect, normal mood. ABSENT: homicidal ideation, suicidal ideation Skin exam: PRESENT: dry, intact, warm. ABSENT: cyanosis, rash Results Laboratory Results: 08/10/19 15:10 08/11/19 01:09 08/10/19 08/10/19 08/10/19 15:10 15:10 15:35 WBC 6.9 RBC 3.38 L Hgb 10.6 L Hct 30.3 L MCV 90 MCH 31.5 MCHC 35.1 RDW 11.8 Plt Count 207 Seg Neutrophils % 79.8 H Sodium 130.0 L Potassium 3.0 L* Chloride 67 L Carbon Dioxide 43 H* Anion Gap 20 H BUN 119 H Creatinine 10.29 H Est GFR ( Amer) 6 L Glucose 411 H* Calcium 8.4 Total Bilirubin 1.0 AST 19 Alkaline Phosphatase 117 Total Protein 7.2 Albumin 4.6 Urine Color YELLOW Urine Appearance CLEAR Urine pH 8.0 Ur Specific [place] 1.011 Urine Protein 100 H Urine Glucose (UA) >=500 H Urine Ketones NEGATIVE Urine Blood NEGATIVE Urine Nitrite NEGATIVE Ur Leukocyte Esterase NEGATIVE Urine WBC (Auto) 1 Urine RBC (Auto) 1 08/11/19 01:09 WBC RBC Hgb Hct MCV MCH MCHC RDW Plt Count Seg Neutrophils % Sodium 134.3 L Potassium 3.3 L Chloride 77 L Carbon Dioxide 40 H* Anion Gap 17 BUN 114 H Creatinine 9.95 H Est GFR ( Amer) 6 L Glucose 286 H Calcium 8.0 L Total Bilirubin AST Alkaline Phosphatase Total Protein Albumin Urine Color Urine Appearance Urine pH Ur Specific [place] Urine Protein Urine Glucose (UA) Urine Ketones Urine Blood Urine Nitrite Ur Leukocyte Esterase Urine WBC (Auto) Urine RBC (Auto) 08/10/19 15:10 Troponin I 0.044 Impressions: Head CT 08/10/19 15:43 IMPRESSION: 1. No acute intracranial abnormality. 2. Chronic mild to moderate small vessel ischemic changes. Atrophy. 3. Left eye prostheses. EVIDENCE OF ACUTE STROKE: NO. Abdomen/Pelvis CT 08/10/19 15:44 IMPRESSION: 1. Stable post surgical changes related to previous subtotal colectomy, since the prior study dated 07/06/2019. 2. Since the previous examination, mild bibasilar atelectasis or infiltrates. Correlation with history suggested. 3. Additional stable findings as above. Assessment and Plan - Diagnosis (1) Acute renal failure Qualifiers: Acute renal failure type: unspecified Qualified Code(s): N17.9 - Acute kidney failure, unspecified Is this a current diagnosis for this admission?: Yes Plan: Multifactorial secondary to chronic kidney disease and prerenal state without p.o. tolerance, avoid nephrotoxic meds and doses, IV fluid challenge, follow-up chemistry (2) Alkalosis Is this a current diagnosis for this admission?: Yes Plan: Secondary to poor p.o. 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 (4) Hypokalemia Is this a current diagnosis for this admission?: Yes Plan: Secondary to metabolic alkalosis, IV fluid and potassium repletion, follow-up magnesium and chemistry (5) Senile dementia with behavioral disturbance Is this a current diagnosis for this admission?: Yes Plan: Supportive care (6) Abdominal pain Qualifiers: Abdominal location: left lower quadrant Qualified Code(s): R10.32 - Left lower quadrant pain Is this a current diagnosis for this admission?: Yes Plan: No evidence of infection, obstruction or ischemia, suspecting psychiatric component. Reevaluation following correction of metabolic derangement - Time Time Spent with patient: 25-34 minutes - Inpatient Certification Medical Necessity: Need Close Monitoring Due to Risk of Patient Decompensation
[2019-08-11] MEDS: INSULIN LISPRO 100 UNIT/ML 3 ML VIAL SUBCUT SCH ×3 (06:17→18:42)
[2019-08-11] MEDS: HEPARIN SOD (PORCINE) 5,000 UNIT/ML 1 ML VIAL SUBCUT SCH ×3 (06:18→22:25)
[2019-08-11] MEDS: PANTOPRAZOLE SODIUM 40 MG TABLET.DR PO SCH ×2 (06:19→18:34)
[2019-08-11 06:25] LABS: ABSOLUTE LYMPHOCYTES (AUTO) 0.8 10^3/uL (0.5-4.7); ABSOLUTE MONOCYTES (AUTO) 0.7 10^3/uL (0.1-1.4); ABSOLUTE NEUT (AUTO) 5.4 10^3/uL (1.7-8.2); BASOPHILS % (AUTO) 0.3 % (0-2); EOSINOPHILS % (AUTO) 0.7 % (0-6); HEMATOCRIT 26.9 % (37.9-51.0); HEMOGLOBIN 9.7 g/dL (13.5-17.0); LYMPHOCYTES % (AUTO) 11.8 % (13-45); MEAN CORPUSCULAR HEMOGLOBIN 32.1 pg (27.0-33.4); MEAN CORPUSCULAR VOLUME 89 fl (80-97); MONOCYTES % (AUTO) 10.1 % (3-13); PLATELET COUNT 169 10^3/uL (150-450); RED BLOOD COUNT 3.02 10^6/uL (4.35-5.55); RED CELL DISTRIBUTION WIDTH 12.2 % (11.5-14.0); SEGMENTED NEUTROPHILS % (AUTO) 77.1 % (42-78); TOTAL CELLS COUNTED % (AUTO) 100 %
[2019-08-11 06:43] LABS: BLOOD UREA NITROGEN 114 mg/dL (7-20); CHLORIDE 82 mmol/L (98-107); GLUCOSE 266 mg/dL (75-110); POTASSIUM 3.5 mmol/L (3.6-5.0)
[2019-08-11 06:53] LABS: ANION GAP 12 (5-19)
[2019-08-11 06:54] LABS: CARBON DIOXIDE 41 mmol/L (22-30)
--- NOTE | 2019-08-11 08:48 | CDI QUERY ---
CDI Query CDI Review: Dear Provider, Please further specify and document in progress notes and D/C summary if you agree with the clinical findings: ACUTE RENAL FAILURE WITH ACUTE TUBULAR NECROSIS? ACUTE RENAL FAILURE ONLY? OTHER? Clinical data: CREAT 10 BUN 119 SPECIFIC GRAVITY 1.011 IVF's Thanks, Rossi Kincaid [phone]
--- NOTE | 2019-08-11 11:42 | PDOC PROGRESS REPORT ---
Subjective Progress Note for:: 08/11/19 Subjective:: The patient is resting comfortably. He is tired from along the night. He is familiar to this provider and consistently complains of abdominal pain despite Reason For Visit: ARF DEMENTIA HYPOKAL DM Physical Exam Vital Signs: Temp Pulse Resp BP Pulse Ox 98.3 F 70 16 143/71 H 93 08/11/19 07:21 08/11/19 10:19 08/11/19 10:19 08/11/19 07:21 08/11/19 10:19 Intake & Output 08/10/19 08/11/19 08/12/19 06:59 06:59 06:59 Intake Total 2100 Output Total 225 Balance 1875 Weight 68.4 kg General appearance: PRESENT: mild distress - Difficult to know to his chronic and constant complaints of abdominal pain Head exam: PRESENT: atraumatic, normocephalic Respiratory exam: PRESENT: clear to auscultation jc, symmetrical, unlabored. ABSENT: prolonged expiratory phas, rales, rhonchi, tachypnea, wheezes Cardiovascular exam: PRESENT: RRR, +S1, +S2 GI/Abdominal exam: PRESENT: guarding - Depending on what he palpated he does tend to respond by moving his hands to protect the area., hypoactive bowel sounds, soft, tenderness - Reported tenderness diffusely. Difficult to tell because he has the same reaction during her readmission.. ABSENT: distended Rectal exam: PRESENT: deferred Extremities exam: ABSENT: pedal edema Results Laboratory Results: 08/11/19 06:00 08/11/19 06:00 08/10/19 08/10/19 08/10/19 15:10 15:10 15:35 WBC 6.9 RBC 3.38 L Hgb 10.6 L Hct 30.3 L MCV 90 MCH 31.5 MCHC 35.1 RDW 11.8 Plt Count 207 Seg Neutrophils % 79.8 H Sodium 130.0 L Potassium 3.0 L* Chloride 67 L Carbon Dioxide 43 H* Anion Gap 20 H BUN 119 H Creatinine 10.29 H Est GFR ( Amer) 6 L Glucose 411 H* Calcium 8.4 Total Bilirubin 1.0 AST 19 Alkaline Phosphatase 117 Total Protein 7.2 Albumin 4.6 Urine Color YELLOW Urine Appearance CLEAR Urine pH 8.0 Ur Specific [place] 1.011 Urine Protein 100 H Urine Glucose (UA) >=500 H Urine Ketones NEGATIVE Urine Blood NEGATIVE Urine Nitrite NEGATIVE Ur Leukocyte Esterase NEGATIVE Urine WBC (Auto) 1 Urine RBC (Auto) 1 08/11/19 08/11/19 08/11/19 01:09 06:00 06:00 WBC 7.0 RBC 3.02 L Hgb 9.7 L Hct 26.9 L MCV 89 MCH 32.1 MCHC 36.0 RDW 12.2 Plt Count 169 Seg Neutrophils % 77.1 Sodium 134.3 L 134.6 L Potassium 3.3 L 3.5 L Chloride 77 L 82 L Carbon Dioxide 40 H* 41 H* Anion Gap 17 12 BUN 114 H 114 H Creatinine 9.95 H 9.63 H Est GFR ( Amer) 6 L 6 L Glucose 286 H 266 H Calcium 8.0 L 8.0 L Total Bilirubin AST Alkaline Phosphatase Total Protein Albumin Urine Color Urine Appearance Urine pH Ur Specific [place] Urine Protein Urine Glucose (UA) Urine Ketones Urine Blood Urine Nitrite Ur Leukocyte Esterase Urine WBC (Auto) Urine RBC (Auto) 08/10/19 15:10 Troponin I 0.044 Impressions: Head CT 08/10/19 15:43 IMPRESSION: 1. No acute intracranial abnormality. 2. Chronic mild to moderate small vessel ischemic changes. Atrophy. 3. Left eye prostheses. EVIDENCE OF ACUTE STROKE: NO. Abdomen/Pelvis CT 08/10/19 15:44 IMPRESSION: 1. Stable post surgical changes related to previous subtotal colectomy, since the prior study dated 07/06/2019. 2. Since the previous examination, mild bibasilar atelectasis or infiltrates. Correlation with history suggested. 3. Additional stable findings as above. Assessment and Plan - Diagnosis (1) Acute kidney injury superimposed on CKD Is this a current diagnosis for this admission?: Yes Plan: 08/11/2019 The patient had marked acute kidney injury superimposed on his chronic kidney disease. Reviewing his blood work since March shows his GFR to be between 28 and 32. As of June his GFR was in the 20s. At this admission his GFR is 5 with a serum creatinine of 10 and a BUN of 119. With the patient's chronic complaints of abdominal pain it appears that his oral intake has been decreasing over time with this combination of acute on chronic kidney failure with likely acute tubular necrosis. The IV fluids at the current rate do not appear to be shifting his numbers in spite of increase the rate to 200 mL/h. Labs are ordered for tonight and tomorrow. He is still making some urine and hopefully his kidneys will respond. If not consider nephrology consult. (2) Alkalosis Is this a current diagnosis for this admission?: Yes Plan: Secondary to poor p.o. intake, normal saline challenge, follow-up chemistry 08/11/2019 Initial repeat studies showed him to remain alkalotic. Will recheck on a higher rate of intravenous fluids. 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 08/11/2019 Plan as noted above. Accu-Cheks and sliding scale with hypoglycemic protocol in place. (4) Hypokalemia Is this a current diagnosis for this admission?: Yes Plan: Secondary to metabolic alkalosis, IV fluid and potassium repletion, follow-up magnesium and chemistry 08/11/2019 As of this morning the patient will received a total of 40 mEq of potassium by IV. Laboratory studies are ordered for later today. Will monitor closely and supplement to achieve normokalemia. Will utilize p.o. potassium eventually. (5) Senile dementia with behavioral disturbance Is this a current diagnosis for this admission?: Yes Plan: Supportive care (6) Abdominal pain Qualifiers: Abdominal location: left lower quadrant Qualified Code(s): R10.32 - Left lower quadrant pain Is this a current diagnosis for this admission?: Yes Plan: No evidence of infection, obstruction or ischemia, suspecting psychiatric component. Reevaluation following correction of metabolic derangement 08/11/2019 The patient has been admitted multiple times for the same complaint. He has been seen by the surgical service multiple times. It is not believed that there is any operable condition. I believe at this point he is obsessed with his abdominal pain as he continues to ask for surgery. There is atherosclerosis by CT scan. There could be an intermittent ischemic component. We will wait to the patient is fully hydrated. I will add aspirin therapy for antiplatelet effect as you would for any atherosclerotic situation. I will also check a lipid panel. He will likely have low numbers due to his poor nutritional status but consideration of statin therapy should be given. I will review his chart and see if an angiogram has ever been performed. Unfortunately with his renal function this would be a contraindication. - Time Time Spent with patient: 15-24 minutes Medications reviewed and adjusted accordingly: Yes
[2019-08-11] MEDS: TAMSULOSIN HCL 0.4 MG CAP.SR.24H PO SCH (13:14)
[2019-08-11] MEDS: FINASTERIDE 5 MG TABLET PO SCH (13:15)
--- NOTE | 2019-08-11 16:31 | RADIOLOGY REPORT (SQ) ---
EXAM DESCRIPTION: CHEST SINGLE VIEW IMAGES COMPLETED DATE/TIME: 08/11/2019 4:20 pm REASON FOR STUDY: assess for infiltrate COMPARISON: 08/21/2015. EXAM PARAMETERS: NUMBER OF VIEWS: One view. TECHNIQUE: Single frontal radiographic view of the chest acquired. RADIATION DOSE: NA LIMITATIONS: None. FINDINGS: LUNGS AND PLEURA: No opacities, masses or pneumothorax. No pleural effusion. MEDIASTINUM AND HILAR STRUCTURES: No masses. Contour normal. HEART AND VASCULAR STRUCTURES: Heart normal in size. Normal vasculature. BONES: No acute findings. HARDWARE: None in the chest. OTHER: No other significant finding. IMPRESSION: NO ACUTE RADIOGRAPHIC FINDING IN THE CHEST. TECHNICAL DOCUMENTATION: JOB ID: [id number] 2010 [employer]- All Rights Reserved Reading location - IP/workstation name: [email or web address]
[2019-08-11] MEDS: NORMAL SALINE 1000 ML 1,000 ML IV PRN (22:27)
[2019-08-11] MEDS: ATORVASTATIN CALCIUM 40 MG TABLET PO SCH (22:32)
[2019-08-11] MEDS: ASPIRIN 81 MG TABLET, ENT COATED PO SCH (22:33)
[2019-08-11 22:59] LABS: ALBUMIN 3.9 g/dL (3.5-5.0); ANION GAP 12 (5-19); BLOOD UREA NITROGEN 107 mg/dL (7-20); CALCIUM 7.8 mg/dL (8.4-10.2); CARBON DIOXIDE 32 mmol/L (22-30); CHLORIDE 89 mmol/L (98-107); GLUCOSE 213 mg/dL (75-110); PHOSPHORUS 5.8 mg/dL (2.5-4.5); POTASSIUM 3.4 mmol/L (3.6-5.0)
[2019-08-12] MEDS: INSULIN LISPRO 100 UNIT/ML 3 ML VIAL SUBCUT SCH ×4 (01:19→17:25)
[2019-08-12] MEDS: HEPARIN SOD (PORCINE) 5,000 UNIT/ML 1 ML VIAL SUBCUT SCH ×3 (05:24→21:03)
[2019-08-12] MEDS ORDERED: LORAZEPAM INJ 2 MG/1 ML VIAL IV ONE ×2 (05:45→23:45)
[2019-08-12] MEDS ORDERED: HALOPERIDOL LACTATE INJ 5 MG/1 ML VIAL IV ONE ×2 (05:45→23:45)
[2019-08-12] MEDS: PANTOPRAZOLE SODIUM 40 MG TABLET.DR PO SCH ×2 (05:50→17:13)
[2019-08-12] MEDS: NORMAL SALINE 1000 ML 1,000 ML IV PRN ×3 (06:51→17:20)
[2019-08-12 07:00] LABS: ANION GAP 11 (5-19); BLOOD UREA NITROGEN 102 mg/dL (7-20); CALCIUM 7.5 mg/dL (8.4-10.2); CARBON DIOXIDE 31 mmol/L (22-30); CHLORIDE 90 mmol/L (98-107); GLUCOSE 145 mg/dL (75-110); POTASSIUM 3.1 mmol/L (3.6-5.0)
[2019-08-12] MEDS: TAMSULOSIN HCL 0.4 MG CAP.SR.24H PO SCH (09:03)
[2019-08-12] MEDS: FINASTERIDE 5 MG TABLET PO SCH (09:03)
[2019-08-12] MEDS: POTASSI CL 20 MEQ/50 ML RIDER 20 MEQ/50 ML RTUPB IV SCH ×2 (09:08→11:23)
[2019-08-12] MEDS: CALCIUM GLUC IN NACL, ISO-OSM 1 GM/50 ML RTUPB IV SCH ×2 (09:12→10:10)
--- NOTE | 2019-08-12 12:36 | PDOC PROGRESS REPORT ---
Subjective Progress Note for:: 08/12/19 Subjective:: He apparently got combative last night and got some medication and so was somnolent this morning. He woke up later on and pulled out an IV and tried to pull out his Bal catheter and so they had to put him in restraints for his safety. His urine output has been very good. Reason For Visit: ARF DEMENTIA HYPOKAL DM Physical Exam Vital Signs: Temp Pulse Resp BP Pulse Ox 97.9 F 70 16 117/48 L 97 08/12/19 07:12 08/12/19 12:07 08/12/19 12:07 08/12/19 07:12 08/12/19 07:12 Intake & Output 08/11/19 08/12/19 08/13/19 06:59 06:59 06:59 Intake Total 2100 1436 1017 Output Total 225 1100 Balance 0814 174 3114 Weight 68.4 kg 75.5 kg General appearance: PRESENT: no acute distress, disheveled, other - Somnolent Respiratory exam: PRESENT: clear to auscultation jc, symmetrical, unlabored. ABSENT: accessory muscle use, chest wall tenderness, crackles, prolonged expiratory phas, rhonchi, tachypnea, wheezes Cardiovascular exam: PRESENT: RRR, +S1, +S2 Pulses: PRESENT: normal carotid pulses Vascular exam: PRESENT: normal capillary refill GI/Abdominal exam: PRESENT: normal bowel sounds, soft. ABSENT: distended, guarding, rebound, tenderness Extremities exam: ABSENT: clubbing, pedal edema Musculoskeletal exam: PRESENT: normal inspection. ABSENT: deformity Neurological exam: PRESENT: other - Briefly opens eyes to moderate stimuli and then goes back to sleep Skin exam: PRESENT: dry, warm Results Laboratory Results: 08/11/19 06:00 08/12/19 05:21 08/11/19 08/11/19 08/12/19 21:20 22:31 05:21 Sodium Cancelled 132.8 L 132.1 L Potassium Cancelled 3.4 L 3.1 L Chloride Cancelled 89 L 90 L Carbon Dioxide Cancelled 32 H 31 H Anion Gap Cancelled 12 11 BUN Cancelled 107 H 102 H Creatinine Cancelled 8.85 H 8.54 H Est GFR ( Amer) Cancelled 7 L 7 L Est GFR (Non-Af Amer) Cancelled Glucose Cancelled 213 H 145 H Calcium Cancelled 7.8 L 7.5 L Phosphorus Cancelled 5.8 H Magnesium 4.1 H Albumin Cancelled 3.9 08/10/19 15:10 Troponin I 0.044 Impressions: Head CT 08/10/19 15:43 IMPRESSION: 1. No acute intracranial abnormality. 2. Chronic mild to moderate small vessel ischemic changes. Atrophy. 3. Left eye prostheses. EVIDENCE OF ACUTE STROKE: NO. Abdomen/Pelvis CT 08/10/19 15:44 IMPRESSION: 1. Stable post surgical changes related to previous subtotal colec pratima, since the prior study dated 07/06/2019. 2. Since the previous examination, mild bibasilar atelectasis or infiltrates. Correlation with history suggested. 3. Additional stable findings as above. Chest X-Ray 08/11/19 00:00 IMPRESSION: NO ACUTE RADIOGRAPHIC FINDING IN THE CHEST. Assessment and Plan - Diagnosis (1) Acute kidney injury superimposed on CKD Is this a current diagnosis for this admission?: Yes Plan: He has had good urine output and his creatinine is down a little bit compared to yesterday. If he does not have continued improvement in his creatinine he will need a nephrology consultation. (2) Alkalosis Is this a current diagnosis for this admission?: Yes Plan: This is not worsened with fluid administration, will continue to monitor (3) Senile dementia with behavioral disturbance Is this a current diagnosis for this admission?: Yes Plan: Supportive care (4) Abdominal pain Qualifiers: Abdominal location: left lower quadrant Qualified Code(s): R10.32 - Left lower quadrant pain Is this a current diagnosis for this admission?: Yes Plan: Apparently he has been complaining about abdominal pain for a very long time and has been evaluated by the surgical service who believes he does not have any sort of operable condition. We are hydrating him and have him on aspirin in case there is some ischemic component. Nothing acute was seen on his CT here. Scan could not be done with contrast because of his renal function. I could not find any evidence of a prior angiogram here. 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
[2019-08-12] MEDS: ASPIRIN 81 MG TABLET, ENT COATED PO SCH (21:06)
[2019-08-12] MEDS: ATORVASTATIN CALCIUM 40 MG TABLET PO SCH (21:06)
[2019-08-12] MEDS: TRAZODONE HCL 50 MG TABLET PO PRN (21:06)
[2019-08-12] MEDS ORDERED: DIAZEPAM INJ 10 MG/2 ML DISP.SYRIN IV ONE (23:45)
[2019-08-13] MEDS: INSULIN LISPRO 100 UNIT/ML 3 ML VIAL SUBCUT SCH ×5 (01:48→21:50)
[2019-08-13] MEDS: HEPARIN SOD (PORCINE) 5,000 UNIT/ML 1 ML VIAL SUBCUT SCH ×3 (05:43→21:51)
[2019-08-13] MEDS: PANTOPRAZOLE SODIUM 40 MG TABLET.DR PO SCH ×2 (05:44→16:15)
[2019-08-13] MEDS: NORMAL SALINE 1000 ML 1,000 ML IV PRN ×3 (07:58→17:58)
[2019-08-13 09:22] LABS: ANION GAP 14 (5-19); BLOOD UREA NITROGEN 88 mg/dL (7-20); CALCIUM 7.8 mg/dL (8.4-10.2); CARBON DIOXIDE 22 mmol/L (22-30); CHLORIDE 101 mmol/L (98-107); GLUCOSE 124 mg/dL (75-110); POTASSIUM 3.4 mmol/L (3.6-5.0)
[2019-08-13] MEDS: TAMSULOSIN HCL 0.4 MG CAP.SR.24H PO SCH (10:39)
[2019-08-13] MEDS: FINASTERIDE 5 MG TABLET PO SCH (10:39)
--- NOTE | 2019-08-13 14:21 | PDOC PROGRESS REPORT ---
Subjective Progress Note for:: 08/13/19 Subjective:: He still gets agitated from time to time. He has had good urine output. He cannot understand that the reason he still in the hospital is because of his renal failure. Reason For Visit: ARF DEMENTIA HYPOKAL DM Physical Exam Vital Signs: Temp Pulse Resp BP Pulse Ox 98.0 F 87 17 158/60 H 99 08/13/19 11:49 08/13/19 11:49 08/13/19 11:49 08/13/19 11:49 08/13/19 11:49 Intake & Output 08/12/19 08/13/19 08/14/19 06:59 06:59 06:59 Intake Total 1436 3067 1000 Output Total 1100 1600 Balance 336 1467 1000 Weight 75.5 kg 76.3 kg General appearance: PRESENT: no acute distress, disheveled Respiratory exam: PRESENT: clear to auscultation jc, symmetrical, unlabored. ABSENT: accessory muscle use, chest wall tenderness, crackles, prolonged expiratory phas, rhonchi, tachypnea, wheezes Cardiovascular exam: PRESENT: RRR, +S1, +S2 Pulses: PRESENT: normal carotid pulses Vascular exam: PRESENT: normal capillary refill GI/Abdominal exam: PRESENT: normal bowel sounds, soft. ABSENT: distended, guarding, rebound, tenderness Extremities exam: ABSENT: clubbing, pedal edema Musculoskeletal exam: PRESENT: normal inspection. ABSENT: deformity Neurological exam: PRESENT: Awake, alert, oriented to person, oriented to place Skin exam: PRESENT: dry, warm Results Laboratory Results: 08/11/19 06:00 08/13/19 08:54 08/13/19 08:54 Sodium 137.0 Potassium 3.4 L Chloride 101 Carbon Dioxide 22 Anion Gap 14 BUN 88 H Creatinine 7.89 H Est GFR ( Amer) 8 L Glucose 124 H Calcium 7.8 L 08/10/19 15:10 Troponin I 0.044 Impressions: Head CT 08/10/19 15:43 IMPRESSION: 1. No acute intracranial abnormality. 2. Chronic mild to moderate small vessel ischemic changes. Atrophy. 3. Left eye prostheses. EVIDENCE OF ACUTE STROKE: NO. Abdomen/Pelvis CT 08/10/19 15:44 IMPRESSION: 1. Stable post surgical changes related to previous subtotal colectomy, since the prior study dated 07/06/2019. 2. Since the previous examination, mild bibasilar atelectasis or infiltrates. Correlation with history suggested. 3. Additional stable findings as above. Chest X-Ray 08/11/19 00:00 IMPRESSION: NO ACUTE RADIOGRAPHIC FINDING IN THE CHEST. Assessment and Plan - Diagnosis (1) Acute kidney injury superimposed on CKD Is this a current diagnosis for this admission?: Yes Plan: His creatinine has improved from yesterday. He has good urine output. His mental status is at baseline. He does not have severe electrolyte disturbances. (2) Alkalosis Is this a current diagnosis for this admission?: Yes Plan: This is not worsened with fluid administration, will continue to monitor (3) Senile dementia with behavioral disturbance Is this a current diagnosis for this admission?: Yes Plan: Supportive care (4) Abdominal pain Qualifiers: Abdominal location: left lower quadrant Qualified Code(s): R10.32 - Left lower quadrant pain Is this a current diagnosis for this admission?: Yes Plan: Apparently he has been complaining about abdominal pain for a very long time and has been evaluated by the surgical service who believes he does not have any sort of operable condition. We are hydrating him and have him on aspirin in case there is some ischemic component. Nothing acute was seen on his CT here. Scan could not be done with contrast because of his renal function. I could not find any evidence of a prior angiogram here. He has been kept n.p.o. and so his diet has been advanced. 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
[2019-08-13] MEDS: ATORVASTATIN CALCIUM 40 MG TABLET PO SCH (21:50)
[2019-08-13] MEDS: ASPIRIN 81 MG TABLET, ENT COATED PO SCH (21:50)
[2019-08-14] MEDS: PANTOPRAZOLE SODIUM 40 MG TABLET.DR PO SCH ×2 (05:49→16:55)
[2019-08-14] MEDS: HEPARIN SOD (PORCINE) 5,000 UNIT/ML 1 ML VIAL SUBCUT SCH ×3 (05:50→21:22)
[2019-08-14] MEDS: NORMAL SALINE 1000 ML 1,000 ML IV PRN ×4 (05:50→21:24)
[2019-08-14] MEDS: INSULIN LISPRO 100 UNIT/ML 3 ML VIAL SUBCUT SCH ×4 (08:13→22:00)
[2019-08-14 09:51] LABS: ANION GAP 10 (5-19); BLOOD UREA NITROGEN 73 mg/dL (7-20); CALCIUM 7.6 mg/dL (8.4-10.2); CARBON DIOXIDE 21 mmol/L (22-30); CHLORIDE 105 mmol/L (98-107); GLUCOSE 120 mg/dL (75-110); POTASSIUM 3.3 mmol/L (3.6-5.0)
[2019-08-14] MEDS: TAMSULOSIN HCL 0.4 MG CAP.SR.24H PO SCH (09:55)
[2019-08-14] MEDS: FINASTERIDE 5 MG TABLET PO SCH (09:56)
--- NOTE | 2019-08-14 14:22 | PDOC PROGRESS REPORT ---
Subjective Progress Note for:: 08/14/19 Subjective:: No adverse events overnight. No new complaints. Still wants to perseverate over his abdomen. He tells me the same story each time as if he is telling it for the first time. His urine output has been good. His appetite has improved substantially. Reason For Visit: ARF DEMENTIA HYPOKAL DM Physical Exam Vital Signs: Temp Pulse Resp BP Pulse Ox 98.8 F 86 22 H 141/55 H 98 08/14/19 11:26 08/14/19 11:26 08/14/19 11:26 08/14/19 11:26 08/14/19 11:26 Intake & Output 08/13/19 08/14/19 08/15/19 06:59 06:59 06:59 Intake Total 3067 3260 1240 Output Total 1600 1750 Balance 1467 1510 1240 Weight 76.3 kg 80.8 kg General appearance: PRESENT: no acute distress, disheveled Respiratory exam: PRESENT: clear to auscultation jc, symmetrical, unlabored. ABSENT: accessory muscle use, chest wall tenderness, crackles, prolonged expiratory phas, rhonchi, tachypnea, wheezes Cardiovascular exam: PRESENT: RRR, +S1, +S2 Pulses: PRESENT: normal carotid pulses Vascular exam: PRESENT: normal capillary refill GI/Abdominal exam: PRESENT: normal bowel sounds, soft. ABSENT: distended, guarding, rebound, tenderness Extremities exam: ABSENT: clubbing, pedal edema Musculoskeletal exam: PRESENT: normal inspection. ABSENT: deformity Neurological exam: PRESENT: Awake, alert, oriented to person, oriented to place Skin exam: PRESENT: dry, warm Results Laboratory Results: 08/11/19 06:00 08/14/19 09:10 08/14/19 09:10 Sodium 135.6 L Potassium 3.3 L Chloride 105 Carbon Dioxide 21 L Anion Gap 10 BUN 73 H Creatinine 6.80 H Est GFR ( Amer) 10 L Glucose 120 H Calcium 7.6 L 08/10/19 15:10 Troponin I 0.044 Impressions: Head CT 08/10/19 15:43 IMPRESSION: 1. No acute intracranial abnormality. 2. Chronic mild to moderate small vessel ischemic changes. Atrophy. 3. Left eye prostheses. EVIDENCE OF ACUTE STROKE: NO. Abdomen/Pelvis CT 08/10/19 15:44 IMPRESSION: 1. Stable post surgical changes related to previous subtotal colectomy, since the prior study dated 07/06/2019. 2. Since the previous examination, mild bibasilar atelectasis or infiltrates. Correlation with history suggested. 3. Additional stable findings as above. Chest X-Ray 08/11/19 00:00 IMPRESSION: NO ACUTE RADIOGRAPHIC FINDING IN THE CHEST. Assessment and Plan - Diagnosis (1) Acute kidney injury superimposed on CKD Is this a current diagnosis for this admission?: Yes Plan: His creatinine continues to improve with hydration. He has good urine output. His mental status is at baseline. He does not have severe electrolyte disturbances. (2) Alkalosis Is this a current diagnosis for this admission?: Yes Plan: Resolved. His CO2 is actually trending down, likely from the chloride load he is receiving his IV fluids. We will monitor this closely. (3) Senile dementia with behavioral disturbance Is this a current diagnosis for this admission?: Yes Plan: Supportive care (4) Abdominal pain Qualifiers: Abdominal location: left lower quadrant Qualified Code(s): R10.32 - Left lower quadrant pain Is this a current diagnosis for this admission?: Yes Plan: Apparently he has been complaining about abdominal pain for a very long time and has been evaluated by the surgical service who believes he does not have any sort of operable condition. We are hydrating him and have him on aspirin in case there is some ischemic component. Nothing acute was seen on his CT here. Scan could not be done with contrast because of his renal function. I could not find any evidence of a prior angiogram here. He has been kept n.p.o. and so his diet has been advanced. 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
[2019-08-14] MEDS: TRAZODONE HCL 50 MG TABLET PO PRN (21:22)
[2019-08-14] MEDS: ATORVASTATIN CALCIUM 40 MG TABLET PO SCH (21:22)
[2019-08-14] MEDS: ASPIRIN 81 MG TABLET, ENT COATED PO SCH (21:22)
[2019-08-15] MEDS: NORMAL SALINE 1000 ML 1,000 ML IV PRN ×4 (02:54→22:37)
[2019-08-15 05:51] LABS: ANION GAP 7 (5-19); BLOOD UREA NITROGEN 64 mg/dL (7-20); CALCIUM 7.3 mg/dL (8.4-10.2); CARBON DIOXIDE 21 mmol/L (22-30); CHLORIDE 109 mmol/L (98-107); GLUCOSE 132 mg/dL (75-110); POTASSIUM 3.3 mmol/L (3.6-5.0)
[2019-08-15] MEDS: PANTOPRAZOLE SODIUM 40 MG TABLET.DR PO SCH ×2 (06:06→16:39)
[2019-08-15] MEDS: HEPARIN SOD (PORCINE) 5,000 UNIT/ML 1 ML VIAL SUBCUT SCH ×3 (06:06→22:26)
[2019-08-15] MEDS: INSULIN LISPRO 100 UNIT/ML 3 ML VIAL SUBCUT SCH ×4 (08:11→22:30)
[2019-08-15] MEDS: TAMSULOSIN HCL 0.4 MG CAP.SR.24H PO SCH (10:26)
[2019-08-15] MEDS: FINASTERIDE 5 MG TABLET PO SCH (10:26)
--- NOTE | 2019-08-15 13:39 | PDOC PROGRESS REPORT ---
Subjective Progress Note for:: 08/15/19 Subjective:: No adverse events overnight. No new complaints. Still wants to perseverate over his abdomen. He tells me the same story each time as if he is telling it for the first time, and he does this every day. His urine output has been good. He is eating very well. Reason For Visit: ARF DEMENTIA HYPOKAL DM Physical Exam Vital Signs: Temp Pulse Resp BP Pulse Ox 97.3 F 86 17 151/60 H 95 08/15/19 11:50 08/15/19 11:50 08/15/19 11:50 08/15/19 11:50 08/15/19 11:50 Intake & Output 08/14/19 08/15/19 08/16/19 06:59 06:59 06:59 Intake Total 3260 5440 1000 Output Total 1750 2025 Balance 1510 3415 1000 Weight 80.8 kg 80.1 kg General appearance: PRESENT: no acute distress, disheveled Respiratory exam: PRESENT: clear to auscultation jc, symmetrical, unlabored. ABSENT: accessory muscle use, chest wall tenderness, crackles, prolonged expiratory phas, rhonchi, tachypnea, wheezes Cardiovascular exam: PRESENT: RRR, +S1, +S2 Pulses: PRESENT: normal carotid pulses Vascular exam: PRESENT: normal capillary refill GI/Abdominal exam: PRESENT: normal bowel sounds, soft. ABSENT: distended, g uarding, rebound, tenderness Extremities exam: ABSENT: clubbing, pedal edema Musculoskeletal exam: PRESENT: normal inspection. ABSENT: deformity Neurological exam: PRESENT: Awake, alert, oriented to person, oriented to place Skin exam: PRESENT: dry, warm Results Laboratory Results: 08/11/19 06:00 08/15/19 04:46 08/15/19 04:46 Sodium 136.8 L Potassium 3.3 L Chloride 109 H Carbon Dioxide 21 L Anion Gap 7 BUN 64 H Creatinine 6.07 H Est GFR ( Amer) 11 L Glucose 132 H Calcium 7.3 L 08/10/19 15:10 Troponin I 0.044 Impressions: Head CT 08/10/19 15:43 IMPRESSION: 1. No acute intracranial abnormality. 2. Chronic mild to moderate small vessel ischemic changes. Atrophy. 3. Left eye prostheses. EVIDENCE OF ACUTE STROKE: NO. Abdomen/Pelvis CT 08/10/19 15:44 IMPRESSION: 1. Stable post surgical changes related to previous subtotal colectomy, since the prior study dated 07/06/2019. 2. Since the previous examination, mild bibasilar atelectasis or infiltrates. Correlation with history suggested. 3. Additional stable findings as above. Chest X-Ray 08/11/19 00:00 IMPRESSION: NO ACUTE RADIOGRAPHIC FINDING IN THE CHEST. Assessment and Plan - Diagnosis (1) Acute kidney injury superimposed on CKD Is this a current diagnosis for this admission?: Yes Plan: His creatinine continues to improve with hydration. He has good urine output. His mental status is at baseline. He does not have severe electrolyte disturbances. (2) Alkalosis Is this a current diagnosis for this admission?: Yes Plan: His CO2 is stable (3) Senile dementia with behavioral disturbance Is this a current diagnosis for this admission?: Yes Plan: Supportive care (4) Abdominal pain Qualifiers: Abdominal location: left lower quadrant Qualified Code(s): R10.32 - Left lower quadrant pain Is this a current diagnosis for this admission?: Yes Plan: Apparently he has been complaining about abdominal pain for a very long time and has been evaluated by the surgical service who believes he does not have any sort of operable condition. We are hydrating him and have him on aspirin in case there is some ischemic component. Nothing acute was seen on his CT here. Scan could not be done with contrast because of his renal function. I could not find any evidence of a prior angiogram here. He has been kept n.p.o. and so his diet has been advanced and he is eating very well. (5) Hyperglycemia due to type 2 diabetes mellitus Qualifiers: Diabetes mellitus fpc insulin use: with fpc use Qualified Code(s): E11.65 - Type 2 diabetes mellitus with hyperglycemia; Z79.4 - assisted (current) use of insulin Is this a current diagnosis for this admission?: Yes Plan: Blood sugars are currently fairly controlled (6) Hypokalemia Is this a current diagnosis for this admission?: Yes Plan: Replacing with IV supplement as needed (7) Hypocalcemia Is this a current diagnosis for this admission?: Yes Plan: Replacing with IV supplement as needed - Time Time Spent with patient: 15-24 minutes
[2019-08-15] MEDS: ATORVASTATIN CALCIUM 40 MG TABLET PO SCH (22:26)
[2019-08-15] MEDS: ASPIRIN 81 MG TABLET, ENT COATED PO SCH (22:26)
[2019-08-16] MEDS: NORMAL SALINE 1000 ML 1,000 ML IV PRN (03:25)
[2019-08-16 06:10] LABS: ANION GAP 9 (5-19); BLOOD UREA NITROGEN 55 mg/dL (7-20); CALCIUM 7.7 mg/dL (8.4-10.2); CARBON DIOXIDE 19 mmol/L (22-30); CHLORIDE 112 mmol/L (98-107); GLUCOSE 164 mg/dL (75-110); POTASSIUM 3.3 mmol/L (3.6-5.0)
[2019-08-16] MEDS: PANTOPRAZOLE SODIUM 40 MG TABLET.DR PO SCH ×2 (06:35→17:12)
[2019-08-16] MEDS: HEPARIN SOD (PORCINE) 5,000 UNIT/ML 1 ML VIAL SUBCUT SCH ×3 (06:35→21:58)
[2019-08-16] MEDS ORDERED: DIAZEPAM 2 MG TABLET PO ONE (06:45)
[2019-08-16] MEDS: INSULIN LISPRO 100 UNIT/ML 3 ML VIAL SUBCUT SCH ×4 (08:35→22:07)
[2019-08-16] MEDS: TAMSULOSIN HCL 0.4 MG CAP.SR.24H PO SCH (10:06)
[2019-08-16] MEDS: ACETAMINOPHEN 325 MG TABLET PO PRN ×2 (10:06→23:21)
[2019-08-16] MEDS: FINASTERIDE 5 MG TABLET PO SCH (10:06)
--- NOTE | 2019-08-16 15:30 | PDOC PROGRESS REPORT ---
Subjective Progress Note for:: 08/16/19 Subjective:: No adverse events overnight. Continues to have good urine output. He is complaining of his abdomen again but his exam is benign. He has been eating and drinking without difficulty. Reason For Visit: ARF DEMENTIA HYPOKAL DM Physical Exam Vital Signs: Temp Pulse Resp BP Pulse Ox 99.1 F 93 16 139/60 H 96 08/16/19 03:48 08/16/19 03:48 08/16/19 03:48 08/16/19 03:48 08/16/19 03:48 Intake & Output 08/15/19 08/16/19 08/17/19 06:59 06:59 06:59 Intake Total 5440 4864 1000 Output Total 202 2800 Balance 3415 2064 1000 Weight 80.1 kg 78.9 kg General appearance: PRESENT: no acute distress, disheveled Respiratory exam: PRESENT: clear to auscultation jc, symmetrical, unlabored. ABSENT: accessory muscle use, chest wall tenderness, crackles, prolonged expiratory phas, rhonchi, tachypnea, wheezes Cardiovascular exam: PRESENT: RRR, +S1, +S2 Pulses: PRESENT: normal carotid pulses Vascular exam: PRESENT: normal capillary refill GI/Abdominal exam: PRESENT: normal bowel sounds, soft. ABSENT: distended, guarding, rebound, tenderness Extremities exam: ABSENT: clubbing, pedal edema Musculoskeletal exam: PRESENT: normal inspection. ABSENT: deformity Neurological exam: PRESENT: Awake, alert, oriented to person, oriented to place Skin exam: PRESENT: dry, warm Results Laboratory Results: 08/11/19 06:00 08/16/19 05:24 08/16/19 05:24 Sodium 140.3 Potassium 3.3 L Chloride 112 H Carbon Dioxide 19 L Anion Gap 9 BUN 55 H Creatinine 5.84 H Est GFR ( Amer) 12 L Glucose 164 H Calcium 7.7 L 08/10/19 15:10 Troponin I 0.044 Impressions: Head CT 08/10/19 15:43 IMPRESSION: 1. No acute intracranial abnormality. 2. Chronic mild to moderate small vessel ischemic changes. Atrophy. 3. Left eye prostheses. EVIDENCE OF ACUTE STROKE: NO. Abdomen/Pelvis CT 08/10/19 15:44 IMPRESSION: 1. Stable post surgical changes related to previous subtotal colectomy, since the prior study dated 07/06/2019. 2. Since the previous examination, mild bibasilar atelectasis or infiltrates. Correlation with history suggested. 3. Additional stable findings as above. Chest X-Ray 08/11/19 00:00 IMPRESSION: NO ACUTE RADIOGRAPHIC FINDING IN THE CHEST. Assessment and Plan - Diagnosis (1) Acute kidney injury superimposed on CKD Is this a current diagnosis for this admission?: Yes Plan: I think his volume deficit is been more than corrected. He has had good urine output. Fluids off just let him eat and drink normally. We will monitor his creatinine and if it continues to trend down I may be able to let him go home tomorrow even though he is not back to his baseline. He may be at a point at which we just need to give him some time for his kidneys to resolve back to what ever baseline they are going to fall to. (2) Alkalosis Is this a current diagnosis for this admission?: Yes Plan: He has had an increased chloride load and so now his bicarb is little bit low. We have stopped his fluids and so I anticipate this to improve. (3) Senile dementia with behavioral disturbance Is this a current diagnosis for this admission?: Yes Plan: Supportive care (4) Abdominal pain Qualifiers: Abdominal location: left lower quadrant Qualified Code(s): R10.32 - Left lower quadrant pain Is this a current diagnosis for this admission?: Yes Plan: Apparently he has been complaining about abdominal pain for a very long time and has been evaluated by the surgical service who believes he does not have any sort of operable condition. We are hydrating him and have him on aspirin in case there is some ischemic component. Nothing acute was seen on his CT here. Scan could not be done with contrast because of his renal function. I could not find any evidence of a prior angiogram here. He has been kept n.p.o. and so his diet has been advanced and he is eating very well. (5) Hyperglycemia due to type 2 diabetes mellitus Qualifiers: Diabetes mellitus senior living insulin use: with manager long term care use Qualified Code(s): E11.65 - Type 2 diabetes mellitus with hyperglycemia; Z79.4 - assisted (current) use of insulin Is this a current diagnosis for this admission?: Yes Plan: Blood sugars are currently fairly controlled (6) Hypokalemia Is this a current diagnosis for this admission?: Yes Plan: Replacing with IV supplement as needed (7) Hypocalcemia Is this a current diagnosis for this admission?: Yes Plan: Replacing with IV supplement as needed - Time Time Spent with patient: 15-24 minutes
[2019-08-16] MEDS: ASPIRIN 81 MG TABLET, ENT COATED PO SCH (21:58)
[2019-08-16] MEDS: ATORVASTATIN CALCIUM 40 MG TABLET PO SCH (21:58)
[2019-08-16] MEDS: TRAZODONE HCL 50 MG TABLET PO PRN (23:26)
[2019-08-17] MEDS: HEPARIN SOD (PORCINE) 5,000 UNIT/ML 1 ML VIAL SUBCUT SCH ×3 (06:05→22:11)
[2019-08-17] MEDS: PANTOPRAZOLE SODIUM 40 MG TABLET.DR PO SCH ×2 (06:05→16:10)
[2019-08-17 07:07] LABS: ANION GAP 8 (5-19); BLOOD UREA NITROGEN 52 mg/dL (7-20); CALCIUM 8.2 mg/dL (8.4-10.2); CARBON DIOXIDE 20 mmol/L (22-30); CHLORIDE 112 mmol/L (98-107); GLUCOSE 176 mg/dL (75-110); POTASSIUM 3.5 mmol/L (3.6-5.0)
[2019-08-17] MEDS: INSULIN LISPRO 100 UNIT/ML 3 ML VIAL SUBCUT SCH ×4 (08:38→22:09)
--- NOTE | 2019-08-17 09:23 | RADIOLOGY REPORT (SQ) ---
EXAM DESCRIPTION: CHEST SINGLE VIEW IMAGES COMPLETED DATE/TIME: 08/17/2019 9:07 am REASON FOR STUDY: low oxygen saturation COMPARISON: AP view of the chest from 08/11/2019. EXAM PARAMETERS: NUMBER OF VIEWS: One view. TECHNIQUE: An AP view of the chest was obtained. RADIATION DOSE: NA LIMITATIONS: None. FINDINGS: LUNGS AND PLEURA: Acute bilateral multifocal/ multilobar patchy parenchymal opacities. Th e costophrenic sulci are blunted. The contour of the left hemidiaphragm is obscured. MEDIASTINUM AND HILAR STRUCTURES: No mediastinal or hilar contour abnormality. HEART AND VASCULAR STRUCTURES: Cardiac silhouette is within normal limits given the low inspiratory l eliecer volumes. The pulmonary vasculature is indistinct. BONES: No acute findings. HARDWARE: None in the chest. OTHER: No other finding. IMPRESSION: 1. Acute bilateral multifocal/ multilobar patchy parenchymal opacities. Differential co nsiderations include pulmonary edema, ARDS and multifocal pneumonia. 2. Bilateral pleural effusions. TECHNICAL DOCUMENTATION: JOB ID: [id number] 2010 [employer]- All Rights Reserved Reading location - IP/workstation name: [email or web address]
[2019-08-17] MEDS: FINASTERIDE 5 MG TABLET PO SCH (09:56)
[2019-08-17] MEDS: TAMSULOSIN HCL 0.4 MG CAP.SR.24H PO SCH (09:56)
[2019-08-17 11:01] LABS: HEMOGLOBIN 8.6 g/dL (13.5-17.0); MEAN CORPUSCULAR HEMOGLOBIN 31.4 pg (27.0-33.4); MEAN CORPUSCULAR HGB CONC 34.3 g/dL (32.0-36.0); MEAN CORPUSCULAR VOLUME 92 fl (80-97); PLATELET COUNT 184 10^3/uL (150-450); RED BLOOD COUNT 2.72 10^6/uL (4.35-5.55); RED CELL DISTRIBUTION WIDTH 12.7 % (11.5-14.0); WHITE BLOOD COUNT 6.5 10^3/uL (4.0-10.5)
[2019-08-17] MEDS: LINEZOLID 600 MG/300 ML RTUPB IV SCH (12:07)
[2019-08-17] MEDS ORDERED: FUROSEMIDE INJ/PF 20 MG/2 ML SDV IV ONE (14:15)
[2019-08-17] MEDS: MEROPENEM 500 MG in NORMAL SALINE 50 ML IV SCH ×2 (14:31→22:12)
[2019-08-17] MEDS ORDERED: METHYLPREDNISOLONE INJ 125 MG/2 ML SDV IV ONE (15:14)
[2019-08-17] MEDS ORDERED: IPRATROPIUM/ALBUTEROL 0.5-2.5 MG/3 ML AMPUL NEB PRN (15:16)
[2019-08-17] MEDS ORDERED: LORAZEPAM INJ 2 MG/1 ML VIAL IV ONE (16:00)
[2019-08-17 17:15] LABS: ARTERIAL BLOOD BASE EXCESS -6.8 mmol/L; ARTERIAL BLOOD H2CO3 0.82 mmol/L (1.05-1.35); ARTERIAL BLOOD HCO3 16.9 mmol/L (20-24); ARTERIAL BLOOD O2 SATURATION 97.5 % (94-98); ARTERIAL BLOOD PCO2 27.1 mmHg (35-45); ARTERIAL BLOOD PH 7.41 (7.35-7.45); ARTERIAL BLOOD PO2 95.4 mmHg (80-100); ARTERIAL BLOOD TOTAL CO2 17.7 mmol/L (23-27)
[2019-08-17 17:18] LABS: ARTERIAL BLOOD FIO2 45%
--- NOTE | 2019-08-17 17:25 | PDOC PROGRESS REPORT ---
Subjective Progress Note for:: 08/17/19 Subjective:: Overnight he was found to have an elevated temperature was said to have some wheezes. He was put on oxygen was fairly stable this morning. His fluids have been on hold. I told him I was going to start him on some antibiotics and he thanked me for doing surgery on his belly. I had to correct him and he seemed disappointed. Later on his breathing got worse and we eventually had to put him on BiPAP and he seems more comfortable at this time. Chest x-ray this morning shows bilateral pulmonary edema. Reason For Visit: ARF DEMENTIA HYPOKAL DM Physical Exam Vital Signs: Temp Pulse Resp BP Pulse Ox 97.7 F 112 H 29 H 141/76 H 98 08/17/19 11:08 08/17/19 11:08 08/17/19 16:11 08/17/19 11:08 08/17/19 16:11 Intake & Output 08/16/19 08/17/19 08/18/19 06:59 06:59 06:59 Intake Total 4864 1237 350 Output Total 2800 1975 300 Balance 2064 -738 50 Weight 78.9 kg 79 kg General appearance: PRESENT: cooperative, disheveled, mild distress Respiratory exam: PRESENT: crackles, prolonged expiratory phas, symmetrical, tachypnea, wheezes. ABSENT: accessory muscle use, chest wall tenderness, rhonchi, unlabored Cardiovascular exam: PRESENT: +S1, +S2, tachycardia Pulses: PRESENT: normal carotid pulses Vascular exam: PRESENT: normal capillary refill GI/Abdominal exam: PRESENT: normal bowel sounds, soft. ABSENT: distended, guarding, rebound, tenderness Extremities exam: ABSENT: clubbing, pedal edema Musculoskeletal exam: PRESENT: normal inspection. ABSENT: deformity Neurological exam: PRESENT: awake, oriented to person, oriented to place. ABSENT: oriented to situation Psychiatric exam: PRESENT: anxious Skin exam: PRESENT: dry, warm Results Laboratory Results: 08/17/19 05:54 08/17/19 05:54 08/17/19 08/17/19 08/17/19 05:54 05:54 15:33 WBC 6.5 RBC 2.72 L Hgb 8.6 L Hct 25.0 L MCV 92 MCH 31.4 MCHC 34.3 RDW 12.7 Plt Count 184 Carbonic Acid Cancelled HCO3/H2CO3 Ratio Cancelled ABG pH Cancelled ABG pCO2 Cancelled ABG pO2 Cancelled ABG HCO3 Cancelled ABG O2 Saturation Cancelled ABG Base Excess Cancelled FiO2 Cancelled Sodium 140.3 Potassium 3.5 L Chloride 112 H Carbon Dioxide 20 L Anion Gap 8 BUN 52 H Creatinine 5.71 H Est GFR ( Amer) 12 L Glucose 176 H Calcium 8.2 L 08/10/19 15:10 Troponin I 0.044 Impressions: Head CT 08/10/19 15:43 IMPRESSION: 1. No acute intracranial abnormality. 2. Chronic mild to moderate small vessel ischemic changes. Atrophy. 3. Left eye prostheses. EVIDENCE OF ACUTE STROKE: NO. Abdomen/Pelvis CT 08/10/19 15:44 IMPRESSION: 1. Stable post surgical changes related to previous subtotal colectomy, since the prior study dated 07/06/2019. 2. Since the previous examination, mild bibasilar atelectasis or infiltrates. Correlation with history suggested. 3. Additional stable findings as above. Chest X-Ray 08/17/19 00:00 IMPRESSION: 1. Acute bilateral multifocal/ multilobar patchy parenchymal opa cities. Differential considerations include pulmonary edema, ARDS and multifocal pneumonia. 2. Bilateral pleural effusions. Assessment and Plan - Diagnosis (1) Acute respiratory failure with hypoxia Is this a current diagnosis for this admission?: Yes Plan: I gave him a dose of Lasix in case he was volume overloaded, because even though his creatinine has been elevated he has been able to put out urine. I have empirically started him on Zyvox and meropenem. Blood cultures have been obtained. We have started him on BiPAP. ABG is pending. (2) Aspiration pneumonia Qualifiers: Aspiration pneumonia type: unspecified Laterality: bilateral Lung location: lower lobe of lung Qualified Code(s): J69.0 - Pneumonitis due to inhalation of food and vomit Is this a current diagnosis for this admission?: Yes Plan: He has been documented as having had some trouble swallowing in the past. He likes to lay down flat as well. More sitting him up in the bed to help with his breathing and reduce his risk of aspiration. As previously noted, I started him empirically on Zyvox and meropenem because of how long he has been in the hospital because of recent hospitalizations. (3) Acute kidney injury superimposed on CKD Is this a current diagnosis for this admission?: Yes Plan: I had stopped his fluids yesterday because I thought his volume deficit have been corrected and that his kidneys just needed some time for his creatinine to trend back down on his own. However, his creatinine did not continue to trend down. Once I can get his breathing stabilized better we will put him back on some gentle IV fluids. I am concerned however, that he was volume overloaded and that is contributed to his respiratory failure. (4) Alkalosis Is this a current diagnosis for this admission?: Yes Plan: Resolved (5) Senile dementia with behavioral disturbance Is this a current diagnosis for this admission?: Yes Plan: Supportive care (6) Abdominal pain Qualifiers: Abdominal location: left lower quadrant Qualified Code(s): R10.32 - Left lower quadrant pain Is this a current diagnosis for this admission?: Yes Plan: Apparently he has been complaining about abdominal pain for a very long time and has been evaluated by the surgical service who believes he does not have any sor t of operable condition. We are hydrating him and have him on aspirin in case there is some ischemic component. Nothing acute was seen on his CT here. Scan could not be done with contrast because of his renal function. I could not find any evidence of a prior angiogram here. He has been kept n.p.o. and so his diet has been advanced and he is eating very well. (7) Hyperglycemia due to type 2 diabetes mellitus Qualifiers: Diabetes mellitus half-way insulin use: with half-way use Qualified Code(s): E11.65 - Type 2 diabetes mellitus with hyperglycemia; Z79.4 - [facility] (current) use of insulin Is this a current diagnosis for this admission?: Yes Plan: Blood sugars are currently fairly controlled (8) Hypokalemia Is this a current diagnosis for this admission?: Yes Plan: Replacing with IV supplement as needed (9) Hypocalcemia Is this a current diagnosis for this admission?: Yes Plan: Replacing with IV supplement as needed - Time Time Spent with patient: 25-34 minutes
[2019-08-17] MEDS: ATORVASTATIN CALCIUM 40 MG TABLET PO SCH (22:09)
[2019-08-17] MEDS: ASPIRIN 81 MG TABLET, ENT COATED PO SCH (22:09)
[2019-08-17] MEDS: METHYLPREDNISOLONE INJ 40 MG/1 ML SDV IV SCH (22:09)
[2019-08-18] MEDS: LINEZOLID 600 MG/300 ML RTUPB IV SCH ×3 (00:49→23:20)
[2019-08-18] MEDS: HEPARIN SOD (PORCINE) 5,000 UNIT/ML 1 ML VIAL SUBCUT SCH ×3 (05:13→21:39)
[2019-08-18] MEDS: METHYLPREDNISOLONE INJ 40 MG/1 ML SDV IV SCH ×3 (05:13→21:42)
[2019-08-18] MEDS: PANTOPRAZOLE SODIUM 40 MG TABLET.DR PO SCH ×2 (05:13→17:20)
[2019-08-18] MEDS: LORAZEPAM INJ 2 MG/1 ML VIAL IV PRN ×2 (05:16→09:18)
[2019-08-18] MEDS: INSULIN LISPRO 100 UNIT/ML 3 ML VIAL SUBCUT SCH ×6 (08:23→21:42)
[2019-08-18 08:39] LABS: ANION GAP 15 (5-19); BLOOD UREA NITROGEN 57 mg/dL (7-20); CALCIUM 8.8 mg/dL (8.4-10.2); CARBON DIOXIDE 18 mmol/L (22-30); CHLORIDE 106 mmol/L (98-107); GLUCOSE 305 mg/dL (75-110); POTASSIUM 3.9 mmol/L (3.6-5.0)
[2019-08-18] MEDS: MEROPENEM 500 MG in NORMAL SALINE 50 ML IV SCH ×2 (09:25→21:38)
[2019-08-18] MEDS: TAMSULOSIN HCL 0.4 MG CAP.SR.24H PO SCH (10:22)
[2019-08-18] MEDS: FINASTERIDE 5 MG TABLET PO SCH (10:22)
[2019-08-18] MEDS: FUROSEMIDE INJ/PF 40 MG/4 ML SDV IV SCH ×2 (10:22→21:39)
--- NOTE | 2019-08-18 14:28 | PDOC PROGRESS REPORT ---
Subjective Progress Note for:: 08/18/19 Subjective:: He has been intermittently compliant with BiPAP overnight. He got some Lasix yesterday evening and did have some improved urine output. He kept wanting to pull the BiPAP off the day and so we have had to put him in soft limb restraints for his safety. The BiPAP is on minimal settings and as long as he leaves at all his breathing looks okay. He has had no fevers overnight. Reason For Visit: ARF DEMENTIA HYPOKAL DM Physical Exam Vital Signs: Temp Pulse Resp BP Pulse Ox 97.9 F 126 H 29 H 158/85 H 96 08/18/19 07:50 08/18/19 12:00 08/18/19 12:00 08/18/19 12:00 08/18/19 12:00 Intake & Output 08/17/19 08/18/19 08/19/19 06:59 06:59 06:59 Intake Total 1237 700 Output Total 1975 1525 Balance -738 -825 Weight 79 kg 80.4 kg General appearance: PRESENT: cooperative, disheveled, no apparent distress Respiratory exam: PRESENT: crackles, prolonged expiratory phas, symmetrical, ta chypnea, wheezes. ABSENT: accessory muscle use, chest wall tenderness, rhonchi, unlabored Cardiovascular exam: PRESENT: +S1, +S2, tachycardia Pulses: PRESENT: normal carotid pulses Vascular exam: PRESENT: normal capillary refill GI/Abdominal exam: PRESENT: normal bowel sounds, soft. ABSENT: distended, guarding, rebound, tenderness Extremities exam: PRESENT: Pedal edema, 1+ edema ABSENT: clubbing Musculoskeletal exam: PRESENT: normal inspection. ABSENT: deformity Neurological exam: PRESENT: awake, oriented to person, oriented to place. ABSENT: oriented to situation Psychiatric exam: PRESENT: anxious Skin exam: PRESENT: dry, warm Results Laboratory Results: 08/17/19 05:54 08/18/19 07:55 08/17/19 08/17/19 08/18/19 15:33 17:05 07:55 Carbonic Acid Cancelled 0.82 L HCO3/H2CO3 Ratio Cancelled 20:1 ABG pH Cancelled 7.41 ABG pCO2 Cancelled 27.1 L ABG pO2 Cancelled 95.4 ABG HCO3 Cancelled 16.9 L ABG O2 Saturation Cancelled 97.5 ABG Base Excess Cancelled -6.8 FiO2 Cancelled 45% Sodium 139.1 Potassium 3.9 Chloride 106 Carbon Dioxide 18 L Anion Gap 15 BUN 57 H Creatinine 5.42 H Est GFR ( Amer) 13 L Glucose 305 H Calcium 8.8 08/10/19 15:10 Troponin I 0.044 Impressions: Head CT 08/10/19 15:43 IMPRESSION: 1. No acute intracranial abnormality. 2. Chronic mild to moderate small vessel ischemic changes. Atrophy. 3. Left eye prostheses. EVIDENCE OF ACUTE STROKE: NO. Abdomen/Pelvis CT 08/10/19 15:44 IMPRESSION: 1. Stable post surgical changes related to previous subtotal colectomy, since the prior study dated 07/06/2019. 2. Since the previous examination, mild bibasilar atelectasis or infiltrates. Correlation with history suggested. 3. Additional stable findings as above. Chest X-Ray 08/17/19 00:00 IMPRESSION: 1. Acute bilateral multifocal/ multilobar patchy parenchymal opaci ties. Differential considerations include pulmonary edema, ARDS and multifocal pneumonia. 2. Bilateral pleural effusions. Assessment and Plan - Diagnosis (1) Acute respiratory failure with hypoxia Is this a current diagnosis for this admission?: Yes Plan: We started him on broad-spectrum antibiotics yesterday steroids, and BiPAP, we have added Lasix today to try to get some extra fluid off of him. (2) Aspiration pneumonia Qualifiers: Aspiration pneumonia type: unspecified Laterality: bilateral Lung location: lower lobe of lung Qualified Code(s): J69.0 - Pneumonitis due to inhalation of food and vomit Is this a current diagnosis for this admission?: Yes Plan: He has been documented as having had some trouble swallowing in the past. He likes to lay down flat as well. More sitting him up in the bed to help with his breathing and reduce his risk of aspiration. As previously noted, I started him empirically on Zyvox and meropenem because of how long he has been in the hospital because of recent hospitalizations. (3) Acute kidney injury superimposed on CKD Is this a current diagnosis for this admission?: Yes Plan: We held his fluids and gave him some Lasix yesterday, his creatinine is actually a bit better today. Would like to be able to give him more fluids but he is overloaded and having some trouble breathing, due to a combination of fluid overload and suspected aspiration pneumonia. (4) Alkalosis Is this a current diagnosis for this admission?: Yes Plan: Resolved (5) Senile dementia with behavioral disturbance Is this a current diagnosis for this admission?: Yes Plan: Supportive care (6) Abdominal pain Qualifiers: Abdominal location: left lower quadrant Qualified Code(s): R10.32 - Left lower quadrant pain Is this a current diagnosis for this admission?: Yes Plan: Apparently he has been complaining about abdominal pain for a very long time and has been evaluated by the surgical service who believes he does not have any sort of operable condition. We are hydrating him and have him on aspirin in case there is some ischemic component. Nothing acute was seen on his CT here. Scan could not be done with contrast because of his renal function. I could not find any evidence of a prior angiogram here. He has been kept n.p.o. and so his diet has been advanced and he is eating very well. 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
[2019-08-18] MEDS: ATORVASTATIN CALCIUM 40 MG TABLET PO SCH (21:39)
[2019-08-18] MEDS: ASPIRIN 81 MG TABLET, ENT COATED PO SCH (21:39)
[2019-08-19] MEDS: LORAZEPAM INJ 2 MG/1 ML VIAL IV PRN (01:10)
[2019-08-19] MEDS: METHYLPREDNISOLONE INJ 40 MG/1 ML SDV IV SCH ×3 (05:56→23:15)
[2019-08-19] MEDS: PANTOPRAZOLE SODIUM 40 MG TABLET.DR PO SCH ×2 (05:56→16:18)
[2019-08-19] MEDS: HEPARIN SOD (PORCINE) 5,000 UNIT/ML 1 ML VIAL SUBCUT SCH ×3 (05:56→23:15)
[2019-08-19 06:07] LABS: ANION GAP 11 (5-19); BLOOD UREA NITROGEN 61 mg/dL (7-20); CALCIUM 8.6 mg/dL (8.4-10.2); CARBON DIOXIDE 23 mmol/L (22-30); CHLORIDE 105 mmol/L (98-107); GLUCOSE 218 mg/dL (75-110); POTASSIUM 3.4 mmol/L (3.6-5.0)
[2019-08-19] MEDS: INSULIN LISPRO 100 UNIT/ML 3 ML VIAL SUBCUT SCH ×7 (08:35→22:59)
[2019-08-19] MEDS: MEROPENEM 500 MG in NORMAL SALINE 50 ML IV SCH ×2 (09:34→23:14)
[2019-08-19] MEDS: FUROSEMIDE INJ/PF 40 MG/4 ML SDV IV SCH (09:34)
--- NOTE | 2019-08-19 10:44 | RADIOLOGY REPORT (SQ) ---
EXAM DESCRIPTION: CHEST SINGLE VIEW IMAGES COMPLETED DATE/TIME: 08/19/2019 10:23 am REASON FOR STUDY: pneumonia COMPARISON: 08/17/2019. NUMBER OF VIEWS: One view. TECHNIQUE: Single frontal radiographic view of the chest acquired. LIMITATIONS: None. FINDINGS: LUNGS AND PLEURA: Diffuse bilateral airspace disease, more prominent in the perihilar lung s. Left pleural effusion. Possible right pleural effusion. MEDIASTINUM AND HILAR STRUCTURES: No masses or contour abnormality. HEART AND VASCULATURE: Cardiac enlargement. Vascular congestion. BONES: No acute findings. HARDWARE: None in the chest. OTHER: No other significant finding. IMPRESSION: NO SIGNIFICANT INTERVAL CHANGE. PULMONARY EDEMA AND/OR PNEUMONIA. TECHNICAL DOCUMENTATION: JOB ID: [id number] 2010 [employer]- All Rights Reserved Reading location - IP/workstation name: [email or web address]
[2019-08-19] MEDS: FINASTERIDE 5 MG TABLET PO SCH (11:41)
[2019-08-19] MEDS: TAMSULOSIN HCL 0.4 MG CAP.SR.24H PO SCH (11:41)
[2019-08-19] MEDS: LINEZOLID 600 MG/300 ML RTUPB IV SCH (12:22)
[2019-08-19] MEDS ORDERED: BUMETANIDE INJ/PF 1 MG/4 ML SDV IV ONE (14:30)
[2019-08-19] MEDS ORDERED: ALBUMIN HUMAN 12.5 GM/50 ML RTUINJ IV ONE ×2 (14:30→16:00)
[2019-08-19 14:35] LABS: ALBUMIN 3.1 g/dL (3.5-5.0); PHOSPHORUS 3.8 mg/dL (2.5-4.5)
--- NOTE | 2019-08-19 15:47 | PDOC PROGRESS REPORT ---
Subjective Progress Note for:: 08/19/19 Subjective:: No adverse events overnight. We have had to keep him in soft limb restraints for his safety because he pulls the BiPAP mask off. When the mask is on he does fine, but if he gets the chance he pulls it off, and as soon as he pulls it off he yells out for it to be put back on. Vital signs have otherwise been stable. Spoke to his at length today. She changed his CODE STATUS to DNR. Reason For Visit: ARF DEMENTIA HYPOKAL DM Physical Exam Vital Signs: Temp Pulse Resp BP Pulse Ox 97.7 F 103 H 32 H 168/65 H 100 08/19/19 15:02 08/19/19 15:02 08/19/19 15:02 08/19/19 15:02 08/19/19 15:02 Intake & Output 08/18/19 08/19/19 08/20/19 06:59 06:59 06:59 Intake Total 700 500 350 Output Total 1525 1330 250 Balance -825 -830 100 Weight 80.4 kg 81.2 kg General appearance: PRESENT: cooperative, disheveled, moderate distress Respiratory exam: PRESENT: crackles, prolonged expiratory phas, symmetrical, tachypnea, wheezes. ABSENT: accessory muscle use, chest wall tenderness, rhonchi, unlabored Cardiovascular exam: PRESENT: +S1, +S2, tachycardia Pulses: PRESENT: normal carotid pulses Vascular exam: PRESENT: normal capillary refill GI/Abdominal exam: PRESENT: normal bowel sounds, soft. ABSENT: distended, guarding, rebound, tenderness Extremities exam: PRESENT: Pedal edema, 1+ edema ABSENT: clubbing Musculoskeletal exam: PRESENT: normal inspection. ABSENT: deformity Neurological exam: PRESENT: awake, oriented to person, oriented to place. ABSENT: oriented to situation Psychiatric exam: PRESENT: anxious Skin exam: PRESENT: dry, warm Results Laboratory Results: 08/17/19 05:54 08/19/19 05:26 08/19/19 08/19/19 05:26 05:26 Sodium 139.0 Potassium 3.4 L Chloride 105 Carbon Dioxide 23 Anion Gap 11 BUN 61 H Creatinine 5.45 H Est GFR ( Amer) 12 L Glucose 218 H Calcium 8.6 Phosphorus 3.8 Albumin 3.1 L 08/10/19 15:10 Troponin I 0.044 Impressions: Head CT 08/10/19 15:43 IMPRESSION: 1. No acute intracranial abnormality. 2. Chronic mild to moderate small vessel ischemic changes. Atrophy. 3. Left eye prostheses. EVIDENCE OF ACUTE STROKE: NO. Abdomen/Pelvis CT 08/10/19 15:44 IMPRESSION: 1. Stable post surgical changes related to previous subtotal colectomy, since the prior study dated 07/06/2019. 2. Since the previous examination, mild bibasilar atelectasis or infiltrates. Correlation with history suggested. 3. Additional stable findings as above. Chest X-Ray 08/19/19 00:00 IMPRESSION: NO SIGNIFICANT INTERVAL CHANGE. PULMONARY EDEMA AND/OR PNEUMONIA. Assessment and Plan - Diagnosis (1) Acute respiratory failure with hypoxia Is this a current diagnosis for this admission?: Yes Plan: Continue BiPAP to mean SPO2 greater than 90%. Continue soft limb restraints as needed if he keeps try to pull the mask off. We also have him on adjunctive steroids and diuretics. Continue broad-spectrum antibiotics. (2) Aspiration pneumonia Qualifiers: Aspiration pneumonia type: unspecified Laterality: bilateral Lung location: lower lobe of lung Qualified Code(s): J69.0 - Pneumonitis due to inhalation of food and vomit Is this a current diagnosis for this admission?: Yes Plan: Continue broad-spectrum antibiotics. Aspiration precautions. Cultures pending. (3) Acute kidney injury superimposed on CKD Is this a current diagnosis for this admission?: Yes Plan: His volume deficit is been corrected and his creatinine continues to stay around 5.5. Were having to diurese him now because of volume overload. (4) Alkalosis Is this a current diagnosis for this admission?: Yes Plan: Resolved (5) Senile dementia with behavioral disturbance Is this a current diagnosis for this admission?: Yes Plan: Supportive care (6) Abdominal pain Qualifiers: Abdominal location: left lower quadrant Qualified Code(s): R10.32 - Left lower quadrant pain Is this a current diagnosis for this admission?: Yes Plan: Apparently he has been complaining about abdominal pain for a very long time and has been evaluated by the surgical service who believes he does not have any sort of operable condition. We are hydrating him and have him on aspirin in case there is some ischemic component. Nothing acute was seen on his CT here. Scan could not be done with contrast because of his renal function. I could not find any evidence of a prior angiogram here. He has been kept n.p.o. and so his diet has been advanced and he is eating very well. 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
[2019-08-19] MEDS ORDERED: POTASSIUM CHLORIDE 10 MEQ TABLET.ER PO ONE (23:59)
[2019-08-20] MEDS: ASPIRIN 81 MG TABLET, ENT COATED PO SCH ×2 (00:10→22:35)
[2019-08-20] MEDS: ATORVASTATIN CALCIUM 40 MG TABLET PO SCH ×2 (00:10→22:35)
[2019-08-20] MEDS: LINEZOLID 600 MG/300 ML RTUPB IV SCH ×2 (00:19→12:15)
[2019-08-20 00:47] LABS: ARTERIAL BLOOD BASE EXCESS -0.7 mmol/L; ARTERIAL BLOOD H2CO3 0.98 mmol/L (1.05-1.35); ARTERIAL BLOOD HCO3 22.7 mmol/L (20-24); ARTERIAL BLOOD O2 SATURATION 97.7 % (94-98); ARTERIAL BLOOD PCO2 32.4 mmHg (35-45); ARTERIAL BLOOD PH 7.46 (7.35-7.45); ARTERIAL BLOOD PO2 95.8 mmHg (80-100); ARTERIAL BLOOD TOTAL CO2 23.7 mmol/L (23-27)
[2019-08-20 00:48] LABS: ARTERIAL BLOOD FIO2 40%
[2019-08-20] MEDS: POTASSIUM CHLORIDE 20 MEQ/50 ML RTU IV SCH ×2 (01:34→03:41)
[2019-08-20] MEDS: FUROSEMIDE INJ/PF 40 MG/4 ML SDV IV SCH ×3 (01:55→22:36)
[2019-08-20] MEDS: LORAZEPAM INJ 2 MG/1 ML VIAL IV PRN ×2 (01:55→19:20)
[2019-08-20] MEDS: PANTOPRAZOLE SODIUM 40 MG TABLET.DR PO SCH ×2 (06:43→17:38)
[2019-08-20] MEDS: HEPARIN SOD (PORCINE) 5,000 UNIT/ML 1 ML VIAL SUBCUT SCH ×3 (06:44→22:35)
[2019-08-20] MEDS: METHYLPREDNISOLONE INJ 40 MG/1 ML SDV IV SCH ×3 (06:44→22:36)
[2019-08-20 06:56] LABS: ANION GAP 14 (5-19); BLOOD UREA NITROGEN 69 mg/dL (7-20); CALCIUM 8.6 mg/dL (8.4-10.2); CARBON DIOXIDE 21 mmol/L (22-30); CHLORIDE 103 mmol/L (98-107); GLUCOSE 238 mg/dL (75-110); POTASSIUM 3.8 mmol/L (3.6-5.0)
[2019-08-20] MEDS: INSULIN LISPRO 100 UNIT/ML 3 ML VIAL SUBCUT SCH ×7 (11:15→22:35)
[2019-08-20] MEDS: MEROPENEM 500 MG in NORMAL SALINE 50 ML IV SCH ×2 (11:21→23:41)
[2019-08-20] MEDS: FINASTERIDE 5 MG TABLET PO SCH (11:22)
[2019-08-20] MEDS: TAMSULOSIN HCL 0.4 MG CAP.SR.24H PO SCH (11:22)
--- NOTE | 2019-08-20 12:07 | PDOC PROGRESS REPORT ---
Subjective Progress Note for:: 08/20/19 Subjective:: No adverse events overnight. He is remain on BiPAP and has been stable. He has been able to come out of restraints and has not tried to pull the mask off. He has been coughing up some really thick secretions. No fevers. Reason For Visit: ARF DEMENTIA HYPOKAL DM Physical Exam Vital Signs: Temp Pulse Resp BP Pulse Ox 98.5 F 106 H 30 H 139/66 H 100 08/20/19 11:33 08/20/19 11:33 08/20/19 11:33 08/20/19 11:33 08/20/19 11:33 Intake & Output 08/19/19 08/20/19 08/21/19 06:59 06:59 06:59 Intake Total 500 2040 23 Output Total 1330 1700 300 Balance -830 340 -277 Weight 81.2 kg 88.4 kg General appearance: PRESENT: cooperative, disheveled, no apparent distress Respiratory exam: PRESENT: Rhonchi, symmetrical, unlabored. ABSENT: accessory muscle use, chest wall tenderness, prolonged expiratory phase, rales, wheezes Cardiovascular exam: PRESENT: +S1, +S2, RRR Pulses: PRESENT: normal carotid pulses Vascular exam: PRESENT: normal capillary refill GI/Abdominal exam: PRESENT: normal bowel sounds, soft. ABSENT: distended, guarding, rebound, tenderness Extremities exam: PRESENT: Pedal edema, 1+ edema ABSENT: clubbing Musculoskeletal exam: PRESENT: normal inspection. ABSENT: deformity Neurological exam: PRESENT: awake, oriented to person, oriented to place. ABSENT: oriented to situation Psychiatric exam: PRESENT: Appropriate affect Skin exam: PRESENT: dry, warm Results Laboratory Results: 08/17/19 05:54 08/20/19 05:41 08/19/19 08/20/19 08/20/19 05:26 00:30 05:41 Carbonic Acid 0.98 L HCO3/H2CO3 Ratio 23:1 ABG pH 7.46 H ABG pCO2 32.4 L ABG pO2 95.8 ABG HCO3 22.7 ABG O2 Saturation 97.7 ABG Base Excess -0.7 FiO2 40% Sodium 137.6 Potassium 3.8 Chloride 103 Carbon Dioxide 21 L Anion Gap 14 BUN 69 H Creatinine 5.44 H Est GFR ( Amer) 13 L Glucose 238 H Calcium 8.6 Phosphorus 3.8 Albumin 3.1 L 08/10/19 15:10 Troponin I 0.044 Impressions: Head CT 08/10/19 15:43 IMPRESSION: 1. No acute intracranial abnormality. 2. Chronic mild to moderate small vessel ischemic changes. Atrophy. 3. Left eye prostheses. EVIDENCE OF ACUTE STROKE: NO. Abdomen/Pelvis CT 08/10/19 15:44 IMPRESSION: 1. Stable post surgical changes related to previous subtotal colectomy, since the prior study dated 07/06/2019. 2. Since the previous examination, mild bibasilar atelectasis or infiltrates. Correlation with history suggested. 3. Additional stable findings as above. Chest X-Ray 08/19/19 00:00 IMPRESSION: NO SIGNIFICANT INTERVAL CHANGE. PULMONARY EDEMA AND/OR PNEUMONIA. Assessment and Plan - Diagnosis (1) Acute respiratory failure with hypoxia Is this a current diagnosis for this admission?: Yes Plan: Currently stable on BiPAP, appears calm, is able to relax and rest with the mask on, oxygen saturations above 92% (2) Aspiration pneumonia Qualifiers: Aspiration pneumonia type: unspecified Laterality: bilateral Lung location: lower lobe of lung Qualified Code(s): J69.0 - Pneumonitis due to inhalation of food and vomit Is this a current diagnosis for this admission?: Yes Plan: Continue broad-spectrum antibiotics. Aspiration precautions. Cultures pending. Now that he is producing sputum are going to send off a specimen (3) Acute kidney injury superimposed on CKD Is this a current diagnosis for this admission?: Yes Plan: His volume deficit is been corrected and his creatinine continues to stay around 5.5. Were having to diurese him now because of volume overload. (4) Alkalosis Is this a current diagnosis for this admission?: Yes Plan: Resolved (5) Senile dementia with behavioral disturbance Is this a current diagnosis for this admission?: Yes Plan: Supportive care (6) Abdominal pain Qualifiers: Abdominal location: left lower quadrant Qualified Code(s): R10.32 - Left lower quadrant pain Is this a current diagnosis for this admission?: Yes Plan: Apparently he has been complaining about abdominal pain for a very long time and has been evaluated by the surgical service who believes he does not have any sort of operable condition. We are hydrating him and have him on aspirin in case there is some ischemic component. Nothing acute was seen on his CT here. Scan could not be done with contrast because of his renal function. I could not find any evidence of a prior angiogram here. He has been kept n.p.o. and so his diet has been advanced and he is eating very well. 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
--- NOTE | 2019-08-20 12:54 | XCELERA REPORT ---
[address] [address] Transthoracic Echocardiogram Report Name: MIKE CROOK Age: 74 yrs Gender: Male : 1945 Patient Status: Inpatient Patient Location: [facility]^A Study Date: 08/19/2019 04:52 PM Height: 67 in Weight: 179 lb BSA: 1.9 m2 Procedure: A two-dimensional transthoracic echocardiogram with color flow and Doppler was performed. The study was technically limited with all images being suboptimal in quality. Reason For Study: pulmonary edema/CHF History: pulmonary edema/CHF. Ordering Physician: ASHLEY MARINELLI Performed By: Nettie Knutson Interpretation Summary The left ventricle is normal in size. There is normal left ventricular wall thickness. LV EF is 55% Left ventricular systolic function is low normal. Doppler measurements suggest impaired left ventricular relaxation, which is associated with grade I/IV or mild diastolic dysfunction The left ventricular wall motion is normal. There is no thrombus. Unable to assess for ASD , VSD , or PFO. The right ventricle is grossly normal size. The right ventricle is not well visualized secondary to technical limitations The right atrium is normal. The left atrium is mildly dilated. There is no mitral valve stenosis. There is no evidence of mitral valve prolapse. There is no vegetation seen on the mitral valve. There is no aortic valvular vegetation. There is no aortic valve stenosis There is no LVOT obstruction. No aortic regurgitation is present. There is no tricuspid stenosis. There is a trace amount of tricuspid regurgitation Tricuspid regurgitation jet envelope not well defined to measure RV systolic pressure accurately. There is no pulmonic valvular stenosis. There is no pulmonic valvular regurgitation. The aortic root is normal size. The inferior vena cava appeared normal and decreased > 50% with respiration (RAP 5-10 mmHg) There is no pericardial effusion. MMode/2D Measurements & Calculations RVDd: 3.6 cm LVIDd: 5.0 cm FS: 28.0 % Ao root diam: 3.2 cm IVSd: 1.4 cm LVIDs: 3.6 cm EDV(Teich): 116.9 ml Ao root area: 8.2 cm2 LVPWd: 1.0 cm ESV(Teich): 53.8 ml LA dimension: 4.3 cm EF(Teich): 54.0 % Doppler Measurements & Calculations MV E max ronald: MV P1/2t max ronald: Ao V2 max: LV V1 max P.6 cm/sec 121.2 cm/sec 154.4 cm/sec 4.1 mmHg MV A max ronald: MV P1/2t: 57.7 msec Ao max PG: LV V1 max: 114.5 cm/sec MVA(P1/2t): 3.8 cm2 9.5 mmHg 101.7 cm/sec MV E/A: 0.97 MV dec slope: 615.4 cm/sec2 MV dec time: 0.19 sec PA V2 max: MV P1/2t-pr_phl: 96.7 cm/sec 57.7 msec PA max P.7 mmHg Left Ventricle The left ventricle is normal in size. There is normal left ventricular wall thickness. LV EF is 55%. Left ventricular systolic function is low normal. Doppler measurements suggest impaired left ventricular relaxation, which is associated with grade I/IV or mild diastolic dysfunction. The left ventricular wall motion is normal. There is no thrombus. Unable to assess for ASD , VSD , or PFO. Right Ventricle The right ventricle is grossly normal size. The right ventricle is not well visualized secondary to technical limitations. Atria The right atrium is normal. The left atrium is mildly dilated. Mitral Valve There is no evidence of mitral valve prolapse. There is no vegetation seen on the mitral valve. There is no mitral valve stenosis. There is a mild amount of mitral regurgitation. Aortic Valve There is no aortic valvular vegetation. There is no aortic valve stenosis. There is no LVOT obstruction. No aortic regurgitation is present. Tricuspid Valve There is no tricuspid stenosis. There is a trace amount of tricuspid regurgitation. Tricuspid regurgitation jet envelope not well defined to measure RV systolic pressure accurately. Pulmonic Valve There is no pulmonic valvular stenosis. There is no pulmonic valvular regurgitation. Great Vessels The aortic root is normal size. The inferior vena cava appeared normal and decreased > 50% with respiration (RAP 5-10 mmHg). Effusions There is no pericardial effusion. : ASHLEY MARINELLI Lakshmi
[2019-08-21] MEDS: LINEZOLID 600 MG/300 ML RTUPB IV SCH ×2 (00:30→12:21)
[2019-08-21] MEDS: LORAZEPAM INJ 2 MG/1 ML VIAL IV PRN ×4 (00:47→20:36)
[2019-08-21] MEDS: PANTOPRAZOLE SODIUM 40 MG TABLET.DR PO SCH ×2 (05:17→17:19)
[2019-08-21] MEDS: METHYLPREDNISOLONE INJ 40 MG/1 ML SDV IV SCH (05:18)
[2019-08-21] MEDS: HEPARIN SOD (PORCINE) 5,000 UNIT/ML 1 ML VIAL SUBCUT SCH ×3 (05:18→22:48)
[2019-08-21 06:28] LABS: ANION GAP 13 (5-19); BLOOD UREA NITROGEN 84 mg/dL (7-20); CALCIUM 8.3 mg/dL (8.4-10.2); CARBON DIOXIDE 21 mmol/L (22-30); CHLORIDE 102 mmol/L (98-107); GLUCOSE 267 mg/dL (75-110)
[2019-08-21] MEDS: INSULIN LISPRO 100 UNIT/ML 3 ML VIAL SUBCUT SCH ×7 (09:08→22:49)
[2019-08-21] MEDS: FINASTERIDE 5 MG TABLET PO SCH (09:09)
[2019-08-21] MEDS: TAMSULOSIN HCL 0.4 MG CAP.SR.24H PO SCH (09:09)
[2019-08-21] MEDS: MEROPENEM 500 MG in NORMAL SALINE 50 ML IV SCH ×2 (09:09→22:51)
[2019-08-21] MEDS: FUROSEMIDE INJ/PF 40 MG/4 ML SDV IV SCH ×2 (09:09→22:49)
[2019-08-21] MEDS: SODIUM CHLORIDE NASAL SPRAY 44 ML NASL SCH ×3 (12:18→22:53)
--- NOTE | 2019-08-21 13:30 | PDOC PROGRESS REPORT ---
Subjective Progress Note for:: 08/21/19 Subjective:: No adverse events overnight. We caught him trying to eat and drink while he was laying down flat again. When he took the mask off and got onto the nasal cannula yesterday, he apparently did pretty well but called out for the mask to be put back on despite the fact that his lung sounds were pretty good and he was oxygenating in the upper 90s. I think there is a degree of psychological dependence here. I pretty much had to tell him today that he was going to take the mask off, he was going to keep the nasal cannula on, and that he was going to eat while he sat up, and that his nurse would carefully assess him to determine if the nasal cannula was insufficient. Reason For Visit: ARF DEMENTIA HYPOKAL DM Physical Exam Vital Signs: Temp Pulse Resp BP Pulse Ox 97.8 F 100 5 L 130/71 H 98 08/21/19 07:08 08/21/19 07:08 08/21/19 08:27 08/21/19 07:08 08/21/19 08:27 Intake & Output 08/20/19 08/21/19 08/22/19 06:59 06:59 06:59 Intake Total 2040 1483 100 Output Total 1700 1325 500 Balance 340 158 -400 Weight 88.4 kg 83.7 kg General appearance: PRESENT: cooperative, disheveled, no apparent distress Respiratory exam: PRESENT: Faint rhonchi right base, unlabored. ABSENT: acces juan muscle use, chest wall tenderness, prolonged expiratory phase, rales, wheezes Cardiovascular exam: PRESENT: +S1, +S2, RRR Pulses: PRESENT: normal carotid pulses Vascular exam: PRESENT: normal capillary refill GI/Abdominal exam: PRESENT: normal bowel sounds, soft. ABSENT: distended, guarding, rebound, tenderness Extremities exam: PRESENT: Trace edema ABSENT: clubbing, pedal edema Musculoskeletal exam: PRESENT: normal inspection. ABSENT: deformity Neurological exam: PRESENT: awake, oriented to person, oriented to place. ABSENT: oriented to situation Psychiatric exam: PRESENT: Appropriate affect Skin exam: PRESENT: dry, warm Results Laboratory Results: 08/17/19 05:54 08/21/19 05:08 08/21/19 05:08 Sodium 135.8 L Potassium 4.0 Chloride 102 Carbon Dioxide 21 L Anion Gap 13 BUN 84 H Creatinine 5.17 H Est GFR ( Amer) 13 L Glucose 267 H Calcium 8.3 L 08/10/19 15:10 Troponin I 0.044 Impressions: Head CT 08/10/19 15:43 IMPRESSION: 1. No acute intracranial abnormality. 2. Chronic mild to moderate small vessel ischemic changes. Atrophy. 3. Left eye prostheses. EVIDENCE OF ACUTE STROKE: NO. Abdomen/Pelvis CT 08/10/19 15:44 IMPRESSION: 1. Stable post surgical changes related to previous subtotal colectomy, since the prior study dated 07/06/2019. 2. Since the previous examination, mild bibasilar atelectasis or infiltrates. Correlation with history suggested. 3. Additional stable findings as above. Chest X-Ray 08/19/19 00:00 IMPRESSION: NO SIGNIFICANT INTERVAL CHANGE. PULMONARY EDEMA AND/OR PNEUMONIA. Assessment and Plan - Diagnosis (1) Acute respiratory failure with hypoxia Is this a current diagnosis for this admission?: Yes Plan: I think he is psychologically dependent on the BiPAP, we made him take it off admitted keep nasal cannula all and he is done fine on that so far. We will continue to wean O2 as tolerated. (2) Aspiration pneumonia Qualifiers: Aspiration pneumonia type: unspecified Laterality: bilateral Lung location: lower lobe of lung Qualified Code(s): J69.0 - Pneumonitis due to inhalation of food and vomit Is this a current diagnosis for this admission?: Yes Plan: He is responded to antibiotics. We caught him trying to eat and drink while he was laying down flat again, which I think is how all of this started a few days ago. Unfortunately, I think we are going to have to keep all food and drink out of reach of him unless he is under supervision. If he continues to progress, I will de-escalate his antibiotics. I think I can de-escalate his steroids today. (3) Acute kidney injury superimposed on CKD Is this a current diagnosis for this admission?: Yes Plan: I think him then given 1 more day of Lasix and then stop it tomorrow. His BUN has gone up, but his creatinine has been trending down since we started diuresing him. (4) Alkalosis Is this a current diagnosis for this admission?: Yes Plan: Resolved (5) Senile dementia with behavioral disturbance Is this a current diagnosis for this admission?: Yes Plan: Supportive care (6) Abdominal pain Qualifiers: Abdominal location: left lower quadrant Qualified Code(s): R10.32 - Left lower quadrant pain Is this a current diagnosis for this admission?: Yes Plan: Apparently he has been complaining about abdominal pain for a very long time and has been evaluated by the surgical service who believes he does not have any sort of operable condition. We have hydrated him and have him on aspirin in case there is some ischemic component, but I think this is unlikely. Nothing acute was seen on his CT here. Scan could not be done with contrast because of his renal function. I could not find any evidence of a prior angiogram here. He has been kept n.p.o. and so his diet has been advanced and he is eating very well. (7) Hyperglycemia due to type 2 diabetes mellitus Qualifiers: Diabetes mellitus long term care phlebotomist insulin use: with long term care phlebotomist use Qualified Code(s): E11.65 - Type 2 diabetes mellitus with hyperglycemia; Z79.4 - custodial (current) use of insulin Is this a current diagnosis for this admission?: Yes Plan: Blood sugars are currently elevated due to steroids, will adjust his coverage (8) Hypokalemia Is this a current diagnosis for this admission?: Yes Plan: Replacing with IV supplement as needed (9) Hypocalcemia Is this a current diagnosis for this admission?: Yes Plan: Replacing with IV supplement as needed - Time Time Spent with patient: 25-34 minutes
[2019-08-21] MEDS ORDERED: METHYLPREDNISOLONE INJ 40 MG/1 ML SDV IV SCH (22:00)
[2019-08-21] MEDS: ASPIRIN 81 MG TABLET, ENT COATED PO SCH (22:49)
[2019-08-21] MEDS: ATORVASTATIN CALCIUM 40 MG TABLET PO SCH (22:50)
[2019-08-22] MEDS: LINEZOLID 600 MG/300 ML RTUPB IV SCH (01:35)
[2019-08-22] MEDS: ACETAMINOPHEN 325 MG TABLET PO PRN ×2 (03:13→22:24)
[2019-08-22] MEDS: LORAZEPAM 0.5 MG TABLET PO PRN ×2 (04:35→22:50)
[2019-08-22] MEDS: PANTOPRAZOLE SODIUM 40 MG TABLET.DR PO SCH ×2 (05:29→16:59)
[2019-08-22] MEDS: HEPARIN SOD (PORCINE) 5,000 UNIT/ML 1 ML VIAL SUBCUT SCH ×3 (05:30→22:08)
[2019-08-22] MEDS: INSULIN LISPRO 100 UNIT/ML 3 ML VIAL SUBCUT SCH ×6 (08:29→22:09)
[2019-08-22] MEDS: SODIUM CHLORIDE NASAL SPRAY 44 ML NASL SCH ×3 (08:29→16:59)
[2019-08-22] MEDS: MEROPENEM 500 MG in NORMAL SALINE 50 ML IV SCH (09:55)
[2019-08-22] MEDS: FINASTERIDE 5 MG TABLET PO SCH (10:17)
[2019-08-22] MEDS: TAMSULOSIN HCL 0.4 MG CAP.SR.24H PO SCH (10:17)
[2019-08-22 10:20] LABS: HEMATOCRIT 23.4 % (37.9-51.0); HEMOGLOBIN 8.1 g/dL (13.5-17.0); MEAN CORPUSCULAR HEMOGLOBIN 31.6 pg (27.0-33.4); MEAN CORPUSCULAR HGB CONC 34.8 g/dL (32.0-36.0); MEAN CORPUSCULAR VOLUME 91 fl (80-97); PLATELET COUNT 247 10^3/uL (150-450); RED BLOOD COUNT 2.58 10^6/uL (4.35-5.55); RED CELL DISTRIBUTION WIDTH 12.4 % (11.5-14.0)
[2019-08-22 10:38] LABS: ANION GAP 13 (5-19); BLOOD UREA NITROGEN 102 mg/dL (7-20); CALCIUM 7.9 mg/dL (8.4-10.2); CARBON DIOXIDE 23 mmol/L (22-30); CHLORIDE 100 mmol/L (98-107); GLUCOSE 301 mg/dL (75-110); POTASSIUM 3.8 mmol/L (3.6-5.0)
[2019-08-22] MEDS ORDERED: ACETAMINOPHEN 650 MG SUPP.RECT PR PRN (12:08)
[2019-08-22] MEDS ORDERED: EPOETIN ALFA-EPBX 20,000 UNIT in SYRINGE, DISPOSABLE, 1 EACH SUBCUT ONE (12:30)
[2019-08-22 13:08] LABS: ABSOLUTE RETICS # 0.038 10^6/uL (0.028-0.122); RETICULOCYTE COUNT (AUTO) 1.48 % (0.66-2.85)
[2019-08-22 13:19] LABS: IRON(TIBC) 86.3 ug/dL (49-181)
--- NOTE | 2019-08-22 14:31 | PDOC PROGRESS REPORT ---
Subjective Progress Note for:: 08/22/19 Subjective:: No adverse events overnight. No new complaints. Vital signs been stable. Heart rate was up a little bit this morning but it seemed to come down some as the day went on. He has been off BiPAP and has been on 4 L. We lost IV access last night and despite multiple attempts have been unable to reestablish. Reason For Visit: ARF DEMENTIA HYPOKAL DM Physical Exam Vital Signs: Temp Pulse Resp BP Pulse Ox 97.8 F 116 H 20 139/82 H 100 08/22/19 08:01 08/22/19 08:01 08/22/19 08:01 08/22/19 08:01 08/22/19 08:01 Intake & Output 08/21/19 08/22/19 08/23/19 06:59 06:59 06:59 Intake Total 1483 1850 Output Total 1325 1775 Balance 158 75 Weight 83.7 kg 86.7 kg General appearance: PRESENT: cooperative, disheveled, no apparent distress Respiratory exam: PRESENT: Clear to auscultation bilaterally, unlabored. ABSENT: accessory muscle use, chest wall tenderness, prolonged expiratory phase, rales, wheezes Cardiovascular exam: PRESENT: +S1, +S2, RRR Pulses: PRESENT: normal carotid pulses Vascular exam: PRESENT: normal capillary refill GI/Abdominal exam: PRESENT: normal bowel sounds, soft. ABSENT: distended, guarding, rebound, tenderness Extremities exam: PRESENT: Trace edema ABSENT: clubbing, pedal edema Musculoskeletal exam: PRESENT: normal inspection. ABSENT: deformity Neurological exam: PRESENT: awake, oriented to person, oriented to place. ABSENT: oriented to situation Psychiatric exam: PRESENT: Appropriate affect Skin exam: PRESENT: dry, warm Results Laboratory Results: 08/22/19 10:12 08/22/19 10:12 08/22/19 08/22/19 08/22/19 10:12 10:12 10:12 WBC 8.0 RBC 2.58 L Hgb 8.1 L Hct 23.4 L MCV 91 MCH 31.6 MCHC 34.8 RDW 12.4 Plt Count 247 Retic Count (auto) 1.48 Sodium 135.9 L Potassium 3.8 Chloride 100 Carbon Dioxide 23 Anion Gap 13 BUN 102 H Creatinine 5.42 H Est GFR ( Amer) 13 L Glucose 301 H Calcium 7.9 L Transferrin 08/22/19 10:12 WBC RBC Hgb Hct MCV MCH MCHC RDW Plt Count Retic Count (auto) Sodium Potassium Chloride Carbon Dioxide Anion Gap BUN Creatinine Est GFR ( Amer) Glucose Calcium Transferrin 153.66 L 08/10/19 15:10 Troponin I 0.044 Impressions: Head CT 08/10/19 15:43 IMPRESSION: 1. No acute intracranial abnormality. 2. Chronic mild to moderate small vessel ischemic changes. Atrophy. 3. Left eye prostheses. EVIDENCE OF ACUTE STROKE: NO. Abdomen/Pelvis CT 08/10/19 15:44 IMPRESSION: 1. Stable post surgical changes related to previous subtotal colectomy, since the prior study dated 07/06/2019. 2. Since the previous examination, mild bibasilar atelectasis or infiltrates. Correlation with history suggested. 3. Additional stable findings as above. Chest X-Ray 08/19/19 00:00 IMPRESSION: NO SIGNIFICANT INTERVAL CHANGE. PULMONARY EDEMA AND/OR PNEUMONIA. Assessment and Plan - Diagnosis (1) Acute respiratory failure with hypoxia Is this a current diagnosis for this admission?: Yes Plan: He is down to 4 L nasal cannula. We are going to continue to wean O2 as tolerated and see if we can get him on room air. (2) Aspiration pneumonia Qualifiers: Aspiration pneumonia type: unspecified Laterality: bilateral Lung location: lower lobe of lung Qualified Code(s): J69.0 - Pneumonitis due to inhalation of food and vomit Is this a current diagnosis for this admission?: Yes Plan: Resolved. I have discontinued his antibiotics. We just have to watch him c losely because he would keep trying to slide down in the bed even when he is propped up, and he will try to eat and drink while he is laying down flat. (3) Acute kidney injury superimposed on CKD Is this a current diagnosis for this admission?: Yes Plan: I asked Dr. Garcia to see him in consultation. She recommended no further intervention. She thinks it just may take some time for his creatinine to trend back down, if it is going to at all. He is taking in good amounts of p.o. fluid. Urine output is been good. Lasix has been discontinued. (4) Alkalosis Is this a current diagnosis for this admission?: Yes Plan: Resolved (5) Senile dementia with behavioral disturbance Is this a current diagnosis for this admission?: Yes Plan: Supportive care. PT eval requested. (6) Abdominal pain Qualifiers: Abdominal location: left lower quadrant Qualified Code(s): R10.32 - Left lower quadrant pain Is this a current diagnosis for this admission?: Yes Plan: Apparently he has been complaining about abdominal pain for a very long time and has been evaluated by the surgical service who believes he does not have any sort of operable condition. We have hydrated him and have him on aspirin in case there is some ischemic component, but I think this is unlikely. Nothing acute was seen on his CT here. Scan could not be done with contrast because of his renal function. I could not find any evidence of a prior angiogram here. His diet has been advanced and he is eating very well. (7) Hyperglycemia due to type 2 diabetes mellitus Qualifiers: Diabetes mellitus chcf insulin use: with chcf use Qualified Code(s): E11.65 - Type 2 diabetes mellitus with hyperglycemia; Z79.4 - MCC (current) use of insulin Is this a current diagnosis for this admission?: Yes Plan: I have discontinued his steroids, we are monitoring his glucoses to see if he needs further adjustment of his insulin. (8) Hypokalemia Is this a current diagnosis for this admission?: Yes Plan: Replacing with IV supplement as needed (9) Hypocalcemia Is this a current diagnosis for this admission?: Yes Plan: Replacing with IV supplement as needed - Time Time Spent with patient: 25-34 minutes
--- NOTE | 2019-08-22 17:35 | PDOC CONSULTATION ---
Consultation Consult Date: 08/22/19 Provider Consulted: BRIAN PARIKH Consult reason:: FEROZ/CKD History of Present Illness Admission Date/PCP: 08/10/19 19:29 MARYLU IGLESIAS PA-C History of Present Illness: MIKE CROOK is a 74 year old male with history of chronic kidney disease stage IV, diabetes mellitus type 2, hypertension, history of ileus and partial bowel obstruction with multiple abdominal surgeries in the past and subsequent chronic abdominal complaints and dementia who was admitted on August 10, 2019 because of abdominal pain. Upon presentation he was also found to have an garrett vated BUN of 119 and a creatinine of 10.29, bicarbonate of 40, potassium of 3.3 with sodium of 134.3 and chloride of 77. Patient's baseline kidney function for the last few months this year include a creatinine ranging from about 2.8-3.2 with EGFR ranging anywhere between 15-28. Patient was admitted with acute kidney injury on top of underlying chronic kidney disease secondary to severe volume depletion. Patient was given aggressive IV fluid hydration and his creatinine has improved to around 5. Last week he was deemed to be possibly fluid overloaded with repeat chest x-ray showing diffuse bilateral airspace disease which could possibly be edema versus pneumonia and so he was started on Lasix 40 mg IV every 12 hours from August 17 until yesterday August 20. Last week patient also had an aspiration and is now currently treated with IV linezolid and meropenem. He also went into acute respiratory failure and was requiring BiPAP for the last few days but currently now on nasal cannula. His blood pressure is within acceptable limits. He is mildly tachycardic. His urine output is pretty decent making anywhere between 1300 to 1700 mL of urine in 24 hours for the last 3 days. His intake and output cumulative balance since admission is around +6-7 L. His oral fluid intake for the past 3 days ranges anywhere between 700 to 1150 mL. Patient's BUN has gone down to as low as 69 and creatinine around 5.17. Today he has a BUN of 102, creatinine of 5.42 with EGFR of 10. His bicarbonate is now 23, sodium 135.9, chloride of 100 with potassium of 3.8. Patient is very hard of hearing so is not accurately responding to my questions. The only thing he is telling me today is that he still feels bloated but he wanted to go home. He is only taking in liquids including Ensure and milk with meals. He denies any shortness of breath, cough nor fever. He denies any other complaints. Patient has lost his IV access and is difficult stick and so Dr. Barrera is wondering if the patient needs any further fluids to warrant placing a central line. Past Medical History Cardiac Medical History: Reports: Hypertension-primary Endocrine Medical History: Reports: Diabetes Mellitus Type 2 Renal/ Medical History: Reports: Chronic Kidney Disease Stage IV GI Medical History: Reports: Gastroesophageal Reflux Disease, Other - History of recurrent ileus and partial bowel obstruction Psychiatric Medical History: Reports: Dementia Past Surgical History Past Surgical History: Reports: Colostomy - multiple surgeries for chronic luq pain including a hemicolectomy, Herniorrhaphy - Right inguinal Social History Information Source: [facility] Records Lives with: Spouse/Significant other Smoking Status: Never Smoker Electronic Cigarette use?: No Frequency of Alcohol Use: None Hx Recreational Drug Use: No Drugs: None Hx Prescription Drug Abuse: No - Advance Directive Resuscitation Status: Do Not Resuscitate Family History Family History: Reviewed & Not Pertinent Parental Family History Reviewed: Yes Children Family History Reviewed: Yes Sibling(s) Family History Reviewed.: Yes Medication/Allergy Home Medications: Finasteride [Proscar 5 mg Tablet] 5 mg PO DAILY 04/24/19 Insulin Glargine,Hum.rec.anlog [Lantus Insulin 100 Unit/mL Insulin Pen] 20 units SUBCUT DAILY 07/06/19 Tamsulosin HCl [Flomax 0.4 mg Cap.sr] 0.4 mg PO DAILY 07/06/19 Pantoprazole Sodium [Protonix [address] Tablet] 40 mg PO BID 08/10/19 Zolpidem Tartrate 10 mg PO QHS 08/10/19 Allergies/Adverse Reactions: No Known Allergies Allergy (Verified 12/15/18 18:09) Review of Systems All systems: reviewed and no additional remarkable complaints except as stated Review of Systems: Constitutional: ABSENT: chills, fatigue, fever(s), headache(s), weight gain, weight loss Eyes: ABSENT: visual disturbances Ears: ABSENT: Difficulty of hearing Cardiovascular: ABSENT: chest pain, dyspnea on exertion, edema, orthropnea, palpitations Respiratory: ABSENT: cough, dyspnea, hemoptysis Gastrointestinal: ABSENT: abdominal pain, constipation, diarrhea, hematemesis, hematochezia, nausea, vomiting; reports abdominal bloating Genitourinary: ABSENT: dysuria, hematuria Musculoskeletal: ABSENT: joint swelling Integumentary: ABSENT: rash, wounds Neurological: ABSENT: abnormal gait, abnormal speech, confusion, dizziness, focal weakness, numbness, syncope Psychiatric: ABSENT: anxiety, depression Endocrine: ABSENT: cold intolerance, heat intolerance, polydipsia, polyuria Hematologic/Lymphatic: ABSENT: easy bleeding, easy bruising, lymphadenopathy Physical Exam Vital Signs: Temp Pulse Resp BP Pulse Ox 97.8 F 116 H 20 139/82 H 100 08/22/19 08:01 08/22/19 08:01 08/22/19 08:01 08/22/19 08:01 08/22/19 08:01 Intake & Output 08/21/19 08/22/19 08/23/19 06:59 06:59 06:59 Intake Total 1483 1850 Output Total 1325 1775 Balance 158 75 Weight 83.7 kg 86.7 kg Exam: General appearance: No acute distress, cooperative, well-developed, well- nourished Head exam: PRESENT: atraumatic, normocephalic Eye exam: PRESENT: Conjunctiva pale, EOMI, PERRLA. Left prosthetic eye ABSENT: conjunctival injection, scleral icterus Mouth exam: PRESENT: moist, neck supple, tongue midline Neck exam: PRESENT: full ROM. ABSENT: carotid bruit, JVD, lymphadenopathy, thyromegaly Respiratory exam: PRESENT: clear to auscultation bilaterally. ABSENT: rales, rhonchi, stridor, wheezes Cardiovascular exam: PRESENT: RRR, +S1, +S2. ABSENT: systolic murmur Pulses: PRESENT: normal radial pulses, normal dorsalis pedis pulses GI/Abdominal exam: PRESENT: normal bowel sounds, soft. Surgical scars ABSENT: guarding, mass, tenderness Rectal exam: Deferred Extremities exam: PRESENT: full ROM. Left arm swelling, bilateral feet swelling ABSENT: calf tenderness Musculoskeletal: PRESENT: full ROM. ABSENT: deformity Neurological exam: PRESENT: alert, Awake, Oriented to person, Oriented to place, Oriented to time, reflexes normal, CN II-XII grossly intact. ABSENT: motor sensory deficit Psychiatric exam: PRESENT: appropriate affect, normal mood. ABSENT: homicidal ideation, suicidal ideation Skin exam: PRESENT: intact, dry, warm. ABSENT: rash Results Laboratory Results: 08/22/19 10:12 08/22/19 10:12 08/22/19 08/22/19 10:12 10:12 WBC 8.0 RBC 2.58 L Hgb 8.1 L Hct 23.4 L MCV 91 MCH 31.6 MCHC 34.8 RDW 12.4 Plt Count 247 Sodium 135.9 L Potassium 3.8 Chloride 100 Carbon Dioxide 23 Anion Gap 13 BUN 102 H Creatinine 5.42 H Est GFR ( Amer) 13 L Glucose 301 H Calcium 7.9 L 08/10/19 15:10 Troponin I 0.044 Impressions: Head CT 08/10/19 15:43 IMPRESSION: 1. No acute intracranial abnormality. 2. Chronic mild to moderate small vessel ischemic changes. Atrophy. 3. Left eye prostheses. EVIDENCE OF ACUTE STROKE: NO. Abdomen/Pelvis CT 08/10/19 15:44 IMPRESSION: 1. Stable post surgical changes related to previous subtotal colectomy, since the prior study dated 07/06/2019. 2. Since the previous examination, mild bibasilar atelectasis or infiltrates. Correlation with history suggested. 3. Additional stable findings as above. Chest X-Ray 08/19/19 00:00 IMPRESSION: NO SIGNIFICANT INTERVAL CHANGE. PULMONARY EDEMA AND/OR PNEUMONIA. Assessment & Plan - Diagnosis (1) Acute kidney injury superimposed on CKD Is this a current diagnosis for this admission?: Yes Plan: Patient initially presented with acute prerenal azotemia secondary to severe volume depletion improved with aggressive IV fluid hydration. Patient is making a good amount of urine output. He is also taking an an adequate amount of oral fluid intake. He appears to be near euvolemic at this point. He does not need any urgent renal placement therapy. At this point I would not recommend any further IV fluids nor diuretics. I think we should just encourage him to continue his oral fluid intake and continue to monitor kidney function. He is not yet on his baseline kidney function but hopefully in time, is going to go back to his usual baseline with creatinine anywhere between 2.8-3.2 based from kidney function for the last few months. His electrolytes are also within acceptable limits at this time with resolution of his metabolic alkalosis with IV hydration. Patient needs outpatient follow-up visit with Dr. Gonzalez upon discharge. (2) Aspiration pneumonia Qualifiers: Aspiration pneumonia type: unspecified Laterality: bilateral Lung location: lower lobe of lung Qualified Code(s): J69.0 - Pneumonitis due to inhalation of food and vomit Is this a current diagnosis for this admission?: Yes Plan: Patient has been treated with IV Zyvox and meropenem since last week. Defer to the hospitalist. 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 (5) Anemia Is this a current diagnosis for this admission?: Yes Plan: This is likely a to be partly due to chronic kidney disease and needs to check his iron levels. I will give him Retacrit 20,000 units subcutaneously x1 dose today. Check iron panel. (6) Essential hypertension Is this a current diagnosis for this admission?: Yes Plan: Well-controlled. (7) Dementia Qualifiers: Dementia type: unspecified type Dementia behavioral disturbance: without behavioral disturbance Qualified Code(s): F03.90 - Unspecified dementia without behavioral disturbance Is this a current diagnosis for this admission?: Yes - Notes Notes: Thank you very much for this consultation. Discussed with Dr. Barrera. - Time Time Spent: 50 to 70 Minutes
[2019-08-22] MEDS: ASPIRIN 81 MG TABLET, ENT COATED PO SCH (22:08)
[2019-08-22] MEDS: ATORVASTATIN CALCIUM 40 MG TABLET PO SCH (22:08)
[2019-08-22] MEDS: INSULIN GLARGINE,HUM.REC.ANLOG 1,000 UNIT/10 ML VIAL SUBCUT SCH (22:10)
[2019-08-23] MEDS: SODIUM CHLORIDE NASAL SPRAY 44 ML NASL SCH ×5 (00:06→22:00)
[2019-08-23] MEDS: LORAZEPAM 0.5 MG TABLET PO PRN (03:22)
[2019-08-23 06:09] LABS: HEMATOCRIT 26.2 % (37.9-51.0); HEMOGLOBIN 9.1 g/dL (13.5-17.0); MEAN CORPUSCULAR HEMOGLOBIN 31.5 pg (27.0-33.4); MEAN CORPUSCULAR HGB CONC 34.9 g/dL (32.0-36.0); MEAN CORPUSCULAR VOLUME 90 fl (80-97); PLATELET COUNT 212 10^3/uL (150-450); RED CELL DISTRIBUTION WIDTH 12.7 % (11.5-14.0); WHITE BLOOD COUNT 6.8 10^3/uL (4.0-10.5)
[2019-08-23 06:44] LABS: ANION GAP 8 (5-19); BLOOD UREA NITROGEN 108 mg/dL (7-20); CALCIUM 7.9 mg/dL (8.4-10.2); CARBON DIOXIDE 27 mmol/L (22-30); CHLORIDE 100 mmol/L (98-107); GLUCOSE 136 mg/dL (75-110); POTASSIUM 3.5 mmol/L (3.6-5.0)
[2019-08-23] MEDS: ACETAMINOPHEN 325 MG TABLET PO PRN (06:52)
[2019-08-23] MEDS: HEPARIN SOD (PORCINE) 5,000 UNIT/ML 1 ML VIAL SUBCUT SCH ×3 (06:53→22:00)
[2019-08-23] MEDS: PANTOPRAZOLE SODIUM 40 MG TABLET.DR PO SCH ×2 (06:53→17:09)
[2019-08-23] MEDS: INSULIN LISPRO 100 UNIT/ML 3 ML VIAL SUBCUT SCH ×4 (08:41→23:05)
--- NOTE | 2019-08-23 09:25 | PDOC PROGRESS REPORT ---
Subjective Progress Note for:: 08/23/19 Subjective:: Patient appears to be very stable. When I entered the room is not even wearing his nasal cannula and he is very comfortably lying down in bed. He kept saying that he wanted to go home. He denies any complaints. Reason For Visit: ARF DEMENTIA HYPOKAL DM Physical Exam Vital Signs: Temp Pulse Resp BP Pulse Ox 97.8 F 100 20 137/68 H 97 08/23/19 03:17 08/23/19 07:00 08/23/19 03:17 08/23/19 03:17 08/23/19 06:43 Intake & Output 08/22/19 08/23/19 08/24/19 06:59 06:59 06:59 Intake Total 1850 1464 Output Total 1775 1725 Balance 75 -261 Weight 86.7 kg 80.4 kg Exam: General appearance: PRESENT: no acute distress, cooperative, well-developed, well-nourished Head exam: PRESENT: atraumatic, normocephalic, hard of hearing Eye exam: PRESENT: conjunctiva slightly pale, PERRLA. ABSENT: scleral icterus Neck exam: ABSENT: JVD Respiratory exam: PRESENT: Normal breath sounds. Firm to touch ABSENT: crackle s, rales, rhonchi, unlabored, wheezes Cardiovascular exam: PRESENT: Regular rate rhythm -+S1, +S2. ABSENT: diastolic murmur, systolic murmur GI/Abdominal exam: PRESENT: normal bowel sounds, soft. ABSENT: guarding, mass, tenderness Extremities exam: ABSENT: No edema Neurological exam: PRESENT: alert, awake, oriented to person, place and time. Skin exam: PRESENT: dry, warm, Results Laboratory Results: 08/23/19 05:28 08/23/19 05:28 08/22/19 08/22/19 08/22/19 10:12 10:12 10:12 WBC 8.0 RBC 2.58 L Hgb 8.1 L Hct 23.4 L MCV 91 MCH 31.6 MCHC 34.8 RDW 12.4 Plt Count 247 Retic Count (auto) 1.48 Sodium 135.9 L Potassium 3.8 Chloride 100 Carbon Dioxide 23 Anion Gap 13 BUN 102 H Creatinine 5.42 H Est GFR ( Amer) 13 L Glucose 301 H Calcium 7.9 L Iron TIBC % Saturation Transferrin Ferritin Vitamin B12 Folate 08/22/19 08/22/19 08/23/19 10:12 10:12 05:28 WBC 6.8 RBC 2.90 L Hgb 9.1 L Hct 26.2 L MCV 90 MCH 31.5 MCHC 34.9 RDW 12.7 Plt Count 212 Retic Count (auto) Sodium Potassium Chloride Carbon Dioxide Anion Gap BUN Creatinine Est GFR ( Amer) Glucose Calcium Iron 86.3 TIBC 218 L % Saturation 40 Transferrin 153.66 L Ferritin 372.00 Vitamin B12 684.0 Folate 9.20 08/23/19 05:28 WBC RBC Hgb Hct MCV MCH MCHC RDW Plt Count Retic Count (auto) Sodium 134.5 L Potassium 3.5 L Chloride 100 Carbon Dioxide 27 Anion Gap 8 BUN 108 H Creatinine 5.02 H Est GFR ( Amer) 14 L Glucose 136 H Calcium 7.9 L Iron TIBC % Saturation Transferrin Ferritin Vitamin B12 Folate 08/10/19 15:10 Troponin I 0.044 Impressions: Head CT 08/10/19 15:43 IMPRESSION: 1. No acute intracranial abnormality. 2. Chronic mild to moderate small vessel ischemic changes. Atrophy. 3. Left eye prostheses. EVIDENCE OF ACUTE STROKE: NO. Abdomen/Pelvis CT 08/10/19 15:44 IMPRESSION: 1. Stable post surgical changes related to previous subtotal colectomy, since the prior study dated 07/06/2019. 2. Since the previous examination, mild bibasilar atelectasis or infiltrates. Correlation with history suggested. 3. Additional stable findings as above. Chest X-Ray 08/19/19 00:00 IMPRESSION: NO SIGNIFICANT INTERVAL CHANGE. PULMONARY EDEMA AND/OR PNEUMONIA. Assessment & Plan - Diagnosis (1) Acute kidney injury superimposed on CKD Is this a current diagnosis for this admission?: Yes Plan: Presented with acute prerenal azotemia secondary to severe dehydration which is now improved. Patient is making good amount of urine. This kidney function is stable with slightly decreased creatinine today although BUN is lagging behind. No need of any renal replacement therapy. No need of IV fluids nor diuretics. From nephrology standpoint I think the patient can be discharged home with follow-up with Dr. Gonzalez in the next 2 to 3 weeks. (2) Aspiration pneumonia Qualifiers: Aspiration pneumonia type: unspecified Laterality: bilateral Lung location: lower lobe of lung Qualified Code(s): J69.0 - Pneumonitis due to inhalation of food and vomit Is this a current diagnosis for this admission?: Yes Plan: Completed IV Zyvox and meropenem per hospitalist service. 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 (5) Anemia Is this a current diagnosis for this admission?: Yes Plan: Iron stores are adequate. Patient given a Retacrit 20,000 units subcutaneously x1 dose yesterday. Anemia needs to be monitored as an outpatient and Retacrit to be continued as needed which can be done at Dr. Gonzalez office. (6) Essential hypertension Is this a current diagnosis for this admission?: Yes Plan: Well-controlled. (7) Dementia Qualifiers: Dementia type: unspecified type Dementia behavioral disturbance: without behavioral disturbance Qualified Code(s): F03.90 - Unspecified dementia without behavioral disturbance Is this a current diagnosis for this admission?: Yes - Time Time with patient: 15-25 minutes
[2019-08-23] MEDS: TAMSULOSIN HCL 0.4 MG CAP.SR.24H PO SCH (09:57)
[2019-08-23] MEDS: FINASTERIDE 5 MG TABLET PO SCH (09:57)
[2019-08-23] MEDS ORDERED: POTASSIUM CHLORIDE 10 MEQ TABLET.ER PO ONE ×2 (10:13→17:13)
--- NOTE | 2019-08-23 12:59 | PDOC DISCHARGE SUMMARY ---
Impression - Admit/DC Date/PCP Admission Date/Primary Care Provider: 08/10/19 19:29 MARYLU IGLESIAS PA-C Discharge Date: 08/23/19 - Discharge Diagnosis (1) Acute kidney injury superimposed on CKD Is this a current diagnosis for this admission?: Yes (2) Acute respiratory failure with hypoxia Is this a current diagnosis for this admission?: Yes (3) Alkalosis Is this a current diagnosis for this admission?: Yes (4) Aspiration pneumonia Is this a current diagnosis for this admission?: Yes (5) Hyperglycemia due to type 2 diabetes mellitus Is this a current diagnosis for this admission?: Yes (6) Hypokalemia Is this a current diagnosis for this admission?: Yes (7) Senile dementia with behavioral disturbance Is this a current diagnosis for this admission?: Yes (8) Abdominal pain Is this a current diagnosis for this admission?: Yes (9) Hypocalcemia Is this a current diagnosis for this admission?: Yes - Additional Information Resuscitation Status: Do Not Resuscitate Discharge Diet: Other (Comments) - Renal diet Referrals: MARYLU IGLESIAS PA-C [Primary Care Provider] - 09/01/19 1:00 pm Nilam GONZALEZ MD [ACTIVE STAFF] - Prescriptions: Aspirin [Ecotrin 81 mg EC Tablet] 81 mg PO QHS #30 tabec Simethicone 125 mg PO TIDP PRN #30 capsule PRN Reason: Home Medications: Finasteride [Proscar 5 mg Tablet] 5 mg PO DAILY 04/24/19 Insulin Glargine,Hum.rec.anlog [Lantus Insulin 100 Unit/mL Insulin Pen] 20 units SUBCUT DAILY 07/06/19 Tamsulosin HCl [Flomax 0.4 mg Cap.sr] 0.4 mg PO DAILY 07/06/19 Pantoprazole Sodium [Protonix [address] Tablet] 40 mg PO BID 08/10/19 Aspirin [Ecotrin 81 mg EC Tablet] 81 mg PO QHS #30 tabec 08/23/19 Simethicone 125 mg PO TIDP PRN #30 capsule 08/23/19 History of Present Illiness History of Present Illness: According to admitting provider: MIKE CROOK is a 74 year old male with past medical history of diabetes, hypertension, recurrent ileus and partial bowel obstruction, nonoliguric end-stage renal failure and dementia. He presents with at least 24 hours of greater confusion from baseline and hallucination. His history is obtained by the emergency room provider and record as he is a poor historian though awake and socially appropriate. In the emergency department he is found to have complaints of abdominal pain with metabolic alkalosis, acute renal failure creatinine of 9.9 from 2.54 months ago, hypokalemia and hyperglycemia. CT imaging of the abdomen is unremarkable, he started on IV fluids, potassium, insulin and referred to the hospitalist for admission. Patient is unaware of any recent changes in medication. He is asleep but arousable without distress until asked about his abdomen. Hospital Course Hospital Course: Patient was admitted to the hospital with acute renal failure and creatinine of 10. His baseline creatinine according to nephrology is usually 2.8-3.2. Patient's FEROZ was thought to be secondary to severe dehydration. Patient is known not to eat adequately and sometimes just drinks ensures at home. Patient was started on aggressive IV fluid hydration. He also underwent electrolyte repletion for hypocalcemia and hypokalemia. His renal function started to improve with aggressive IV fluids. However patient's respiratory status worsened and still becoming hypoxic. Chest x-ray revealed pulmonary edema and patient was diuresed. Patient was also briefly treated for aspiration pneumonia according to documentation. Patient's hypoxia has currently resolved and today patient is saturating on room air breathing comfortably. Patient's mental status has also improved significantly since his presentation. All IV fluids have been discontinued and his creatinine has improved to 5.02 today. Patient was seen by director corporate communications who recommends encouraging p.o. hydration and has cleared patient for discharge from a nephrology perspective to follow-up with Dr. Gonzalez within 2 weeks. During patient stay he also complained of abdominal pain but abdominal pelvis CT did not show anything remarkable. I am giving him some simethicone as he complains of gassiness. Patient is being discharged in stable conditions. Physical Exam Vital Signs: Temp Pulse Resp BP Pulse Ox 97.8 F 100 20 137/68 H 93 08/23/19 03:17 08/23/19 07:00 08/23/19 03:17 08/23/19 03:17 08/23/19 11:38 Intake & Output 08/22/19 08/23/19 08/24/19 06:59 06:59 06:59 Intake Total 1850 1464 Output Total 1775 1725 Balance 75 -261 Weight 86.7 kg 80.4 kg General appearance: PRESENT: no acute distress, cooperative Neurological exam: PRESENT: alert, awake, oriented to person, oriented to place, oriented to situation Results Laboratory Results: WBC 6.8 10^3/uL (4.0-10.5) 08/23/19 05:28 RBC 2.90 10^6/uL (4.35-5.55) L 08/23/19 05:28 Hgb 9.1 g/dL (13.5-17.0) L 08/23/19 05:28 Hct 26.2 % (37.9-51.0) L 08/23/19 05:28 MCV 90 fl (80-97) 08/23/19 05:28 MCH 31.5 pg (27.0-33.4) 08/23/19 05:28 MCHC 34.9 g/dL (32.0-36.0) 08/23/19 05:28 RDW 12.7 % (11.5-14.0) 08/23/19 05:28 Plt Count 212 10^3/uL (150-450) 08/23/19 05:28 Lymph % (Auto) 11.8 % (13-45) L 08/11/19 06:00 [place] % (Auto) 10.1 % (3-13) 08/11/19 06:00 Eos % (Auto) 0.7 % (0-6) 08/11/19 06:00 Baso % (Auto) 0.3 % (0-2) 08/11/19 06:00 Reticulocyte # 0.038 10^6/uL (0.028-0.122) 08/22/19 10:12 Absolute Neuts (auto) 5.4 10^3/uL (1.7-8.2) 08/11/19 06:00 Absolute Lymphs (auto) 0.8 10^3/uL (0.5-4.7) 08/11/19 06:00 Absolute Monos (auto) 0.7 10^3/uL (0.1-1.4) 08/11/19 06:00 Absolute Eos (auto) 0.0 10^3/uL (0.0-0.6) 08/11/19 06:00 Absolute Basos (auto) 0.0 10^3/uL (0.0-0.2) 08/11/19 06:00 Seg Neutrophils % 77.1 % (42-78) 08/11/19 06:00 Retic Count (auto) 1.48 % (0.66-2.85) 08/22/19 10:12 Carbonic Acid 0.98 mmol/L (1.05-1.35) L 08/20/19 00:30 HCO3/H2CO3 Ratio 23:1 08/20/19 00:30 ABG pH 7.46 (7.35-7.45) H 08/20/19 00:30 ABG pCO2 32.4 mmHg (35-45) L 08/20/19 00:30 ABG pO2 95.8 mmHg (80-100) 08/20/19 00:30 ABG HCO3 22.7 mmol/L (20-24) 08/20/19 00:30 ABG Total CO2 23.7 mmol/L (23-27) 08/20/19 00:30 ABG O2 Saturation 97.7 % (94-98) 08/20/19 00:30 ABG Base Excess -0.7 mmol/L 08/20/19 00:30 FiO2 40% 08/20/19 00:30 Sodium 134.5 mmol/L (137-145) L 08/23/19 05:28 Potassium 3.5 mmol/L (3.6-5.0) L 08/23/19 05:28 Chloride 100 mmol/L (98-107) 08/23/19 05:28 Carbon Dioxide 27 mmol/L (22-30) 08/23/19 05:28 Anion Gap 8 (5-19) 08/23/19 05:28 BUN 108 mg/dL (7-20) H 08/23/19 05:28 Creatinine 5.02 mg/dL (0.52-1.25) H 08/23/19 05:28 Est GFR ( Amer) 14 (>60) L 08/23/19 05:28 Est GFR (Non-Af Amer) Cancelled 08/11/19 21:20 Est GFR (MDRD) Non-Af 11 (>60) L 08/23/19 05:28 Glucose 136 mg/dL (75-110) H 08/23/19 05:28 POC Glucose 147 mg/dL (70-110) H 08/23/19 12:08 Calcium 7.9 mg/dL (8.4-10.2) L 08/23/19 05:28 Phosphorus 3.8 mg/dL (2.5-4.5) 08/19/19 05:26 Magnesium 4.1 mg/dL (1.6-2.3) H 08/12/19 05:21 Iron 86.3 ug/dL (49-181) 08/22/19 10:12 TIBC 218 ug/dL (250-450) L 08/22/19 10:12 % Saturation 40 % 08/22/19 10:12 Transferrin 153.66 mg/dL (206.00-381.00) L 08/22/19 10:12 Ferritin 372.00 ng/mL (17.9-464.0) 08/22/19 10:12 Total Bilirubin 1.0 mg/dL (0.2-1.3) 08/10/19 15:10 Direct Bilirubin 0.2 mg/dL (0.0-0.4) 08/10/19 15:10 Neonat Total Bilirubin Not Reportable 08/10/19 15:10 Neonat Direct Bilirubin Not Reportable 08/10/19 15:10 Neonat Indirect Bili Not Reportable 08/10/19 15:10 AST 19 U/L (17-59) 08/10/19 15:10 ALT 19 U/L (<50) 08/10/19 15:10 Alkaline Phosphatase 117 U/L (38-126) 08/10/19 15:10 Troponin I 0.044 ng/mL 08/10/19 15:10 Total Protein 7.2 g/dL (6.3-8.2) 08/10/19 15:10 Albumin 3.1 g/dL (3.5-5.0) L 08/19/19 05:26 EGFR Cancelled 08/11/19 21:20 Vitamin B12 684.0 pg/mL (239-931) 08/22/19 10:12 Folate 9.20 ng/mL (>2.76) 08/22/19 10:12 PTH Intact 543.6 pg/mL (10.0-65.0) H 06/16/20 09:55 Urine Color YELLOW 08/10/19 15:35 Urine Appearance CLEAR 08/10/19 15:35 Urine pH 8.0 (5.0-9.0) 08/10/19 15:35 Ur Specific [place] 1.011 08/10/19 15:35 Urine Protein 100 mg/dL (NEGATIVE) H 08/10/19 15:35 Urine Glucose (UA) >=500 mg/dL (NEGATIVE) H 08/10/19 15:35 Urine Ketones NEGATIVE mg/dL (NEGATIVE) 08/10/19 15:35 Urine Blood NEGATIVE (NEGATIVE) 08/10/19 15:35 Urine Nitrite NEGATIVE (NEGATIVE) 08/10/19 15:35 Urine Bilirubin NEGATIVE (NEGATIVE) 08/10/19 15:35 Urine Urobilinogen NEGATIVE mg/dL (<2.0) 08/10/19 15:35 Ur Leukocyte Esterase NEGATIVE (NEGATIVE) 08/10/19 15:35 Urine WBC (Auto) 1 /HPF 08/10/19 15:35 Urine RBC (Auto) 1 /HPF 08/10/19 15:35 Urine Ascorbic Acid NEGATIVE (NEGATIVE) 08/10/19 15:35 Urine Opiates Screen NEGATIVE 08/10/19 15:35 Urine Methadone Screen NEGATIVE 08/10/19 15:35 Ur Barbiturates Screen NEGATIVE 08/10/19 15:35 Ur Phencyclidine Scrn NEGATIVE 08/10/19 15:35 Ur Amphetamines Screen NEGATIVE 08/10/19 15:35 U Benzodiazepines Scrn NEGATIVE 08/10/19 15:35 Urine Cocaine Screen NEGATIVE 08/10/19 15:35 U Marijuana (THC) Screen NEGATIVE 08/10/19 15:35 08/10/19 15:10 Troponin I 0.044 Impressions: Head CT 08/10/19 15:43 IMPRESSION: 1. No acute intracranial abnormality. 2. Chronic mild to moderate small vessel ischemic changes. Atrophy. 3. Left eye prostheses. EVIDENCE OF ACUTE STROKE: NO. Abdomen/Pelvis CT 08/10/19 15:44 IMPRESSION: 1. Stable post surgical changes related to previous subtotal colectomy, since the prior study dated 07/06/2019. 2. Since the previous examination, mild bibasilar atelectasis or infiltrates. Correlation with history suggested. 3. Additional stable findings as above. Chest X-Ray 08/11/19 00:00 IMPRESSION: NO ACUTE RADIOGRAPHIC FINDING IN THE CHEST. Chest X-Ray 08/17/19 00:00 IMPRESSION: 1. Acute bilateral multifocal/ multilobar patchy parenchymal opacities. Differential considerations include pulmonary edema, ARDS and multifocal pneumonia. 2. Bilateral pleural effusions. Chest X-Ray 08/19/19 00:00 IMPRESSION: NO SIGNIFICANT INTERVAL CHANGE. PULMONARY EDEMA AND/OR PNEUMONIA. Plan Time Spent: Less than 30 Minutes Stroke Is this a Stroke Patient?: No Acute Heart Failure - Is this a Heart Failure Patient?: No
--- NOTE | 2019-08-23 16:26 | Progress Note ---
Provider Note Provider Note: Patient requires 30 days or less of rehab at a residential facility.
[2019-08-23] MEDS ORDERED: BISACODYL 10 MG SUPP.RECT PR ONE (18:00)
[2019-08-23] MEDS: ATORVASTATIN CALCIUM 40 MG TABLET PO SCH (22:00)
[2019-08-23] MEDS: ASPIRIN 81 MG TABLET, ENT COATED PO SCH (22:00)
[2019-08-23] MEDS: INSULIN GLARGINE,HUM.REC.ANLOG 1,000 UNIT/10 ML VIAL SUBCUT SCH (22:00)
[2019-08-24 05:20] LABS: CHOLESTEROL 133.29 mg/dL (0-200); TRIGLYCERIDES 419 mg/dL (<150)
[2019-08-24 05:31] LABS: DIRECT LDL 39 mg/dL (<100)
[2019-08-24] MEDS: HEPARIN SOD (PORCINE) 5,000 UNIT/ML 1 ML VIAL SUBCUT SCH ×3 (05:38→22:20)
[2019-08-24] MEDS: PANTOPRAZOLE SODIUM 40 MG TABLET.DR PO SCH ×2 (05:38→20:04)
[2019-08-24] MEDS ORDERED: SIMETHICONE 80 MG TAB.CHEW PO PRN (08:04)
[2019-08-24] MEDS: INSULIN LISPRO 100 UNIT/ML 3 ML VIAL SUBCUT SCH ×3 (09:55→22:18)
[2019-08-24] MEDS: FINASTERIDE 5 MG TABLET PO SCH (10:23)
[2019-08-24] MEDS: TAMSULOSIN HCL 0.4 MG CAP.SR.24H PO SCH (10:23)
[2019-08-24] MEDS: SODIUM CHLORIDE NASAL SPRAY 44 ML NASL SCH ×3 (10:28→22:22)
--- NOTE | 2019-08-24 16:50 | PDOC PROGRESS REPORT ---
Subjective Progress Note for:: 08/24/19 Subjective:: Patient feels well. States he eats today. Reason For Visit: ARF DEMENTIA HYPOKAL DM Physical Exam Vital Signs: Temp Pulse Resp BP Pulse Ox 97.7 F 104 H 19 146/63 H 98 08/24/19 16:12 08/24/19 16:12 08/24/19 16:12 08/24/19 16:12 08/24/19 16:12 Intake & Output 08/23/19 08/24/19 08/25/19 06:59 06:59 06:59 Intake Total 1464 1667 0 Output Total 1725 850 175 Balance -261 817 -175 Weight 80.4 kg 77.7 kg General appearance: PRESENT: no acute distress, cooperative Respiratory exam: PRESENT: unlabored GI/Abdominal exam: PRESENT: soft. ABSENT: tenderness Neurological exam: PRESENT: alert, awake, oriented to person, oriented to place. ABSENT: oriented to time Results Laboratory Results: 08/23/19 05:28 08/23/19 05:28 08/24/19 04:49 Triglycerides 419 H Cholesterol 133.29 LDL Cholesterol Direct 39 HDL Cholesterol 53 08/10/19 15:10 Troponin I 0.044 Impressions: Head CT 08/10/19 15:43 IMPRESSION: 1. No acute intracranial abnormality. 2. Chronic mild to moderate small vessel ischemic changes. Atrophy. 3. Left eye prostheses. EVIDENCE OF ACUTE STROKE: NO. Abdomen/Pelvis CT 08/10/19 15:44 IMPRESSION: 1. Stable post surgical changes related to previous subtotal colectomy, since the prior study dated 07/06/2019. 2. Since the previous examination, mild bibasilar atelectasis or infiltrates. Correlation with history suggested. 3. Additional stable findings as above. Chest X-Ray 08/19/19 00:00 IMPRESSION: NO SIGNIFICANT INTERVAL CHANGE. PULMONARY EDEMA AND/OR PNEUMONIA. Assessment and Plan - Diagnosis (1) Acute kidney injury superimposed on CKD Is this a current diagnosis for this admission?: Yes (2) Acute respiratory failure with hypoxia Is this a current diagnosis for this admission?: Yes (3) Alkalosis Is this a current diagnosis for this admission?: Yes (4) Aspiration pneumonia Qualifiers: Aspiration pneumonia type: unspecified Laterality: bilateral Lung location: lower lobe of lung Qualified Code(s): J69.0 - Pneumonitis due to inhalation of food and vomit Is this a current diagnosis for this admission?: Yes (5) Hyperglycemia due to type 2 diabetes mellitus Qualifiers: Diabetes mellitus remote computer terminal operator insulin use: with remote computer terminal operator use Qualified Code(s): E11.65 - Type 2 diabetes mellitus with hyperglycemia; Z79.4 - shelter (current) use of insulin Is this a current diagnosis for this admission?: Yes (6) Hypokalemia Is this a current diagnosis for this admission?: Yes (7) Senile dementia with behavioral disturbance Is this a current diagnosis for this admission?: Yes (8) Abdominal pain Qualifiers: Abdominal location: left lower quadrant Qualified Code(s): R10.32 - Left lower quadrant pain Is this a current diagnosis for this admission?: Yes (9) Hypocalcemia Is this a current diagnosis for this admission?: Yes - Plan Summary Summary: Currently patient is awaiting placement at SNF. Potential discharge to [facility] tomorrow. Medically cleared for discharge. Feels well and is saturating well on room air. Continue to encourage p.o. hydration and adequate caloric intake. Simethicone for gas pain. No other changes to patient's plan. - Time Time Spent with patient: Less than 15 minutes
[2019-08-24] MEDS: CALCITRIOL 0.25 MCG CAPSULE PO SCH (20:04)
[2019-08-24] MEDS: ATORVASTATIN CALCIUM 40 MG TABLET PO SCH (22:13)
[2019-08-24] MEDS: ASPIRIN 81 MG TABLET, ENT COATED PO SCH (22:13)
[2019-08-24] MEDS: LORAZEPAM 0.5 MG TABLET PO PRN (22:14)
[2019-08-24] MEDS: INSULIN GLARGINE,HUM.REC.ANLOG 1,000 UNIT/10 ML VIAL SUBCUT SCH (22:14)
[2019-08-25 04:40] VITALS: BP 148/73
[2019-08-25] MEDS: PANTOPRAZOLE SODIUM 40 MG TABLET.DR PO SCH (05:54)
[2019-08-25] MEDS: HEPARIN SOD (PORCINE) 5,000 UNIT/ML 1 ML VIAL SUBCUT SCH (05:54)
[2019-08-25] MEDS: SODIUM CHLORIDE NASAL SPRAY 44 ML NASL SCH ×2 (07:21→12:09)
[2019-08-25] MEDS: INSULIN LISPRO 100 UNIT/ML 3 ML VIAL SUBCUT SCH ×2 (08:25→12:12)
[2019-08-25] MEDS: CALCITRIOL 0.25 MCG CAPSULE PO SCH (09:22)
[2019-08-25] MEDS: FINASTERIDE 5 MG TABLET PO SCH (09:22)
[2019-08-25] MEDS: TAMSULOSIN HCL 0.4 MG CAP.SR.24H PO SCH (09:23)
--- NOTE | 2019-08-25 10:38 | PDOC TRANSFER SUMMARY ---
Impression - Admit/DC Date/PCP Admission Date/Primary Care Provider: 08/10/19 19:29 MARYLU IGLESIAS PA-C Discharge Date: 08/25/19 - Discharge Diagnosis (1) Acute kidney injury superimposed on CKD Is this a current diagnosis for this admission?: Yes (2) Acute respiratory failure with hypoxia Is this a current diagnosis for this admission?: Yes (3) Alkalosis Is this a current diagnosis for this admission?: Yes (4) Aspiration pneumonia Is this a current diagnosis for this admission?: Yes (5) Hyperglycemia due to type 2 diabetes mellitus Is this a current diagnosis for this admission?: Yes (6) Hypokalemia Is this a current diagnosis for this admission?: Yes (7) Senile dementia with behavioral disturbance Is this a current diagnosis for this admission?: Yes (8) Abdominal pain Is this a current diagnosis for this admission?: Yes (9) Hypocalcemia Is this a current diagnosis for this admission?: Yes - Additional Information Resuscitation Status: Do Not Resuscitate Discharge Diet: Other (Comments) - Renal diet Referrals: MARYLU IGLESIAS PA-C [Primary Care Provider] - 09/01/19 1:00 pm Nilam GONZALEZ MD [ACTIVE STAFF] - Prescriptions: Aspirin [Ecotrin 81 mg EC Tablet] 81 mg PO QHS #30 tabec Simethicone 125 mg PO TIDP PRN #30 capsule PRN Reason: Home Medications: Finasteride [Proscar 5 mg Tablet] 5 mg PO DAILY 04/24/19 Insulin Glargine,Hum.rec.anlog [Lantus Insulin 100 Unit/mL Insulin Pen] 20 units SUBCUT DAILY 07/06/19 Tamsulosin HCl [Flomax 0.4 mg Cap.sr] 0.4 mg PO DAILY 07/06/19 Pantoprazole Sodium [Protonix [address] Tablet] 40 mg PO BID 08/10/19 Aspirin [Ecotrin 81 mg EC Tablet] 81 mg PO QHS #30 tabec 08/23/19 Simethicone 125 mg PO TIDP PRN #30 capsule 08/23/19 History of Present Illiness History of Present Illness: According to admitting provider: MIKE CROOK is a 74 year old male with past medical history of diabetes, hypertension, recurrent ileus and partial bowel obstruction, nonoliguric end-stage renal failure and dementia. He presents with at least 24 hours of greater confusion from baseline and hallucination. His history is obtained by the emergency room provider and record as he is a poor historian though awake and socially appropriate. In the emergency department he is found to have complaints of abdominal pain with metabolic alkalosis, acute renal failure creatinine of 9.9 from 2.54 months ago, hypokalemia and hyperglycemia. CT imaging of the abdomen is unremarkable, he started on IV fluids, potassium, insulin and referred to the hospitalist for admission. Patient is unaware of any recent changes in medication. He is asleep but arousable without distress until asked about his abdomen. Hospital Course Hospital Course: Patient was admitted to the hospital with acute renal failure and creatinine of 10. His baseline creatinine according to nephrology is usually 2.8-3.2. Patient's FEROZ was thought to be secondary to severe dehydration. Patient is known not to eat adequately and sometimes just drinks ensures at home. Patient was started on aggressive IV fluid hydration. He also underwent electrolyte repletion for hypocalcemia and hypokalemia. His renal function started to improve with aggressive IV fluids. However patient's respiratory status worsened and still becoming hypoxic. Chest x-ray revealed pulmonary edema and patient was diuresed. Patient was also briefly treated for aspiration pneumonia according to documentation. Patient's hypoxia has currently resolved and today patient is saturating on room air breathing comfortably. Patient's mental status has also improved significantly since his presentation. All IV fluids have been discontinued and his creatinine has improved to 5.02 today. Patient was seen by molding machine setter who recommends encouraging p.o. hydration and has cleared patient for discharge from a nephrology perspective to follow-up with Dr. Gonzalez within 2 weeks. During patient stay he also complained of abdominal pain but abdominal pelvis CT did not show anything remarkable. I am giving him some simethicone as he complains of gassiness. Patient is being discharged in stable conditions. Physical Exam Vital Signs: Temp Pulse Resp BP Pulse Ox 97.6 F 89 20 148/73 H 99 08/25/19 04:01 08/25/19 06:42 08/25/19 04:01 08/25/19 04:01 08/25/19 04:01 Intake & Output 08/24/19 08/25/19 08/26/19 06:59 06:59 06:59 Intake Total 1667 676 Output Total 850 1125 Balance 817 -449 Weight 77.7 kg 79.3 kg General appearance: PRESENT: no acute distress, cooperative Neck exam: ABSENT: JVD Respiratory exam: PRESENT: symmetrical, unlabored. ABSENT: accessory muscle use, retraction, tachypnea, wheezes Cardiovascular exam: ABSENT: tachycardia GI/Abdominal exam: PRESENT: soft, tenderness - mild. ABSENT: distended, rebound, rigid Neurological exam: PRESENT: alert, awake, oriented to person, oriented to place. ABSENT: oriented to time Results Laboratory Results: WBC 6.8 10^3/uL (4.0-10.5) 08/23/19 05:28 RBC 2.90 10^6/uL (4.35-5.55) L 08/23/19 05:28 Hgb 9.1 g/dL (13.5-17.0) L 08/23/19 05:28 Hct 26.2 % (37.9-51.0) L 08/23/19 05:28 MCV 90 fl (80-97) 08/23/19 05:28 MCH 31.5 pg (27.0-33.4) 08/23/19 05:28 MCHC 34.9 g/dL (32.0-36.0) 08/23/19 05:28 RDW 12.7 % (11.5-14.0) 08/23/19 05:28 Plt Count 212 10^3/uL (150-450) 08/23/19 05:28 Lymph % (Auto) 11.8 % (13-45) L 08/11/19 06:00 [place] % (Auto) 10.1 % (3-13) 08/11/19 06:00 Eos % (Auto) 0.7 % (0-6) 08/11/19 06:00 Baso % (Auto) 0.3 % (0-2) 08/11/19 06:00 Reticulocyte # 0.038 10^6/uL (0.028-0.122) 08/22/19 10:12 Absolute Neuts (auto) 5.4 10^3/uL (1.7-8.2) 08/11/19 06:00 Absolute Lymphs (auto) 0.8 10^3/uL (0.5-4.7) 08/11/19 06:00 Absolute Monos (auto) 0.7 10^3/uL (0.1-1.4) 08/11/19 06:00 Absolute Eos (auto) 0.0 10^3/uL (0.0-0.6) 08/11/19 06:00 Absolute Basos (auto) 0.0 10^3/uL (0.0-0.2) 08/11/19 06:00 Seg Neutrophils % 77.1 % (42-78) 08/11/19 06:00 Retic Count (auto) 1.48 % (0.66-2.85) 08/22/19 10:12 Carbonic Acid 0.98 mmol/L (1.05-1.35) L 08/20/19 00:30 HCO3/H2CO3 Ratio 23:1 08/20/19 00:30 ABG pH 7.46 (7.35-7.45) H 08/20/19 00:30 ABG pCO2 32.4 mmHg (35-45) L 08/20/19 00:30 ABG pO2 95.8 mmHg (80-100) 08/20/19 00:30 ABG HCO3 22.7 mmol/L (20-24) 08/20/19 00:30 ABG Total CO2 23.7 mmol/L (23-27) 08/20/19 00:30 ABG O2 Saturation 97.7 % (94-98) 08/20/19 00:30 ABG Base Excess -0.7 mmol/L 08/20/19 00:30 FiO2 40% 08/20/19 00:30 Sodium 134.5 mmol/L (137-145) L 08/23/19 05:28 Potassium 3.5 mmol/L (3.6-5.0) L 08/23/19 05:28 Chloride 100 mmol/L (98-107) 08/23/19 05:28 Carbon Dioxide 27 mmol/L (22-30) 08/23/19 05:28 Anion Gap 8 (5-19) 08/23/19 05:28 BUN 108 mg/dL (7-20) H 08/23/19 05:28 Creatinine 5.02 mg/dL (0.52-1.25) H 08/23/19 05:28 Est GFR ( Amer) 14 (>60) L 08/23/19 05:28 Est GFR (Non-Af Amer) Cancelled 08/11/19 21:20 Est GFR (MDRD) Non-Af 11 (>60) L 08/23/19 05:28 Glucose 136 mg/dL (75-110) H 08/23/19 05:28 POC Glucose 91 mg/dL (70-110) 08/25/19 08:11 Calcium 7.9 mg/dL (8.4-10.2) L 08/23/19 05:28 Phosphorus 3.8 mg/dL (2.5-4.5) 08/19/19 05:26 Magnesium 4.1 mg/dL (1.6-2.3) H 08/12/19 05:21 Iron 86.3 ug/dL (49-181) 08/22/19 10:12 TIBC 218 ug/dL (250-450) L 08/22/19 10:12 % Saturation 40 % 08/22/19 10:12 Transferrin 153.66 mg/dL (206.00-381.00) L 08/22/19 10:12 Ferritin 372.00 ng/mL (17.9-464.0) 08/22/19 10:12 Total Bilirubin 1.0 mg/dL (0.2-1.3) 08/10/19 15:10 Direct Bilirubin 0.2 mg/dL (0.0-0.4) 08/10/19 15:10 Neonat Total Bilirubin Not Reportable 08/10/19 15:10 Neonat Direct Bilirubin Not Reportable 08/10/19 15:10 Neonat Indirect Bili Not Reportable 08/10/19 15:10 AST 19 U/L (17-59) 08/10/19 15:10 ALT 19 U/L (<50) 08/10/19 15:10 Alkaline Phosphatase 117 U/L (38-126) 08/10/19 15:10 Troponin I 0.044 ng/mL 08/10/19 15:10 Total Protein 7.2 g/dL (6.3-8.2) 08/10/19 15:10 Albumin 3.1 g/dL (3.5-5.0) L 08/19/19 05:26 Triglycerides 419 mg/dL (<150) H 08/24/19 04:49 Cholesterol 133.29 mg/dL (0-200) 08/24/19 04:49 LDL Cholesterol Direct 39 mg/dL (<100) 08/24/19 04:49 VLDL Cholesterol, Calc UNABLE TO CALCULATE 08/24/19 04:49 HDL Cholesterol 53 mg/dL (>40) 08/24/19 04:49 EGFR Cancelled 08/11/19 21:20 Vitamin B12 684.0 pg/mL (239-931) 08/22/19 10:12 Folate 9.20 ng/mL (>2.76) 08/22/19 10:12 PTH Intact 543.6 pg/mL (10.0-65.0) H 08/23/19 09:55 Urine Color YELLOW 08/10/19 15:35 Urine Appearance CLEAR 08/10/19 15:35 Urine pH 8.0 (5.0-9.0) 08/10/19 15:35 Ur Specific [place] 1.011 08/10/19 15:35 Urine Protein 100 mg/dL (NEGATIVE) H 08/10/19 15:35 Urine Glucose (UA) >=500 mg/dL (NEGATIVE) H 08/10/19 15:35 Urine Ketones NEGATIVE mg/dL (NEGATIVE) 08/10/19 15:35 Urine Blood NEGATIVE (NEGATIVE) 08/10/19 15:35 Urine Nitrite NEGATIVE (NEGATIVE) 08/10/19 15:35 Urine Bilirubin NEGATIVE (NEGATIVE) 08/10/19 15:35 Urine Urobilinogen NEGATIVE mg/dL (<2.0) 08/10/19 15:35 Ur Leukocyte Esterase NEGATIVE (NEGATIVE) 08/10/19 15:35 Urine WBC (Auto) 1 /HPF 08/10/19 15:35 Urine RBC (Auto) 1 /HPF 08/10/19 15:35 Urine Ascorbic Acid NEGATIVE (NEGATIVE) 08/10/19 15:35 Urine Opiates Screen NEGATIVE 08/10/19 15:35 Urine Methadone Screen NEGATIVE 08/10/19 15:35 Ur Barbiturates Screen NEGATIVE 08/10/19 15:35 Ur Phencyclidine Scrn NEGATIVE 08/10/19 15:35 Ur Amphetamines Screen NEGATIVE 08/10/19 15:35 U Benzodiazepines Scrn NEGATIVE 08/10/19 15:35 Urine Cocaine Screen NEGATIVE 08/10/19 15:35 U Marijuana (THC) Screen NEGATIVE 08/10/19 15:35 08/10/19 15:10 Troponin I 0.044 Impressions: Head CT 08/10/19 15:43 IMPRESSION: 1. No acute intracranial abnormality. 2. Chronic mild to moderate small vessel ischemic changes. Atrophy. 3. Left eye prostheses. EVIDENCE OF ACUTE STROKE: NO. Abdomen/Pelvis CT 08/10/19 15:44 IMPRESSION: 1. Stable post surgical changes related to previous subtotal colectomy, since the prior study dated 07/06/2019. 2. Since the previous examination, mild bibasilar atelectasis or infiltrates. Correlation with history suggested. 3. Additional stable findings as above. Chest X-Ray 08/11/19 00:00 IMPRESSION: NO ACUTE RADIOGRAPHIC FINDING IN THE CHEST. Chest X-Ray 08/17/19 00:00 IMPRESSION: 1. Acute bilateral multifocal/ multilobar patchy parenchymal opacities. Differential considerations include pulmonary edema, ARDS and multifocal pneumonia. 2. Bilateral pleural effusions. Chest X-Ray 08/19/19 00:00 IMPRESSION: NO SIGNIFICANT INTERVAL CHANGE. PULMONARY EDEMA AND/OR PNEUMONIA. Plan Time Spent: Less than 30 Minutes Stroke Is this a Stroke Patient?: No Acute Heart Failure - Is this a Heart Failure Patient?: No
== END 2019-08-25 12:53 | DRG 682 ==
LOC: ER 15:02 → EH 19:29 → 3W 22:17
PROVIDERS: ADMIT Internal Medicine; ATTEND Internal Medicine
PROC: 5A09357 Assistance with Respiratory Ventilation, Less than 24 Consecutive Hours, Continuous Positive Airway Pressure (ICD-10-PCS; principal; 2019-08-17)
DX: N17.0 Acute kidney failure with tubular necrosis (principal); J96.01 Acute respiratory failure with hypoxia; J69.0 Pneumonitis due to inhalation of food and vomit; I12.0 Hypertensive chronic kidney disease with stage 5 chronic kidney disease or end stage renal disease; E87.3 Alkalosis; F03.91 Unspecified dementia, unspecified severity, with behavioral disturbance; R41.82 Altered mental status, unspecified; E86.0 Dehydration; E83.51 Hypocalcemia; N18.6 End stage renal disease; D64.9 Anemia, unspecified; E11.22 Type 2 diabetes mellitus with diabetic chronic kidney disease; K21.9 Gastro-esophageal reflux disease without esophagitis; K58.9 Irritable bowel syndrome, unspecified; E87.6 Hypokalemia; F41.9 Anxiety disorder, unspecified; Z79.4 Long term (current) use of insulin; Z78.1 Physical restraint status
CPT/HCPCS: 36415; 36600; 70450; 71045; 74176; 80048; 80053; 80061; 80069; 80307; 81001; 82040; 82607; 82728; 82746; 82803; 82962; 83540; 83550; 83735; 83970; 84100; 84466; 84484; 85025; 85027; 85045; 93005; 93010; 93306; 94660; 96360; 96361; 99291; J0610; J1630; J1644; J1815; J1940; J2020; J2060; J2185; J2920; J2930; J3360; J3480; J3490; J7030; P9047; Q5106

== ENCOUNTER 2019-10-12 11:06 | Inpatient (IN) | payer MEDICARE, BC, OTHER ==
[2019-10-12 13:43] LABS: ABSOLUTE EOSINOPHILS # (AUTO) 0.1 10^3/uL (0.0-0.6); ABSOLUTE LYMPHOCYTES (AUTO) 0.9 10^3/uL (0.5-4.7); ABSOLUTE MONOCYTES (AUTO) 0.6 10^3/uL (0.1-1.4); ABSOLUTE NEUT (AUTO) 6.2 10^3/uL (1.7-8.2); BASOPHILS % (AUTO) 0.4 % (0-2); EOSINOPHILS % (AUTO) 1.3 % (0-6); HEMATOCRIT 21.8 % (37.9-51.0); LYMPHOCYTES % (AUTO) 11.8 % (13-45); MEAN CORPUSCULAR HEMOGLOBIN 31.6 pg (27.0-33.4); MEAN CORPUSCULAR HGB CONC 34.9 g/dL (32.0-36.0); MEAN CORPUSCULAR VOLUME 90 fl (80-97); MONOCYTES % (AUTO) 7.3 % (3-13); PLATELET COUNT 240 10^3/uL (150-450); RED BLOOD COUNT 2.41 10^6/uL (4.35-5.55); RED CELL DISTRIBUTION WIDTH 14.3 % (11.5-14.0); SEGMENTED NEUTROPHILS % (AUTO) 79.2 % (42-78); TOTAL CELLS COUNTED % (AUTO) 100 %; WHITE BLOOD COUNT 7.9 10^3/uL (4.0-10.5)
[2019-10-12 13:55] LABS: ALBUMIN 4.7 g/dL (3.5-5.0); ALKALINE PHOSPHATASE 135 U/L (38-126); ANION GAP 16 (5-19); ASPARTATE AMINO TRANSFERASE 14 U/L (17-59); BILIRUBIN,DIRECT 0.3 mg/dL (0.0-0.4); BILIRUBIN,TOTAL 0.7 mg/dL (0.2-1.3); BLOOD UREA NITROGEN 93 mg/dL (7-20); CALCIUM 8.9 mg/dL (8.4-10.2); CARBON DIOXIDE 39 mmol/L (22-30); CHLORIDE 77 mmol/L (98-107); GLUCOSE 303 mg/dL (75-110); POTASSIUM 4.3 mmol/L (3.6-5.0); TOTAL PROTEIN 7.5 g/dL (6.3-8.2)
[2019-10-12 14:06] LABS: HEMOGLOBIN 7.6 g/dL (13.5-17.0)
--- NOTE | 2019-10-12 14:57 | RADIOLOGY REPORT (SQ) ---
EXAM DESCRIPTION: CT ABD/PELVIS ORAL ONLY IMAGES COMPLETED DATE/TIME: 10/12/2019 2:40 pm REASON FOR STUDY: Abdominal pain no bowel movement COMPARISON: 08/10/2019, 07/06/2019, 04/22/2019 TECHNIQUE: CT scan of the abdomen and pelvis performed without intravenous contrast. Oral contrast was administered. Images reviewed with lung, soft tissue, and bone windows. Reconstructed coronal an d sagittal MPR images reviewed. All images stored on PACS. All CT scanners at this facility use dose modulation, iterative reconstruction, and/or weight based d osing when appropriate to reduce radiation dose to as low as reasonably achievable (ALARA). [facility]: Dose Right [facility]: CareDose [facility]: Dose Right [facility]: Teradose 4D [facility]: Smart Technologies RADIATION DOSE: CT Rad equipment meets quality standard of care and radiation dose reduction techniq ues were employed. CTDIvol: 7.8 mGy. DLP: 419 mGy-cm.mGy. LIMITATIONS: None. FINDINGS: LOWER CHEST: No significant findings. No nodules or infiltrates. NON-CONTRASTED LIVER, SPLEEN, ADRENALS: Evaluation limited by lack of IV contrast. No identified sign ificant masses. PANCREAS: No masses. No peripancreatic inflammatory changes. GALLBLADDER: Surgically absent. RIGHT KIDNEY AND URETER: No suspicious masses. Assessment limited by lack of IV contrast. No signif icant calcifications. No hydronephrosis or hydroureter. LEFT KIDNEY AND URETER: No suspicious masses. Assessment limited by lack of IV contrast. No signifi cant calcifications. No hydronephrosis or hydroureter. AORTA AND RETROPERITONEUM: No aneurysm. No retroperitoneal masses or adenopathy. BOWEL AND PERITONEAL CAVITY: Scattered air-fluid levels are seen within the large and small bowel wit hout evidence of mechanical obstruction. No focal inflammatory changes. No evidence of anastomotic leak. Prominent rectal stool burden. APPENDIX: Not visualized. PELVIS, BLADDER, AND ABDOMINAL WALL:Right inguinal herniorrhaphy changes. Bladder is unremarkable. BONES: No significant findings. OTHER: No other significant finding. IMPRESSION: Prominent rectal stool burden. No evidence of anastomotic leak. Scattered large and sm all bowel fluid levels without evidence of mechanical obstruction. COMMENT: Quality ID # [id number]: Final reports with documentation of one or more dose reduction techniques (e.g., Automated exposure control, adjustment of the mA and/or kV according to patient size, use of iterative reconstruction technique) TECHNICAL DOCUMENTATION: JOB ID: [id number] 2010 [employer] - [employer]- All Rights Reserved Reading location - IP/workstation name: [email or web address]
[2019-10-12 17:37] LABS: APPEARANCE,URINE CLEAR; BILIRUBIN,URINE NEGATIVE (NEGATIVE); COLOR,URINE YELLOW; GLUCOSE, URINE 150 mg/dL (NEGATIVE); KETONES,URINE NEGATIVE (NEGATIVE); LEUKOCYTE ESTERASE,URINE NEGATIVE (NEGATIVE); NITRITE,URINE NEGATIVE (NEGATIVE); PROTEIN,URINE 100 mg/dL (NEGATIVE); URINE SPECIFIC GRAVITY 1.013; UROBILINOGEN,URINE NEGATIVE mg/dL (<2.0)
[2019-10-12] MEDS ORDERED: RINGERS SOLUTION,LACTATED 1,000 ML IV ONE (17:52)
[2019-10-12] MEDS ORDERED: NORMAL SALINE 250 ML IV PRN ×2 (17:56)
[2019-10-12] MEDS ORDERED: PANTOPRAZOLE SODIUM 40 MG VIAL IV ONE (17:59)
[2019-10-12] MEDS ORDERED: BISACODYL 10 MG SUPP.RECT PR ONE (18:00)
--- NOTE | 2019-10-12 18:31 | ER Document Report ---
Entered by GANESH ALEX SCRIBE 10/12/19 1744 Acting as scribe for:NIKKI JEFFERSON DO ED General - General Chief Complaint: Abdominal Pain Stated Complaint: ABDOMINAL PAIN Time Seen by Provider: 10/12/19 11:58 Information source: Relative - Notes: This 74 year old male patient brought in by EMS from home presents to the ED today with complaints of generalized abdominal pain for the last couple of months. HPI is being relayed by the patient's via phone since the patient is demented and can't offer any reasonable history. reports that she noticed that the patient has had decreased PO intake the last couple of days and when that that occurs, his kidneys fail and he gets really sick, so she called EMS to bring him in to the ED for evaluation. She mentions that his PCP is Dr. Arthur with [facility] and that he is trying to get him an endoscopy or colonoscopy, but has not done so yet. EMS administered Fentanyl and Zofran en route. TRAVEL OUTSIDE OF THE [place] IN LAST 30 DAYS: No - Related Data Allergies/Adverse Reactions: No Known Allergies Allergy (Verified 12/15/18 18:09) Past Medical History - General Information source: [facility] Records - Social History Smoking Status: Never Smoker Cigarette use (# per day): No Chew tobacco use (# tins/day): No Smoking Education Provided: No Frequency of alcohol use: None Drug Abuse: None Family History: Reviewed & Not Pertinent, Malignancy - Past Medical History Cardiac Medical History: Reports: Hx Hypertension Endocrine Medical History: Reports: Hx Diabetes Mellitus Type 2 Renal/ Medical History: Reports: Hx End Stage Renal Disease, Hx Renal Insufficiency GI Medical History: Reports: Hx Gastroesophageal Reflux Disease, Hx Irritable Bowel Psychiatric Medical History: Reports: Hx Anxiety, Hx Dementia Past Surgical History: Reports: Hx Abdominal Surgery - Colostomy and reversal., Hx Bowel Diversion - 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, ileorectal anastamosis, Hx Bowel Surgery, Hx Colostomy - multiple surgeries for chronic luq pain including a hemicolectomy, Hx Herniorrhaphy - Right inguinal - Immunizations Hx Diphtheria, Pertussis, Tetanus Vaccination: Yes Review of Systems - Review of Systems -: Yes ROS unobtainable due to patient's medical condition - Dementia Physical Exam - Vital signs Vitals: Temp Pulse Resp BP Pulse Ox 98.5 F 87 18 120/54 L 100 08/05/20 11:12 10/12/19 11:12 10/12/19 11:12 10/12/19 11:12 10/12/19 11:12 - General General appearance: Other - Appears frail, elderly, and older than stated age In distress: None - HEENT Head: Normocephalic, Atraumatic Eyes: Normal Extraocular movements intact: Yes Pupils: PERRL Mucous membranes: Dry - Respiratory Respiratory status: No respiratory distress Chest status: Nontender Breath sounds: Normal Chest palpation: Normal - Cardiovascular Rhythm: Regular Heart sounds: Normal auscultation Murmur: No Friction rub: No Gallop: None auscultated - Abdominal Inspection: Normal, Other - No rigidity or pulsatile masses Distension: No distension Bowel sounds: Normal Tenderness: Other - C/o left sided upper and lower quadrant pain. Abdomen soft Organomegaly: No organomegaly - Back Back: Normal, Nontender - Extremities General upper extremity: Normal inspection General lower extremity: Normal inspection. No: Edema - Neurological Notes: Awake and alert, but not oriented - Psychological Associated symptoms: Other - Unable to assess due to patient's medical condition - Skin Skin Temperature: Warm Skin Moisture: Dry Skin Color: Normal Course - Re-evaluation Re-evalutation: 10/12/19 17:47 Spoke with staff at [facility] who state patient hasn't been at the facility in a while, possibly x2 weeks. Folling this, pt was discussed with . Pt has had a downhill course lately and is demented at baseline. He has had abdominal pain for months and is concerned he needs to be "cut open" per his . "They never find anything wrong" she tells me. Also he is to be a DNR and has seen Dr. Gonzalez in the past regarding his renal failure. I have discussed this pt with Dr. Bryant and he will see and evaluate for admission. - Vital Signs Vital signs: Temp Pulse Resp BP Pulse Ox 98.0 F 73 14 137/63 H 100 10/13/19 00:15 10/13/19 00:15 10/13/19 00:15 10/13/19 00:15 10/13/19 00:15 - Laboratory Result Diagrams: 10/12/19 12:45 10/12/19 12:45 Laboratory results interpreted by me: 10/12/19 10/12/19 10/12/19 12:45 12:45 16:00 RBC 2.41 L Hgb 7.6 L Hct 21.8 L RDW 14.3 H Lymph % (Auto) 11.8 L Seg Neutrophils % 79.2 H Sodium 131.7 L Chloride 77 L Carbon Dioxide 39 H BUN 93 H Creatinine 8.38 H Est GFR ( Amer) 8 L Est GFR (MDRD) Non-Af 6 L Glucose 303 H AST 14 L Alkaline Phosphatase 135 H Urine Protein 100 H Urine Glucose (UA) 150 H - Diagnostic Test Radiology reviewed: Reports reviewed - Consults Mal Bryant MD Time consulted: 18:05 Consulted provider: will come to ER Discharge - Discharge Clinical Impression: Acute kidney injury, Dehydration, Chronic abdominal pain Chronic renal failure Qualifiers: Chronic kidney disease stage: stage 4 (severe) Qualified Code(s): N18.4 - Chronic kidney disease, stage 4 (severe) Dementia Qualifiers: Dementia type: unspecified type Dementia behavioral disturbance: without behavioral disturbance Qualified Code(s): F03.90 - Unspecified dementia without behavioral disturbance Anemia Qualifiers: Anemia type: unspecified type Qualified Code(s): D64.9 - Anemia, unspecified Condition: Stable Disposition: ADMITTED INPATIENT Admitting Provider: Manny (Hospitalist) Unit Admitted: Medical Floor I personally performed the services described in the documentation, reviewed and edited the documentation which was dictated to the scribe in my presence, and it accurately records my words and actions.
--- NOTE | 2019-10-12 19:11 | PDOC H&P ---
History of Present Illness Admission Date/PCP: MARYLU IGLESIAS PA-C Patient complains of: Abdominal pain History of Present Illness: MIKE CROOK is a 74 year old male is had multiple hospitalizations for recurrent abdominal pain. Unfortunately there is no reasonable treatment. His pain is mostly from adhesions from multiple surgeries in the past. Surgery has evaluated the patient on multiple occasions. The patient does obsessed with his abdominal pain and with his bowels at home. When I spoke to his she states that he tries multiple different remedies. None seem to help. This is because true constipation is not the issue as noted above. CT scan does show a rectal fecal load. The patient initially refused suppository but I explained to him that because of where the stool is he needs to allow treatment from below. He was more agreeable after that discussion and the nurse was at the bedside during the entire discussion. He has acute on chronic kidney failure which is a recurrent episode with all of his admissions. He refuses to eat or drink because of the abdominal pain. He decompensates comes to the hospital gets slight improvement goes home and it is a recurrent pattern. At his last discharge in August he in fact was sent to [facility]. Despite his dementia they let him sign out AGAINST MEDICAL ADVICE and unfortunately his picked him up not understanding the benefits of the patient getting continuous nursing care. The patient is anemic. His BUN and creatinine are elevated. He has a rectal fecal load and is demented. He will be admitted to the hospital. I will give him 1 unit of packed red blood cells only. I did stress to the that she does need to speak to palliative care and that this ongoing pattern of recurrent hospitalization, recurrent treatment for a process that will never be resolved and the patient's increasing frustration with the quality of life certainly merits consideration of comfort measures. Past Medical History Cardiac Medical History: Reports: Hypertension Denies: Coronary Artery Disease, Myocardial Infarction Pulmonary Medical History: Denies: Asthma, Bronchitis, Chronic Obstructive Pulmonary Disease (COPD), Pneumonia Neurological Medical History: Denies: Seizures Endocrine Medical History: Reports: Diabetes Mellitus Type 2 Denies: Diabetes Mellitus Type 1, Hyperthyroidism, Hypothyroidism Renal/ Medical History: Reports: End Stage Renal Disease GI Medical History: Reports: Gastroesophageal Reflux Disease Denies: Cirrhosis, Crohn's Disease, Hepatitis, Hiatal Hernia, Ulcerative Colitis Musculoskeltal Medical History: Denies: Arthritis, Gout Skin Medical History: Denies: Eczema, Psoriasis Psychiatric Medical History: Reports: Dementia Denies: Depression Hematology: Reports: Anemia Denies: Sickle Cell Disease, Bleeding Tendencies Past Surgical History Past Surgical History: Reports: Colostomy - multiple surgeries for chronic luq pain including a hemicolectomy, Herniorrhaphy - Right inguinal Denies: Pacemaker Social History Information Source: Patient, Relative - The patient's , [facility] Records Lives with: Spouse/Significant other Smoking Status: Never Smoker Electronic Cigarette use?: No Frequency of Alcohol Use: None Hx Recreational Drug Use: No Drugs: None Hx Prescription Drug Abuse: No - Advance Directive Resuscitation Status: Do Not Resuscitate Surrogate healthcare decision maker:: The patient's Yolie Crook Family History Family History: Reviewed & Not Pertinent, Malignancy Parental Family History Reviewed: Yes Children Family History Reviewed: No Sibling(s) Family History Reviewed.: Yes Medication/Allergy Home Medications: Finasteride [Proscar 5 mg Tablet] 5 mg PO DAILY 04/24/19 Pantoprazole Sodium [Protonix [address] Tablet] 40 mg PO BID 08/10/19 Aspirin [Ecotrin 81 mg EC Tablet] 81 mg PO QHS #30 tabec 08/23/19 Simethicone 125 mg PO TIDP PRN #30 capsule 08/23/19 Amoxicillin/Potassium Clav [Augmentin 875-125 Tablet] 1 tab PO Q12 10/12/19 Dicyclomine HCl [Bentyl 20 mg Tablet] 20 mg PO BID 10/12/19 Fluticasone Propionate [Flonase Nasal Royal 50 Mcg/Royal 16 gm] 1 spray NAREB Q12 10/12/19 Zolpidem Tartrate [Ambien] 10 mg PO QHS 10/12/19 Allergies/Adverse Reactions: No Known Allergies Allergy (Verified 12/15/18 18:09) Review of Systems All systems: reviewed and no additional remarkable complaints except as stated Constitutional: PRESENT: anorexia Gastrointestinal: PRESENT: abdominal pain, constipation Neurological: PRESENT: memory loss, other - Dementia Psychiatric: PRESENT: depression Physical Exam Vital Signs: Temp Pulse Resp BP Pulse Ox 98.5 F 87 18 120/54 L 100 10/12/19 11:12 10/12/19 11:12 10/12/19 11:12 10/12/19 11:12 10/12/19 11:12 Intake & Output 10/11/19 10/12/19 10/13/19 06:59 06:59 06:59 Weight 69.8 kg General appearance: PRESENT: cooperative, other - Well-developed 74-year-old male in moderate distress. Head exam: PRESENT: atraumatic, normocephalic Eye exam: PRESENT: conjunctiva pale, EOMI. ABSENT: scleral icterus Ear exam: PRESENT: normal external ear exam. ABSENT: bleeding, drainage Mouth exam: PRESENT: dry mucosa, tongue midline Neck exam: ABSENT: carotid bruit, JVD, lymphadenopathy Respiratory exam: PRESENT: clear to auscultation jc, symmetrical, unlabored. ABSENT: accessory muscle use, prolonged expiratory phas, rales, rhonchi, tachypnea, wheezes Cardiovascular exam: PRESENT: RRR, +S1, +S2. ABSENT: bradycardia, diastolic murmur, irregular rhythm, systolic murmur, tachycardia GI/Abdominal exam: PRESENT: diminished bowel sounds, soft, tenderness. ABSENT: distended, guarding Rectal exam: PRESENT: deferred Gentrourinary exam: ABSENT: indwelling catheter Extremities exam: ABSENT: pedal edema Musculoskeletal exam: PRESENT: ambulatory, normal inspection. ABSENT: deformity, dislocation Neurological exam: PRESENT: alert, awake, oriented to person, oriented to place, oriented to situation, CN II-XII grossly intact Psychiatric exam: PRESENT: other - Affect reflects his current discomfort. ABSENT: agitated, anxious Focused psych exam: PRESENT: other - The patient exhibits short-term memory loss with repetitive questions involving the same topic despite multiple explanations.. ABSENT: delusional, paranoid, restlessness Skin exam: PRESENT: dry, pallor, warm. ABSENT: rash Results Laboratory Results: 10/12/19 12:45 10/12/19 12:45 10/12/19 10/12/19 10/12/19 12:45 12:45 16:00 WBC 7.9 RBC 2.41 L Hgb 7.6 L Hct 21.8 L MCV 90 MCH 31.6 MCHC 34.9 RDW 14.3 H Plt Count 240 Seg Neutrophils % 79.2 H Sodium 131.7 L Potassium 4.3 Chloride 77 L Carbon Dioxide 39 H Anion Gap 16 BUN 93 H Creatinine 8.38 H Est GFR ( Amer) 8 L Glucose 303 H Calcium 8.9 Total Bilirubin 0.7 AST 14 L Alkaline Phosphatase 135 H Total Protein 7.5 Albumin 4.7 Lipase 149.1 Urine Color YELLOW Urine Appearance CLEAR Urine pH 8.0 Ur Specific [place] 1.013 Urine Protein 100 H Urine Glucose (UA) 150 H Urine Ketones NEGATIVE Urine Blood NEGATIVE Urine Nitrite NEGATIVE Ur Leukocyte Esterase NEGATIVE Urine WBC (Auto) 0 Urine RBC (Auto) 0 Impressions: Abdomen/Pelvis CT 10/12/19 12:06 IMPRESSION: Prominent rectal stool burden. No evidence of anastomotic leak. Scattered large and small bowel fluid levels without evidence of mechanical obstruction. Assessment and Plan - Diagnosis (1) Abdominal pain Qualifiers: Abdominal location: left lower quadrant Qualified Code(s): R10.32 - Left lower quadrant pain Is this a current diagnosis for this admission?: Yes Plan: Secondary to adhesions. He has moderate fecal load in the rectum. He also has some air-fluid levels consistent with ileus. Not likely a mechanical obstruction. This is a chronic complaint and he has been reviewed by surgery multiple times and he is not a surgical candidate. We will utilize analgesia as needed (2) Acute kidney injury superimposed on CKD Is this a current diagnosis for this admission?: Yes Plan: This is a chronic issue. The patient will stop eating and drinking because of his abdominal discomfort. We will give IV fluids. We will monitor his kidney function. (3) Hyponatremia with extracellular fluid depletion Is this a current diagnosis for this admission?: Yes Plan: We will utilize normal saline initially. We will monitor his serum sodium and adjust treatment accordingly. 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 Medications will be available for agitation. (6) Constipation Qualifiers: Constipation type: other constipation type Qualified Code(s): K59.09 - Other constipation Is this a current diagnosis for this admission?: Yes Plan: Due to significant scar tissue in the abdomen. This is a recurrent issue for the patient. Will work above and below to try and resolve the constipation which is a small component of the abdominal complaints (7) Ileus Is this a current diagnosis for this admission?: Yes Plan: We will monitor closely. No need for nasogastric tube at this time. 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 The patient needs to be evaluated by palliative care. They need to have a discussion with patient's . He would be an appropriate candidate for palliative care, hospice or possibly comfort measures. (9) Anemia of chronic renal failure, stage 4 (severe) Is this a current diagnosis for this admission?: Yes Plan: We will transfuse 1 unit of packed red blood cells and monitor. (10) Chronic laxative abuse Is this a current diagnosis for this admission?: Yes Plan: Because of limited insight the patient thinks that all of his abdominal pain is due to constipation. He does have a moderate fecal load in the rectum. We will clear this. He should utilize soft diet with liquid protein supplements but he is not capable of understanding this plan. - Time Time Spent with patient: 35 or more minutes Medications reviewed and adjusted accordingly: Yes Anticipated Discharge Disposition: Possibly home hospice versus palliative care Anticipated Discharge Timeframe: Unknown at this time - Inpatient Certification Based on my medical assessment, after consideration of the patient's comorbidities, presenting symptoms, or acuity I expect that the services needed warrant INPATIENT care.: Yes I certify that my determination is in accordance with my understanding of Medicare's requirements for reasonable and necessary INPATIENT services [42 CFR 412.3e].: Yes Medical Necessity: Need Close Monitoring Due to Risk of Patient Decompensation, Need For IV Fluids, Need for Pain Control, Risk of Complication if Not Cared For in Hospital Post Hospital Care: D/C Lead Instructor/Flight Attendant Documentation
--- NOTE | 2019-10-12 19:14 | ADVANCED CARE ---
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 Resuscitation Status: Do Not Resuscitate Discussion: I reviewed the fact that the patient has this recurrent pattern of admission. It is the same story over and over again. His abdominal pain increases. He does not eat or drink. He goes into acute on chronic kidney failure. He also has anemia of chronic kidney disease and uncontrolled diabetes mellitus. We did send him to [facility] August but despite his dementia they let him sign out AGAINST MEDICAL ADVICE. His supported this by going to pick him up. His is clearly stressed and exhausted taking care of him. She has recognized his depression. He clearly is unhappy with the quality of his life. We are not going to be able to significantly improve his quality of life. He will always have significant abdominal pain as well as acute on chronic kidney failure. I explained that the patient's needs to discuss treatment options with a palliative care service. This could range from palliative care to hospice to comfort measures. I will try and coordinate so that they can call his . She understands and agrees that it is an extremely difficult situation. She feels badly because the quality of his life is so poor. She also appreciates that he has expressed not wanting to continue to live like this. Hopefully increased education and support from a palliative care service will help her appreciate the appropriateness of a more comfort oriented treatment plan. Care Planning Goals: Assess treatment options from palliative care to hospice to comfort measures Document(s) Completed: None Time Spent: 25 minutes
[2019-10-12] MEDS ORDERED: MAG HYDROX/AL HYDROX/SIMETH SUSP 30 ML UDCUP PO PRN (19:18)
[2019-10-12] MEDS ORDERED: MAGNESIUM HYDROXIDE SUSP 30 ML UDCUP PO PRN (19:18)
[2019-10-12] MEDS ORDERED: SIMETHICONE 125 MG PO PRN (19:30)
[2019-10-12] MEDS ORDERED: MORPHINE SULFATE 10 MG/ML INJ IV PRN (19:31)
[2019-10-12] MEDS ORDERED: BISACODYL 10 MG SUPP.RECT PR PRN (19:33)
[2019-10-12] MEDS ORDERED: BISACODYL 5 MG TABEC PO PRN (19:33)
[2019-10-12] MEDS ORDERED: SIMETHICONE 80 MG TAB.CHEW PO PRN (19:44)
[2019-10-12] MEDS: FLUTICASONE NASAL SPRAY 50 MCG/SPRY 120 SPRAY/16 GM NAREB SCH (23:05)
[2019-10-12] MEDS: ASPIRIN 81 MG TABLET, ENT COATED PO SCH (23:31)
[2019-10-12] MEDS: TRAZODONE HCL 50 MG TABLET PO SCH (23:31)
[2019-10-13 05:23] LABS: ABSOLUTE EOSINOPHILS # (AUTO) 0.1 10^3/uL (0.0-0.6); ABSOLUTE LYMPHOCYTES (AUTO) 0.9 10^3/uL (0.5-4.7); ABSOLUTE MONOCYTES (AUTO) 0.5 10^3/uL (0.1-1.4); ABSOLUTE NEUT (AUTO) 4.7 10^3/uL (1.7-8.2); BASOPHILS % (AUTO) 0.4 % (0-2); EOSINOPHILS % (AUTO) 2.1 % (0-6); HEMATOCRIT 21.5 % (37.9-51.0); LYMPHOCYTES % (AUTO) 13.7 % (13-45); MEAN CORPUSCULAR HEMOGLOBIN 31.5 pg (27.0-33.4); MEAN CORPUSCULAR HGB CONC 35.2 g/dL (32.0-36.0); MEAN CORPUSCULAR VOLUME 89 fl (80-97); MONOCYTES % (AUTO) 7.4 % (3-13); PLATELET COUNT 214 10^3/uL (150-450); SEGMENTED NEUTROPHILS % (AUTO) 76.4 % (42-78); TOTAL CELLS COUNTED % (AUTO) 100 %; WHITE BLOOD COUNT 6.2 10^3/uL (4.0-10.5)
[2019-10-13 05:27] LABS: HEMOGLOBIN 7.6 g/dL (13.5-17.0)
[2019-10-13 05:45] LABS: ALBUMIN 4.4 g/dL (3.5-5.0); ANION GAP 12 (5-19); BLOOD UREA NITROGEN 93 mg/dL (7-20); CALCIUM 8.8 mg/dL (8.4-10.2); CARBON DIOXIDE 37 mmol/L (22-30); CHLORIDE 82 mmol/L (98-107); GLUCOSE 192 mg/dL (75-110); PHOSPHORUS 7.1 mg/dL (2.5-4.5); POTASSIUM 3.7 mmol/L (3.6-5.0)
[2019-10-13] MEDS: PANTOPRAZOLE SODIUM 40 MG TABLET.DR PO SCH (06:14)
[2019-10-13] MEDS ORDERED: CALCIUM CHLORIDE 10% PF/INJ 1000 MG/10 ML SDV IV ONE (07:00)
[2019-10-13] MEDS ORDERED: CALCIUM GLUCONATE 1000 MG/10 ML INJ IV ONE ×2 (07:30→14:45)
[2019-10-13] MEDS: LUBIPROSTONE 24 MCG CAPSULE PO SCH ×2 (09:14→17:47)
[2019-10-13] MEDS: FLUTICASONE NASAL SPRAY 50 MCG/SPRY 120 SPRAY/16 GM NAREB SCH ×2 (09:14→22:19)
[2019-10-13] MEDS: ENOXAPARIN SODIUM INJ 30 MG/0.3 ML DISP.SYRIN SUBCUT SCH (09:15)
[2019-10-13] MEDS: FINASTERIDE 5 MG TABLET PO SCH (09:15)
[2019-10-13] MEDS: DOCUSATE SODIUM 100 MG CAPSULE PO SCH ×2 (09:15→17:49)
[2019-10-13] MEDS: DICYCLOMINE HCL 20 MG TABLET PO SCH ×2 (10:48→17:47)
[2019-10-13] MEDS ORDERED: MORPHINE SULFATE 10 MG/5 ML ORAL SOLUTION UDCUP PO PRN (12:19)
[2019-10-13] MEDS ORDERED: LORAZEPAM 1 MG TABLET PO PRN (12:23)
--- NOTE | 2019-10-13 12:27 | PDOC PROGRESS REPORT ---
Subjective Progress Note for:: 10/13/19 Subjective:: Still having a great deal of pain. The patient will be resting comfortably but has a significant increase in his complaints of pain when anyone is in the room. He is having some explosive bowel movements. He still feels that there is some kind of mass in his left lower quadrant. Reason For Visit: ACUTE ON CHRONIC KIDNEY FAILURE,ANEMIA OF CHRONIC Physical Exam Vital Signs: Temp Pulse Resp BP Pulse Ox 98.1 F 81 16 135/62 H 100 10/13/19 08:00 10/13/19 08:00 10/13/19 08:00 10/13/19 08:00 10/13/19 08:00 Intake & Output 10/12/19 10/13/19 10/14/19 06:59 06:59 06:59 Intake Total 100 Output Total 150 Balance -50 Weight 70.8 kg General appearance: PRESENT: cooperative, well-developed, other - Moderate distress (his baseline) Head exam: PRESENT: atraumatic, normocephalic Eye exam: PRESENT: conjunctiva pale. ABSENT: scleral icterus Ear exam: PRESENT: normal external ear exam. ABSENT: bleeding, drainage Mouth exam: PRESENT: dry mucosa, tongue midline Neck exam: ABSENT: carotid bruit, JVD, lymphadenopathy Respiratory exam: PRESENT: clear to auscultation jc, symmetrical, unlabored. ABSENT: rales, rhonchi, tachypnea, wheezes Cardiovascular exam: PRESENT: RRR, +S1, +S2. ABSENT: bradycardia, diastolic murmur, irregular rhythm, systolic murmur, tachycardia GI/Abdominal exam: PRESENT: diminished bowel sounds, soft, tenderness - Left lower quadrant mostly. ABSENT: distended, mass Rectal exam: PRESENT: deferred Gentrourinary exam: ABSENT: indwelling catheter Extremities exam: ABSENT: pedal edema Musculoskeletal exam: PRESENT: ambulatory, normal inspection. ABSENT: deformity, dislocation Neurological exam: PRESENT: alert, awake, oriented to person, oriented to place, oriented to situation, CN II-XII grossly intact Psychiatric exam: PRESENT: anxious, appropriate affect - Affect reflects his pain. ABSENT: agitated Focused psych exam: ABSENT: delusional, paranoid, restlessness Skin exam: PRESENT: dry, normal color, warm. ABSENT: rash Results Laboratory Results: 10/13/19 04:23 10/13/19 04:23 10/12/19 10/12/19 10/12/19 12:45 12:45 16:00 WBC 7.9 RBC 2.41 L Hgb 7.6 L Hct 21.8 L MCV 90 MCH 31.6 MCHC 34.9 RDW 14.3 H Plt Count 240 Seg Neutrophils % 79.2 H Sodium 131.7 L Potassium 4.3 Chloride 77 L Carbon Dioxide 39 H Anion Gap 16 BUN 93 H Creatinine 8.38 H Est GFR ( Amer) 8 L Glucose 303 H Calcium 8.9 Phosphorus Magnesium Total Bilirubin 0.7 AST 14 L Alkaline Phosphatase 135 H Total Protein 7.5 Albumin 4.7 Lipase 149.1 Urine Color YELLOW Urine Appearance CLEAR Urine pH 8.0 Ur Specific [place] 1.013 Urine Protein 100 H Urine Glucose (UA) 150 H Urine Ketones NEGATIVE Urine Blood NEGATIVE Urine Nitrite NEGATIVE Ur Leukocyte Esterase NEGATIVE Urine WBC (Auto) 0 Urine RBC (Auto) 0 Blood Type Antibody Screen 10/12/19 10/13/19 10/13/19 19:45 04:23 04:23 WBC 6.2 RBC 2.40 L Hgb 7.6 L Hct 21.5 L MCV 89 MCH 31.5 MCHC 35.2 RDW 14.0 Plt Count 214 Seg Neutrophils % 76.4 Sodium Potassium Chloride Carbon Dioxide Anion Gap BUN Creatinine Est GFR ( Amer) Glucose Calcium Phosphorus Magnesium 4.2 H* Total Bilirubin AST Alkaline Phosphatase Total Protein Albumin Lipase Urine Color Urine Appearance Urine pH Ur Specific [place] Urine Protein Urine Glucose (UA) Urine Ketones Urine Blood Urine Nitrite Ur Leukocyte Esterase Urine WBC (Auto) Urine RBC (Auto) Blood Type O POSITIVE Antibody Screen NEGATIVE 10/13/19 04:23 WBC RBC Hgb Hct MCV MCH MCHC RDW Plt Count Seg Neutrophils % Sodium 131.4 L Potassium 3.7 Chloride 82 L Carbon Dioxide 37 H Anion Gap 12 BUN 93 H Creatinine 7.73 H Est GFR ( Amer) 8 L Glucose 192 H Calcium 8.8 Phosphorus 7.1 H Magnesium Total Bilirubin AST Alkaline Phosphatase Total Protein Albumin 4.4 Lipase Urine Color Urine Appearance Urine pH Ur Specific [place] Urine Protein Urine Glucose (UA) Urine Ketones Urine Blood Urine Nitrite Ur Leukocyte Esterase Urine WBC (Auto) Urine RBC (Auto) Blood Type Antibody Screen Impressions: Abdomen/Pelvis CT 10/12/19 12:06 IMPRESSION: Prominent rectal stool burden. No evidence of anastomotic leak. Scattered large and small bowel fluid levels without evidence of mechanical obstruction. Assessment and Plan - Diagnosis (1) Abdominal pain Qualifiers: Abdominal location: left lower quadrant Qualified Code(s): R10.32 - Left lower quadrant pain Is this a current diagnosis for this admission?: Yes Plan: The patient does have air-filled loops of bowel but it is unchanged from several months ago. He reports that he feels like a rock is in his abdomen. The abdomen is soft and there are no palpable masses. I certainly believe the trapped air is creating a lot of the pain. (2) Acute kidney injury superimposed on CKD Is this a current diagnosis for this admission?: Yes Plan: Creatinine is in fact improved from yesterday. We will continue IV fluids and monitor. He is several liters net positive fluid balance. Urine output is still on the low side with less than 500 mL out per day (3) Hyponatremia with extracellular fluid depletion Is this a current diagnosis for this admission?: Yes Plan: Sodium is still low at 131. Continue to monitor. (4) Hyperglycemia due to type 2 diabetes mellitus Qualifiers: Diabetes mellitus fdc insulin use: with fdc use Qualified Code(s): E11.65 - Type 2 diabetes mellitus with hyperglycemia; Z79.4 - correction (current) use of insulin Is this a current diagnosis for this admission?: Yes Plan: Glucose is 192. His appetite is poor. Continue Accu-Cheks and sliding scale. With his underlying diabetes part of his problem certainly could be paresis from diabetic neuropathy. (5) Senile dementia with behavioral disturbance Is this a current diagnosis for this admission?: Yes Plan: The patient has not been agitated. He is focused on his pain. He sticks to his story about feeling very constipated despite him having bowel movements. Will monitor closely. I have increased his pain medications in an effort to help alleviate some of the abdominal pain. (6) Constipation Qualifiers: Constipation type: other constipation type Qualified Code(s): K59.09 - Other constipation Is this a current diagnosis for this admission?: Yes Plan: He has had bowel movements. He certainly is fixated on his bowels and to be fair he has had dilated loops of bowels for a long time. He has been in the hospital several times for this. He did have bowel movements and we will continue to be aggressive. I will add additional medications including Dulcolax and then possibly MiraLAX. He is also on lubiprostone. (7) Ileus Is this a current diagnosis for this admission?: Yes Plan: X-ray showed dilated loops of bowel. He has had multiple studies in the past. Despite wanting surgery he has been evaluated by several surgeons and stated that a laparotomy would not be helpful. He would likely develop further adhesions. Their advice in the past has been to avoid surgery at all costs. 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 I have talked to his about palliative/hospice care. He is clearly frustrated and he is expressed this to his . Is extremely unhappy with the quality of his life and the co nstant pain. (9) Anemia of chronic renal failure, stage 4 (severe) Is this a current diagnosis for this admission?: Yes Plan: The patient's hemoglobin stayed at 7.6. They were unable to complete the unit of blood because of lack of IV access. He does have an IV now. He has been stable and if he drops any further I will order transfusion. (10) Chronic laxative abuse Is this a current diagnosis for this admission?: Yes Plan: This has been an issue. As noted above he is fixated on his bowels. To that end he tries multiple [id number] preparations to relieve the constipation. Unfortunately part of the problem is the adhesions and trapped air. I would imagine he occasionally is straining without any significant stool burden to expel. - Time Time Spent with patient: 15-24 minutes Medications reviewed and adjusted accordingly: Yes Anticipated Discharge Disposition: Unknown at this time. Awaiting palliative care discussion with his Anticipated Discharge Timeframe: Unknown at this time
[2019-10-13] MEDS: FENTANYL 25 MCG/HR PATCH.TD72 TD SCH (12:46)
[2019-10-13] MEDS: CALCIUM GLUCONATE 1 GM/NS 50 ML RTU IV SCH ×4 (14:56→15:04)
[2019-10-13] MEDS: RINGERS SOLUTION,LACTATED 1,000 ML IV PRN (15:09)
[2019-10-13] MEDS: SUCRALFATE 1 GM TABLET PO SCH ×2 (17:47→22:18)
[2019-10-13] MEDS: ACETAMINOPHEN 325 MG TABLET PO PRN (20:30)
[2019-10-13] MEDS ORDERED: DEXTROSE 50%-WATER SYRINGE 12.5 GM/25 ML DOSE IV PRN (22:00)
[2019-10-13] MEDS ORDERED: DEXTROSE 40% GEL 15 GM TUBE X 2 PO PRN (22:00)
[2019-10-13] MEDS ORDERED: GLUCAGON,HUMAN RECOMB 1 MG INJ IM PRN (22:00)
[2019-10-13] MEDS ORDERED: DEXTROSE 50%-WATER SYRINGE 25 GM/50 ML DOSE IV PRN (22:00)
[2019-10-13] MEDS ORDERED: DEXTROSE 40% GEL 15 GM TUBE PO PRN (22:00)
[2019-10-13] MEDS: TRAZODONE HCL 50 MG TABLET PO SCH (22:18)
[2019-10-13] MEDS: ASPIRIN 81 MG TABLET, ENT COATED PO SCH (22:19)
[2019-10-13] MEDS: INSULIN LISPRO 100 UNIT/ML 3 ML VIAL SUBCUT SCH (22:19)
[2019-10-14] MEDS: PANTOPRAZOLE SODIUM 40 MG TABLET.DR PO SCH (05:23)
[2019-10-14] MEDS: SUCRALFATE 1 GM TABLET PO SCH ×4 (09:11→22:05)
[2019-10-14] MEDS: FINASTERIDE 5 MG TABLET PO SCH (09:11)
[2019-10-14] MEDS: FLUTICASONE NASAL SPRAY 50 MCG/SPRY 120 SPRAY/16 GM NAREB SCH (09:12)
[2019-10-14] MEDS: ENOXAPARIN SODIUM INJ 30 MG/0.3 ML DISP.SYRIN SUBCUT SCH (09:12)
[2019-10-14] MEDS: DICYCLOMINE HCL 20 MG TABLET PO SCH ×2 (09:12→17:39)
[2019-10-14] MEDS: LUBIPROSTONE 24 MCG CAPSULE PO SCH ×2 (09:13→17:39)
[2019-10-14] MEDS: DOCUSATE SODIUM 100 MG CAPSULE PO SCH ×2 (09:14→17:37)
[2019-10-14] MEDS: INSULIN LISPRO 100 UNIT/ML 3 ML VIAL SUBCUT SCH ×4 (09:37→22:23)
--- NOTE | 2019-10-14 10:59 | PDOC PROGRESS REPORT ---
Subjective Progress Note for:: 10/14/19 Subjective:: Still complaining of bad abdominal pain. Still straining on the toilet. States it feels like a "rock "is in there but his abdomen is soft. Reason For Visit: ACUTE ON CHRONIC KIDNEY FAILURE,ANEMIA OF CHRONIC Physical Exam Vital Signs: Temp Pulse Resp BP Pulse Ox 97.7 F 75 16 128/53 H 98 10/14/19 07:40 10/14/19 07:40 10/14/19 07:40 10/14/19 07:40 10/14/19 07:40 Intake & Output 10/13/19 10/14/19 10/15/19 06:59 06:59 06:59 Intake Total 100 1820 Output Total 150 150 Balance -50 1670 Weight 70.8 kg 71.4 kg Results Laboratory Results: 10/13/19 04:23 10/13/19 04:23 Impressions: Abdomen/Pelvis CT 10/12/19 12:06 IMPRESSION: Prominent rectal stool burden. No evidence of anastomotic leak. Scattered large and small bowel fluid levels without evidence of mechanical obstruction. Assessment and Plan - Diagnosis (1) Abdominal pain Qualifiers: Abdominal location: left lower quadrant Qualified Code(s): R10.32 - Left lower quadrant pain Is this a current diagnosis for this admission?: Yes (2) Acute kidney injury superimposed on CKD Is this a current diagnosis for this admission?: Yes (3) Hyponatremia with extracellular fluid depletion Is this a current diagnosis for this admission?: Yes (4) Hyperglycemia due to type 2 diabetes mellitus Qualifiers: Diabetes mellitus jail insulin use: with jail use Qualified Code(s): E11.65 - Type 2 diabetes mellitus with hyperglycemia; Z79.4 - group home (current) use of insulin Is this a current diagnosis for this admission?: Yes (5) Senile dementia with behavioral disturbance Is this a current diagnosis for this admission?: Yes (6) Constipation Qualifiers: Constipation type: other constipation type Qualified Code(s): K59.09 - Other constipation Is this a current diagnosis for this admission?: Yes (7) Ileus Is this a current diagnosis for this admission?: Yes (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
--- NOTE | 2019-10-14 11:50 | RADIOLOGY REPORT (SQ) ---
EXAM DESCRIPTION: KUB/ABDOMEN (SINGLE VIEW) IMAGES COMPLETED DATE/TIME: 10/14/2019 11:37 am REASON FOR STUDY: abdo pain compare to previous COMPARISON: 07/08/2019 NUMBER OF VIEWS: One view. TECHNIQUE: Supine radiographic image of the abdomen acquired. LIMITATIONS: None. FINDINGS: BOWEL GAS PATTERN: Gas pattern is unchanged from July. Prominent loops of small bowel in t he mid abdomen and throughout the right aspect of the abdomen. Mild gastric distention. CALCIFICATIONS: No suspicious calcifications. SOFT TISSUES: No gross mass or suggestion of organomegaly. HARDWARE: None in the abdomen. BONES: No acute fracture. No worrisome bone lesions. OTHER: No other significant finding. IMPRESSION: Stable gas pattern as described. TECHNICAL DOCUMENTATION: JOB ID: [id number] 2010 [employer]- All Rights Reserved Reading location - IP/workstation name: [email or web address]
[2019-10-14] MEDS: PROMETHAZINE HCL INJ 25 MG/1 ML VIAL IV PRN (11:54)
[2019-10-14] MEDS: RINGERS SOLUTION,LACTATED 1,000 ML IV PRN (12:23)
[2019-10-14] MEDS ORDERED: MORPHINE SULFATE 10 MG/ML INJ IV PRN (17:55)
--- NOTE | 2019-10-14 18:18 | PDOC PROGRESS REPORT ---
Subjective Progress Note for:: 10/14/19 Subjective:: Once again the patient is complaining of severe pain. He states that he was on the toilet for over an hour straining with no results. KUB film shows no significant change from earlier. Reason For Visit: ACUTE ON CHRONIC KIDNEY FAILURE,ANEMIA OF CHRONIC Physical Exam Vital Signs: Temp Pulse Resp BP Pulse Ox 98.0 F 108 H 16 142/61 H 96 10/14/19 16:10 10/14/19 16:10 10/14/19 16:10 10/14/19 16:10 10/14/19 16:10 Intake & Output 10/13/19 10/14/19 10/15/19 06:59 06:59 06:59 Intake Total 100 1820 1500 Output Total 150 150 350 Balance -50 1670 1150 Weight 70.8 kg 71.4 kg General appearance: PRESENT: cooperative, other - Moderate distress Head exam: PRESENT: atraumatic, normocephalic Eye exam: PRESENT: conjunctiva pale. ABSENT: scleral icterus Ear exam: PRESENT: normal external ear exam. ABSENT: bleeding, drainage Mouth exam: PRESENT: dry mucosa, tongue midline Respiratory exam: PRESENT: clear to auscultation jc, symmetrical, unlabored. ABSENT: prolonged expiratory phas, rales, rhonchi, tachypnea, wheezes Cardiovascular exam: PRESENT: RRR, +S1, +S2. ABSENT: bradycardia, diastolic murmur, irregular rhythm, systolic murmur, tachycardia GI/Abdominal exam: PRESENT: normal bowel sounds, soft, tenderness - Again very tender to palpation left lower quadrant.. ABSENT: distended, mass Rectal exam: PRESENT: deferred Gentrourinary exam: ABSENT: indwelling catheter Extremities exam: ABSENT: pedal edema Musculoskeletal exam: PRESENT: ambulatory, full ROM, normal inspection. ABSENT: deformity Neurological exam: PRESENT: alert, awake, oriented to person, oriented to place, oriented to situation Psychiatric exam: PRESENT: appropriate affect - Affect reflects his pain Focused psych exam: PRESENT: other - Unfortunately no matter how many times I explained to him the fact that surgery will not operate on him and this is a chronic condition he regularly requests to have surgery. He asked me to operate on him. I explained that surgery has seen multiple times and they are not going to operate as it will likely make things worse.. ABSENT: delusional, paranoid, restlessness Results Laboratory Results: 10/13/19 04:23 10/13/19 04:23 10/12/19 16:00 Clean Catch Midstream Urine Culture - Final Mixed Urogenital Sumi Impressions: Abdomen/Pelvis CT 10/12/19 12:06 IMPRESSION: Prominent rectal stool burden. No evidence of anastomotic leak. Scattered large and small bowel fluid levels without evidence of mechanical obstruction. KUB X-Ray 10/14/19 00:00 IMPRESSION: Stable gas pattern as described. Assessment and Plan - Diagnosis (1) Abdominal pain Qualifiers: Abdominal location: left lower quadrant Qualified Code(s): R10.32 - Left lower quadrant pain Is this a current diagnosis for this admission?: Yes Plan: Once again this is chronic. I have discussed with the and taken steps to be more aggressive with pain medications. We are trialing a Duragesic patch. Now that we have IV access I have increased the intravenous morphine dose. He still has oral dosing available. Unfortunately the higher the pain medicine dose the higher the risk for delayed bowel function. (2) Acute kidney injury superimposed on CKD Is this a current diagnosis for this admission?: Yes Plan: We did lose IV access and so there was a window of no fluid. I will recheck laboratory studies tomorrow. We will continue to monitor intake and output especially urine production as a reflection of his chronic kidney disease. 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 Because his appetite can vary on to be careful not to be too aggressive and induce hypoglycemia. (5) Senile dementia with behavioral disturbance Is this a current diagnosis for this admission?: Yes Plan: Still fixated on his bowels and abdominal pain amount of hemorrhage times is explained to him that surgery is not an option. He is not lashing out and not agitated at this time. (6) Constipation Qualifiers: Constipation type: other constipation type Qualified Code(s): K59.09 - Other constipation Is this a current diagnosis for this admission?: Yes Plan: I will add lactulose today to see if this helps. (7) Ileus Is this a current diagnosis for this admission?: Yes Plan: We will continue to monitor. Per rectal medications are ordered. He tends to decline anything administered by that route. 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 I believe he would be very resistant but I will discuss it with him tomorrow. (9) Anemia of chronic renal failure, stage 4 (severe) Is this a current diagnosis for this admission?: Yes Plan: I will recheck hemoglobin tomorrow. If it decreases from 7.6 I will order a unit of packed red blood cells. (10) Chronic laxative abuse Is this a current diagnosis for this admission?: Yes Plan: This has been an issue. As noted above he is fixated on his bowels. To that end he tries multiple [id number] preparations to relieve the constipation. Unfortunately part of the problem is the adhesions and trapped air. I would imagine he occasionally is straining without any significant stool burden to expel. - Time Time Spent with patient: 15-24 minutes Medications reviewed and adjusted accordingly: Yes Anticipated Discharge Disposition: Possibly hospice Anticipated Discharge Timeframe: Unknown at this time
[2019-10-14] MEDS: NORMAL SALINE 1000 ML 1,000 ML IV PRN (18:32)
[2019-10-14] MEDS ORDERED: NALOXONE HCL INJ/PF 0.4 MG/1 ML SDV ONE (19:52)
[2019-10-14] MEDS: TRAZODONE HCL 50 MG TABLET PO SCH (22:05)
[2019-10-14] MEDS: ASPIRIN 81 MG TABLET, ENT COATED PO SCH (22:05)
[2019-10-15] MEDS: LACTULOSE SYRUP 20 GM/30 ML UDCUP PO SCH ×3 (00:27→17:56)
[2019-10-15] MEDS: PANTOPRAZOLE SODIUM 40 MG TABLET.DR PO SCH (06:37)
[2019-10-15] MEDS: FLUTICASONE NASAL SPRAY 50 MCG/SPRY 120 SPRAY/16 GM NAREB SCH ×3 (07:01→22:03)
[2019-10-15] MEDS: NORMAL SALINE 1000 ML 1,000 ML IV PRN ×3 (07:35→23:02)
[2019-10-15] MEDS: INSULIN LISPRO 100 UNIT/ML 3 ML VIAL SUBCUT SCH ×4 (08:12→22:10)
[2019-10-15] MEDS: SUCRALFATE 1 GM TABLET PO SCH ×4 (08:27→22:03)
[2019-10-15 09:04] LABS: HEMATOCRIT 18.4 % (37.9-51.0); MEAN CORPUSCULAR HEMOGLOBIN 31.4 pg (27.0-33.4); MEAN CORPUSCULAR HGB CONC 35.5 g/dL (32.0-36.0); MEAN CORPUSCULAR VOLUME 89 fl (80-97); PLATELET COUNT 153 10^3/uL (150-450); RED BLOOD COUNT 2.07 10^6/uL (4.35-5.55); RED CELL DISTRIBUTION WIDTH 14.2 % (11.5-14.0); WHITE BLOOD COUNT 4.1 10^3/uL (4.0-10.5)
[2019-10-15 09:09] LABS: HEMOGLOBIN 6.5 g/dL (13.5-17.0)
[2019-10-15 09:20] LABS: ALBUMIN 3.6 g/dL (3.5-5.0); ANION GAP 11 (5-19); BLOOD UREA NITROGEN 74 mg/dL (7-20); CARBON DIOXIDE 28 mmol/L (22-30); CHLORIDE 95 mmol/L (98-107); GLUCOSE 91 mg/dL (75-110); POTASSIUM 3.6 mmol/L (3.6-5.0)
[2019-10-15] MEDS: LUBIPROSTONE 24 MCG CAPSULE PO SCH ×2 (10:46→17:55)
[2019-10-15] MEDS: FINASTERIDE 5 MG TABLET PO SCH (10:46)
[2019-10-15] MEDS: DICYCLOMINE HCL 20 MG TABLET PO SCH ×2 (10:46→17:55)
[2019-10-15] MEDS: ENOXAPARIN SODIUM INJ 30 MG/0.3 ML DISP.SYRIN SUBCUT SCH (10:47)
[2019-10-15] MEDS ORDERED: MORPHINE SULFATE 10 MG/5 ML ORAL SOLUTION UDCUP PO PRN (12:28)
--- NOTE | 2019-10-15 12:30 | PDOC PROGRESS REPORT ---
Subjective Progress Note for:: 10/15/19 Subjective:: The patient seems more comfortable today. He is getting a unit of packed red blood cells. Reason For Visit: ACUTE ON CHRONIC KIDNEY FAILURE,ANEMIA OF CHRONIC Physical Exam Vital Signs: Temp Pulse Resp BP Pulse Ox 98.6 F 73 18 128/49 H 100 10/15/19 11:20 10/15/19 11:20 10/15/19 11:20 10/15/19 11:20 10/15/19 11:20 Intake & Output 10/14/19 10/15/19 10/16/19 06:59 06:59 06:59 Intake Total 1820 3737 0 Output Total 150 975 Balance 1670 2762 0 Weight 71.4 kg 70.8 kg General appearance: PRESENT: cooperative, well-developed Respiratory exam: PRESENT: clear to auscultation jc, symmetrical, unlabored. ABSENT: prolonged expiratory phas, rales, rhonchi, tachypnea, wheezes Cardiovascular exam: PRESENT: RRR, +S1, +S2 GI/Abdominal exam: PRESENT: normal bowel sounds, soft, tenderness - This is a chronic complaint. Always in the left lower quadrant.. ABSENT: distended Rectal exam: PRESENT: deferred Gentrourinary exam: ABSENT: indwelling catheter Extremities exam: ABSENT: pedal edema Neurological exam: PRESENT: alert, awake, oriented to person, oriented to place, oriented to situation Psychiatric exam: PRESENT: appropriate affect. ABSENT: agitated, anxious Focused psych exam: ABSENT: delusional, paranoid, restlessness Results Laboratory Results: 10/15/19 08:04 10/15/19 08:04 10/12/19 10/15/19 10/15/19 19:45 08:04 08:04 WBC 4.1 RBC 2.07 L Hgb 6.5 L Hct 18.4 L MCV 89 MCH 31.4 MCHC 35.5 RDW 14.2 H Plt Count 153 Sodium 133.9 L Potassium 3.6 Chloride 95 L Carbon Dioxide 28 Anion Gap 11 BUN 74 H Creatinine 5.84 H Est GFR ( Amer) 12 L Glucose 91 Calcium 8.0 L Phosphorus 5.0 H Magnesium 3.2 H Albumin 3.6 Blood Type O POSITIVE Antibody Screen NEGATIVE 10/12/19 16:00 Clean Catch Midstream Urine Culture - Final Mixed Urogenital Sumi Impressions: Abdomen/Pelvis CT 10/12/19 12:06 IMPRESSION: Prominent rectal stool burden. No evidence of anastomotic leak. Scattered large and small bowel fluid levels without evidence of mechanical obstruction. KUB X-Ray 10/14/19 00:00 IMPRESSION: Stable gas pattern as described. Assessment and Plan - Diagnosis (1) Abdominal pain Qualifiers: Abdominal location: left lower quadrant Qualified Code(s): R10.32 - Left lower quadrant pain Is this a current diagnosis for this admission?: Yes Plan: We will continue to adjust pain medications to try and achieve comfort. The 10 mg morphine dose appears to be too much. I will scale back to 6 mg. There is no surgical intervention at this time. Continue bowel regimen. (2) Acute kidney injury superimposed on CKD Is this a current diagnosis for this admission?: Yes Plan: Improving with IV fluids. Continue IV fluids. (3) Hyponatremia with extracellular fluid depletion Is this a current diagnosis for this admission?: Yes Plan: Improved slightly. 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 Continue current regimen (5) Senile dementia with behavioral disturbance Is this a current diagnosis for this admission?: Yes Plan: Continue supportive care and current treatment plan (6) Constipation Qualifiers: Constipation type: other constipation type Qualified Code(s): K59.09 - Other constipation Is this a current diagnosis for this admission?: Yes Plan: I was a problem. The last KUB film did not suggest a large fecal load. (7) Ileus Is this a current diagnosis for this admission?: Yes Plan: Most recent KUB shows no change. Continue to monitor. This is a chronic issue. It is likely made worse by abdominal adhesions. 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 I will start low-dose citalopram. (9) Anemia of chronic renal failure, stage 4 (severe) Is this a current diagnosis for this admission?: Yes Plan: Hemoglobin did dip below 7. I have ordered 1 unit of packed red blood cells. Will monitor closely. The patient does seem to be stable in the mid 7 and higher range. Target hemoglobin will still be above 8.0. (10) Chronic laxative abuse Is this a current diagnosis for this admission?: Yes Plan: Continue current regimen. - Time Time Spent with patient: 15-24 minutes Medications reviewed and adjusted accordingly: Yes Anticipated Discharge Disposition: Home with Home Health Anticipated Discharge Timeframe: within 72 hours
[2019-10-15] MEDS: ASPIRIN 81 MG TABLET, ENT COATED PO SCH (22:03)
[2019-10-15] MEDS: TRAZODONE HCL 50 MG TABLET PO SCH (22:03)
[2019-10-16] MEDS: NORMAL SALINE 1000 ML 1,000 ML IV PRN ×3 (04:45→18:55)
[2019-10-16] MEDS: PANTOPRAZOLE SODIUM 40 MG TABLET.DR PO SCH (06:13)
[2019-10-16] MEDS: INSULIN LISPRO 100 UNIT/ML 3 ML VIAL SUBCUT SCH ×4 (08:22→21:27)
[2019-10-16] MEDS: FENTANYL 25 MCG/HR PATCH.TD72 TD SCH (11:19)
[2019-10-16] MEDS: LACTULOSE SYRUP 20 GM/30 ML UDCUP PO SCH ×2 (11:20→17:21)
[2019-10-16] MEDS: ENOXAPARIN SODIUM INJ 30 MG/0.3 ML DISP.SYRIN SUBCUT SCH (11:21)
[2019-10-16] MEDS: FINASTERIDE 5 MG TABLET PO SCH (11:21)
[2019-10-16] MEDS: CITALOPRAM HYDROBROMIDE 20 MG TABLET PO SCH (11:21)
[2019-10-16] MEDS: FLUTICASONE NASAL SPRAY 50 MCG/SPRY 120 SPRAY/16 GM NAREB SCH ×2 (11:22→21:24)
[2019-10-16] MEDS: DICYCLOMINE HCL 20 MG TABLET PO SCH ×2 (11:23→17:21)
[2019-10-16] MEDS: LUBIPROSTONE 24 MCG CAPSULE PO SCH ×2 (11:23→17:21)
[2019-10-16] MEDS: SUCRALFATE 1 GM TABLET PO SCH ×4 (11:24→21:24)
--- NOTE | 2019-10-16 15:25 | PDOC PROGRESS REPORT ---
Subjective Progress Note for:: 10/16/19 Subjective:: Patient resting comfortably. Just fell asleep. Staff reports that he has not needed pain medication today. Reason For Visit: ACUTE ON CHRONIC KIDNEY FAILURE,ANEMIA OF CHRONIC Physical Exam Vital Signs: Temp Pulse Resp BP Pulse Ox 97.9 F 65 17 138/46 H 100 10/16/19 11:22 10/16/19 11:22 10/16/19 11:22 10/16/19 11:22 10/16/19 11:22 Intake & Output 10/15/19 10/16/19 10/17/19 06:59 06:59 06:59 Intake Total 3737 3543 1358 Output Total 975 1515 Balance 2762 8 1358 Weight 70.8 kg 77 kg General appearance: PRESENT: no acute distress Respiratory exam: PRESENT: clear to auscultation jc, symmetrical, unlabored. ABSENT: rales, rhonchi, tachypnea, wheezes Cardiovascular exam: PRESENT: RRR, +S1, +S2. ABSENT: bradycardia, diastolic murmur, irregular rhythm, systolic murmur, tachycardia GI/Abdominal exam: PRESENT: diminished bowel sounds, soft, tenderness Rectal exam: PRESENT: deferred Neurological exam: ABSENT: awake Psychiatric exam: ABSENT: agitated Focused psych exam: ABSENT: restlessness Results Laboratory Results: 10/15/19 08:04 10/15/19 08:04 Impressions: Abdomen/Pelvis CT 10/12/19 12:06 IMPRESSION: Prominent rectal stool burden. No evidence of anastomotic leak. Scattered large and small bowel fluid levels without evidence of mechanical obstruction. KUB X-Ray 10/14/19 00:00 IMPRESSION: Stable gas pattern as described. Assessment and Plan - Diagnosis (1) Abdominal pain Qualifiers: Abdominal location: left lower quadrant Qualified Code(s): R10.32 - Left lower quadrant pain Is this a current diagnosis for this admission?: Yes Plan: Nursing stated that the patient did not need pain medicines all day. Perhaps the current regimen is effective. Continue current regimen and monitor closely. (2) Acute kidney injury superimposed on CKD Is this a current diagnosis for this admission?: Yes Plan: Continue IV fluids. Recheck laboratory studies tomorrow. (3) Hyponatremia with extracellular fluid depletion Is this a current diagnosis for this admission?: Yes Plan: Sodium is up to 134 yesterday. Recheck electrolytes tomorrow (4) Hyperglycemia due to type 2 diabetes mellitus Qualifiers: Diabetes mellitus snf insulin use: with long term care social worker use Qualified Code(s): E11.65 - Type 2 diabetes mellitus with hyperglycemia; Z79.4 - shelter (current) use of insulin Is this a current diagnosis for this admission?: Yes Plan: Reasonable glucose control on current regimen. Continue same for now. Continue to monitor with Accu-Cheks and treat with sliding scale (5) Senile dementia with behavioral disturbance Is this a current diagnosis for this admission?: Yes Plan: Staff reports he has been very restful today. There was no evidence of agitation at night. I did opt to let the patient sleep as he has had many difficult days prior to this hospitalization in the last several days. (6) Constipation Qualifiers: Constipation type: other constipation type Qualified Code(s): K59.09 - Other constipation Is this a current diagnosis for this admission?: Yes Plan: Nurses report no complaints today. He has been having bowel movements daily. Continue to monitor and continue current regimen (7) Ileus Is this a current diagnosis for this admission?: Yes Plan: Appears to be improved (8) Depression due to dementia Is this a current diagnosis for this admission?: Yes Plan: Low-dose SSRI therapy has been initiated (9) Anemia of chronic renal failure, stage 4 (severe) Is this a current diagnosis for this admission?: Yes Plan: The patient's hemoglobin decreased. He did receive a full unit of packed red blood cells. Only partial portion of the first unit was administered. We will recheck his hemoglobin tomorrow. Consider additional packed red blood cells to keep hemoglobin above 8.0 (10) Chronic laxative abuse Is this a current diagnosis for this admission?: Yes Plan: Stick to our current regimen while on inpatient status. - Time Time Spent with patient: Less than 15 minutes Anticipated Discharge Disposition: Home with Home Health Anticipated Discharge Timeframe: within 72 hours
[2019-10-16] MEDS: TRAZODONE HCL 50 MG TABLET PO SCH (21:23)
[2019-10-16] MEDS: ASPIRIN 81 MG TABLET, ENT COATED PO SCH (21:24)
[2019-10-17] MEDS: NORMAL SALINE 1000 ML 1,000 ML IV PRN ×3 (00:28→17:39)
[2019-10-17] MEDS: PANTOPRAZOLE SODIUM 40 MG TABLET.DR PO SCH (05:51)
[2019-10-17] MEDS: INSULIN LISPRO 100 UNIT/ML 3 ML VIAL SUBCUT SCH ×4 (07:39→22:27)
[2019-10-17] MEDS: SUCRALFATE 1 GM TABLET PO SCH ×3 (09:11→17:37)
[2019-10-17] MEDS: FINASTERIDE 5 MG TABLET PO SCH (09:11)
[2019-10-17] MEDS: LACTULOSE SYRUP 20 GM/30 ML UDCUP PO SCH ×2 (09:12→17:37)
[2019-10-17] MEDS: FLUTICASONE NASAL SPRAY 50 MCG/SPRY 120 SPRAY/16 GM NAREB SCH (09:12)
[2019-10-17] MEDS: DICYCLOMINE HCL 20 MG TABLET PO SCH ×2 (09:12→17:37)
[2019-10-17] MEDS: CITALOPRAM HYDROBROMIDE 20 MG TABLET PO SCH (09:12)
[2019-10-17] MEDS: LUBIPROSTONE 24 MCG CAPSULE PO SCH ×2 (09:12→17:37)
[2019-10-17] MEDS: ENOXAPARIN SODIUM INJ 30 MG/0.3 ML DISP.SYRIN SUBCUT SCH (09:13)
--- NOTE | 2019-10-17 13:18 | PDOC PROGRESS REPORT ---
Subjective Progress Note for:: 10/17/19 Subjective:: The patient was resting comfortably but when I asked him how he was feeling he immediately grabbed his stomach and tell me how much pain he was in. He begged me to cut him open and cut out what was wrong. This is a consistent dialogue despite explaining to him on many occasions that there is no surgical approach that would help him. He also reports that he has not been sleeping but I have seen him in the nurses have reported that he sleeps for extended periods. He also unfortunately refuses blood work. Reason For Visit: ACUTE ON CHRONIC KIDNEY FAILURE,ANEMIA OF CHRONIC Physical Exam Vital Signs: Temp Pulse Resp BP Pulse Ox 98.5 F 74 16 164/61 H 97 10/17/19 08:00 10/17/19 08:00 10/17/19 08:00 10/17/19 08:00 10/17/19 08:00 Intake & Output 10/16/19 10/17/19 10/18/19 06:59 06:59 06:59 Intake Total 3543 5299 Output Total 1515 825 600 Balance 2027 4474 -600 Weight 77 kg 72 kg General appearance: PRESENT: other - When entering the room the patient is resting comfortably but with the initiation of discussion he tells me how much pain he is in. Head exam: PRESENT: atraumatic, normocephalic Respiratory exam: PRESENT: clear to auscultation jc, symmetrical, unlabored. ABSENT: rales, rhonchi, tachypnea, wheezes Cardiovascular exam: PRESENT: RRR, +S1, +S2 GI/Abdominal exam: PRESENT: normal bowel sounds, soft, tenderness. ABSENT: distended Rectal exam: PRESENT: deferred Gentrourinary exam: ABSENT: indwelling catheter Extremities exam: ABSENT: pedal edema Neurological exam: PRESENT: alert, awake, oriented to person Psychiatric exam: PRESENT: anxious. ABSENT: agitated Results Laboratory Results: 10/15/19 08:04 10/15/19 08:04 Impressions: Abdomen/Pelvis CT 10/12/19 12:06 IMPRESSION: Prominent rectal stool burden. No evidence of anastomotic leak. Scattered large and small bowel fluid levels without evidence of mechanical obstruction. KUB X-Ray 10/14/19 00:00 IMPRESSION: Stable gas pattern as described. Assessment and Plan - Diagnosis (1) Abdominal pain Qualifiers: Abdominal location: left lower quadrant Qualified Code(s): R10.32 - Left lower quadrant pain Is this a current diagnosis for this admission?: Yes Plan: I do not doubt that the patient has abdominal discomfort however surgery has seen him multiple times and repeatedly has had there is no surgical intervention that would be appropriate. The patient has been refusing blood testing. And asked discharge planning to have hospice reach out to her. At this point my personal belief is that he would best be served by hospice level care (2) Acute kidney injury superimposed on CKD Is this a current diagnosis for this admission?: Yes Plan: With fluids his creatinine was improving. Unfortunately has been refusing blood work and there is no way to monitor his progress. If he were on hospice level care it is likely he would succumb to his kidney failure in 4 to 8 weeks. It is also been combined with anemia which would be a contributing factor. (3) Hyponatremia with extracellular fluid depletion Is this a current diagnosis for this admission?: Yes Plan: Sodium was improving but patient has been refusing blood work so difficult to assess (4) Hyperglycemia due to type 2 diabetes mellitus Qualifiers: Diabetes mellitus fpc insulin use: with buttermaker helper use Qualified Code(s): E11.65 - Type 2 diabetes mellitus with hyperglycemia; Z79.4 - intermediate (current) use of insulin Is this a current diagnosis for this admission?: Yes Plan: Continue current regimen. Glucose currently stable. (5) Senile dementia with behavioral disturbance Is this a current diagnosis for this admission?: Yes Plan: When patient is left alone he actually seems pain-free. Every time I have entered the room he becomes very dramatic about his pain. As noted above I think he has become fixated on his abdomen secondary to his dementia. Surgery has seen him in the past and feels there is nothing to offer from a surgical perspective. (6) Constipation Qualifiers: Constipation type: other constipation type Qualified Code(s): K59.09 - Other constipation Is this a current diagnosis for this admission?: Yes Plan: By the intake and output record he has been having bowel movements daily. (7) Ileus Is this a current diagnosis for this admission?: Yes Plan: Continues to have daily bowel movements. 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 Unfortunately he will not allow repeat blood work. (10) Chronic laxative abuse Is this a current diagnosis for this admission?: Yes Plan: Stick to our current regimen while on inpatient status. - Time Time Spent with patient: 15-24 minutes Medications reviewed and adjusted accordingly: Yes Anticipated Discharge Disposition: Home with Hospice Anticipated Discharge Timeframe: within 72 hours
[2019-10-18] MEDS: PROMETHAZINE HCL INJ 25 MG/1 ML VIAL IV PRN (00:39)
[2019-10-18] MEDS: ASPIRIN 81 MG TABLET, ENT COATED PO SCH (00:39)
[2019-10-18] MEDS: TRAZODONE HCL 50 MG TABLET PO SCH (00:39)
[2019-10-18] MEDS: SUCRALFATE 1 GM TABLET PO SCH ×4 (00:39→17:50)
[2019-10-18] MEDS: FLUTICASONE NASAL SPRAY 50 MCG/SPRY 120 SPRAY/16 GM NAREB SCH ×2 (00:40→10:34)
[2019-10-18] MEDS: PANTOPRAZOLE SODIUM 40 MG TABLET.DR PO SCH (06:12)
[2019-10-18] MEDS: INSULIN LISPRO 100 UNIT/ML 3 ML VIAL SUBCUT SCH ×3 (08:01→17:39)
[2019-10-18] MEDS: FINASTERIDE 5 MG TABLET PO SCH (10:31)
[2019-10-18] MEDS: CITALOPRAM HYDROBROMIDE 20 MG TABLET PO SCH (10:31)
[2019-10-18] MEDS: LACTULOSE SYRUP 20 GM/30 ML UDCUP PO SCH ×2 (10:32→17:49)
[2019-10-18] MEDS: LUBIPROSTONE 24 MCG CAPSULE PO SCH ×2 (10:32→17:50)
[2019-10-18] MEDS: DICYCLOMINE HCL 20 MG TABLET PO SCH ×2 (10:34→17:50)
[2019-10-18] MEDS: ENOXAPARIN SODIUM INJ 30 MG/0.3 ML DISP.SYRIN SUBCUT SCH (10:35)
--- NOTE | 2019-10-18 17:51 | PDOC PROGRESS REPORT ---
Subjective Progress Note for:: 10/18/19 Subjective:: Patient looks fine on examination but still is fixated on his abdominal pain. Otherwise denies shortness of breath nausea vomiting. Has been having bowel movements. Once again, he has refused all his labs today. Reason For Visit: ACUTE ON CHRONIC KIDNEY FAILURE,ANEMIA OF CHRONIC Physical Exam Vital Signs: Temp Pulse Resp BP Pulse Ox 98.4 F 70 20 154/62 H 100 10/18/19 15:36 10/18/19 15:36 10/18/19 15:36 10/18/19 15:36 10/18/19 15:36 Intake & Output 10/17/19 10/18/19 10/19/19 06:59 06:59 06:59 Intake Total 5299 2204 Output Total 825 2000 Balance 4474 204 Weight 72 kg 72.3 kg General appearance: PRESENT: no acute distress, cooperative Neck exam: ABSENT: JVD Respiratory exam: PRESENT: unlabored. ABSENT: accessory muscle use, retraction GI/Abdominal exam: PRESENT: normal bowel sounds, soft, tenderness - Mild. ABSENT: distended, firm, guarding, rebound, rigid Neurological exam: PRESENT: alert, awake Results Laboratory Results: 10/15/19 08:04 10/15/19 08:04 Impressions: Abdomen/Pelvis CT 10/12/19 12:06 IMPRESSION: Prominent rectal stool burden. No evidence of anastomotic leak. Scattered large and small bowel fluid levels without evidence of mechanical obstruction. KUB X-Ray 10/14/19 00:00 IMPRESSION: Stable gas pattern as described. Assessment and Plan - Diagnosis (1) Abdominal pain Qualifiers: Abdominal location: left lower quadrant Qualified Code(s): R10.32 - Left lower quadrant pain Is this a current diagnosis for this admission?: Yes Plan: Patient remains fixated on his abdominal pain. However he fully appears comfortable when I come into the room but becomes fixated on the abdominal pain once I bring it up. Exaggerates the intensity of his abdominal pain quite a bit. Reviewed the abdominal CAT scan result done on admission which was quite frankly unimpressive for any acute causes. He has been treated for the constipation and has been having good bowel movements. (2) Acute kidney injury superimposed on CKD Is this a current diagnosis for this admission?: Yes Plan: His creatinine seem to have been improving with fluid administration. However, patient has refused further lab draws. I have reviewed patient's chart and prev ious admissions and it seems patient always comes back with significant FEROZ with creatinine going as high as 7 or even 9 superimposed on patient's already significant CKD stage IV-V. Given this loop of recurrence especially as patient has very poor p.o. intake at home due to his dementia, patient is an ideal candidate for hospice care. I agree with assessment of prior provider regarding this and I have discussed this with patient's extensively who would like to talk to the hospice company regarding possibly discharging on hospice. (3) Hyponatremia with extracellular fluid depletion Is this a current diagnosis for this admission?: Yes Plan: Sodium was improving but patient has been refusing blood work so difficult to assess (4) Senile dementia with behavioral disturbance Is this a current diagnosis for this admission?: Yes - Time Time Spent with patient: Less than 15 minutes Anticipated Discharge Disposition: Home with Hospice Anticipated Discharge Timeframe: within 48 hours
--- NOTE | 2019-10-18 19:07 | ADVANCED CARE ---
- Diagnosis (2) Acute kidney injury superimposed on CKD Diagnosis Current: Yes (4) Senile dementia with behavioral disturbance Diagnosis Current: Yes Attendance: Patient's and myself Resuscitation Status: Do Not Resuscitate Discussion: Discussed patient's situation extensively and patient's recurrence of FEROZ superimposed on CKD combined with his senile dementia which seems advanced as patient even has poor oral intake at home as well as patient's recurrent admissions for the same issue due to dehydration. Also discussed fact the patient refuses blood work while in the hospital and it is going to be hard to continue to manage such conditions. I elaborately discussed concept of hospice and palliative care with patient's and she would like to talk to the apron worker regarding a possible discharge on hospice. She would also like to have a conversation with her kids about it as well. Time Spent: 20mins
[2019-10-19] MEDS: SUCRALFATE 1 GM TABLET PO SCH ×5 (05:35→22:01)
[2019-10-19] MEDS: TRAZODONE HCL 50 MG TABLET PO SCH ×2 (05:36→22:01)
[2019-10-19] MEDS: FLUTICASONE NASAL SPRAY 50 MCG/SPRY 120 SPRAY/16 GM NAREB SCH ×3 (05:36→22:02)
[2019-10-19] MEDS: ASPIRIN 81 MG TABLET, ENT COATED PO SCH ×2 (05:36→22:02)
[2019-10-19] MEDS: INSULIN LISPRO 100 UNIT/ML 3 ML VIAL SUBCUT SCH ×5 (05:37→21:14)
[2019-10-19] MEDS: PANTOPRAZOLE SODIUM 40 MG TABLET.DR PO SCH (05:38)
[2019-10-19] MEDS: ENOXAPARIN SODIUM INJ 30 MG/0.3 ML DISP.SYRIN SUBCUT SCH (11:04)
[2019-10-19] MEDS: FINASTERIDE 5 MG TABLET PO SCH (11:05)
[2019-10-19] MEDS: FENTANYL 25 MCG/HR PATCH.TD72 TD SCH (11:05)
[2019-10-19] MEDS: LUBIPROSTONE 24 MCG CAPSULE PO SCH ×2 (11:07→17:31)
[2019-10-19] MEDS: LACTULOSE SYRUP 20 GM/30 ML UDCUP PO SCH ×2 (11:07→17:30)
[2019-10-19] MEDS: DICYCLOMINE HCL 20 MG TABLET PO SCH ×2 (11:08→17:31)
[2019-10-19] MEDS: CITALOPRAM HYDROBROMIDE 20 MG TABLET PO SCH (11:10)
--- NOTE | 2019-10-19 16:12 | PDOC PROGRESS REPORT ---
Subjective Progress Note for:: 10/19/19 Subjective:: Patient is still fixated on his abdominal pain. Seen having bowel movement this morning. Had conversation with his who seems to be quite interested in hospice at this point. Reason For Visit: ACUTE ON CHRONIC KIDNEY FAILURE,ANEMIA OF CHRONIC Physical Exam Vital Signs: Temp Pulse Resp BP Pulse Ox 98.2 F 78 20 171/72 H 100 10/19/19 11:01 10/19/19 11:01 10/19/19 11:01 10/19/19 11:01 10/19/19 11:01 Intake & Output 10/18/19 10/19/19 10/20/19 06:59 06:59 06:59 Intake Total 2204 900 0 Output Total 1999 1150 200 Balance 204 -250 -200 Weight 72.3 kg 76.4 kg General appearance: PRESENT: no acute distress, cooperative Neck exam: ABSENT: JVD Respiratory exam: PRESENT: unlabored Musculoskeletal exam: PRESENT: ambulatory Neurological exam: PRESENT: alert, awake Results Laboratory Results: 10/15/19 08:04 10/15/19 08:04 Impressions: Abdomen/Pelvis CT 10/12/19 12:06 IMPRESSION: Prominent rectal stool burden. No evidence of anastomotic leak. Scattered large and small bowel fluid levels without evidence of mechanical obstruction. KUB X-Ray 10/14/19 00:00 IMPRESSION: Stable gas pattern as described. Assessment and Plan - Diagnosis (1) Abdominal pain Qualifiers: Abdominal location: left lower quadrant Qualified Code(s): R10.32 - Left lower quadrant pain Is this a current diagnosis for this admission?: Yes (2) Acute kidney injury superimposed on CKD Is this a current diagnosis for this admission?: Yes (3) Hyponatremia with extracellular fluid depletion Is this a current diagnosis for this admission?: Yes (4) Senile dementia with behavioral disturbance Is this a current diagnosis for this admission?: Yes - Plan Summary Summary: Patient has continued to refuse all blood draws. At this point the is very much interested in hospice but would like to speak to the hospice company before making a decision on this. She has still not heard from hospice despite referral being made few days ago. I have reached out again to a manager social today to reach out to the hospice company to reach out to patient's as this is not delaying discharge at this point. - Time Time Spent with patient: Less than 15 minutes Anticipated Discharge Disposition: Home with Hospice Anticipated Discharge Timeframe: within 24 hours
[2019-10-20] MEDS: PANTOPRAZOLE SODIUM 40 MG TABLET.DR PO SCH (05:35)
[2019-10-20] MEDS: SUCRALFATE 1 GM TABLET PO SCH ×4 (11:05→23:48)
[2019-10-20] MEDS: INSULIN LISPRO 100 UNIT/ML 3 ML VIAL SUBCUT SCH ×4 (11:06→23:49)
[2019-10-20] MEDS: LACTULOSE SYRUP 20 GM/30 ML UDCUP PO SCH ×2 (11:35→17:05)
[2019-10-20] MEDS: DICYCLOMINE HCL 20 MG TABLET PO SCH ×2 (11:36→17:06)
[2019-10-20] MEDS: CITALOPRAM HYDROBROMIDE 20 MG TABLET PO SCH (11:36)
[2019-10-20] MEDS: FINASTERIDE 5 MG TABLET PO SCH (11:36)
[2019-10-20] MEDS: LUBIPROSTONE 24 MCG CAPSULE PO SCH ×2 (11:37→17:05)
[2019-10-20] MEDS: FLUTICASONE NASAL SPRAY 50 MCG/SPRY 120 SPRAY/16 GM NAREB SCH ×2 (11:37→23:49)
[2019-10-20] MEDS: ENOXAPARIN SODIUM INJ 30 MG/0.3 ML DISP.SYRIN SUBCUT SCH (11:37)
--- NOTE | 2019-10-20 15:08 | PDOC PROGRESS REPORT ---
Subjective Progress Note for:: 10/20/19 Subjective:: Patient comfortable this morning. Initially stated he had no problems with and later started fixating on his abdominal pain again. His has agreed to hospice, patient will be set up for hospice tomorrow morning. Reason For Visit: ACUTE ON CHRONIC KIDNEY FAILURE,ANEMIA OF CHRONIC Physical Exam Vital Signs: Temp Pulse Resp BP Pulse Ox 98.7 F 76 18 187/78 H 100 10/20/19 11:55 10/20/19 11:55 10/20/19 11:55 10/20/19 11:55 10/20/19 11:55 Intake & Output 10/19/19 10/20/19 10/21/19 06:59 06:59 06:59 Intake Total 900 0 820 Output Total 1150 200 Balance -250 -200 820 Weight 76.4 kg 76.4 kg General appearance: PRESENT: no acute distress, cooperative Respiratory exam: PRESENT: unlabored. ABSENT: accessory muscle use Musculoskeletal exam: PRESENT: ambulatory Neurological exam: PRESENT: alert, awake Psychiatric exam: ABSENT: agitated, anxious Results Laboratory Results: 10/15/19 08:04 10/15/19 08:04 Impressions: Abdomen/Pelvis CT 10/12/19 12:06 IMPRESSION: Prominent rectal stool burden. No evidence of anastomotic leak. Scattered large and small bowel fluid levels without evidence of mechanical obstruction. KUB X-Ray 10/14/19 00:00 IMPRESSION: Stable gas pattern as described. Assessment and Plan - Diagnosis (1) Abdominal pain Qualifiers: Abdominal location: left lower quadrant Qualified Code(s): R10.32 - Left lower quadrant pain Is this a current diagnosis for this admission?: Yes (2) Acute kidney injury superimposed on CKD Is this a current diagnosis for this admission?: Yes (3) Hyponatremia with extracellular fluid depletion Is this a current diagnosis for this admission?: Yes (4) Senile dementia with behavioral disturbance Is this a current diagnosis for this admission?: Yes - Plan Summary Summary: Patient's is admitted for hospice care. Continue rest of patient's meds for now. Hospice has reached out and we will be setting patient up tomorrow morning. Patient appears comfortable. - Time Time Spent with patient: Less than 15 minutes Anticipated Discharge Disposition: Home with Hospice Anticipated Discharge Timeframe: within 24 hours
[2019-10-20] MEDS: AMLODIPINE BESYLATE 10 MG TABLET PO SCH (17:08)
[2019-10-20] MEDS: TRAZODONE HCL 50 MG TABLET PO SCH (23:48)
[2019-10-20] MEDS: ASPIRIN 81 MG TABLET, ENT COATED PO SCH (23:48)
[2019-10-21] MEDS: PANTOPRAZOLE SODIUM 40 MG TABLET.DR PO SCH (05:54)
[2019-10-21] MEDS: SUCRALFATE 1 GM TABLET PO SCH ×2 (08:40→11:46)
[2019-10-21] MEDS: ACETAMINOPHEN 325 MG TABLET PO PRN (08:40)
[2019-10-21] MEDS: INSULIN LISPRO 100 UNIT/ML 3 ML VIAL SUBCUT SCH (08:49)
[2019-10-21] MEDS: AMLODIPINE BESYLATE 10 MG TABLET PO SCH (11:46)
[2019-10-21] MEDS: CITALOPRAM HYDROBROMIDE 20 MG TABLET PO SCH (11:47)
[2019-10-21] MEDS: FINASTERIDE 5 MG TABLET PO SCH (11:47)
[2019-10-21] MEDS: DICYCLOMINE HCL 20 MG TABLET PO SCH (11:48)
[2019-10-21] MEDS: LUBIPROSTONE 24 MCG CAPSULE PO SCH (11:48)
[2019-10-21] MEDS: FLUTICASONE NASAL SPRAY 50 MCG/SPRY 120 SPRAY/16 GM NAREB SCH (11:51)
[2019-10-21] MEDS: ENOXAPARIN SODIUM INJ 30 MG/0.3 ML DISP.SYRIN SUBCUT SCH (11:52)
[2019-10-21] MEDS: LACTULOSE SYRUP 20 GM/30 ML UDCUP PO SCH (11:52)
--- NOTE | 2019-10-21 11:54 | PDOC DISCHARGE SUMMARY ---
Impression - Admit/DC Date/PCP Admission Date/Primary Care Provider: 10/12/19 19:42 MARYLU IGLESIAS PA-C Discharge Date: 10/21/19 - Discharge Diagnosis (1) Acute kidney injury superimposed on CKD Is this a current diagnosis for this admission?: Yes (2) Hospice care patient Is this a current diagnosis for this admission?: Yes (3) Abdominal pain Is this a current diagnosis for this admission?: Yes (4) Hyponatremia with extracellular fluid depletion Is this a current diagnosis for this admission?: Yes (5) Senile dementia with behavioral disturbance Is this a current diagnosis for this admission?: Yes (6) Type 2 diabetes mellitus Is this a current diagnosis for this admission?: No - Additional Information Resuscitation Status: Do Not Resuscitate Discharge Diet: Regular Referrals: MARYLU IGLESIAS PA-C [Primary Care Provider] - Follow up as needed Prescriptions: Lorazepam [Ativan 1 mg Tablet] 1 mg PO Q4HP PRN #14 tab PRN Reason: Dicyclomine HCl [Bentyl 20 mg Tablet] 20 mg PO BID #60 Sucralfate [Carafate 1 gm Tablet] 1 gm PO TID #90 tablet Lactulose [Cephulac Syrup 20 gm/30 ml Udcup] 20 gm PO BID 30 Days Bisacodyl [Dulcolax 5 mg Tablet] 10 mg PO DAILYP PRN #60 tabec PRN Reason: For Constipation Morphine Sulfate [Morphine Ir 15 mg Tablet] 7.5 mg PO Q4HP PRN #10 tablet PRN Reason: Amlodipine Besylate [Norvasc 10 mg Tablet] 10 mg PO DAILY #30 tablet Simethicone 125 mg PO TIDP PRN #30 capsule PRN Reason: For Gas (Flatulence) Home Medications: Finasteride [Proscar 5 mg Tablet] 5 mg PO DAILY 04/24/19 Fluticasone Propionate [Flonase Nasal Mazon 50 Mcg/Mazon 16 gm] 1 spray NAREB Q12 10/12/19 Acetaminophen [Tylenol 325 mg Tablet] 650 mg PO Q4HP PRN #0 tablet 10/21/19 Amlodipine Besylate [Norvasc 10 mg Tablet] 10 mg PO DAILY #30 tablet 10/21/19 Bisacodyl [Dulcolax 5 mg Tablet] 10 mg PO DAILYP PRN #60 tabec 10/21/19 Dicyclomine HCl [Bentyl 20 mg Tablet] 20 mg PO BID #60 10/21/19 Lactulose [Cephulac Syrup 20 gm/30 ml Udcup] 20 gm PO BID 30 Days 10/21/19 Lorazepam [Ativan 1 mg Tablet] 1 mg PO Q4HP PRN #14 tab 10/21/19 Morphine Sulfate [Morphine Ir 15 mg Tablet] 7.5 mg PO Q4HP PRN #10 tablet 10/21/19 Simethicone 125 mg PO TIDP PRN #30 capsule 10/21/19 Sucralfate [Carafate 1 gm Tablet] 1 gm PO TID #90 tablet 10/21/19 History of Present Illiness History of Present Illness: According to admitting provider: MIKE CROOK is a 74 year old male is had multiple hospitalizations for recurrent abdominal pain. Unfortunately there is no reasonable treatment. His pain is mostly from adhesions from multiple surgeries in the past. Surgery has evaluated the patient on multiple occasions. The patient does obsessed with his abdominal pain and with his bowels at home. When I spoke to his she states that he tries multiple different remedies. None seem to help. This is because true constipation is not the issue as noted above. CT scan does show a rectal fecal load. The patient initially refused suppository but I explained to him that because of where the stool is he needs to allow treatment from below. He was more agreeable after that discussion and the nurse was at the bedside during the entire discussion. He has acute on chronic kidney failure which is a recurrent episode with all of his admissions. He refuses to eat or drink because of the abdominal pain. He decompensates comes to the hospital gets slight improvement goes home and it is a recurrent pa ttern. At his last discharge in August he in fact was sent to [facility]. Despite his dementia they let him sign out AGAINST MEDICAL ADVICE and unfortunately his picked him up not understanding the benefits of the patient getting continuous nursing care. The patient is anemic. His BUN and creatinine are elevated. He has a rectal fecal load and is demented. He will be admitted to the hospital. I will give him 1 unit of packed red blood cells only. I did stress to the that she does need to speak to palliative care and that this ongoing pattern of recurrent hospitalization, recurrent treatment for a process that will never be resolved and the patient's increasing frustration with the quality of life certainly merits consideration of comfort measures. Hospital Course Hospital Course: Patient was admitted to the hospital for treatment of FEROZ superimposed on CKD stage V. His creatinine was as high as 8 on this admission. His baseline since recently seems to be somewhere between 3.5 and 5. It seems that whenever patient gets home he does not eat much or drink much fluids secondary to his senile dementia and ends up with worsening CKD. Patient was also noted to be anemic likely secondary to advanced CKD. His hemoglobin dropped down to 6.6 during this admission. Patient was given fluids with gradual improvement of his creatinine and kidney function. However patient started to decline all lab drops for several days and as such he made it impossible to monitor his renal function, electrolytes and his blood count. As usual, patient also continue to stay fixated on his abdominal pain. Seems he was treated for constipation during this hospitalization amongst others. As this FEROZ superimposed on CKD stage V seems to be a recurrent issue with patient, combined with patient's senile dementia, multiple thorough elaborate conversations were had regarding advanced care planning with patient's and the decision was made to pursue hospice care. Hospice care has been set up for patient and patient will be discharged on home hospice. Physical Exam Vital Signs: Temp Pulse Resp BP Pulse Ox 99.2 F 64 14 153/63 H 99 10/21/19 11:04 10/21/19 11:04 10/21/19 11:04 10/21/19 11:04 10/21/19 11:04 Intake & Output 10/20/19 10/21/19 10/22/19 06:59 06:59 06:59 Intake Total 0 1440 Output Total 200 100 Balance -200 1340 Weight 76.4 kg 76.4 kg General appearance: PRESENT: no acute distress, cooperative Respiratory exam: PRESENT: unlabored Neurological exam: PRESENT: alert, awake Results Laboratory Results: WBC 4.1 10^3/uL (4.0-10.5) 10/15/19 08:04 RBC 2.07 10^6/uL (4.35-5.55) L 10/15/19 08:04 Hgb 6.5 g/dL (13.5-17.0) L 10/15/19 08:04 Hct 18.4 % (37.9-51.0) L 10/15/19 08:04 MCV 89 fl (80-97) 10/15/19 08:04 MCH 31.4 pg (27.0-33.4) 10/15/19 08:04 MCHC 35.5 g/dL (32.0-36.0) 10/15/19 08:04 RDW 14.2 % (11.5-14.0) H 10/15/19 08:04 Plt Count 153 10^3/uL (150-450) 10/15/19 08:04 Lymph % (Auto) 13.7 % (13-45) 10/13/19 04:23 [place] % (Auto) 7.4 % (3-13) 10/13/19 04:23 Eos % (Auto) 2.1 % (0-6) 10/13/19 04:23 Baso % (Auto) 0.4 % (0-2) 10/13/19 04:23 Absolute Neuts (auto) 4.7 10^3/uL (1.7-8.2) 10/13/19 04:23 Absolute Lymphs (auto) 0.9 10^3/uL (0.5-4.7) 10/13/19 04:23 Absolute Monos (auto) 0.5 10^3/uL (0.1-1.4) 10/13/19 04:23 Absolute Eos (auto) 0.1 10^3/uL (0.0-0.6) 10/13/19 04:23 Absolute Basos (auto) 0.0 10^3/uL (0.0-0.2) 10/13/19 04:23 Seg Neutrophils % 76.4 % (42-78) 10/13/19 04:23 Sodium 133.9 mmol/L (137-145) L 10/15/19 08:04 Potassium 3.6 mmol/L (3.6-5.0) 10/15/19 08:04 Chloride 95 mmol/L (98-107) L 10/15/19 08:04 Carbon Dioxide 28 mmol/L (22-30) 10/15/19 08:04 Anion Gap 11 (5-19) 10/15/19 08:04 BUN 74 mg/dL (7-20) H 10/15/19 08:04 Creatinine 5.84 mg/dL (0.52-1.25) H 10/15/19 08:04 Est GFR ( Amer) 12 (>60) L 10/15/19 08:04 Est GFR (MDRD) Non-Af 10 (>60) L 10/15/19 08:04 Glucose 91 mg/dL (75-110) 10/15/19 08:04 POC Glucose 185 mg/dL (70-110) H 10/21/19 08:59 Hemoglobin A1c % 6.6 % (4.7-6.0) H 10/13/19 04:23 Calcium 8.0 mg/dL (8.4-10.2) L 10/15/19 08:04 Phosphorus 5.0 mg/dL (2.5-4.5) H 10/15/19 08:04 Magnesium 3.2 mg/dL (1.6-2.3) H 10/15/19 08:04 Total Bilirubin 0.7 mg/dL (0.2-1.3) 10/12/19 12:45 Direct Bilirubin 0.3 mg/dL (0.0-0.4) 10/12/19 12:45 Neonat Total Bilirubin Not Reportable 10/12/19 12:45 Neonat Direct Bilirubin Not Reportable 10/12/19 12:45 Neonat Indirect Bili Not Reportable 10/12/19 12:45 AST 14 U/L (17-59) L 10/12/19 12:45 ALT 10 U/L (<50) 10/12/19 12:45 Alkaline Phosphatase 135 U/L (38-126) H 10/12/19 12:45 Total Protein 7.5 g/dL (6.3-8.2) 10/12/19 12:45 Albumin 3.6 g/dL (3.5-5.0) 10/15/19 08:04 Lipase 149.1 U/L (23-300) 10/12/19 12:45 Urine Color YELLOW 10/12/19 16:00 Urine Appearance CLEAR 10/12/19 16:00 Urine pH 8.0 (5.0-9.0) 10/12/19 16:00 Ur Specific [place] 1.013 10/12/19 16:00 Urine Protein 100 mg/dL (NEGATIVE) H 10/12/19 16:00 Urine Glucose (UA) 150 mg/dL (NEGATIVE) H 10/12/19 16:00 Urine Ketones NEGATIVE mg/dL (NEGATIVE) 10/12/19 16:00 Urine Blood NEGATIVE (NEGATIVE) 10/12/19 16:00 Urine Nitrite NEGATIVE (NEGATIVE) 10/12/19 16:00 Urine Bilirubin NEGATIVE (NEGATIVE) 10/12/19 16:00 Urine Urobilinogen NEGATIVE mg/dL (<2.0) 10/12/19 16:00 Ur Leukocyte Esterase NEGATIVE (NEGATIVE) 10/12/19 16:00 Urine WBC (Auto) 0 /HPF 10/12/19 16:00 Urine RBC (Auto) 0 /HPF 10/12/19 16:00 Squamous Epi Cells Auto 1 /HPF 10/12/19 16:00 Urine Ascorbic Acid NEGATIVE (NEGATIVE) 10/12/19 16:00 Blood Type O POSITIVE 10/12/19 19:45 Antibody Screen NEGATIVE 10/12/19 19:45 Crossmatch See Detail 10/12/19 19:45 Impressions: Abdomen/Pelvis CT 10/12/19 12:06 IMPRESSION: Prominent rectal stool burden. No evidence of anastomotic leak. Scattered large and small bowel fluid levels without evidence of mechanical obstruction. KUB X-Ray 10/14/19 00:00 IMPRESSION: Stable gas pattern as described. Plan Time Spent: Less than 30 Minutes Stroke Is this a Stroke Patient?: No Acute Heart Failure - Is this a Heart Failure Patient?: No
[2019-10-21 11:57] VITALS: BP 135/62
== END 2019-10-21 12:25 | disposition hospice, home (50) | DRG 683 ==
LOC: ER 11:06 → EH 19:42 → 4W 21:56 → 3S 10-13 18:15 → 4N 10-17 03:42
PROVIDERS: ADMIT Hospitalist; ATTEND Internal Medicine
PROC: 30233N1 Transfusion of Nonautologous Red Blood Cells into Peripheral Vein, Percutaneous Approach (ICD-10-PCS; principal; 2019-10-12)
PROC: 30233N1 Transfusion of Nonautologous Red Blood Cells into Peripheral Vein, Percutaneous Approach (ICD-10-PCS; 2019-10-15)
DX: I12.0 Hypertensive chronic kidney disease with stage 5 chronic kidney disease or end stage renal disease (principal); K56.7 Ileus, unspecified; N17.9 Acute kidney failure, unspecified; F03.91 Unspecified dementia, unspecified severity, with behavioral disturbance; E87.1 Hypo-osmolality and hyponatremia; N18.5 Chronic kidney disease, stage 5; D63.1 Anemia in chronic kidney disease; E11.22 Type 2 diabetes mellitus with diabetic chronic kidney disease; Z51.5 Encounter for palliative care; K66.0 Peritoneal adhesions (postprocedural) (postinfection); K21.9 Gastro-esophageal reflux disease without esophagitis; R63.0 Anorexia; F32.9 Major depressive disorder, single episode, unspecified; R10.32 Left lower quadrant pain; E11.65 Type 2 diabetes mellitus with hyperglycemia; K59.09 Other constipation; F55.2 Abuse of laxatives; Z66 Do not resuscitate; Z79.899 Other long term (current) drug therapy; Z90.49 Acquired absence of other specified parts of digestive tract; Z68.28 Body mass index [BMI] 28.0-28.9, adult
CPT/HCPCS: 36415; 36430; 74018; 74176; 80053; 80069; 81001; 82962; 83036; 83690; 83735; 85025; 85027; 86850; 86900; 86901; 86920; 87086; 99285; J0610; C9113; J1650; J1815; J2270; J2550; J3490; J7030; J7120; P9016